=== PATIENT | male | born 1960 | race American Indian/Alaskan Native ===

== ENCOUNTER 2017-01-06 11:06 | Inpatient (IN) | payer MEDICAID ==
[2017-01-06] MEDS ORDERED: WATER FOR INJ (PF) 10 ML ONE ×2 (11:29→19:56)
[2017-01-06 11:56] LABS: Basophils % (Auto) 0.6 % (0.0-1.8); Hematocrit 43.8 % (35.5-45.6); Hemoglobin 14.3 gm/dl (11.8-15.2); Mean Corpuscular HGB Conc 33 % (32-34); Mean Corpuscular Hemoglobin 32 pg (28-32); Mean Corpuscular Volume 98 fl (84-94); Platelet Count 165 K/mm3 (140-440); Red Blood Count 4.47 M/mm3 (3.65-5.03); Red Cell Distribution Width 14.8 % (13.2-15.2); White Blood Count 5.5 K/mm3 (4.5-11.0)
--- NOTE | 2017-01-06 11:59 | XRay Report ---
AP CHEST: HISTORY: Shortness of breath Mild emphysematous changes are suspected in the upper lobes. There is no evidence for infiltrate, pleural effusion or pneumothorax. Normal heart and mediastinal structures. Normal bony thorax. IMPRESSION: Mild emphysematous changes. No acute process.
[2017-01-06 12:06] LABS: Creatine Kinase MB 4.7 ng/mL (0.0-4.0)
[2017-01-06 12:08] LABS: Anion Gap 19 mmol/L; BUN/Creatinine Ratio 13.33; Blood Urea Nitrogen 12 mg/dL (9-20); Calcium 9.6 mg/dL (8.4-10.2); Carbon Dioxide 21 mmol/L (22-30); Chloride 103.4 mmol/L (98-107); Creatine Kinase 278 units/L (55-170); Glucose 97 mg/dL (75-100); Potassium 4.4 mmol/L (3.6-5.0); Sodium 139 mmol/L (137-145)
[2017-01-06 12:20] LABS: Cholesterol 213 mg/dL (50-199); HDL Cholesterol 83 mg/dL (40-59); LDL Cholesterol,Direct 104 mg/dL (50-130); Triglycerides 134 mg/dL (2-149)
[2017-01-06 12:22] LABS: INR 1.05 (0.87-1.13)
--- NOTE | 2017-01-06 12:25 | Emergency Department Report ---
ED Shortness of Breath HPI - General Chief Complaint: Dyspnea/Respdistress Stated Complaint: SUDHAKAR/POSS STEMI Time Seen by Provider: 01/06/17 11:18 Source: patient, EMS, old records reviewed (no previous record available on [facility]) Mode of arrival: Stretcher Limitations: No Limitations - History of Present Illness Initial Comments: 56-year-old male past medical history COPD, AIDS, CHF, depression, and hypertension presents to the hospital complaints of shortness of breath 3-4 days. Positive intermittent wheezing reported. Patient using home and I she will with some improvement. Today while attempted to climb the stairs at his home he became severely short of breath, diaphoretic, and with associated wheezing. Patient used a nebulized treatment without improvement. Upon EMS arrival patient was satting 92 on room air with diminished breath sounds. He received Albuterol 5 mg, aspirin, nitroglycerin with some improvement in his symptoms. Patient denies shortness of breath at this time. No complaints of fever, cough, chest pain, edema, or calf tenderness. Patient does complain of a headache after receiving nitroglycerin. 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 at [facility] [place] Medications Medication Instructions Recorded Confirmed Last Taken Aspirin EC [Aspirin Enteric Coated 81 mg PO QDAC 01/07/17 01/07/17 01/05/17 TAB] AtorvaSTATin [Lipitor] 40 mg PO QHS 01/07/17 01/07/17 01/05/17 Atripla Tablet 600 mg PO DAILY 01/07/17 01/08/17 01/05/17 Escitalopram Oxalate [Lexapro] 20 mg PO DAILY 01/07/17 01/07/17 01/05/17 ISOSORBIDE MONOnitrate [Imdur ER] 30 mg PO DAILY 01/07/17 01/07/17 01/05/17 Metoprolol Xl [Metoprolol 50 mg PO DAILY 01/07/17 01/07/17 01/05/17 SUCCINATE ER TAB] Proventil 0.083% NEBS 0.083 container INHALATION Q6HR PRN 01/07/17 01/08/1702/14 Symbicort 160-4.5 (Nf) 160 device INHALATION BID 01/07/17 01/08/17 01/05/17 Zantac 150 MG TAB 150 mg PO BID 01/07/17 01/07/17 01/05/17 Allergies Allergy/AdvReac Type Severity Reaction Status Date / Time No Known Allergies Allergy Verified 01/06/17 12:26 ED Review of Systems ROS: Stated complaint: SUDHAKAR/POSS STEMI Other details as noted in HPI Comment: All other systems reviewed and negative Other: Constitutional: No fevers chills Eyes: No eye pain visual changes ENT: No ear pain or throat pain Neck: Denies pain Respiratory: as per hpi Cardiovascular: Denies chest pain GI: Denies abdominal pain, nausea, vomiting, diarrhea : Denies dysuria Musculoskeletal: Denies back pain Skin: Denies rash, lesions, erythema Neurologic: Denies numbness, weakness Psychiatric: Denies suicidal ideation, hallucinations ED Past Medical Hx - Past Medical History Previous Medical History?: Yes Hx Hypertension: Yes Hx Congestive Heart Failure: Yes Hx Psychiatric Treatment: (Depression) Hx COPD: Yes Hx HIV: Yes (AIDS) - Social History Smoking Status: Former Smoker Substance Use Type: Alcohol - Medications Home Medications: Home Medications Medication Instructions Recorded Confirmed Last Taken Type Aspirin EC [Aspirin Enteric Coated 81 mg PO QDAC 01/07/17 01/07/17 01/05/17 History TAB] AtorvaSTATin [Lipitor] 40 mg PO QHS 01/07/17 01/07/17 01/05/17 History Atripla Tablet 600 mg PO DAILY 01/07/17 01/08/17 01/05/17 History Escitalopram Oxalate [Lexapro] 20 mg PO DAILY 01/07/17 01/07/17 01/05/17 History ISOSORBIDE MONOnitrate [Imdur ER] 30 mg PO DAILY 01/07/17 01/07/17 01/05/17 History Metoprolol Xl [Metoprolol 50 mg PO DAILY 01/07/17 01/07/17 01/05/17 History SUCCINATE ER TAB] Proventil 0.083% NEBS 0.083 container INHALATION Q6HR PRN 01/07/17 01/08/1702/14 History Symbicort 160-4.5 (Nf) 160 device INHALATION BID 01/07/17 01/08/17 01/05/17 History Zantac 150 MG TAB 150 mg PO BID 01/07/17 01/07/17 01/05/17 History ED Physical Exam - General Limitations: No Limitations - Other Other exam information: General: No limitations, patient is alert in no acute distress Head exam: Atraumatic, normocephalic Eyes exam: Normal appearance ENT: Moist mucous membrane, normal oropharynx Neck exam: Normal inspection, full range of motion, no meningismus nontender Respiratory exam: Clear to auscultation bilateral, no wheezes, rales, crackles Cardiovascular: Normal rate and rhythm, normal heart sounds Abdomen: Soft, nondistended, and nontender, with normal bowel sounds, no rebound, or guarding Extremity: Full range of motion normal inspection no deformity, no calf tenderness or edema Back: Normal Inspection, full range of motion, no tenderness Neurologic: Alert, oriented x3, cranial nerves intact, no motor or sensory deficit Psychiatric: normal affect, normal mood Skin: Warm, dry, intact ED Course Vital Signs 01/06/17 01/06/17 01/06/17 11:02 11:13 11:20 Temperature 97.8 F Pulse Rate 92 H 90 90 Pulse Rate [ From Monitor] Respiratory 18 15 Rate Blood Pressure 118/87 O2 Sat by Pulse 93 Oximetry 01/06/17 01/06/17 01/06/17 11:21 11:31 12:00 Temperature Pulse Rate 77 76 Pulse Rate [ From Monitor] Respiratory 16 13 15 Rate Blood Pressure 118/87 100/65 O2 Sat by Pulse 95 90 Oximetry 01/06/17 01/06/17 01/06/17 12:31 13:00 13:31 Temperature Pulse Rate 65 69 71 Pulse Rate [ From Monitor] Respiratory 14 20 12 Rate Blood Pressure 100/65 99/67 99/67 O2 Sat by Pulse 96 96 96 Oximetry 01/06/17 01/06/17 01/06/17 14:13 14:30 15:00 Temperature Pulse Rate 79 76 75 Pulse Rate [ From Monitor] Respiratory 17 11 L 13 Rate Blood Pressure 109/71 128/78 O2 Sat by Pulse 97 96 95 Oximetry 01/06/17 01/06/17 01/06/17 15:30 15:49 16:00 Temperature Pulse Rate 81 81 Pulse Rate [ From Monitor] Respiratory 17 20 10 L Rate Blood Pressure 132/81 128/86 O2 Sat by Pulse 94 99 Oximetry 01/06/17 01/06/17 01/06/17 16:30 17:00 17:30 Temperature Pulse Rate 82 79 74 Pulse Rate [ From Monitor] Respiratory 16 13 15 Rate Blood Pressure 123/76 126/83 134/87 O2 Sat by Pulse 94 95 96 Oximetry 01/06/17 01/06/17 01/06/17 18:00 18:30 19:01 Temperature Pulse Rate 81 83 83 Pulse Rate [ From Monitor] Respiratory 16 17 19 Rate Blood Pressure 115/82 134/92 O2 Sat by Pulse 98 99 97 Oximetry 01/06/17 01/06/17 01/06/17 19:03 21:58 22:00 Temperature 98.9 F Pulse Rate 89 86 79 Pulse Rate [ 78 From Monitor] Respiratory 20 13 Rate Blood Pressure 92/31 O2 Sat by Pulse 96 98 Oximetry 01/06/17 01/06/17 22:15 22:30 Temperature Pulse Rate 76 Pulse Rate [ From Monitor] Respiratory 12 Rate Blood Pressure 131/95 O2 Sat by Pulse 97 97 Oximetry - Reevaluation(s) Reevaluation #1: 01/06/17 12:55 Dyspnea has improved. Patient received Solu-Medrol IV the ED. No further nebs provided at this time. Patient complains of mild stomach upset - Consultations Consultation #1: 01/06/17 10:42 Initial EKG provided by EMS suggested acute CT in the lateral leads however, the baseline is wavy. This was faxed to Dr. Renee door clamp operator at this time. No ST elevation CT identified. ED Medical Decision Making - Lab Data Result diagrams: 01/08/17 04:43 01/08/17 04:43 Lab Results 01/06/17 01/06/17 01/06/17 Range/Units 11:26 11:26 11:26 WBC 5.5 (4.5-11.0) K/mm3 RBC 4.47 (3.65-5.03) M/mm3 Hgb 14.3 (11.8-15.2) gm/dl Hct 43.8 (35.5-45.6) % MCV 98 H (84-94) fl MCH 32 (28-32) pg MCHC 33 (32-34) % RDW 14.8 (13.2-15.2) % Plt Count 165 (140-440) K/mm3 Lymph % (Auto) 23.1 (13.4-35.0) % [place] % (Auto) 9.6 H (0.0-7.3) % Eos % (Auto) 1.0 (0.0-4.3) % Baso % (Auto) 0.6 (0.0-1.8) % Lymph # 1.3 (1.2-5.4) K/mm3 [place] # 0.5 (0.0-0.8) K/mm3 Eos # 0.1 (0.0-0.4) K/mm3 Baso # 0.0 (0.0-0.1) K/mm3 Seg Neutrophils % 65.7 (40.0-70.0) % Seg Neutrophils # 3.6 (1.8-7.7) K/mm3 PT 13.6 (12.2-14.9) Sec. INR 1.05 (0.87-1.13) D-Dimer (0-234) ng/mlDDU Sodium 139 (137-145) mmol/L Potassium 4.4 (3.6-5.0) mmol/L Chloride 103.4 (98-107) mmol/L Carbon Dioxide 21 L (22-30) mmol/L Anion Gap 19 mmol/L BUN 12 (9-20) mg/dL Creatinine 0.9 (0.8-1.5) mg/dL Estimated GFR > 60 ml/min BUN/Creatinine Ratio 13.33 % Glucose 97 (75-100) mg/dL Calcium 9.6 (8.4-10.2) mg/dL Total Creatine Kinase 278 H (55-170) units/L CK-MB (CK-2) 4.7 H (0.0-4.0) ng/mL CK-MB (CK-2) Rel Index 1.6 (0-4) Troponin T 0.071 H (0.00-0.029) ng/mL NT-Pro-B Natriuret Pep (0-900) pg/mL Triglycerides 134 (2-149) mg/dL Cholesterol 213 H (50-199) mg/dL LDL Cholesterol Direct 104 (50-130) mg/dL HDL Cholesterol 83 H (40-59) mg/dL Cholesterol/HDL Ratio 2.56 % 01/06/17 01/06/17 01/06/17 Range/Units 11:26 12:26 13:09 WBC (4.5-11.0) K/mm3 RBC (3.65-5.03) M/mm3 Hgb (11.8-15.2) gm/dl Hct (35.5-45.6) % MCV (84-94) fl MCH (28-32) pg MCHC (32-34) % RDW (13.2-15.2) % Plt Count (140-440) K/mm3 Lymph % (Auto) (13.4-35.0) % [place] % (Auto) (0.0-7.3) % Eos % (Auto) (0.0-4.3) % Baso % (Auto) (0.0-1.8) % Lymph # (1.2-5.4) K/mm3 [place] # (0.0-0.8) K/mm3 Eos # (0.0-0.4) K/mm3 Baso # (0.0-0.1) K/mm3 Seg Neutrophils % (40.0-70.0) % Seg Neutrophils # (1.8-7.7) K/mm3 PT (12.2-14.9) Sec. INR (0.87-1.13) D-Dimer 458.8 H (0-234) ng/mlDDU Sodium (137-145) mmol/L Potassium (3.6-5.0) mmol/L Chloride (98-107) mmol/L Carbon Dioxide (22-30) mmol/L Anion Gap mmol/L BUN (9-20) mg/dL Creatinine (0.8-1.5) mg/dL Estimated GFR ml/min BUN/Creatinine Ratio % Glucose (75-100) mg/dL Calcium (8.4-10.2) mg/dL Total Creatine Kinase 282 H (55-170) units/L CK-MB (CK-2) 5.3 H (0.0-4.0) ng/mL CK-MB (CK-2) Rel Index 1.8 (0-4) Troponin T 0.145 H* D (0.00-0.029) ng/mL NT-Pro-B Natriuret Pep 68.58 (0-900) pg/mL Triglycerides (2-149) mg/dL Cholesterol (50-199) mg/dL LDL Cholesterol Direct (50-130) mg/dL HDL Cholesterol (40-59) mg/dL Cholesterol/HDL Ratio % - EKG Data -: EKG Interpreted by Me (sinus rate [address] elevation or T-wave inversion) - Radiology Data Radiology results: report reviewed (chest x-ray: Mild emphysematous changes, no acute findings) - Medical Decision Making Initial EMS EKG identified as possible CT. This was evaluated by door clamp operator prior to patient's arrival and no CT identified. Repeat EKG upon patient arrival showed normal sinus without any signs of ST elevation or T-wave inversions. Patient does have mild troponin elevation. No complaints of chest pain and no signs of renal insufficiency. Patient will be admitted to the hospital for repeat cardiac enzymes and further evaluation. D-dimer has been ordered to rule out PE as cause of dyspnea and mild troponin elevation. CT angiogram order for mild d-dimer elevation. repeat troponins pending ct angio + for multiple PE and a saddle. mild incr in trop, Lovenox ordered. Hospitalist informed - Differential Diagnosis CT, unstable angina, PE, COPD, bronchitis Critical Care Time: No Critical care attestation.: If time is entered above; I have spent that time in minutes in the direct care of this critically ill patient, excluding procedure time. ED Disposition Clinical Impression: Dyspnea, Elevated troponin, COPD with exacerbation, Pulmonary emboli, Saddle pulmonary embolus Disposition: OP ADMIT IP TO THIS HOSP Is pt being admited?: Yes Condition: Stable Time of Disposition: 12:25 (Dr martin/hosp)
--- NOTE | 2017-01-06 12:45 | Admit Criteria Form ---
Admission Criteria Documentation: PULMONARY EMBOLISM Clinical Indications for Admission to Inpatient Care (Place 'X' for any and all applicable criteria): Admission is indicated by ANY ONE of the following 1,2,3,4,5 [ ]I. Onset of hypoxia [ ]II. Hemodynamic instability 5 [ ]III. Massive pulmonary embolism (eg, acute embolism causing sustained hypotension, pulselessness, or bradycardia)5 [ ]IV. Need for IV narcotics (eg, to treat dyspnea) [ ]V. Current use of home oxygen therapy [ ]. Active bleeding [ ]VII. Recent surgery [ ]VIII. Active peptic ulcer disease [ ]IX. Documented extensive thrombosis (eg, clot in vena cava or above iliofemoral bifurcation) [ ]X. Embolism while on anticoagulation [ ]XI. 6 [ ]XII. Appropriate monitoring and therapy cannot be provided in home or outpatient setting. [ ]XIII. Systemic or catheter-directed thrombolysis 5,7 [ ]XIV. Catheter embolectomy and fragmentation 6 [ ]XV. Vena cava filter placement5 [ ]XVI. Severely diminished cardiopulmonary reserve (eg, cor pulmonale, pulmonary hypertension) [ ]XVII. Severe renal failure (eg, GFR less than 30 mL/min/1.73m2 (0.5 mL/sec/ 1.73m2)) [ ]XVIII.Right ventricular dysfunction (eg, by echocardiogram) 6,11 [X ]XIX. Positive cardiac biomarker (eg, troponin T or I > 0.1 ng/mL (mcg/L), highly sensitive troponin I assay greater than 0.014 ng/mL (mcg/L), BNP or NT proBNP > assay threshold)5,8,9 [ ]XX. Known clotting abn or def (eg, liver disease, antithrombin III, protein C, or protein S abnormality) [ ]XXI. History of heparin-induced thrombocytopenia [ ]XXII. Inpatient admission required rather than observation care (Also use Pulmonary Embolism: Observation Care guideline as appropriate) because of ANY ONE of the following: [ ] a) Significant autoimmune (thrombocytopenia) or coagulopathic reaction occurs in response to anticoagulation [ ] b) Respiratory symptoms (eg, tachypnea, dyspnea) that are severe or persistent [ ] c) Other condition, treatment, or monitoring requiring inpatient admission Extended stay beyond goal length of stay may be needed for 3,28 [ ]a) Hemorrhage or recent surgery [ ]b) Recurrent thromboembolism [ ]c) Persistent hypoxemia [ ]d) Heparin-induced thrombocytopenia The original [facility] [employer] content created by [facility] [employer] has been revised. The portions of the content which have been revised are identified through the use of italic text or in bold, and [facility] has neither reviewed nor approved the modified material. All other unmodified content is copyright [facility] [employer]. Please see references footnoted in the original [facility] [employer] edition 2016 Admission Criteria Met: Yes
--- NOTE | 2017-01-06 13:05 | History and Physical Report ---
History of Present Illness Chief complaint: I cant breathe worth anything History of present illness: 56 YO Male with AIDS, CHF, Depression, COPD, HTN presents to ED for evaluation. Pt states that he has experienced shortness of breath for the past 4 days with worsening symptoms over the past 12 hours. Pt states that he attempted to climb the stairs at his home he became severely short of breath, diaphoretic, and used a nebulizer treatment without improvement. Pt acknowledges chest discomfort with deep breathing only. Pt denies fever, productive cough, chest pain, palpitations, NVD, edema, leg pain, calf tenderness, prolonged travel/ immobililty, individual/family history of DVT/PE, hemoptysis, syncope, trauma, or recent ill contacts. Past History Past Medical History: COPD, heart failure, hypertension, other (Aids) Past Surgical History: No surgical history, Other (reviewed) Social history: single, lives with family. denies: smoking, alcohol abuse, prescription drug abuse Family history: diabetes, hypertension Medications and Allergies Allergies Allergy/AdvReac Type Severity Reaction Status Date / Time No Known Allergies Allergy Verified 01/06/17 12:26 Home Medications Medication Instructions Recorded Confirmed Last Taken Type Unobtainable 01/06/17 01/06/17 Unknown History Review of Systems All systems: negative Cardiovascular: shortness of breath Exam - Constitutional Vitals: Temp Pulse Resp BP Pulse Ox 97.8 F 65 14 100/65 96 01/06/17 11:13 01/06/17 12:31 01/06/17 12:31 01/06/17 12:31 01/06/17 12:31 General appearance: Present: mild distress - EENT Eyes: Present: PERRL ENT: hearing intact, clear oral mucosa - Neck Neck: Present: supple, normal ROM - Respiratory Respiratory effort: normal Respiratory: bilateral: diminished - Cardiovascular Heart Sounds: Present: S1 & S2. Absent: rub, click - Extremities Extremities: pulses symmetrical, No edema Peripheral Pulses: within normal limits - Abdominal General gastrointestinal: Present: soft, non-tender, non-distended, normal bowel sounds Male genitourinary: Present: normal - Integumentary Integumentary: Present: clear, warm, dry - Musculoskeletal Musculoskeletal: gait normal, strength equal bilaterally - Psychiatric Psychiatric: appropriate mood/affect, intact judgment & insight - Neurologic Neurologic: CNII-XII intact, moves all extremities Results - Labs CBC & Chem 7: 01/06/17 11:26 01/06/17 11:26 Labs: Abnormal lab results 01/06/17 01/06/17 Range/Units 11:26 11:26 MCV 98 H (84-94) fl [place] % (Auto) 9.6 H (0.0-7.3) % Carbon Dioxide 21 L (22-30) mmol/L Total Creatine Kinase 278 H (55-170) units/L CK-MB (CK-2) 4.7 H (0.0-4.0) ng/mL Troponin T 0.071 H (0.00-0.029) ng/mL Cholesterol 213 H (50-199) mg/dL HDL Cholesterol 83 H (40-59) mg/dL Assessment and Plan - Patient Problems (1) Acute respiratory failure Current Visit: Yes Status: Acute Qualifiers: Respiratory failure complication: hypoxia Qualified Code(s): J96.01 - Acute respiratory failure with hypoxia Plan to address problem: Supplemental oxygen, nebs, aspiration precautions, pulmonary toilet, supportive care, (2) CHF (congestive heart failure) Current Visit: Yes Status: Acute Qualifiers: Congestive heart failure type: C Congestive heart failure chronicity: C Plan to address problem: Admit to Telemetry, fluid restriction, afterload reduction, serial cardiac enzymes, ekg, supportive care, echo, ddimer (3) STEMI (ST elevation myocardial infarction) Current Visit: Yes Status: Acute Qualifiers: Involved coronary artery: I Plan to address problem: serial cardiac enzymes,ekg, telemetry, heparin drip protocol (4) AIDS Current Visit: Yes Status: Acute Plan to address problem: resume home medication, supportive care. (5) Saddle pulmonary embolus Current Visit: Yes Status: Acute Qualifiers: Chronicity: C Acute cor pulmonale presence: A Plan to address problem: IR consulted for possible Ekos therapy, stat echo ordered, continue therapeutic anticoagulation. Care plan discussed with IR team. (6) DVT prophylaxis Current Visit: Yes Status: Acute
[2017-01-06] MEDS ORDERED: ZOFRAN IV PRN (13:08)
[2017-01-06] MEDS ORDERED: DULCOLAX PR PRN (13:08)
[2017-01-06] MEDS ORDERED: TYLENOL PO PRN (13:08)
[2017-01-06] MEDS ORDERED: SODIUM CHLORIDE FLUSH SYRINGE 10 ML IV PRN (13:08)
[2017-01-06] MEDS ORDERED: MILK OF MAGNESIA PO PRN (13:08)
[2017-01-06] MEDS ORDERED: NACL ONE (13:44)
[2017-01-06 13:57] LABS: Creatine Kinase MB 5.3 ng/mL (0.0-4.0)
[2017-01-06] MEDS ORDERED: LOVENOX SUB-Q ONE ×2 (14:14→15:00)
--- NOTE | 2017-01-06 14:21 | Cat Scan Report ---
CTA CHEST INDICATION: Shortness of breath, elevated d-dimer. COMPARISON: None similar. FINDINGS: Chest CTA performed following intravenous administration of 100 cc of Omnipaque 350. Rotational MIP's also obtained. Normal heart size. Small anterior pericardial thickening or effusion measuring 1.9 cm AP, axial image 198, series 2. No aortic aneurysm or dissection. Slight pulmonary arterial hypertension. Saddle embolus across main pulmonary artery bifurcation noted as also clot extension into the upper, mid and lower lung zone pulmonary artery branches bilaterally, most involving left upper lobe pulmonary artery branches anteriorly, axial series 2, images 105-150. Patent airway. No size significant adenopathy. Small left hilar calcifications. Normal imaged thyroid. Mild bilateral emphysematous changes, more so involving the upper lobes and lower lung zones. Small bilateral pleural effusions, right greater than left and mild bibasilar atelectasis or scarring. Nonspecific distal esophageal wall prominence/thickening, not excluded for gastroesophageal reflux and/or hiatal hernia, amongst others. Small splenic calcified granuloma without other significant imaged upper abdominal abnormality. Few multilevel imaged spinal degenerative changes. CONCLUSION: 1. Bilateral pulmonary embolism, including a saddle embolus noted across the main pulmonary artery bifurcation, as described. Mild pulmonary arterial hypertension. 2. Small bibasilar pleural effusions and atelectasis as well. 3. Few other findings, including old healed granulomatous disease and underlying COPD, as described. I phoned the above results to Dr. Millard in the ER, 2:05 PM, 01/06/2017. Thank you for the opportunity to participate in this patient's care.
[2017-01-06] MEDS: PERCOCET 5/325 PO PRN ×2 (15:49→22:15)
[2017-01-06] MEDS ORDERED: HEPARIN 10,000 UNITS/10 ML IV ONE (16:00)
[2017-01-06 16:07] LABS: Creatine Kinase MB 5.7 ng/mL (0.0-4.0)
[2017-01-06] MEDS: HEPARIN/ 0.45% NACL-25,000 UNIT/500 ML 25,000 UNIT/500 ML BAG IV SCH (17:29)
--- NOTE | 2017-01-06 18:40 | Consultation ---
History of Present Illness - Reason for Consult Consult date: 01/06/17 - History of Present Illness This is a 56-year-old male who began to experience acute shortness of breath and diaphoresis this morning after climbing up a set of stairs. He was taken by ambulance to the ER, where a CTA was performed which shows a saddle pulmonary embolism. Currently, he is resting comfortably, in no acute distress. His heart rate is within normal limits, and he is satting well with supplemental O2. He is not complaining of chest pain at this time. Past History Past Medical History: COPD, heart failure, hypertension, other (Aids) Past Surgical History: No surgical history, Other (reviewed) Social history: single, lives with family. denies: smoking, alcohol abuse, prescription drug abuse Family history: diabetes, hypertension Medications and Allergies Allergies Allergy/AdvReac Type Severity Reaction Status Date / Time No Known Allergies Allergy Verified 01/06/17 12:26 Home Medications Medication Instructions Recorded Confirmed Last Taken Type Unobtainable 01/06/17 01/06/17 Unknown History Active Meds: Active Medications Acetaminophen (Tylenol) 650 mg PO Q4H PRN PRN Reason: Pain MILD(1-3)/Fever >100.5/EDEN Bisacodyl (Dulcolax) 10 mg ND QDAY PRN PRN Reason: Constipation unrelieved by MOM Heparin Sodium/Sodium Chloride (Heparin/ 0.45% Nacl-25,000 Unit/500 Ml) 25,000 unit in 500 mls @ 24 mls/hr IV TITR ROSEMARIE; 1,200 UNITS/HR PRN Reason: Protocol Last Admin: 01/06/17 17:29 Dose: 1,200 units/hr, 24 mls/hr Magnesium Hydroxide (Milk Of Magnesia) 30 ml PO Q4H PRN PRN Reason: Constipation Ondansetron HCl (Zofran) 4 mg IV Q8H PRN PRN Reason: N/V unrelieved by Reglan Oxycodone/Acetaminophen (Percocet 5/325) 1 tab PO Q6H PRN PRN Reason: Pain, Moderate (4-6) Last Admin: 01/06/17 15:49 Dose: 1 tab Sodium Chloride (Sodium Chloride Flush Syringe 10 Ml) 10 ml IV PRN PRN PRN Reason: LINE FLUSH Exam - Constitutional Vitals: Temp Pulse Resp BP Pulse Ox 97.8 F 74 15 134/87 96 01/06/17 11:13 01/06/17 17:30 01/06/17 17:30 01/06/17 17:30 01/06/17 17:30 Results - Labs CBC & Chem 7: 01/06/17 11:26 01/06/17 11:26 Labs: Abnormal lab results 01/06/17 01/06/17 Range/Units 13:09 15:33 Total Creatine Kinase 282 H 286 H (55-170) units/L CK-MB (CK-2) 5.3 H 5.7 H (0.0-4.0) ng/mL Troponin T 0.145 H* D 0.118 H* (0.00-0.029) ng/mL Assessment and Plan Mr. Howard has a large saddle pulmonary embolism. Although he is normotensive and not tachycardic, echocardiography has revealed evidence of significant right heart strain. Additionally, troponins are slightly elevated, with the last level being 0.118. Therefore, I will take him to the label cutter for EKOS catheter placement.
[2017-01-06] MEDS ORDERED: XYLOCAINE 2% INFILTRATI ONE (19:38)
[2017-01-06] MEDS ORDERED: HEPARIN/NS 5000 UNIT/500ML(CATH LAB) 1,000 ML IR ONE (19:38)
[2017-01-06] MEDS ORDERED: CATHFLO ONE ×2 (19:38→20:35)
[2017-01-06] MEDS: SUBLIMAZE ONE ×2 (19:55→20:26)
[2017-01-06] MEDS ORDERED: NACL 0.9% 1000 ML 1,000 ML EKOSCLUMEN SCH ×2 (20:00→21:00)
[2017-01-06] MEDS ORDERED: NACL 0.9% 1000 ML 1,000 ML SHEATH SCH ×2 (20:00)
[2017-01-06] MEDS ORDERED: ANCEF/STERILE WATER 2 GM/20 ML 2 GM/20 ML SYRINGE IV ONE (20:09)
[2017-01-06] MEDS ORDERED: CATHFLO 10 MG in NACL 0.9% 250ML 250 ML EKOSDLUMEN SCH (20:30)
[2017-01-06] MEDS ORDERED: HEPARIN/ 0.45% NACL-25,000 UNIT/500 ML 25,000 UNIT/500 ML BAG SHEATH SCH ×2 (20:30→21:00)
[2017-01-06] MEDS ORDERED: CATHFLO 10 MG in NACL 0.9% 250ML 250 ML IV SCH (20:30)
[2017-01-06] MEDS: HEPARIN 10,000 UNITS/10 ML ONE (20:31)
--- NOTE | 2017-01-06 21:27 | Operative Report ---
Operative Report Operative Report: Procedure: 1. Ultrasound-guided access of the right common femoral vein. 2. Selective left and right pulmonary angiography. 3. Placement of bilateral EKos ultrasonic infusion catheters. Date of procedure: 01/06/2017 Physician: Luis Moss MD Indication: This is a 56-year-old male who experienced a sudden onset of shortness of breath and diaphoresis this morning. He came to the ER, and a CTA revealed a large saddle pulmonary embolus. Subsequent echocardiography demonstrated significant right heart strain, with septal bowing and right ventricular hypokinesis. Procedure: The patient was placed in the supine position and prepped and draped in the usual sterile fashion. A timeout was performed. Local anesthesia was administered. Under continuous ultrasound guidance, the right common femoral vein was cannulated with an 18-gauge needle. This was exchanged over a short 035 wire for a 6 Romansh vascular sheath. A second vascular sheath was placed in a similar fashion approximately half a centimeter above the first one. A combination of a JR 4 catheter and Moreno wire was advanced into the right ventricle and ultimately used to select the left main pulmonary artery. Left pulmonary arteriography was performed from multiple positions. The JR 4 catheter was then replaced with the EKos IDDC catheter. The microsonic delivery catheter was then inserted and secured. A similar combination of steps was performed through the second vascular sheath for the right pulmonary artery. Both vascular sheaths and IDDC catheters were secured to the skin and to each other with 2-0 Ethilon suture. 4 mg of tPA were infused as a bolus into each catheter. Sterile dressings were applied, and the patient was transferred off the table in stable condition. Findings: Pulmonary arteriography demonstrates multiple, large filling defects in both the right and left pulmonary arteries, extending into the segmental branches. This is consistent with findings on recent CT angiography from earlier today. There is successful placement of bilateral EKos catheters in the pulmonary arteries
[2017-01-06] MEDS: MORPHINE IV PRN (23:12)
[2017-01-07] MEDS: MORPHINE IV PRN
[2017-01-07] MEDS ORDERED: MORPHINE IV PRN (01:10)
[2017-01-07] MEDS: PERCOCET 5/325 PO PRN (02:45)
[2017-01-07] MEDS ORDERED: XANAX PO PRN (03:44)
[2017-01-07] MEDS: DILAUDID IV PRN ×3 (03:53→18:27)
[2017-01-07] MEDS ORDERED: HEPARIN/NS 5000 UNIT/500ML(CATH LAB) 0 ML IR ONE (08:09)
[2017-01-07] MEDS ORDERED: HEPARIN 10,000 UNITS/10 ML ONE ×3 (08:09→14:37)
[2017-01-07] MEDS ORDERED: VERSED ONE ×2 (08:10→13:43)
[2017-01-07] MEDS ORDERED: CALAN ONE (08:10)
[2017-01-07] MEDS ORDERED: SUBLIMAZE ONE ×2 (08:10→13:43)
[2017-01-07] MEDS ORDERED: XYLOCAINE 2% INFILTRATI ONE (08:10)
[2017-01-07] MEDS ORDERED: NITROGLYCERIN SYRINGE 0 ML ONE (08:11)
--- NOTE | 2017-01-07 09:30 | Progress Note ---
Assessment and Plan Assessment and plan: Acute bilateral pulmonary embolism and saddle embolism. Status post EKOS catheter placement and is on thrombolysis with Alteplase. Also on Heparin drip. Pulmonology and IR following. COPD. albuterol prn AIDS. Details unclear. Not on meds Chronic systolic CHF. Betablocker on hold because borderline low BP Elevated Troponin likely due to Pulmonary embolism Full code status History Interval history: Patient presented with chest pain, was diagnosed with acute bilateral pulmonary embolism and saddle embolism. No chest pain currently Hospitalist Physical - Physical exam Narrative exam: Gen: appearance :Not in acute distress, HEENT: normocephalic atraumatic Neck :supple no JVD Lungs: Decreased breath sounds bilaterally, no crackles, or wheezes Heart:S1 and S2 regular, no murmurs, no gallop, no rubs Abdomen soft, nontender, nondistended, normal bowel sounds Extremities: no edema, no clubbing, or cyanosis Neuro : Awake alert oriented 3, no focal neurologic signs Psych: calm - Constitutional Vitals: Temp Pulse Resp BP Pulse Ox 98.4 F 60 16 129/84 96 01/07/17 08:00 01/07/17 08:00 01/07/17 09:24 01/07/17 08:00 01/07/17 08:09 General appearance: Present: mild distress Results - Labs CBC & Chem 7: 01/07/17 10:58 01/06/17 11:26 Labs: Laboratory Last Values WBC 5.5 K/mm3 (4.5-11.0) 01/06/17 11:26 RBC 4.47 M/mm3 (3.65-5.03) 01/06/17 11:26 Hgb 14.3 gm/dl (11.8-15.2) 01/06/17 11:26 Hct 43.8 % (35.5-45.6) 01/06/17 11:26 MCV 98 fl (84-94) H 01/06/17 11:26 MCH 32 pg (28-32) 01/06/17 11:26 MCHC 33 % (32-34) 01/06/17 11:26 RDW 14.8 % (13.2-15.2) 01/06/17 11:26 Plt Count 165 K/mm3 (140-440) 01/06/17 11:26 Lymph % (Auto) 23.1 % (13.4-35.0) 01/06/17 11:26 [place] % (Auto) 9.6 % (0.0-7.3) H 01/06/17 11:26 Eos % (Auto) 1.0 % (0.0-4.3) 01/06/17 11:26 Baso % (Auto) 0.6 % (0.0-1.8) 01/06/17 11:26 Lymph # 1.3 K/mm3 (1.2-5.4) 01/06/17 11:26 [place] # 0.5 K/mm3 (0.0-0.8) 01/06/17 11:26 Eos # 0.1 K/mm3 (0.0-0.4) 01/06/17 11:26 Baso # 0.0 K/mm3 (0.0-0.1) 01/06/17 11:26 Seg Neutrophils % 65.7 % (40.0-70.0) 01/06/17 11:26 Seg Neutrophils # 3.6 K/mm3 (1.8-7.7) 01/06/17 11:26 PT 13.6 Sec. (12.2-14.9) 01/06/17 11:26 INR 1.05 (0.87-1.13) 01/06/17 11:26 Fibrinogen 274 mg/dl (211-480) 01/06/17 20:20 D-Dimer 7307.46 ng/mlDDU (0-234) H 01/06/17 20:20 Heparin Anti-Xa Level 2.00 U.I./ml (0.3-0.7) H 01/06/17 22:43 Sodium 139 mmol/L (137-145) 01/06/17 11:26 Potassium 4.4 mmol/L (3.6-5.0) 01/06/17 11:26 Chloride 103.4 mmol/L (98-107) 01/06/17 11:26 Carbon Dioxide 21 mmol/L (22-30) L 01/06/17 11:26 Anion Gap 19 mmol/L 01/06/17 11:26 BUN 12 mg/dL (9-20) 01/06/17 11:26 Creatinine 0.9 mg/dL (0.8-1.5) 01/06/17 11:26 Estimated GFR > 60 ml/min 01/06/17 11:26 BUN/Creatinine Ratio 13.33 % 01/06/17 11:26 Glucose 97 mg/dL (75-100) 01/06/17 11:26 Calcium 9.6 mg/dL (8.4-10.2) 01/06/17 11:26 Total Creatine Kinase 311 units/L (55-170) H 01/06/17 19:11 CK-MB (CK-2) 7.0 ng/mL (0.0-4.0) H 01/06/17 19:11 CK-MB (CK-2) Rel Index 2.2 (0-4) 01/06/17 19:11 Troponin T 0.083 ng/mL (0.00-0.029) H D 01/06/17 19:11 NT-Pro-B Natriuret Pep 68.58 pg/mL (0-900) 01/06/17 11:26 Triglycerides 134 mg/dL (2-149) 01/06/17 11:26 Cholesterol 213 mg/dL (50-199) H 01/06/17 11:26 LDL Cholesterol Direct 104 mg/dL (50-130) 01/06/17 11:26 HDL Cholesterol 83 mg/dL (40-59) H 01/06/17 11:26 Cholesterol/HDL Ratio 2.56 % 01/06/17 11:26
--- NOTE | 2017-01-07 10:58 | Consultation ---
History of Present Illness - Reason for Consult Consult date: 01/07/17 EKOS, POST care in ICU Requesting physician: JULY NAJERA - History of Present Illness 56 y/o male with PE, status post EKOS therapy, admitted to the ICU for post EKOS care. Stable this am. No complaints. Awaiting on catheters to be removed. Past History Past Medical History: COPD, heart failure, hypertension, other (Aids) Past Surgical History: No surgical history, Other (reviewed) Social history: single, lives with family. denies: smoking, alcohol abuse, prescription drug abuse Family history: diabetes, hypertension Medications and Allergies Allergies Allergy/AdvReac Type Severity Reaction Status Date / Time No Known Allergies Allergy Verified 01/06/17 12:26 Home Medications Medication Instructions Recorded Confirmed Last Taken Type Unobtainable 01/06/17 01/06/17 Unknown History Active Meds: Active Medications Acetaminophen (Tylenol) 650 mg PO Q4H PRN PRN Reason: Pain MILD(1-3)/Fever >100.5/EDEN Alprazolam (Xanax) 0.5 mg PO Q8H PRN PRN Reason: Anxiety Last Admin: 01/07/17 03:54 Dose: 0.5 mg Bisacodyl (Dulcolax) 10 mg WI QDAY PRN PRN Reason: Constipation unrelieved by MOM Hydromorphone HCl (Dilaudid) 1 mg IV Q2H PRN PRN Reason: Pain , Severe (7-10) Last Admin: 01/07/17 09:24 Dose: 1 mg Heparin Sodium/Sodium Chloride (Heparin/ 0.45% Nacl-25,000 Unit/500 Ml) 25,000 unit in 500 mls @ 24 mls/hr IV TITR ROSEMARIE; 1,200 UNITS/HR PRN Reason: Protocol Last Admin: 01/06/17 17:29 Dose: 1,200 units/hr, 24 mls/hr Alteplase, Recombinant 10 mg/ (Sodium Chloride) 250 mls @ 10 mls/hr IV DIRECT ROSEMARIE Last Admin: 01/06/17 21:30 Dose: 250 mls Alteplase, Recombinant 10 mg/ (Sodium Chloride) 250 mls @ 10 mls/hr EKOSDLUMEN DIRECT ROSEMARIE Last Admin: 01/06/17 21:30 Dose: 250 mls Heparin Sodium/Sodium Chloride (Heparin/ 0.45% Nacl-25,000 Unit/500 Ml) 25,000 unit in 500 mls @ 10 mls/hr SHEATH DIRECT ROSEMARIE; 500 UNITS/HR PRN Reason: Protocol Last Admin: 01/06/17 21:30 Dose: 500 mls Heparin Sodium/Sodium Chloride (Heparin/ 0.45% Nacl-25,000 Unit/500 Ml) 25,000 unit in 500 mls @ 10 mls/hr SHEATH DIRECT ROSEMARIE; 500 UNITS/HR PRN Reason: Protocol Last Admin: 01/06/17 21:30 Dose: 500 mls Sodium Chloride (Nacl 0.9% 1000 Ml) 1,000 mls @ 35 mls/hr EKOSCLUMEN DIRECT ROSEMARIE Last Admin: 01/06/17 21:30 Dose: 1,000 mls Sodium Chloride (Nacl 0.9% 1000 Ml) 1,000 mls @ 30 mls/hr SHEATH DIRECT ROSEMARIE Sodium Chloride (Nacl 0.9% 1000 Ml) 1,000 mls @ 35 mls/hr EKOSCLUMEN DIRECT ROSEMARIE Last Admin: 01/06/17 21:30 Dose: 1,000 mls Sodium Chloride (Nacl 0.9% 1000 Ml) 1,000 mls @ 30 mls/hr SHEATH DIRECT ROSEMARIE Magnesium Hydroxide (Milk Of Magnesia) 30 ml PO Q4H PRN PRN Reason: Constipation Morphine Sulfate (Morphine) 2 mg IV Q2HR PRN PRN Reason: Pain, Moderate (4-6) Last Admin: 01/07/17 01:23 Dose: 2 mg Ondansetron HCl (Zofran) 4 mg IV Q8H PRN PRN Reason: N/V unrelieved by Regalon Last Admin: 01/06/17 23:12 Dose: 4 mg Oxycodone/Acetaminophen (Percocet 5/325) 1 tab PO Q6H PRN PRN Reason: Pain, Moderate (4-6) Last Admin: 01/07/17 02:45 Dose: 1 tab Sodium Chloride (Sodium Chloride Flush Syringe 10 Ml) 10 ml IV PRN PRN PRN Reason: LINE FLUSH Review of Systems All systems: negative Exam - Constitutional Vitals: Temp Pulse Resp BP Pulse Ox 98.4 F 67 12 121/88 92 01/07/17 08:00 01/07/17 10:30 01/07/17 10:30 01/07/17 10:30 01/07/17 10:30 Results - Labs CBC & Chem 7: 01/06/17 11:26 01/06/17 11:26 Labs: Abnormal lab results 01/06/17 01/06/17 01/06/17 Range/Units 13:09 15:33 19:11 D-Dimer (0-234) ng/mlDDU Heparin Anti-Xa Level (0.3-0.7) U.I./ml Total Creatine Kinase 282 H 286 H 311 H (55-170) units/L CK-MB (CK-2) 5.3 H 5.7 H 7.0 H (0.0-4.0) ng/mL Troponin T 0.145 H* D 0.118 H* 0.083 H D (0.00-0.029) ng/mL 01/06/17 01/06/17 Range/Units 20:20 22:43 D-Dimer 7307.46 H (0-234) ng/mlDDU Heparin Anti-Xa Level 2.00 H (0.3-0.7) U.I./ml Total Creatine Kinase (55-170) units/L CK-MB (CK-2) (0.0-4.0) ng/mL Troponin T (0.00-0.029) ng/mL - Imaging and Cardiology CT scan - chest: report reviewed Assessment and Plan 56 y/o male with saddle PE and acute respiratory failure status post EKOS therapy 1. Follow up Vascular surgery recs 2. Send CBC this am as not done 3. Once catheters removed and observed, should be stable for transfer to the floor. 4. Recommend at least PRN neb therapy.
[2017-01-07 11:29] LABS: Hematocrit 43.3 % (35.5-45.6); Hemoglobin 14.4 gm/dl (11.8-15.2); Mean Corpuscular HGB Conc 33 % (32-34); Mean Corpuscular Hemoglobin 32 pg (28-32); Mean Corpuscular Volume 97 fl (84-94); Platelet Count 159 K/mm3 (140-440); Red Blood Count 4.45 M/mm3 (3.65-5.03); Red Cell Distribution Width 14.6 % (13.2-15.2); White Blood Count 6.2 K/mm3 (4.5-11.0)
[2017-01-07] MEDS ORDERED: XYLOCAINE 1%/ EPI 1:100,000 INFILTRATI ONE (13:43)
[2017-01-07] MEDS ORDERED: HEPARIN/NS 5000 UNIT/500ML(CATH LAB) 500 ML IR ONE (13:43)
[2017-01-07] MEDS ORDERED: ANCEF/STERILE WATER 2 GM/20 ML 2 GM/20 ML SYRINGE IV ONE (13:44)
[2017-01-07] MEDS ORDERED: NACL 0.9% 500 ML 500 ML ONE (13:52)
[2017-01-07] MEDS: SUBLIMAZE ONE (14:18)
[2017-01-07] MEDS: HEPARIN 10,000 UNITS/10 ML ONE (14:45)
--- NOTE | 2017-01-07 15:12 | Operative Report ---
Operative Report Operative Report: Procedure: 1. Bilateral pulmonary angiography. 2. Removal of bilateral Ekos catheters. Date of procedure: 01/07/2017 Physician: Luis Moss MD Indication: This is a 56-year-old male presenting to the ER with a saddle pulmonary embolism , with right heart dysfunction. He underwent Ekos catheter placement overnight. He returns today for follow-up imaging. Procedure: The patient was placed in the supine position and prepped and draped in the usual sterile fashion. A timeout was performed. The micro-sonic inner catheter was removed from the IDDC on the left side. This was then exchanged over a Moreno wire for a 5 Micronesian pigtail flush catheter. Left pulmonary angiography was performed. A similar series of steps was performed for the right pulmonary circulation, except a 6 Micronesian JR 4 catheter was used rather than the pigtail flush catheter. All wires and catheters were removed. Hemostasis was achieved with manual compression. Sterile dressings were placed. The patient was transported safely off the table in stable condition. Findings: The majority of the clot burden seen on yesterday's imaging has resolved. There are a few scattered foci within both the right and left pulmonary arterial circulation representing residual clot, however the appearance is markedly reduced compared to yesterday. There is otherwise good opacification of the visualized pulmonary arterial tree. There was successful Ekos catheter removal from both the left and right pulmonary arteries.
[2017-01-08] MEDS: PERCOCET 5/325 PO PRN ×2 (00:43→08:04)
[2017-01-08 05:00] LABS: Hematocrit 41.2 % (35.5-45.6); Hemoglobin 13.6 gm/dl (11.8-15.2); Mean Corpuscular HGB Conc 33 % (32-34); Mean Corpuscular Hemoglobin 32 pg (28-32); Mean Corpuscular Volume 96 fl (84-94); Platelet Count 143 K/mm3 (140-440); Red Cell Distribution Width 14.5 % (13.2-15.2); White Blood Count 4.9 K/mm3 (4.5-11.0)
[2017-01-08 05:16] LABS: Anion Gap 18 mmol/L; Blood Urea Nitrogen 14 mg/dL (9-20); Calcium 8.6 mg/dL (8.4-10.2); Carbon Dioxide 24 mmol/L (22-30); Chloride 102.1 mmol/L (98-107); Glucose 95 mg/dL (75-100); Potassium 4.2 mmol/L (3.6-5.0); Sodium 140 mmol/L (137-145)
--- NOTE | 2017-01-08 08:49 | Progress Note ---
Assessment and Plan Assessment and plan: Acute bilateral pulmonary embolism and saddle embolism. Status post EKOS catheter placement ,Alteplase infusion, completed. continue Heparin drip. Pulmonology and IR following. COPD. albuterol prn AIDS. Resume HAART. His meds not on formulary. he has been advised to use meds from home Chronic systolic CHF. Betablocker on hold because of bradycardia. Elevated Troponin likely due to Pulmonary embolism Full code status he is doing better, stable to transfer to Telemetry. History Interval history: Patient presented with chest pain, was diagnosed with acute bilateral pulmonary embolism and saddle embolism. No chest pain currently Hospitalist Physical - Physical exam Narrative exam: Gen: appearance :Not in acute distress, HEENT: normocephalic atraumatic Neck :supple no JVD Lungs: Decreased breath sounds bilaterally, no crackles, or wheezes Heart:S1 and S2 regular, no murmurs, no gallop, no rubs Abdomen soft, nontender, nondistended, normal bowel sounds Extremities: no edema, no clubbing, or cyanosis Neuro : Awake alert oriented 3, no focal neurological signs Psych: calm - Constitutional Vitals: Temp Pulse Resp BP Pulse Ox 98.7 F 78 25 H 157/70 100 01/08/17 08:00 01/08/17 08:31 01/08/17 08:31 01/08/17 08:31 01/08/17 08:31 General appearance: Present: mild distress Results - Labs CBC & Chem 7: 01/08/17 04:43 01/08/17 04:43 Labs: Laboratory Last Values WBC 4.9 K/mm3 (4.5-11.0) 01/08/17 04:43 RBC 4.30 M/mm3 (3.65-5.03) 01/08/17 04:43 Hgb 13.6 gm/dl (11.8-15.2) 01/08/17 04:43 Hct 41.2 % (35.5-45.6) 01/08/17 04:43 MCV 96 fl (84-94) H 01/08/17 04:43 MCH 32 pg (28-32) 01/08/17 04:43 MCHC 33 % (32-34) 01/08/17 04:43 RDW 14.5 % (13.2-15.2) 01/08/17 04:43 Plt Count 143 K/mm3 (140-440) 01/08/17 04:43 Lymph % (Auto) 23.1 % (13.4-35.0) 01/06/17 11:26 [place] % (Auto) 9.6 % (0.0-7.3) H 01/06/17 11:26 Eos % (Auto) 1.0 % (0.0-4.3) 01/06/17 11:26 Baso % (Auto) 0.6 % (0.0-1.8) 01/06/17 11:26 Lymph # 1.3 K/mm3 (1.2-5.4) 01/06/17 11:26 [place] # 0.5 K/mm3 (0.0-0.8) 01/06/17 11:26 Eos # 0.1 K/mm3 (0.0-0.4) 01/06/17 11:26 Baso # 0.0 K/mm3 (0.0-0.1) 01/06/17 11:26 Seg Neutrophils % 65.7 % (40.0-70.0) 01/06/17 11:26 Seg Neutrophils # 3.6 K/mm3 (1.8-7.7) 01/06/17 11:26 PT 13.6 Sec. (12.2-14.9) 01/06/17 11:26 INR 1.05 (0.87-1.13) 01/06/17 11:26 Fibrinogen 274 mg/dl (211-480) 01/06/17 20:20 D-Dimer 7307.46 ng/mlDDU (0-234) H 01/06/17 20:20 Heparin Anti-Xa Level 2.00 U.I./ml (0.3-0.7) H 01/06/17 22:43 Sodium 140 mmol/L (137-145) 01/08/17 04:43 Potassium 4.2 mmol/L (3.6-5.0) 01/08/17 04:43 Chloride 102.1 mmol/L (98-107) 01/08/17 04:43 Carbon Dioxide 24 mmol/L (22-30) 01/08/17 04:43 Anion Gap 18 mmol/L 01/08/17 04:43 BUN 14 mg/dL (9-20) 01/08/17 04:43 Creatinine 1.0 mg/dL (0.8-1.5) 01/08/17 04:43 Estimated GFR > 60 ml/min 01/08/17 04:43 BUN/Creatinine Ratio 14.00 % 01/08/17 04:43 Glucose 95 mg/dL (75-100) 01/08/17 04:43 Calcium 8.6 mg/dL (8.4-10.2) 01/08/17 04:43 Total Creatine Kinase 311 units/L (55-170) H 01/06/17 19:11 CK-MB (CK-2) 7.0 ng/mL (0.0-4.0) H 01/06/17 19:11 CK-MB (CK-2) Rel Index 2.2 (0-4) 01/06/17 19:11 Troponin T 0.083 ng/mL (0.00-0.029) H D 01/06/17 19:11 NT-Pro-B Natriuret Pep 68.58 pg/mL (0-900) 01/06/17 11:26 Triglycerides 134 mg/dL (2-149) 01/06/17 11:26 Cholesterol 213 mg/dL (50-199) H 01/06/17 11:26 LDL Cholesterol Direct 104 mg/dL (50-130) 01/06/17 11:26 HDL Cholesterol 83 mg/dL (40-59) H 01/06/17 11:26 Cholesterol/HDL Ratio 2.56 % 01/06/17 11:26
[2017-01-08] MEDS: HEPARIN/ 0.45% NACL-25,000 UNIT/500 ML 25,000 UNIT/500 ML BAG IV SCH (08:58)
[2017-01-08] MEDS ORDERED: NON-FORMULARY (Escitalopram Oxalate [Lexapro] 20 MG) PO SCH (12:30)
[2017-01-08] MEDS ORDERED: ZANTAC 150 MG PO SCH (12:30)
[2017-01-08] MEDS ORDERED: BUDESONIDE INHALATION SCH (12:30)
[2017-01-08] MEDS ORDERED: FORMOTEROL INHALATION SCH (12:30)
[2017-01-08] MEDS ORDERED: PULMICORT IH SCH (13:00)
[2017-01-08] MEDS ORDERED: TOPROL XL PO SCH (13:00)
[2017-01-08] MEDS: PULMICORT IH SCH ×2 (13:27→19:57)
[2017-01-08] MEDS: BROVANA NEBU IH SCH ×2 (13:28→19:57)
--- NOTE | 2017-01-08 14:44 | Progress Note ---
Assessment and Plan 56 y/o male with saddle PE and acute respiratory failure status post EKOS therapy 1. Agree with floor transfer, will sign off Subjective Date of service: 01/08/17 Interval history: EKOS catheters out, stable. No acute events. Objective - Constitutional Vitals: Vital Signs - 12hr 01/08/17 01/08/17 01/08/17 03:00 03:21 03:30 Temperature Pulse Rate 54 L 55 L Pulse Rate [ Anterior Bilateral Throughout] Pulse Rate [ 87 From Monitor] Pulse Rate [ 87 Left Dorsalis Pedis] Pulse Rate [ 87 Left Radial] Pulse Rate [ 87 Right Dorsalis Pedis] Pulse Rate [ 87 Right Radial] Respiratory 13 20 15 Rate Respiratory Rate [Anterior Bilateral Throughout] Blood Pressure 126/78 136/83 O2 Sat by Pulse 98 97 97 Oximetry 01/08/17 01/08/17 01/08/17 04:00 04:01 04:30 Temperature 99 F Pulse Rate 54 L 56 L Pulse Rate [ Anterior Bilateral Throughout] Pulse Rate [ From Monitor] Pulse Rate [ Left Dorsalis Pedis] Pulse Rate [ Left Radial] Pulse Rate [ Right Dorsalis Pedis] Pulse Rate [ Right Radial] Respiratory 12 17 Rate Respiratory Rate [Anterior Bilateral Throughout] Blood Pressure 139/81 132/84 O2 Sat by Pulse 98 97 Oximetry 01/08/17 01/08/17 01/08/17 05:21 05:30 06:00 Temperature Pulse Rate 66 52 L 56 L Pulse Rate [ Anterior Bilateral Throughout] Pulse Rate [ From Monitor] Pulse Rate [ Left Dorsalis Pedis] Pulse Rate [ Left Radial] Pulse Rate [ Right Dorsalis Pedis] Pulse Rate [ Right Radial] Respiratory 13 14 16 Rate Respiratory Rate [Anterior Bilateral Throughout] Blood Pressure 132/84 146/80 133/88 O2 Sat by Pulse 98 97 97 Oximetry 01/08/17 01/08/17 01/08/17 06:31 07:01 07:31 Temperature Pulse Rate 65 57 L 52 L Pulse Rate [ Anterior Bilateral Throughout] Pulse Rate [ From Monitor] Pulse Rate [ Left Dorsalis Pedis] Pulse Rate [ Left Radial] Pulse Rate [ Right Dorsalis Pedis] Pulse Rate [ Right Radial] Respiratory 14 14 10 L Rate Respiratory Rate [Anterior Bilateral Throughout] Blood Pressure 102/89 133/76 161/71 O2 Sat by Pulse 99 98 100 Oximetry 01/08/17 01/08/17 01/08/17 07:43 08:00 08:31 Temperature 98.7 F Pulse Rate 58 L 78 Pulse Rate [ Anterior Bilateral Throughout] Pulse Rate [ From Monitor] Pulse Rate [ Left Dorsalis Pedis] Pulse Rate [ Left Radial] Pulse Rate [ Right Dorsalis Pedis] Pulse Rate [ Right Radial] Respiratory 14 25 H Rate Respiratory Rate [Anterior Bilateral Throughout] Blood Pressure 157/70 157/70 O2 Sat by Pulse 98 98 100 Oximetry 01/08/17 01/08/17 01/08/17 09:01 09:30 10:00 Temperature Pulse Rate 59 L 63 62 Pulse Rate [ Anterior Bilateral Throughout] Pulse Rate [ From Monitor] Pulse Rate [ Left Dorsalis Pedis] Pulse Rate [ Left Radial] Pulse Rate [ Right Dorsalis Pedis] Pulse Rate [ Right Radial] Respiratory 15 16 15 Rate Respiratory Rate [Anterior Bilateral Throughout] Blood Pressure 136/81 138/82 132/85 O2 Sat by Pulse 98 95 97 Oximetry 01/08/17 01/08/17 01/08/17 10:30 11:00 11:30 Temperature Pulse Rate 59 L 57 L 55 L Pulse Rate [ Anterior Bilateral Throughout] Pulse Rate [ From Monitor] Pulse Rate [ Left Dorsalis Pedis] Pulse Rate [ Left Radial] Pulse Rate [ Right Dorsalis Pedis] Pulse Rate [ Right Radial] Respiratory 16 21 14 Rate Respiratory Rate [Anterior Bilateral Throughout] Blood Pressure 124/81 133/78 125/81 O2 Sat by Pulse 98 98 98 Oximetry 01/08/17 01/08/17 01/08/17 11:40 12:00 13:28 Temperature 98.5 F Pulse Rate 54 L Pulse Rate [ 69 Anterior Bilateral Throughout] Pulse Rate [ From Monitor] Pulse Rate [ Left Dorsalis Pedis] Pulse Rate [ Left Radial] Pulse Rate [ Right Dorsalis Pedis] Pulse Rate [ Right Radial] Respiratory Rate Respiratory 16 Rate [Anterior Bilateral Throughout] Blood Pressure O2 Sat by Pulse Oximetry 01/08/17 13:42 Temperature Pulse Rate Pulse Rate [ 71 Anterior Bilateral Throughout] Pulse Rate [ From Monitor] Pulse Rate [ Left Dorsalis Pedis] Pulse Rate [ Left Radial] Pulse Rate [ Right Dorsalis Pedis] Pulse Rate [ Right Radial] Respiratory Rate Respiratory 16 Rate [Anterior Bilateral Throughout] Blood Pressure O2 Sat by Pulse Oximetry - Labs CBC & Chem 7: 01/08/17 04:43 01/08/17 04:43 Labs: Abnormal lab results 06/10/17 Range/Units 04:43 MCV 96 H (84-94) fl
[2017-01-08] MEDS: PEPCID PO SCH ×2 (14:54→22:57)
[2017-01-08] MEDS: ATRIPLA PO SCH (14:54)
[2017-01-08] MEDS: LEXAPRO PO SCH (14:55)
[2017-01-08] MEDS: HALFPRIN EC PO SCH (14:55)
[2017-01-08] MEDS: IMDUR PO SCH (14:55)
[2017-01-09] MEDS: PERCOCET 5/325 PO PRN (08:40)
[2017-01-09] MEDS: PULMICORT IH SCH (09:12)
[2017-01-09] MEDS: BROVANA NEBU IH SCH (09:13)
[2017-01-09] MEDS: IMDUR PO SCH (09:42)
[2017-01-09] MEDS: HALFPRIN EC PO SCH (09:43)
[2017-01-09] MEDS: PEPCID PO SCH (09:43)
[2017-01-09] MEDS: LEXAPRO PO SCH (09:43)
[2017-01-09] MEDS: ATRIPLA PO SCH (09:44)
[2017-01-09 09:45] VITALS: BP 136/66
--- NOTE | 2017-01-09 10:50 | Discharge Summary ---
Providers - Providers Date of Admission: 01/06/17 13:08 Date of discharge: 01/09/17 Attending physician: ERIS COLINDRES 01/06/17 14:47 Consult to Physician [CONS] Routine Consulting Provider: DEMARCUS LINDA Reason For Exam: Saddle PE Place consult to:: AARON Notified:: Y Was contact made?: Yes If yes, spoke with:: [employer] Time called:: 16:15 01/06/17 19:45 Consult to Physician [CONS] Routine Consulting Provider: SANTIAGO OROZCO Reason For Exam: Ekos placement Place consult to:: Drea Notified:: notified Primary care physician: ANESTHESIA ATTENDING Hospitalization Condition: Good Disposition: DC-01 TO HOME OR SELFCARE - Discharge Diagnoses (1) AIDS Status: Acute (2) Pulmonary emboli Status: Acute Qualifiers: Pulmonary embolism type: P Chronicity: C Acute cor pulmonale presence: A (3) Saddle pulmonary embolus Status: Acute Qualifiers: Chronicity: C Acute cor pulmonale presence: A Exam - Physical Exam Narrative exam: Gen: appearance :Not in acute distress, HEENT: normocephalic atraumatic Neck :supple no JVD Lungs: Decreased breath sounds bilaterally, no crackles, or wheezes Heart:S1 and S2 regular, no murmurs, no gallop, no rubs Abdomen soft, nontender, nondistended, normal bowel sounds Extremities: no edema, no clubbing, or cyanosis Neuro : Awake alert oriented 3, no focal neurological signs Psych: calm - Constitutional Vitals: Temp Pulse Resp BP Pulse Ox 98.5 F 78 12 128/84 78 L 01/09/17 09:43 01/09/17 09:43 01/09/17 09:43 01/09/17 09:43 01/09/17 09:43 Plan Diet: low fat, low cholesterol, low salt Additional Instructions: 1.Follow up with PCP in 1 week. 2.No strenous activity until cleared by PCP Follow up with: PRIMARY CARE, [Primary Care Provider] - 3-5 Days Prescriptions: Apixaban [Eliquis] 10 mg PO BID 7 Days Apixaban [Eliquis] 5 mg PO BID #60 tablet Famotidine [Pepcid] 20 mg PO BID #60 tablet HYDROcodone/APAP 5-325 [[place] 5/325] 1 each PO Q6HR PRN #12 tablet PRN Reason: Pain
[2017-01-09] MEDS ORDERED: ELIQUIS PO SCH (13:00)
== END 2017-01-09 13:09 | disposition home or self-care (01) | DRG 175 ==
LOC: ED 11:06 → 4A 13:08 → CC1 21:35 → 4A 01-08 15:30
PROVIDERS: ADMIT Internal Medicine; ATTEND Internal Medicine
PROC: 02HQ33Z Insertion of Infusion Device into Right Pulmonary Artery, Percutaneous Approach (ICD-10-PCS; principal; 2017-01-06)
PROC: 02HR33Z Insertion of Infusion Device into Left Pulmonary Artery, Percutaneous Approach (ICD-10-PCS; 2017-01-06)
PROC: B31T1ZZ Fluoroscopy of Left Pulmonary Artery using Low Osmolar Contrast (ICD-10-PCS; 2017-01-06)
PROC: B31S1ZZ Fluoroscopy of Right Pulmonary Artery using Low Osmolar Contrast (ICD-10-PCS; 2017-01-06)
PROC: B31T1ZZ Fluoroscopy of Left Pulmonary Artery using Low Osmolar Contrast (ICD-10-PCS; 2017-01-07)
PROC: B31S1ZZ Fluoroscopy of Right Pulmonary Artery using Low Osmolar Contrast (ICD-10-PCS; 2017-01-07)
PROC: 02PYX3Z Removal of Infusion Device from Great Vessel, External Approach (ICD-10-PCS; 2017-01-07)
DX: I26.92 Saddle embolus of pulmonary artery without acute cor pulmonale (principal); I21.3 ST elevation (STEMI) myocardial infarction of unspecified site; B20 Human immunodeficiency virus [HIV] disease; J96.00 Acute respiratory failure, unspecified whether with hypoxia or hypercapnia; J44.1 Chronic obstructive pulmonary disease with (acute) exacerbation; F32.9 Major depressive disorder, single episode, unspecified; I11.0 Hypertensive heart disease with heart failure; I50.22 Chronic systolic (congestive) heart failure; Z82.49 Family history of ischemic heart disease and other diseases of the circulatory system; Z83.3 Family history of diabetes mellitus
CPT/HCPCS: 36415; 37211; 37214; 71010; 71275; 80048; 80061; 82550; 82553; 83880; 84484; 85025; 85027; 85379; 85384; 85520; 85610; 93005; 93010; 93306; 94640; 94760; 96372; 96374; 99285; A9270-GY; C1757; C1769; C1894; J0690; J1170; J1644; J1650; J2250; J2270; J2405; J2930; J2997; J3010; J7030; J7040; J7050; Q9967

== ENCOUNTER 2017-01-24 21:16 | Inpatient (IN) | payer MEDICAID ==
[2017-01-24] MEDS ORDERED: NACL 0.9% 1000 ML 1,000 ML IV ONE (21:57)
[2017-01-24] MEDS ORDERED: TYLENOL PO ONE (22:07)
[2017-01-24] MEDS ORDERED: DILAUDID IV ONE (22:14)
[2017-01-24] MEDS ORDERED: ROCEPHIN/NS 1 GM/50 ML 1 GM/50 ML BAG IV ONE (22:14)
[2017-01-24] MEDS ORDERED: ZITHROMAX 500 MG in NACL 0.9% 250ML 250 ML IV ONE (22:14)
[2017-01-24] MEDS ORDERED: ZOFRAN IV ONE (22:14)
[2017-01-24 22:40] LABS: Hemoglobin 13.5 gm/dl (11.8-15.2); Mean Corpuscular HGB Conc 33 % (32-34); Mean Corpuscular Hemoglobin 32 pg (28-32); Mean Corpuscular Volume 95 fl (84-94); Platelet Count 434 K/mm3 (140-440); Red Cell Distribution Width 14.4 % (13.2-15.2); White Blood Count 13.3 K/mm3 (4.5-11.0)
[2017-01-24 22:45] LABS: INR 1.07 (0.87-1.13)
[2017-01-24] MEDS ORDERED: NACL ONE (22:45)
[2017-01-24 22:46] LABS: Partial Thromboplastin Time 33.4 Sec. (24.2-36.6)
[2017-01-24 22:53] LABS: Alanine Aminotransferase 110 units/L (7-56); Albumin 3.8 g/dL (3.9-5); Albumin/Globulin Ratio 0.8 %; Alkaline Phosphatase 97 units/L (35-129); Anion Gap 25 mmol/L; BUN/Creatinine Ratio 16.66; Blood Urea Nitrogen 20 mg/dL (9-20); Calcium 9.2 mg/dL (8.4-10.2); Carbon Dioxide 19 mmol/L (22-30); Chloride 93.5 mmol/L (98-107); Glucose 151 mg/dL (75-100); Lipase 33 units/L (13-60); Potassium 3.8 mmol/L (3.6-5.0); Sodium 134 mmol/L (137-145); Total Protein 8.4 g/dL (6.3-8.2)
[2017-01-24 23:27] LABS: Anisocytosis 1+; Basophils % (Manual) 0 % (0.0-1.8); Blastocytes % (Manual) 0 %; Eosinophils % (Manual) 0 % (0.0-4.3)
--- NOTE | 2017-01-24 23:27 | Emergency Department Report ---
ED Chest Pain HPI - General Chief Complaint: GI Bleed Stated Complaint: CHEST PAIN/EMESIS Time Seen by Provider: 01/24/17 21:59 Source: patient, EMS Mode of arrival: Stretcher Limitations: No Limitations - History of Present Illness Initial Comments: 56-lckd-bxd-year-old male with a past medical history of HIV, COPD, CHF, hypertension, and recent diagnosis of saddle pulmonary embolism requiring Eliquis presents to the hospital complaining of left-sided chest pain, hemoptysis, and fever. Patient has had continuous left-sided mid lateral chest pain since the . Pain is continuous, rated 8/10 in intensity, worse with deep inspiration, coughing, and movement. Patient developed hemoptysis yesterday. Patient states his shortness of breath is mildly increased. Fever noted upon arrival patient was unaware of fever at home. Last CD4 count was approximately 2 months ago he reports his number was 461. I admitted patient early this month with a diagnosis of saddle PE. Severity scale (0 -10): 8 - Related Data Home Medications Medication Instructions Recorded Confirmed Last Taken Aspirin EC [Aspirin Enteric Coated 81 mg PO QDAC 01/07/17 01/25/17 01/05/17 TAB] AtorvaSTATin [Lipitor] 40 mg PO QHS 01/07/17 01/25/17 01/05/17 Efavirenz/Emtricitab/Tenofovir 1 each PO QDAY #0 01/07/17 01/25/17 01/05/17 [Atripla Tablet] Escitalopram Oxalate [Lexapro] 20 mg PO DAILY 01/07/17 01/25/17 01/05/17 ISOSORBIDE MONOnitrate [Imdur ER] 30 mg PO DAILY 01/07/17 01/25/17 01/05/17 Metoprolol Xl [Metoprolol 50 mg PO DAILY 01/07/17 01/25/17 01/05/17 SUCCINATE ER TAB] Proventil 0.083% NEBS 0.083 container INHALATION Q6HR PRN 01/07/17 01/25/1702/14 Symbicort 160-4.5 (Nf) 160 device INHALATION BID 01/07/17 01/25/17 01/05/17 Previous Rx's Medication Instructions Recorded Last Taken Type Apixaban [Eliquis] 5 mg PO BID #60 tablet 01/09/17 Unknown Rx Famotidine [Pepcid] 20 mg PO BID #60 tablet 01/09/17 Unknown Rx Allergies Allergy/AdvReac Type Severity Reaction Status Date / Time No Known Allergies Allergy Verified 01/06/17 12:26 Heart Score - HEART Score History: Slightly suspicious EKG: Normal Age: 45-65 Risk factors: 1-2 risk factors Troponin: < normal limit HEART Score: 2 - Critical Actions Critical Actions: 0-3 pts:0.9-1.7%risk of adverse cardiac event.Candidate for discharge ED Review of Systems ROS: Stated complaint: CHEST PAIN/EMESIS Other details as noted in HPI Comment: All other systems reviewed and negative Other: Constitutional: As per HPI Eyes: No eye pain visual changes ENT: No ear pain or throat pain Neck: Denies pain Respiratory: As per HPI Cardiovascular: As per HPI GI: Denies abdominal pain, nausea, vomiting, diarrhea, melena, hematochezia : Denies dysuria Musculoskeletal: Denies back pain Skin: Denies rash, lesions, erythema Neurologic: Denies headache, numbness, weakness Psychiatric: Denies suicidal ideation, hallucinations ED Past Medical Hx - Past Medical History Hx Hypertension: Yes Hx Congestive Heart Failure: Yes Hx Pulmonary Embolism: Yes Hx Psychiatric Treatment: (Depression) Hx COPD: Yes Hx HIV: Yes (AIDS) - Social History Smoking Status: Former Smoker Substance Use Type: None - Medications Home Medications: Home Medications Medication Instructions Recorded Confirmed Last Taken Type Aspirin EC [Aspirin Enteric Coated 81 mg PO QDAC 01/07/17 01/25/17 01/05/17 History TAB] AtorvaSTATin [Lipitor] 40 mg PO QHS 01/07/17 01/25/17 01/05/17 History Efavirenz/Emtricitab/Tenofovir 1 each PO QDAY #0 01/07/17 01/25/17 01/05/17 History [Atripla Tablet] Escitalopram Oxalate [Lexapro] 20 mg PO DAILY 01/07/17 01/25/17 01/05/17 History ISOSORBIDE MONOnitrate [Imdur ER] 30 mg PO DAILY 01/07/17 01/25/17 01/05/17 History Metoprolol Xl [Metoprolol 50 mg PO DAILY 01/07/17 01/25/17 01/05/17 History SUCCINATE ER TAB] Proventil 0.083% NEBS 0.083 container INHALATION Q6HR PRN 01/07/17 01/25/1702/14 History Symbicort 160-4.5 (Nf) 160 device INHALATION BID 01/07/17 01/25/17 01/05/17 History Apixaban [Eliquis] 5 mg PO BID #60 tablet 01/09/17 01/25/17 Unknown Rx Famotidine [Pepcid] 20 mg PO BID #60 tablet 01/09/17 01/25/17 Unknown Rx ED Physical Exam - General Limitations: No Limitations - Other Other exam information: General: No limitations, patient is alert in no acute distress Head exam: Atraumatic, normocephalic Eyes exam: Normal appearance ENT: Moist mucous membrane, normal oropharynx Neck exam: Normal inspection, full range of motion, no meningismus nontender Respiratory exam: Clear to auscultation bilateral, no wheezes, rales, crackles. Positive bloodly sputum at bedside Cardiovascular: mild tachycardic regular rhythm, chest wall nontender Abdomen: Soft, nondistended, and nontender, with normal bowel sounds, no rebound, or guarding Extremity: Full range of motion normal inspection no deformity, no calf tenderness or edema Back: Normal Inspection, full range of motion, no tenderness Neurologic: Alert, oriented x3, cranial nerves intact, no motor or sensory deficit Psychiatric: normal affect, normal mood Skin: Warm, dry, intact ED Course Vital Signs 01/24/17 01/24/17 01/24/17 21:42 21:46 21:50 Temperature 103.1 F H Pulse Rate 113 H 113 H 111 H Respiratory 12 20 25 H Rate Blood Pressure 109/70 O2 Sat by Pulse 95 95 Oximetry 01/24/17 01/24/17 01/24/17 22:00 22:10 22:20 Temperature Pulse Rate 109 H 109 H 102 H Respiratory 22 25 H 21 Rate Blood Pressure 150/77 144/91 143/85 O2 Sat by Pulse 97 96 97 Oximetry 01/24/17 01/24/17 01/24/17 22:22 22:23 22:30 Temperature Pulse Rate 103 H Respiratory 20 18 26 H Rate Blood Pressure 143/85 O2 Sat by Pulse 96 Oximetry 01/24/17 01/24/17 01/24/17 22:40 22:50 22:52 Temperature Pulse Rate 103 H 103 H 104 H Respiratory 29 H 21 21 Rate Blood Pressure 136/75 118/73 O2 Sat by Pulse 94 95 95 Oximetry 01/24/17 01/24/17 01/24/17 23:00 23:10 23:20 Temperature Pulse Rate 100 H 102 H 96 H Respiratory 30 H 29 H 28 H Rate Blood Pressure 118/73 97/62 105/62 O2 Sat by Pulse 95 96 96 Oximetry 01/24/17 01/25/17 01/25/17 23:58 00:00 00:10 Temperature Pulse Rate 100 H 96 H 93 H Respiratory 26 H 28 H 28 H Rate Blood Pressure 105/62 107/75 133/76 O2 Sat by Pulse 96 96 91 Oximetry 01/25/17 01/25/17 01/25/17 00:15 00:21 00:30 Temperature 100.3 F H Pulse Rate 93 H 90 Respiratory 30 H 23 Rate Blood Pressure 124/70 115/72 O2 Sat by Pulse 90 96 Oximetry 01/25/17 01/25/17 01/25/17 00:41 00:51 01:00 Temperature Pulse Rate 92 H 93 H 88 Respiratory 24 25 H 32 H Rate Blood Pressure 115/72 120/76 113/50 O2 Sat by Pulse 97 98 99 Oximetry 01/25/17 01/25/17 01/25/17 01:11 01:21 01:30 Temperature Pulse Rate 90 92 H 92 H Respiratory 32 H 25 H 25 H Rate Blood Pressure 113/50 114/66 126/77 O2 Sat by Pulse 99 99 99 Oximetry 01/25/17 01/25/17 01/25/17 01:31 01:41 01:51 Temperature Pulse Rate 88 90 91 H Respiratory 36 H 33 H Rate Blood Pressure 126/77 133/78 O2 Sat by Pulse 99 98 Oximetry 01/25/17 01/25/17 01/25/17 02:00 02:11 02:21 Temperature Pulse Rate 91 H 91 H 91 H Respiratory 40 H 40 H 34 H Rate Blood Pressure 127/81 127/81 128/79 O2 Sat by Pulse 98 99 99 Oximetry 01/25/17 01/25/17 01/25/17 02:30 02:41 02:51 Temperature Pulse Rate 95 H 97 H 100 H Respiratory 25 H 21 19 Rate Blood Pressure 138/77 127/81 138/79 O2 Sat by Pulse 97 97 98 Oximetry 01/25/17 01/25/17 01/25/17 03:00 03:11 03:21 Temperature Pulse Rate 98 H 101 H 101 H Respiratory 26 H 22 24 Rate Blood Pressure 132/84 132/84 138/76 O2 Sat by Pulse 96 98 94 Oximetry 01/25/17 01/25/17 01/25/17 03:36 03:37 03:48 Temperature 101.6 F H Pulse Rate Respiratory 20 22 Rate Blood Pressure O2 Sat by Pulse Oximetry - Reevaluation(s) Reevaluation #1: 01/25/17 00:26 pt stable VAHE score - Vahe Score Age > 65: (0) No Aspirin use within the Past 7 Days: (1) Yes 3 or more CAD Risk Factors: (1) Yes 2 or more Angina events in past 24 hrs: (0) No Known CAD with more than 50% Stenosis: (0) No Elevated Cardiac Markers: (0) No ST Deviation Greater than 0.5mm: (0) No VAHE Score: 2 ED Medical Decision Making - Lab Data Result diagrams: 01/24/17 22:03 01/24/17 22:03 Lab Results 01/24/17 01/24/17 01/24/17 Range/Units 22:03 22:03 22:03 WBC 13.3 H (4.5-11.0) K/mm3 RBC 4.30 (3.65-5.03) M/mm3 Hgb 13.5 (11.8-15.2) gm/dl Hct 41.0 (35.5-45.6) % MCV 95 H (84-94) fl MCH 32 (28-32) pg MCHC 33 (32-34) % RDW 14.4 (13.2-15.2) % Plt Count 434 (140-440) K/mm3 Add Manual Diff Complete Total Counted 100 Seg Neuts % (Manual) 76.0 H (40.0-70.0) % Band Neutrophils % 13.0 % Lymphocytes % (Manual) 4.0 L (13.4-35.0) % Reactive Lymphs % (Man) 0 % Monocytes % (Manual) 7.0 (0.0-7.3) % Eosinophils % (Manual) 0 (0.0-4.3) % Basophils % (Manual) 0 (0.0-1.8) % Metamyelocytes % 0 % Myelocytes % 0 % Promyelocytes % 0 % Blast Cells % 0 % Nucleated RBC % Not Reportable Seg Neutrophils # Man 10.1 H (1.8-7.7) K/mm3 Band Neutrophils # 1.7 K/mm3 Lymphocytes # (Manual) 0.5 L (1.2-5.4) K/mm3 Abs React Lymphs (Man) 0.0 K/mm3 Monocytes # (Manual) 0.9 H (0.0-0.8) K/mm3 Eosinophils # (Manual) 0.0 (0.0-0.4) K/mm3 Basophils # (Manual) 0.0 (0.0-0.1) K/mm3 Metamyelocytes # 0.0 K/mm3 Myelocytes # 0.0 K/mm3 Promyelocytes # 0.0 K/mm3 Blast Cells # 0.0 K/mm3 WBC Morphology Not Reportable Hypersegmented Neuts Not Reportable Hyposegmented Neuts Not Reportable Hypogranular Neuts Not Reportable Smudge Cells Not Reportable Toxic Granulation Not Reportable Toxic Vacuolation Not Reportable Dohle Bodies Not Reportable Pelger-Huet Anomaly Not Reportable Aylin Rods Not Reportable Platelet Estimate Consistent w auto Clumped Platelets Not Reportable Plt Clumps, EDTA Not Reportable Large Platelets Not Reportable Giant Platelets Not Reportable Platelet Satelliting Not Reportable Plt Morphology Comment Not Reportable RBC Morphology Not Reportable Dimorphic RBCs Not Reportable Polychromasia Not Reportable Hypochromasia Not Reportable Poikilocytosis Not Reportable Anisocytosis 1+ Microcytosis Not Reportable Macrocytosis Not Reportable Spherocytes Not Reportable Pappenheimer Bodies Not Reportable Sickle Cells Not Reportable Target Cells Not Reportable Tear Drop Cells Not Reportable Ovalocytes Not Reportable Helmet Cells Not Reportable Nicolas-[place] Bodies Not Reportable [place] Rings Not Reportable Margaret Cells Not Reportable Bite Cells Not Reportable Crenated Cell Not Reportable Elliptocytes Not Reportable Acanthocytes (Spur) Not Reportable Rouleaux Not Reportable Hemoglobin C Crystals Not Reportable Schistocytes Not Reportable Malaria parasites Not Reportable Donta Bodies Not Reportable Hem Pathologist Commnt No PT 14.5 (12.2-14.9) Sec. INR 1.07 (0.87-1.13) APTT 33.4 (24.2-36.6) Sec. Sodium 134 L (137-145) mmol/L Potassium 3.8 (3.6-5.0) mmol/L Chloride 93.5 L (98-107) mmol/L Carbon Dioxide 19 L (22-30) mmol/L Anion Gap 25 mmol/L BUN 20 (9-20) mg/dL Creatinine 1.2 (0.8-1.5) mg/dL Estimated GFR > 60 ml/min BUN/Creatinine Ratio 16.66 % Glucose 151 H (75-100) mg/dL Lactic Acid (0.7-2.0) mmol/L Calcium 9.2 (8.4-10.2) mg/dL Total Bilirubin 0.40 (0.1-1.2) mg/dL AST 103 H (5-40) units/L ALT 110 H (7-56) units/L Alkaline Phosphatase 97 (35-129) units/L Troponin T (0.00-0.029) ng/mL Total Protein 8.4 H (6.3-8.2) g/dL Albumin 3.8 L (3.9-5) g/dL Albumin/Globulin Ratio 0.8 % Lipase 33 (13-60) units/L Blood Type Antibody Screen ALIDA Antibody Screen 01/24/17 01/24/17 01/24/17 Range/Units 22:03 22:07 22:13 WBC (4.5-11.0) K/mm3 RBC (3.65-5.03) M/mm3 Hgb (11.8-15.2) gm/dl Hct (35.5-45.6) % MCV (84-94) fl MCH (28-32) pg MCHC (32-34) % RDW (13.2-15.2) % Plt Count (140-440) K/mm3 Add Manual Diff Total Counted Seg Neuts % (Manual) (40.0-70.0) % Band Neutrophils % % Lymphocytes % (Manual) (13.4-35.0) % Reactive Lymphs % (Man) % Monocytes % (Manual) (0.0-7.3) % Eosinophils % (Manual) (0.0-4.3) % Basophils % (Manual) (0.0-1.8) % Metamyelocytes % % Myelocytes % % Promyelocytes % % Blast Cells % % Nucleated RBC % Seg Neutrophils # Man (1.8-7.7) K/mm3 Band Neutrophils # K/mm3 Lymphocytes # (Manual) (1.2-5.4) K/mm3 Abs React Lymphs (Man) K/mm3 Monocytes # (Manual) (0.0-0.8) K/mm3 Eosinophils # (Manual) (0.0-0.4) K/mm3 Basophils # (Manual) (0.0-0.1) K/mm3 Metamyelocytes # K/mm3 Myelocytes # K/mm3 Promyelocytes # K/mm3 Blast Cells # K/mm3 WBC Morphology Hypersegmented Neuts Hyposegmented Neuts Hypogranular Neuts Smudge Cells Toxic Granulation Toxic Vacuolation Dohle Bodies Pelger-Huet Anomaly Aylin Rods Platelet Estimate Clumped Platelets Plt Clumps, EDTA Large Platelets Giant Platelets Platelet Satelliting Plt Morphology Comment RBC Morphology Dimorphic RBCs Polychromasia Hypochromasia Poikilocytosis Anisocytosis Microcytosis Macrocytosis Spherocytes Pappenheimer Bodies Sickle Cells Target Cells Tear Drop Cells Ovalocytes Helmet Cells Nicolas-[place] Bodies Attalla Rings [place] Cells Bite Cells Crenated Cell Elliptocytes Acanthocytes (Spur) Rouleaux Hemoglobin C Crystals Schistocytes Malaria parasites Donta Bodies Hem Pathologist Commnt PT (12.2-14.9) Sec. INR (0.87-1.13) APTT (24.2-36.6) Sec. Sodium (137-145) mmol/L Potassium (3.6-5.0) mmol/L Chloride (98-107) mmol/L Carbon Dioxide (22-30) mmol/L Anion Gap mmol/L BUN (9-20) mg/dL Creatinine (0.8-1.5) mg/dL Estimated GFR ml/min BUN/Creatinine Ratio % Glucose (75-100) mg/dL Lactic Acid 2.40 H* (0.7-2.0) mmol/L Calcium (8.4-10.2) mg/dL Total Bilirubin (0.1-1.2) mg/dL AST (5-40) units/L ALT (7-56) units/L Alkaline Phosphatase (35-129) units/L Troponin T < 0.010 (0.00-0.029) ng/mL Total Protein (6.3-8.2) g/dL Albumin (3.9-5) g/dL Albumin/Globulin Ratio % Lipase (13-60) units/L Blood Type B POSITIVE Antibody Screen TNR ALIDA Antibody Screen Negative - EKG Data -: EKG Interpreted by Me (sinus tachycardia 112 nonspecific changes) - EKG Data When compared to previous EKG there are: no significant change (compared to previous) - Radiology Data Radiology results: image reviewed (cxr: nubia Infiltrate) ct angio chest: saddle PE improved, scattered peripheral PE's persist, copd, nubia Infiltrate - Medical Decision Making New NUBIA pneumonia, HIV pt. Rocephin, azithromycin good given, blood culture pending. Hemoptysis likely secondary to Eliquis use but pt placed in resp isolation given hiv status improved saddle PE persistent but improved. Persistent peripheral emboli - Differential Diagnosis pulmonary hemorrhage, pneumonia, bronchitis, TB Critical Care Time: No Critical care attestation.: If time is entered above; I have spent that time in minutes in the direct care of this critically ill patient, excluding procedure time. ED Disposition Clinical Impression: Left upper lobe pneumonia, Hemoptysis, HIV (human immunodeficiency virus infection), COPD (chronic obstructive pulmonary disease), Current use of anticoagulant therapy, Pulmonary emboli Disposition: OP ADMIT IP TO THIS HOSP Is pt being admited?: Yes Condition: Stable Time of Disposition: 00:30 (Dr Richardson/hosp)
[2017-01-24 23:28] LABS: Diff Status Complete; Platelet Estimate Consistent w Auto
--- NOTE | 2017-01-25 00:27 | Cat Scan Report ---
FINAL REPORT PROCEDURE: CT ANGIO CHEST TECHNIQUE: Computerized tomographic angiography of the chest was performed after the IV injection of iodinated nonionic contrast including image processing. The image data was postprocessed using 2-dimensional multiplanar reformatted (MPR) and 3-dimensional (MIP and/or volume rendered) techniques. HISTORY: coughing up blood, fever, recent emboli, hiv COMPARISON: 01/06/2017 FINDINGS: Heart and pericardium: The heart size is normal. There is a mild pericardial effusion unchanged.. Thoracic aorta: The thoracic aorta has a normal appearance without aneurysm or dissection.. Pulmonary vasculature: There remains bilateral multiple areas of pulmonary arterial emboli, this is diminished since prior study but continues to involve multiple signal in the subsegmental branches of the upper and lower lungs bilaterally. The saddle embolus has resolved.. Lymph nodes: No enlarged thoracic lymph nodes. Lungs: Slight diffuse infiltrate identified in the left upper lung. Mild atelectasis identified in the left upper lung and right lower lung. Underlying chronic obstructive pulmonary changes with emphysema is again noted. The central airway appears patent.. Pleural space: Minimal pleural thickening bilateral lower lungs. No effusion or pneumothorax.. Musculoskeletal structures: No significant abnormality. Upper abdominal structures: The liver is fatty infiltrated.. IMPRESSION: Multiple bilateral regions of pulmonary emboli identified in the segmental and subsegmental branches of the upper and lower lungs, these findings have not changed. The previously identified saddle embolus has resolved. New acute diffuse infiltrate identified in the left upper lung. There remains chronic obstructive pulmonary changes with emphysema. Slight atelectasis left upper and right lower lungs. The above findings are discussed with the patient's ER physician Dr. Millard, at the time of dictation 3667 central standard time on 01/24/2017
[2017-01-25] MEDS ORDERED: MORPHINE IV PRN (01:52)
[2017-01-25] MEDS ORDERED: MILK OF MAGNESIA PO PRN (01:52)
[2017-01-25] MEDS ORDERED: DULCOLAX PR PRN (01:52)
--- NOTE | 2017-01-25 02:08 | History and Physical Report ---
History of Present Illness Date of examination: 01/25/17 History of present illness: 56 year old man history of AIDS, CHF, hypertension, recent pulmonary emboli comes emergency room with complaint of left side pain. Saw his primary care physician who gave him a pain patch and ibuprofen but his pain was not controlled. He complaining of cough, hemoptysis, fever and chills. No night sweats, sick contacts Patient denies chest pain, palpitation, shortness of breath, abdominal pain, hematochezia, dysuria, frequency, focal weakness, dysarthria, polydipsia polyuria, hot or cold intolerance, easy bruisability, or rash or bleeding from mucosal membrane, rhinorrhea, epistaxis, earache, tinnitus, blurry vision, eye discharge, anxiety, depression. Other review of systems negative PAST SURGICAL HISTORY: None SOCIAL HISTORY: Quit smoking, no alcohol or drugs FAMILY HISTORY: Hypertension, diabetes Medications and Allergies Allergies Allergy/AdvReac Type Severity Reaction Status Date / Time No Known Allergies Allergy Verified 01/06/17 12:26 Home Medications Medication Instructions Recorded Confirmed Last Taken Type Aspirin EC [Aspirin Enteric Coated 81 mg PO QDAC 01/07/17 01/25/17 01/05/17 History TAB] AtorvaSTATin [Lipitor] 40 mg PO QHS 01/07/17 01/25/17 01/05/17 History Efavirenz/Emtricitab/Tenofovir 1 each PO QDAY #0 01/07/17 01/25/17 01/05/17 History [Atripla Tablet] Escitalopram Oxalate [Lexapro] 20 mg PO DAILY 01/07/17 01/25/17 01/05/17 History ISOSORBIDE MONOnitrate [Imdur ER] 30 mg PO DAILY 01/07/17 01/25/17 01/05/17 History Metoprolol Xl [Metoprolol 50 mg PO DAILY 01/07/17 01/25/17 01/05/17 History SUCCINATE ER TAB] Proventil 0.083% NEBS 0.083 container INHALATION Q6HR PRN 01/07/17 01/25/1702/14 History Symbicort 160-4.5 (Nf) 160 device INHALATION BID 01/07/17 01/25/17 01/05/17 History Apixaban [Eliquis] 5 mg PO BID #60 tablet 01/09/17 01/25/17 Unknown Rx Famotidine [Pepcid] 20 mg PO BID #60 tablet 01/09/17 01/25/17 Unknown Rx Exam - Physical Exam Narrative exam: Gen. appearance: Patient lying in bed, no apparent distress HEENT: Normocephalic, atraumatic, pupils equally round and reactive to light, extraocular movement intact, and no sclericterus,. No JVD or thyromegaly or nodule,neck supple, no carotid bruit ,mucous membranes moist, no exudate or erythema Heart: S1, S2, regular rate and rhythm Lungs:crackles left upper lung, breathing comfortable Abdomen: Positive bowel sounds, nontender, nondistended, no organomegaly Extremity: No edema, cyanosis, clubbing Skin: No rash, nodules, warm, dry Neuro: Oriented 3, cranial nerves II-12 intact, speech is fluent, motor and sensory intact - Constitutional Vitals: Temp Pulse Resp BP Pulse Ox 100.3 F H 88 32 H 113/50 99 01/25/17 00:15 01/25/17 01:31 01/25/17 01:11 01/25/17 01:11 01/25/17 01:11 Results - Labs CBC & Chem 7: 01/24/17 22:03 01/24/17 22:03 Labs: Abnormal lab results 01/24/17 01/24/17 01/24/17 Range/Units 22:03 22:03 22:13 WBC 13.3 H (4.5-11.0) K/mm3 MCV 95 H (84-94) fl Seg Neuts % (Manual) 76.0 H (40.0-70.0) % Lymphocytes % (Manual) 4.0 L (13.4-35.0) % Seg Neutrophils # Man 10.1 H (1.8-7.7) K/mm3 Lymphocytes # (Manual) 0.5 L (1.2-5.4) K/mm3 Monocytes # (Manual) 0.9 H (0.0-0.8) K/mm3 Sodium 134 L (137-145) mmol/L Chloride 93.5 L (98-107) mmol/L Carbon Dioxide 19 L (22-30) mmol/L Glucose 151 H (75-100) mg/dL Lactic Acid 2.40 H* (0.7-2.0) mmol/L AST 103 H (5-40) units/L ALT 110 H (7-56) units/L Total Protein 8.4 H (6.3-8.2) g/dL Albumin 3.8 L (3.9-5) g/dL - Imaging and Cardiology EKG: image reviewed Chest x-ray: image reviewed CT scan - chest: report reviewed Assessment and Plan Hospital-acquired pneumonia, rule out TB Pulmonary emboli AIDS Hypertension CHF Admit to medicine Start IV antibiotic, obtain AFB culture, follow blood cultures Place on respiratory precautions Consult pulmonary, hold eliquis for now Continue appropriate outpatient medications DVT prophylaxis with SCD
--- NOTE | 2017-01-25 02:50 | Admit Criteria Form ---
Admission Criteria Documentation: PNEUMONIA, COMMUNITY ACQUIRED Clinical Indications for Admission to Inpatient Care ( Place 'X' for any and all applicable criteria): Admission is indicated for ANY ONE of the following (1)(2)(3): [ ]I. Hypoxemia indicated by ANY ONE of the following: [ ]a) Oxygen saturation less than 90% while breathing room air [ ]b) PO2 less than 60 mm Hg (8.0 kPa) while breathing room air [ ]c) Chronic lung disease with significant deterioration from baseline oxygenation [ ]II. Appropriate diagnostic testing and treatment unavailable in outpatient or recovery facility (eg,testing or infection control measures unavailable(10) [ ]III. Moderate-risk or high-risk category patients (Pneumonia Severity Index (PSI) class IV or V, or CURB-65 score of 3 or greater). [ ]IV. Outpatient treatment failure as indicated by ANY ONE of the following(9) : [ ]a) Failure to respond to antibiotic (eg, resistant organism) [ ]b) Clinically significant adverse effects from medication (eg, vomiting) [ ]c) Complications of pneumonia (eg, empyema, bacteremia) [ ]d) Significant worsening of comorbid cond necessitating inpatient care (eg, chronic heart failure) [ ]V. Intermediate-risk category patients (eg, PSI class III or CURB-65 score 2) who do not improve with initial therapy and observation. [ X]. Immunocompromised patients (eg, AIDS, chronic steroid use) at moderate or high risk based on clinical evaluation. [ ]VII. Complicated pleural effusions (eg, exudative, loculated) [ ]VIII.Hemodynamic instability [ ] IX. Altered mental status that is severe or persistent. [ ]X. Dehydration that is severe or persistent. [ ]XI. Bacteremia [ ]XII. Respiratory finding (eg. tachypnea) that do not respond to outpatient or observation care treatment Extended stay beyond goal length of stay may be needed for (20) [ ]a) Unclear diagnosis [ ]b) Pleural disease [ ]c) Severe pneumonia or treatment failure (25 [ ]d) Respiratory failure (anticipate invasive or noninvasive ventilatory support) [ ]e) Abnormal serum electrolytes (serum Na concentration less than 135 mEq/L (mmol/L) (32)(33) [ ]f) Clinically significant comorbid illness (eg, heart failure, atrial fibrillation with rapid heart rate, alcohol withdrawal, renal insufficiency)(34)(35) [ ]g) Comorbid acute exacerbation of COPD(36) [ ]h) Concomitant diagnosis of malignancy that may be associated with malnutrition, immunologic impairment, or bronchial obstruction. [ ]i) Concomitant altered mental status [ ]j) Culture-identified Gram-negative or antibiotic-resistant organism (eg, Pseudomonas, methicillin-resistant Staphylococcus aureus)(30) [ ]k) Healthcare-associated pneumonia The original [employer] content created by [employer] has been revised. The portions of the content which have been revised are identified through the use of italic text or in bold, and [facility] has neither reviewed nor approved the modified material. All other unmodified content is copyright [employer]. Please see references footnoted in the original [facility] [employer] edition 2016 Admission Criteria Met: Yes
[2017-01-25] MEDS ORDERED: ALBUTEROL 0.083% INHALATION PRN (02:58)
[2017-01-25] MEDS: ZOFRAN IV PRN (03:35)
[2017-01-25] MEDS: MORPHINE IV PRN ×3 (03:36→23:44)
[2017-01-25] MEDS: TYLENOL PO PRN ×3 (03:48→21:31)
[2017-01-25] MEDS: ZOSYN/NS 4.5GM/100ML 4.5 GM/100 ML VIAL IV SCH ×3 (07:11→18:55)
[2017-01-25] MEDS: PULMICORT IH SCH ×2 (08:50→22:02)
[2017-01-25] MEDS: BROVANA NEBU IH SCH ×2 (08:50→22:02)
--- NOTE | 2017-01-25 09:19 | XRay Report ---
AP chest x-ray. History: Shortness of breath. Findings: Since the previous study on January 06, 2017, and interstitial infiltrate has developed in the left upper lobe. The remainder of the lung iwse is clear. The heart and pulmonary vessels are normal. There is no pleural fluid. Impression: Left upper lobe interstitial infiltrate consistent with an inflammatory process. Radiographic followup is recommended.
[2017-01-25] MEDS ORDERED: ATRIPLA (NF) PO SCH (10:00)
[2017-01-25] MEDS ORDERED: FORMOTEROL INHALATION SCH (10:00)
[2017-01-25] MEDS ORDERED: NON-FORMULARY (Escitalopram Oxalate [Lexapro] 20 MG) PO SCH (10:00)
[2017-01-25] MEDS ORDERED: BUDESONIDE INHALATION SCH (10:00)
[2017-01-25 11:04] LABS: ISTAT Base Excess -3; ISTAT HCO3 20.3; ISTAT PCO2 27.4 (35-45); ISTAT PH 7.478 (7.35-7.45); ISTAT PO2 73 (80-105); ISTAT SO2 96; ISTAT TCO2 21
[2017-01-25] MEDS: PEPCID PO SCH ×2 (11:15→21:30)
[2017-01-25] MEDS: EMTRIVA PO SCH (11:15)
[2017-01-25] MEDS: SUSTIVA PO SCH (11:15)
[2017-01-25] MEDS: LEXAPRO PO SCH (11:15)
[2017-01-25] MEDS: VIREAD PO SCH (11:16)
[2017-01-25] MEDS: ELIQUIS PO SCH ×2 (13:25→21:30)
[2017-01-25] MEDS: IMDUR PO SCH (13:25)
[2017-01-25] MEDS: TOPROL XL PO SCH (13:25)
--- NOTE | 2017-01-25 14:35 | Consultation ---
History of Present Illness Consult date: 01/25/17 Reason for consult: pneumonia History of present illness: Called to evaluate case of a 56-year-old male admitted to the hospital with cough chest complaints prior history of pulmonary embolism and HIV. The patient reportedly had been admitted about one month ago here with history of chest pain and CTA showing pulmonary embolism. The patient states that he started feeling sick about 2 days prior to admission. He reports a progressive left-sided pleuritic pain. This was associated with fever and night sweats the night before admission. He came in after having episodes of coughing which she saw hemoptysis. Amount of hemoptysis is unclear. Reportedly on anticoagulation at the time. He denies prior history of tuberculosis Admission CT scan of the chest showed resolving pulmonary emboli and saddle embolus is no longer seen. There is however, evidence of a large airspace pneumonia with cavitary changes/necrosis in the left upper lobe. In comparison , this was not present on 01/06/17 chest CTA. Films reviewed Past History Past Medical History: COPD, pulmonary embolism, other (HIV) Social history: single Medications and Allergies Allergies Allergy/AdvReac Type Severity Reaction Status Date / Time No Known Allergies Allergy Verified 01/06/17 12:26 Home Medications Medication Instructions Recorded Confirmed Last Taken Type Aspirin EC [Aspirin Enteric Coated 81 mg PO QDAC 01/07/17 01/25/17 01/05/17 History TAB] AtorvaSTATin [Lipitor] 40 mg PO QHS 01/07/17 01/25/17 01/05/17 History Efavirenz/Emtricitab/Tenofovir 1 each PO QDAY #0 01/07/17 01/25/17 01/05/17 History [Atripla Tablet] Escitalopram Oxalate [Lexapro] 20 mg PO DAILY 01/07/17 01/25/17 01/05/17 History ISOSORBIDE MONOnitrate [Imdur ER] 30 mg PO DAILY 01/07/17 01/25/17 01/05/17 History Metoprolol Xl [Metoprolol 50 mg PO DAILY 01/07/17 01/25/17 01/05/17 History SUCCINATE ER TAB] Proventil 0.083% NEBS 0.083 container INHALATION Q6HR PRN 01/07/17 01/25/1702/14 History Symbicort 160-4.5 (Nf) 160 device INHALATION BID 01/07/17 01/25/17 01/05/17 History Apixaban [Eliquis] 5 mg PO BID #60 tablet 01/09/17 01/25/17 Unknown Rx Famotidine [Pepcid] 20 mg PO BID #60 tablet 01/09/17 01/25/17 Unknown Rx Active Meds: Active Medications Acetaminophen (Tylenol) 650 mg PO Q4H PRN PRN Reason: Pain MILD(1-3)/Fever >100.5/[facility]EN Last Admin: 01/25/17 10:32 Dose: 650 mg Albuterol (Proventil) 2.5 mg IH Q6HRT PRN PRN Reason: Dyspnea Apixaban (Eliquis) 5 mg PO BID [facility] PRN Reason: Protocol Last Admin: 01/25/17 13:25 Dose: 5 mg Arformoterol Tartrate (Brovana Nebu) 15 mcg IH Q12HRT [facility] Last Admin: 01/25/17 08:50 Dose: 15 mcg Aspirin (Halfprin Ec) 81 mg PO QDAC [facility] Atorvastatin Calcium (Lipitor) 40 mg PO QHS [facility] Bisacodyl (Dulcolax) 10 mg [place] QDAY PRN PRN Reason: Constipation unrelieved by MOM Budesonide (Pulmicort) 1 mg IH Q12HRT [facility] Last Admin: 01/25/17 08:50 Dose: 1 mg Efavirenz (Sustiva) 600 mg PO QDAY [facility] Last Admin: 01/25/17 11:15 Dose: 600 mg Emtricitabine (Emtriva) 200 mg PO QDAY [facility] Last Admin: 01/25/17 11:15 Dose: 200 mg Escitalopram Oxalate (Lexapro) 20 mg PO DAILY [facility] Last Admin: 01/25/17 11:15 Dose: 20 mg Famotidine (Pepcid) 20 mg PO BID [facility] Last Admin: 01/25/17 11:15 Dose: 20 mg Piperacillin Sod/Tazobactam Sod (Zosyn/Ns 4.5gm/100ml) 4.5 gm in 100 mls @ 200 mls/hr IV Q6HR [facility] PRN Reason: Protocol Last Admin: 01/25/17 11:16 Dose: 100 mls/hr Isosorbide Mononitrate (Imdur) 30 mg PO DAILY [facility] Last Admin: 01/25/17 13:25 Dose: 30 mg Magnesium Hydroxide (Milk Of Magnesia) 30 ml PO Q4H PRN PRN Reason: Constipation Metoprolol Succinate (Toprol Xl) 50 mg PO DAILY [facility] Last Admin: 01/25/17 13:25 Dose: 50 mg Morphine Sulfate (Morphine) 2 mg IV Q4H PRN PRN Reason: Pain, Moderate (4-6) Last Admin: 01/25/17 11:14 Dose: 2 mg Ondansetron HCl (Zofran) 4 mg IV Q8H PRN PRN Reason: N/V unrelieved by Reglan Last Admin: 01/25/17 03:35 Dose: 4 mg Tenofovir Disoproxil Fumarate (Viread) 300 mg PO QDAY [facility] Last Admin: 01/25/17 11:16 Dose: 300 mg Review of Systems Constitutional: fever, chills, fatigue, weakness, malaise Cardiovascular: chest pain, no orthopnea, no palpitations, no rapid/irregular heart beat, no edema, no syncope, no lightheadedness, no shortness of breath, no dyspnea on exertion Respiratory: cough, hemoptysis Gastrointestinal: no abdominal pain, no nausea, no vomiting, no diarrhea, no constipation, no change in bowel habits, no hematemesis, no coffee ground emesis Genitourinary Male: no hematuria Musculoskeletal: no neck stiffness, no neck pain, no shooting arm pain Neurological: no head injury, no transient paralysis, no weakness, no parathesias Physical Examination Vital signs: Vital Signs Pulse Resp 113 H 12 01/24/17 21:42 01/24/17 21:42 General appearance: no acute distress, alert Eyes: non-icteric ENT: oropharynx moist Neck: supple, no lymphadenopathy, no JVD Effort: normal Ascultation: Bilateral: rales (left field) Percussion: Bilateral: not dull Cardiovascular: regular rate and rhythm Gastrointestinal: normoactive bowel sounds, non-distended Integumentary: normal Extremities: no cyanosis Musculoskeletal: no deformities normal mental status, non-focal exam mood appropriate, affect normal Results - Laboratory Findings CBC and BMP: 01/24/17 22:03 01/24/17 22:03 ABG POC ABG pH 7.478 (7.35-7.45) H 01/25/17 10:40 POC ABG pCO2 27.4 (35-45) L 01/25/17 10:40 POC ABG pO2 73 (80-105) L 01/25/17 10:40 POC ABG HCO3 20.3 01/25/17 10:40 POC ABG Total CO2 21 01/25/17 10:40 POC ABG O2 Sat 96 01/25/17 10:40 PT/INR, D-dimer PT 14.5 Sec. (12.2-14.9) 01/24/17 22:03 INR 1.07 (0.87-1.13) 01/24/17 22:03 Abnormal lab findings: Abnormal Labs 01/25/17 01/25/17 09:32 10:40 POC ABG pH 7.478 H POC ABG pCO2 27.4 L POC ABG pO2 73 L Lactic Acid 2.60 H* - Diagnostic Findings CT scan - chest: report reviewed, image reviewed Assessment and Plan Cavitary/necrotizing pneumonia. Not present on CT scan from earlier this month. Suspicious for bacterial necrotizing process such as pneumococcal pneumonia, anaerobes or MSSA/MRSA. DV/SMAC is least likely in Such short time HIV Pulmonary embolism on anticoagulation Recommendations Consider adding vancomycin Infectious diseases consult Sputum culture Sputum culture for fungi Doubt, as noted before TB but monitor AFB smear and culture. Discontinue respiratory isolation if smear negative 3
--- NOTE | 2017-01-25 16:18 | Event Note ---
Date: 01/25/17 Patient seen and examined noted with sepsis possible bacterial pneumonia. We' ll restart anticoagulation for pulmonary embolism. We'll consult infectious disease. We'll north culture the patient. Physical exam : Skin shows less than 2 seconds capillary refill. VITAL SIGNS: Reviewed. GENERAL: The patient appeared well nourished and normally developed. Vital signs as documented. HEAD: No signs of head trauma. EYES: Pupils are equal. Extraocular motions intact. EARS: Hearing grossly intact. MOUTH: Oropharynx is normal. NECK: No adenopathy, no JVD. CHEST: Chest with clear breath sounds bilaterally. No wheezes, rales, or rhonchi. CARDIAC: Regular rate and rhythm. S1 and S2, without murmurs, gallops, or rubs. VASCULAR: No Edema. Peripheral pulses normal and equal in all extremities. ABDOMEN: Soft, without detectable tenderness. No sign of distention. No rebound or guarding, and no masses palpated. Bowel Sounds normal. MUSCULOSKELETAL: Good range of motion of all major joints. Extremities without clubbing, cyanosis or edema. NEUROLOGIC EXAM: Alert and oriented x 3. No focal sensory or strength deficits. Speech normal. Follows commands. PSYCHIATRIC: Mood normal. SKIN: No rash or lesions. Pulmonary input noted. I agree that this is less likely TB. But we'll monitor the area beneath cultures and smear. Plan discussed with the patient and The nursing staff
[2017-01-25] MEDS ORDERED: VANCOMYCIN PHARMACY TO DOSE IV SCH (17:00)
[2017-01-25] MEDS ORDERED: VANCOMYCIN/NS 1 GM/250 ML 1 GM/250 ML BAG IV SCH (17:00)
[2017-01-25] MEDS ORDERED: VANCOMYCIN 1,500 MG in NACL 0.9% 500 ML 500 ML IV ONE (17:00)
--- NOTE | 2017-01-25 20:51 | Event Note ---
Date: 01/25/17 (Infectious Diseases) Chart has been reviewed. Full consult note to follow. 56-year-old man with history of COPD; HIV infection on Atripla and recent diagnosis of saddle pulmonary embolism on Eliquis admitted now for evaluation of left pleuritic chest pain with hypoxemia at pO2 73mmHg, fever to > 103 deg F, tachypnea and a necrotizing, cavitary lung lesion and hemoptysis. Blood cultures have been sent and are in progress. He was prescribed Rocephin and Azithromycin initially , but this has been changed empirically to Vancomycin and Zosyn. AFB smear and culture of sputum is pending. Agree with the addition of Vancomycin. Sputum culture. Aspergillus , cryptococcal testing.
[2017-01-26] MEDS: ZOSYN/NS 4.5GM/100ML 4.5 GM/100 ML VIAL IV SCH ×4 (01:06→23:55)
[2017-01-26] MEDS: VANCOMYCIN 1,250 MG in NACL 0.9% 250ML 250 ML IV SCH ×2 (06:29→22:07)
[2017-01-26 06:33] LABS: Hematocrit 34.4 % (35.5-45.6); Hemoglobin 11.6 gm/dl (11.8-15.2); Mean Corpuscular HGB Conc 34 % (32-34); Mean Corpuscular Hemoglobin 32 pg (28-32); Mean Corpuscular Volume 94 fl (84-94); Platelet Count 317 K/mm3 (140-440); Red Blood Count 3.67 M/mm3 (3.65-5.03); Red Cell Distribution Width 14.6 % (13.2-15.2); White Blood Count 9.8 K/mm3 (4.5-11.0)
[2017-01-26 06:42] LABS: Anion Gap 21 mmol/L; BUN/Creatinine Ratio 15.45; Blood Urea Nitrogen 17 mg/dL (9-20); Calcium 8.6 mg/dL (8.4-10.2); Carbon Dioxide 21 mmol/L (22-30); Chloride 100.4 mmol/L (98-107); Glucose 130 mg/dL (75-100); Potassium 4.3 mmol/L (3.6-5.0); Sodium 138 mmol/L (137-145)
[2017-01-26 08:49] LABS: Basophils % (Manual) 0 % (0.0-1.8); Blastocytes % (Manual) 0 %; Eosinophils % (Manual) 0 % (0.0-4.3)
[2017-01-26 08:50] LABS: Anisocytosis 1+; Burr Cells Few; Diff Status Complete; Platelet Clumps Rare; Platelet Estimate Consistent w Auto
[2017-01-26] MEDS: BROVANA NEBU IH SCH ×2 (08:50→20:43)
[2017-01-26] MEDS: PULMICORT IH SCH ×2 (08:50→20:43)
--- NOTE | 2017-01-26 09:59 | Consultation ---
History of Present Illness - Reason for Consult Consult date: 01/26/17 Sepsis Requesting physician: SHOAIB PHILIP - History of Present Illness Mr. Howard is a 56-year-old man with HIV infection on Atripla, COPD and PE, which was recently diagnosed. He is on Eliquis. He is re-admitted now with left pleuritic chest pain, hypoxemia and a new inflammatory infiltrate at his left upper lung. Sputum bacterial and AFB studies have been requested. He is on broad antimicrobial coverage with Vancomycin and Zosyn. He was febrile to greater than 103 deg F, but has defervesced witht he addition of Vancomycin yesterday. He remains otherwise stable. ID consultation is requested for further treatment recommendations. Past History Past Medical History: COPD, pulmonary embolism, other (HIV) Social history: single Family history: hypertension Medications and Allergies Allergies Allergy/AdvReac Type Severity Reaction Status Date / Time No Known Allergies Allergy Verified 01/06/17 12:26 Home Medications Medication Instructions Recorded Confirmed Last Taken Type Aspirin EC [Aspirin Enteric Coated 81 mg PO QDAC 01/07/17 01/25/17 01/05/17 History TAB] AtorvaSTATin [Lipitor] 40 mg PO QHS 01/07/17 01/25/17 01/05/17 History Efavirenz/Emtricitab/Tenofovir 1 each PO QDAY #0 01/07/17 01/25/17 01/05/17 History [Atripla Tablet] Escitalopram Oxalate [Lexapro] 20 mg PO DAILY 01/07/17 01/25/17 01/05/17 History ISOSORBIDE MONOnitrate [Imdur ER] 30 mg PO DAILY 01/07/17 01/25/17 01/05/17 History Metoprolol Xl [Metoprolol 50 mg PO DAILY 01/07/17 01/25/17 01/05/17 History SUCCINATE ER TAB] Proventil 0.083% NEBS 0.083 container INHALATION Q6HR PRN 01/07/17 01/25/1702/14 History Symbicort 160-4.5 (Nf) 160 device INHALATION BID 01/07/17 01/25/17 01/05/17 History Apixaban [Eliquis] 5 mg PO BID #60 tablet 01/09/17 01/25/17 Unknown Rx Famotidine [Pepcid] 20 mg PO BID #60 tablet 01/09/17 01/25/17 Unknown Rx Active Meds: Active Medications Acetaminophen (Tylenol) 650 mg PO Q4H PRN PRN Reason: Pain MILD(1-3)/Fever >100.5/[facility] Last Admin: 01/25/17 21:31 Dose: 650 mg Albuterol (Proventil) 2.5 mg IH Q6HRT PRN PRN Reason: Dyspnea Apixaban (Eliquis) 5 mg PO BID [facility] PRN Reason: Protocol Last Admin: 01/25/17 21:30 Dose: 5 mg Arformoterol Tartrate (Brovana Nebu) 15 mcg IH Q12HRT [facility] Last Admin: 01/26/17 08:50 Dose: 15 mcg Aspirin (Halfprin Ec) 81 mg PO QDAC [facility] Atorvastatin Calcium (Lipitor) 40 mg PO QHS [facility] Last Admin: 01/25/17 21:30 Dose: 40 mg Bisacodyl (Dulcolax) 10 mg [place] QDAY PRN PRN Reason: Constipation unrelieved by MOM Budesonide (Pulmicort) 1 mg IH Q12HRT [facility] Last Admin: 01/26/17 08:50 Dose: 1 mg Efavirenz (Sustiva) 600 mg PO QDAY [facility] Last Admin: 01/25/17 11:15 Dose: 600 mg Emtricitabine (Emtriva) 200 mg PO QDAY [facility] Last Admin: 01/25/17 11:15 Dose: 200 mg Escitalopram Oxalate (Lexapro) 20 mg PO DAILY [facility] Last Admin: 01/25/17 11:15 Dose: 20 mg Famotidine (Pepcid) 20 mg PO BID [facility] Last Admin: 01/25/17 21:30 Dose: 20 mg Piperacillin Sod/Tazobactam Sod (Zosyn/Ns 4.5gm/100ml) 4.5 gm in 100 mls @ 200 mls/hr IV Q6HR [facility] PRN Reason: Protocol Last Admin: 01/26/17 06:28 Dose: 100 mls/hr Vancomycin HCl 1,250 mg/ (Sodium Chloride) 275 mls @ 166.667 mls/hr IV Q12H [facility] Last Admin: 01/26/17 06:29 Dose: 166.667 mls/hr Isosorbide Mononitrate (Imdur) 30 mg PO DAILY [facility] Last Admin: 01/25/17 13:25 Dose: 30 mg Magnesium Hydroxide (Milk Of Magnesia) 30 ml PO Q4H PRN PRN Reason: Constipation Metoprolol Succinate (Toprol Xl) 50 mg PO DAILY [facility] Last Admin: 01/25/17 13:25 Dose: 50 mg Morphine Sulfate (Morphine) 2 mg IV Q4H PRN PRN Reason: Pain, Moderate (4-6) Last Admin: 01/25/17 23:44 Dose: 2 mg Ondansetron HCl (Zofran) 4 mg IV Q8H PRN PRN Reason: N/V unrelieved by Reglan Last Admin: 01/25/17 03:35 Dose: 4 mg Tenofovir Disoproxil Fumarate (Viread) 300 mg PO QDAY [facility] Last Admin: 01/25/17 11:16 Dose: 300 mg Vancomycin HCl (Vancomycin Pharmacy To Dose) 1 each IV PKCONSULT [facility] PRN Reason: Protocol Review of Systems All systems: negative Constitutional: fever, no chills, no sweats, no weakness Cardiovascular: chest pain (left pleuritic), lightheadedness, dyspnea on exertion, no leg edema Respiratory: cough, hemoptysis Gastrointestinal: no abdominal pain, no nausea, no vomiting, no diarrhea Genitourinary Male: no dysuria Integumentary: no rash, no pruritis Hematologic/Lymphatic: no easy bleeding, no lymphadenopathy Physical Examination - Constitutional Vitals: Vital Signs Temp Pulse Resp BP Pulse Ox 99.4 F 91 H 20 138/76 100 01/26/17 04:00 01/26/17 08:46 01/26/17 04:00 01/26/17 04:00 01/26/17 04:00 Temperature -Last 24 Hours Temperature 99.4 F Temperature 98.9 F Temperature 99.2 F Temperature 102.9 F Temperature 102.6 F Temperature 102.1 F General appearance: Present: no acute distress, well-nourished - EENT Eyes: Absent: scleral icterus, conjunctival injection ENT: clear oral mucosa, other (severeal missing teeth) - Neck Neck: Present: supple - Respiratory Respiratory effort: normal Respiratory: bilateral: CTA, negative: rales, rhonchi, other (no tenderness to palpation over left chest) - Cardiovascular Rhythm: regular Heart Sounds: Present: S1 & S2 - Extremities Extremities: No edema - Abdominal General gastrointestinal: Present: soft, non-tender, non-distended - Integumentary Integumentary: Absent: jaundice, rash - Psychiatric Psychiatric: appropriate mood/affect - Neurologic Neurologic: no focal deficits, moves all extremities Results - Labs CBC & Chem 7: 01/26/17 05:45 01/26/17 05:45 Labs: Abnormal lab results 01/25/17 01/25/17 01/26/17 Range/Units 09:32 10:40 05:45 Hgb 11.6 L (11.8-15.2) gm/dl Hct 34.4 L D (35.5-45.6) % Lymphocytes % (Manual) 6.0 L (13.4-35.0) % Nucleated RBC % 2.0 H (0.0-0.9) % Lymphocytes # (Manual) 0.6 L (1.2-5.4) K/mm3 POC ABG pH 7.478 H (7.35-7.45) POC ABG pCO2 27.4 L (35-45) POC ABG pO2 73 L (80-105) Carbon Dioxide (22-30) mmol/L Glucose (75-100) mg/dL Lactic Acid 2.60 H* (0.7-2.0) mmol/L 01/26/17 Range/Units 05:45 Hgb (11.8-15.2) gm/dl Hct (35.5-45.6) % Lymphocytes % (Manual) (13.4-35.0) % Nucleated RBC % (0.0-0.9) % Lymphocytes # (Manual) (1.2-5.4) K/mm3 POC ABG pH (7.35-7.45) POC ABG pCO2 (35-45) POC ABG pO2 (80-105) Carbon Dioxide 21 L (22-30) mmol/L Glucose 130 H (75-100) mg/dL Lactic Acid (0.7-2.0) mmol/L Microbiology 01/25/17 22:03 Serum Cryptococcal Antigen - Final 01/25/17 00:44 Peripheral/Venous Blood Culture - Preliminary NO GROWTH AFTER 24 HOURS 01/24/17 22:13 Peripheral/Venous Blood Culture - Preliminary NO GROWTH AFTER 24 HOURS - Imaging and Cardiology Chest x-ray: report reviewed CT scan - chest: report reviewed Assessment and Plan - Patient Problems (1) Sepsis Current Visit: Yes Status: Acute Qualifiers: Sepsis type: sepsis due to unspecified organism Qualified Code(s): A41.9 - Sepsis, unspecified organism Plan to address problem: 1. Likely pneumonic process, question etiology. Continue current broad antibiotics. 2. Await further sputum and antigen studies. (2) Left upper lobe pneumonia Current Visit: Yes Status: Acute Qualifiers: Pneumonia type: due to unspecified organism Aspiration pneumonia type: A Qualified Code(s): J18.1 - Lobar pneumonia, unspecified organism Plan to address problem: 1. Per above re: empiric treatment pending further results. 2. Question Staphylococcal vs. fungal vs. malignant etiology.
[2017-01-26] MEDS: HALFPRIN EC PO SCH (10:01)
[2017-01-26] MEDS: SUSTIVA PO SCH (10:01)
[2017-01-26] MEDS: EMTRIVA PO SCH (10:02)
[2017-01-26] MEDS: VIREAD PO SCH (10:02)
[2017-01-26] MEDS: LEXAPRO PO SCH (10:02)
[2017-01-26] MEDS: PEPCID PO SCH ×2 (10:02→22:08)
[2017-01-26] MEDS: TOPROL XL PO SCH (10:02)
[2017-01-26] MEDS: IMDUR PO SCH (10:02)
[2017-01-26] MEDS: ELIQUIS PO SCH ×2 (10:03→22:08)
--- NOTE | 2017-01-26 11:58 | Progress Note ---
Assessment and Plan Cavitary/necrotizing pneumonia. Not present on CT scan from earlier this month. Suspicious for bacterial necrotizing process such as pneumococcal pneumonia, anaerobes or MSSA/MRSA. DV/SMAC is least likely in Hemoptysis. Decreasing, improving HIV Pulmonary embolism on anticoagulation Recommendations Agree with fungal, Aspergillus w/up Agree with Laila Hoffmann reordered sputum samples in view of expectoration.Will follow results Subjective Date of service: 01/26/17 Interval history: Fever senasation earlier per pt. More loose expectoration,some blodd cntent < 1 -2 TBSP Objective Vital Signs - 12hr 01/26/17 01/26/17 01/26/17 01:51 04:00 08:46 Temperature 98.9 F 99.4 F Pulse Rate 91 H Pulse Rate [ 90 92 H Right] Respiratory 18 20 Rate Blood Pressure 140/74 138/76 [Right Arm] O2 Sat by Pulse 100 100 Oximetry Constitutional: no acute distress, alert Eyes: non-icteric ENT: oropharynx moist Neck: supple, no lymphadenopathy, no JVD Effort: normal Ascultation: Bilateral: clear, diminished breath sounds, rales (left field) Percussion: Bilateral: not dull Cardiovascular: regular rate and rhythm Gastrointestinal: normoactive bowel sounds, non-distended Integumentary: normal Extremities: no cyanosis Neurologic: normal mental status, non-focal exam Psychiatric: mood appropriate, affect normal CBC and BMP: 01/26/17 05:45 01/26/17 05:45 ABG, PT/INR, D-dimer: ABG POC ABG pH 7.478 (7.35-7.45) H 01/25/17 10:40 POC ABG pCO2 27.4 (35-45) L 01/25/17 10:40 POC ABG pO2 73 (80-105) L 01/25/17 10:40 POC ABG HCO3 20.3 01/25/17 10:40 POC ABG Total CO2 21 01/25/17 10:40 POC ABG O2 Sat 96 01/25/17 10:40 PT/INR, D-dimer PT 14.5 Sec. (12.2-14.9) 01/24/17 22:03 INR 1.07 (0.87-1.13) 01/24/17 22:03 Abnormal lab findings: Abnormal Labs 01/25/17 01/25/17 01/26/17 09:32 10:40 05:45 Hgb 11.6 L Hct 34.4 L D Lymphocytes % (Manual) 6.0 L Nucleated RBC % 2.0 H Lymphocytes # (Manual) 0.6 L POC ABG pH 7.478 H POC ABG pCO2 27.4 L POC ABG pO2 73 L Carbon Dioxide Glucose Lactic Acid 2.60 H* 01/26/17 05:45 Hgb Hct Lymphocytes % (Manual) Nucleated RBC % Lymphocytes # (Manual) POC ABG pH POC ABG pCO2 POC ABG pO2 Carbon Dioxide 21 L Glucose 130 H Lactic Acid
[2017-01-26] MEDS: TYLENOL PO PRN (13:24)
[2017-01-26] MEDS: MORPHINE IV PRN ×2 (13:25→23:54)
--- NOTE | 2017-01-26 15:26 | Progress Note ---
Assessment and Plan Assessment and plan: Patient is 56 year old man history of AIDS, CHF, hypertension, recent pulmonary emboli comes emergency room with complaint of left side pain. Saw his primary care physician who gave him a pain patch and ibuprofen but his pain was not controlled. He complaining of cough, hemoptysis, fever and chills. No night sweats, sick contacts. Vital to the ER the patient was febrile with imaging studies included a CT suspicious for left lobar pneumonia. * Sepsis secondary to left lobar pneumonia rule out aspiration pneumonitis, rule out gram-negative al pneumonia. * Left lobar pneumonia * Left lobar consolidation rule out fungus versus malignant etiology * AIDS * Hypertension * Pulmonary embolism * Hemoptysis-resolved * Transaminitis * Anemia of chronic disease. Plan * Continue empiric antibiotic coverage. Pulmonary and infectious diseases input appreciated. * Recommend repeat CT in a few weeks to ensure complete resolution * Continue to follow cultures no growth to date. * Continue HAART therapy * Trend liver function test, r/o hepatitis * AFB 3 pending. We'll follow results. Doubt TB * DVT and GI prophylaxis * PLAN of care discussed with the patient and also with the ID specialist. History Interval history: Patient seen and examined this morning and not in distress nursing staff reports elevated temperature again. Patient reports no cough with intermittent shortness of breath which is improving. Denies any chest pain. Hospitalist Physical - Physical exam Narrative exam: VITAL SIGNS: Reviewed. GENERAL: The patient appeared well nourished and normally developed. Vital signs as documented. HEAD: No signs of head trauma. EYES: Pupils are equal. Extraocular motions intact. EARS: Hearing grossly intact. MOUTH: Missing dentition otherwise oropharynx is normal. NECK: No adenopathy, no JVD. CHEST: Chest with left lower lobe rales CARDIAC: Regular rate and rhythm. S1 and S2, without murmurs, gallops, or rubs. VASCULAR: No Edema. Peripheral pulses normal and equal in all extremities. ABDOMEN: Soft, without detectable tenderness. No sign of distention. No rebound or guarding, and no masses palpated. Bowel Sounds normal. MUSCULOSKELETAL: Good range of motion of all major joints. Extremities without clubbing, cyanosis or edema. NEUROLOGIC EXAM: Alert and oriented x 3. No focal sensory or strength deficits. Speech normal. Follows commands. PSYCHIATRIC: Mood normal. SKIN: No rash or lesions. - Constitutional Vitals: Temp Pulse Resp BP Pulse Ox 101.1 F H 88 12 129/68 97 01/26/17 15:05 01/26/17 15:05 01/26/17 15:05 01/26/17 15:05 01/26/17 15:05 General appearance: Present: no acute distress, well-nourished Results - Labs CBC & Chem 7: 01/26/17 05:45 01/26/17 05:45 Labs: Laboratory Last Values WBC 9.8 K/mm3 (4.5-11.0) 01/26/17 05:45 RBC 3.67 M/mm3 (3.65-5.03) 01/26/17 05:45 Hgb 11.6 gm/dl (11.8-15.2) L 01/26/17 05:45 Hct 34.4 % (35.5-45.6) L D 01/26/17 05:45 MCV 94 fl (84-94) 01/26/17 05:45 MCH 32 pg (28-32) 01/26/17 05:45 MCHC 34 % (32-34) 01/26/17 05:45 RDW 14.6 % (13.2-15.2) 01/26/17 05:45 Plt Count 317 K/mm3 (140-440) 01/26/17 05:45 Add Manual Diff Complete 01/26/17 05:45 Total Counted 100 01/26/17 05:45 Seg Neuts % (Manual) 62.0 % (40.0-70.0) 01/26/17 05:45 Band Neutrophils % 29.0 % 01/26/17 05:45 Lymphocytes % (Manual) 6.0 % (13.4-35.0) L 01/26/17 05:45 Reactive Lymphs % (Man) 0 % 01/26/17 05:45 Monocytes % (Manual) 3.0 % (0.0-7.3) 01/26/17 05:45 Eosinophils % (Manual) 0 % (0.0-4.3) 01/26/17 05:45 Basophils % (Manual) 0 % (0.0-1.8) 01/26/17 05:45 Metamyelocytes % 0 % 01/26/17 05:45 Myelocytes % 0 % 01/26/17 05:45 Promyelocytes % 0 % 01/26/17 05:45 Blast Cells % 0 % 01/26/17 05:45 Nucleated RBC % 2.0 % (0.0-0.9) H 01/26/17 05:45 Seg Neutrophils # Man 6.1 K/mm3 (1.8-7.7) 01/26/17 05:45 Band Neutrophils # 2.8 K/mm3 01/26/17 05:45 Lymphocytes # (Manual) 0.6 K/mm3 (1.2-5.4) L 01/26/17 05:45 Abs React Lymphs (Man) 0.0 K/mm3 01/26/17 05:45 Monocytes # (Manual) 0.3 K/mm3 (0.0-0.8) 01/26/17 05:45 Eosinophils # (Manual) 0.0 K/mm3 (0.0-0.4) 01/26/17 05:45 Basophils # (Manual) 0.0 K/mm3 (0.0-0.1) 01/26/17 05:45 Metamyelocytes # 0.0 K/mm3 01/26/17 05:45 Myelocytes # 0.0 K/mm3 01/26/17 05:45 Promyelocytes # 0.0 K/mm3 01/26/17 05:45 Blast Cells # 0.0 K/mm3 01/26/17 05:45 WBC Morphology Not Reportable 01/26/17 05:45 Hypersegmented Neuts Not Reportable 01/26/17 05:45 Hyposegmented Neuts Not Reportable 01/26/17 05:45 Hypogranular Neuts Not Reportable 01/26/17 05:45 Smudge Cells Not Reportable 01/26/17 05:45 Toxic Granulation Not Reportable 01/26/17 05:45 Toxic Vacuolation Not Reportable 01/26/17 05:45 Dohle Bodies Not Reportable 01/26/17 05:45 Pelger-Huet Anomaly Not Reportable 01/26/17 05:45 Aylin Rods Not Reportable 01/26/17 05:45 Platelet Estimate Consistent w auto 01/26/17 05:45 Clumped Platelets Rare 01/26/17 05:45 Plt Clumps, EDTA Not Reportable 01/26/17 05:45 Large Platelets Not Reportable 01/26/17 05:45 Giant Platelets Not Reportable 01/26/17 05:45 Platelet Satelliting Not Reportable 01/26/17 05:45 Plt Morphology Comment Not Reportable 01/26/17 05:45 RBC Morphology Not Reportable 01/26/17 05:45 Dimorphic RBCs Not Reportable 01/26/17 05:45 Polychromasia Not Reportable 01/26/17 05:45 Hypochromasia Not Reportable 01/26/17 05:45 Poikilocytosis Not Reportable 01/26/17 05:45 Anisocytosis 1+ 01/26/17 05:45 Microcytosis Not Reportable 01/26/17 05:45 Macrocytosis Not Reportable 01/26/17 05:45 Spherocytes Not Reportable 01/26/17 05:45 Pappenheimer Bodies Not Reportable 01/26/17 05:45 Sickle Cells Not Reportable 01/26/17 05:45 Target Cells Not Reportable 01/26/17 05:45 Tear Drop Cells Not Reportable 01/26/17 05:45 Ovalocytes Not Reportable 01/26/17 05:45 Helmet Cells Not Reportable 01/26/17 05:45 Nicolas-[place] Bodies Not Reportable 01/26/17 05:45 [place] Rings Not Reportable 01/26/17 05:45 [place] Cells Few 01/26/17 05:45 Bite Cells Not Reportable 01/26/17 05:45 Crenated Cell Not Reportable 01/26/17 05:45 Elliptocytes Not Reportable 01/26/17 05:45 Acanthocytes (Spur) Not Reportable 01/26/17 05:45 Rouleaux Not Reportable 01/26/17 05:45 Hemoglobin C Crystals Not Reportable 01/26/17 05:45 Schistocytes Not Reportable 01/26/17 05:45 Malaria parasites Not Reportable 01/26/17 05:45 Donta Bodies Not Reportable 01/26/17 05:45 Hem Pathologist Commnt No 01/26/17 05:45 PT 14.5 Sec. (12.2-14.9) 01/24/17 22:03 INR 1.07 (0.87-1.13) 01/24/17 22:03 APTT 33.4 Sec. (24.2-36.6) 01/24/17 22:03 POC ABG pH 7.478 (7.35-7.45) H 01/25/17 10:40 POC ABG pCO2 27.4 (35-45) L 01/25/17 10:40 POC ABG pO2 73 (80-105) L 01/25/17 10:40 POC ABG HCO3 20.3 01/25/17 10:40 POC ABG Total CO2 21 01/25/17 10:40 POC ABG O2 Sat 96 01/25/17 10:40 POC ABG Base Excess -3 01/25/17 10:40 VBG pH 7.374 (7.320-7.420) 01/25/17 00:44 FiO2 32 % 01/25/17 10:40 Sodium 138 mmol/L (137-145) 01/26/17 05:45 Potassium 4.3 mmol/L (3.6-5.0) 01/26/17 05:45 Chloride 100.4 mmol/L (98-107) 01/26/17 05:45 Carbon Dioxide 21 mmol/L (22-30) L 01/26/17 05:45 Anion Gap 21 mmol/L 01/26/17 05:45 BUN 17 mg/dL (9-20) 01/26/17 05:45 Creatinine 1.1 mg/dL (0.8-1.5) 01/26/17 05:45 Estimated GFR > 60 ml/min 01/26/17 05:45 BUN/Creatinine Ratio 15.45 % 01/26/17 05:45 Glucose 130 mg/dL (75-100) H 01/26/17 05:45 Lactic Acid 2.60 mmol/L (0.7-2.0) H* 01/25/17 09:32 Calcium 8.6 mg/dL (8.4-10.2) 01/26/17 05:45 Total Bilirubin 0.40 mg/dL (0.1-1.2) 01/24/17 22:03 AST 103 units/L (5-40) H 01/24/17 22:03 ALT 110 units/L (7-56) H 01/24/17 22:03 Alkaline Phosphatase 97 units/L (35-129) 01/24/17 22:03 Troponin T < 0.010 ng/mL (0.00-0.029) 01/25/17 03:15 Total Protein 8.4 g/dL (6.3-8.2) H 01/24/17 22:03 Albumin 3.8 g/dL (3.9-5) L 01/24/17 22:03 Albumin/Globulin Ratio 0.8 % 01/24/17 22:03 Lipase 33 units/L (13-60) 01/24/17 22:03 Blood Type B POSITIVE 01/24/17 22:07 Antibody Screen TNR 01/24/17 22:07 ALIDA Antibody Screen Negative 01/24/17 22:07
[2017-01-27] MEDS: ZOSYN/NS 4.5GM/100ML 4.5 GM/100 ML VIAL IV SCH ×4 (00:36→17:30)
[2017-01-27] MEDS: TYLENOL PO PRN ×2 (06:28→16:38)
[2017-01-27] MEDS: HALFPRIN EC PO SCH (07:57)
[2017-01-27] MEDS: PULMICORT IH SCH ×2 (08:49→20:17)
[2017-01-27] MEDS: BROVANA NEBU IH SCH ×2 (08:49→20:17)
--- NOTE | 2017-01-27 09:35 | Progress Note ---
Assessment and Plan Assessment and plan: Patient is 56 year old man history of AIDS, CHF, hypertension, recent pulmonary emboli comes emergency room with complaint of left side pain. Saw his primary care physician who gave him a pain patch and ibuprofen but his pain was not controlled. He complaining of cough, hemoptysis, fever and chills. No night sweats, sick contacts. Vitals to the ER the patient was febrile with imaging studies included a CT suspicious for left lobar pneumonia. * Sepsis secondary to left lobar pneumonia rule out aspiration pneumonitis, rule out gram-negative al pneumonia. * Left lobar pneumonia * Left lobar consolidation rule out fungus versus malignant etiology * AIDS * Hypertension * Pulmonary embolism * Hemoptysis-resolved * Transaminitis * Anemia of chronic disease. Plan * Still with fever, Repeat xray. Staphylococcal vs. fungal vs. malignant etiology * ? Bronchosocpy- due to increasing left upper lobar infiltrate. if no improvement will obtain speech eval, doubt aspiration. * Continue empiric antibiotic coverage. Pulmonary and infectious diseases input appreciated. * Recommend repeat CT in a few weeks to ensure complete resolution * Continue to follow cultures no growth to date. * Continue HAART therapy * Trend liver function test, r/o hepatitis * AFB 3 pending. We'll follow results. Doubt TB * DVT and GI prophylaxis * PLAN of care discussed with the patient and also with the ID specialist. History Interval history: Patient seen and examined this morning and not in distress nursing staff reports elevated temperature again. NO Further cough today. Hospitalist Physical - Physical exam Narrative exam: VITAL SIGNS: Reviewed. GENERAL: The patient appeared well nourished and normally developed. Vital signs as documented. HEAD: No signs of head trauma. EYES: Pupils are equal. Extraocular motions intact. EARS: Hearing grossly intact. MOUTH: Missing dentition otherwise oropharynx is normal. NECK: No adenopathy, no JVD. CHEST: crackles left lower lobe rales CARDIAC: Regular rate and rhythm. S1 and S2, without murmurs, gallops, or rubs. VASCULAR: No Edema. Peripheral pulses normal and equal in all extremities. ABDOMEN: Soft, without detectable tenderness. No sign of distention. No rebound or guarding, and no masses palpated. Bowel Sounds normal. MUSCULOSKELETAL: Good range of motion of all major joints. Extremities without clubbing, cyanosis or edema. NEUROLOGIC EXAM: Alert and oriented x 3. No focal sensory or strength deficits. Speech normal. Follows commands. PSYCHIATRIC: Mood normal. SKIN: No rash or lesions. - Constitutional Vitals: Temp Pulse Resp BP Pulse Ox 101.2 F H 86 17 147/70 97 01/27/17 04:45 01/27/17 08:49 01/27/17 08:49 01/27/17 04:45 01/27/17 08:50 General appearance: Present: no acute distress, well-nourished Results - Labs CBC & Chem 7: 01/26/17 05:45 01/26/17 05:45 Labs: Laboratory Last Values WBC 9.8 K/mm3 (4.5-11.0) 01/26/17 05:45 RBC 3.67 M/mm3 (3.65-5.03) 01/26/17 05:45 Hgb 11.6 gm/dl (11.8-15.2) L 01/26/17 05:45 Hct 34.4 % (35.5-45.6) L D 01/26/17 05:45 MCV 94 fl (84-94) 01/26/17 05:45 MCH 32 pg (28-32) 01/26/17 05:45 MCHC 34 % (32-34) 01/26/17 05:45 RDW 14.6 % (13.2-15.2) 01/26/17 05:45 Plt Count 317 K/mm3 (140-440) 01/26/17 05:45 Add Manual Diff Complete 01/26/17 05:45 Total Counted 100 01/26/17 05:45 Seg Neuts % (Manual) 62.0 % (40.0-70.0) 01/26/17 05:45 Band Neutrophils % 29.0 % 01/26/17 05:45 Lymphocytes % (Manual) 6.0 % (13.4-35.0) L 01/26/17 05:45 Reactive Lymphs % (Man) 0 % 01/26/17 05:45 Monocytes % (Manual) 3.0 % (0.0-7.3) 01/26/17 05:45 Eosinophils % (Manual) 0 % (0.0-4.3) 01/26/17 05:45 Basophils % (Manual) 0 % (0.0-1.8) 01/26/17 05:45 Metamyelocytes % 0 % 01/26/17 05:45 Myelocytes % 0 % 01/26/17 05:45 Promyelocytes % 0 % 01/26/17 05:45 Blast Cells % 0 % 01/26/17 05:45 Nucleated RBC % 2.0 % (0.0-0.9) H 01/26/17 05:45 Seg Neutrophils # Man 6.1 K/mm3 (1.8-7.7) 01/26/17 05:45 Band Neutrophils # 2.8 K/mm3 01/26/17 05:45 Lymphocytes # (Manual) 0.6 K/mm3 (1.2-5.4) L 01/26/17 05:45 Abs React Lymphs (Man) 0.0 K/mm3 01/26/17 05:45 Monocytes # (Manual) 0.3 K/mm3 (0.0-0.8) 01/26/17 05:45 Eosinophils # (Manual) 0.0 K/mm3 (0.0-0.4) 01/26/17 05:45 Basophils # (Manual) 0.0 K/mm3 (0.0-0.1) 01/26/17 05:45 Metamyelocytes # 0.0 K/mm3 01/26/17 05:45 Myelocytes # 0.0 K/mm3 01/26/17 05:45 Promyelocytes # 0.0 K/mm3 01/26/17 05:45 Blast Cells # 0.0 K/mm3 01/26/17 05:45 WBC Morphology Not Reportable 01/26/17 05:45 Hypersegmented Neuts Not Reportable 01/26/17 05:45 Hyposegmented Neuts Not Reportable 01/26/17 05:45 Hypogranular Neuts Not Reportable 01/26/17 05:45 Smudge Cells Not Reportable 01/26/17 05:45 Toxic Granulation Not Reportable 01/26/17 05:45 Toxic Vacuolation Not Reportable 01/26/17 05:45 Dohle Bodies Not Reportable 01/26/17 05:45 Pelger-Huet Anomaly Not Reportable 01/26/17 05:45 Aylin Rods Not Reportable 01/26/17 05:45 Platelet Estimate Consistent w auto 01/26/17 05:45 Clumped Platelets Rare 01/26/17 05:45 Plt Clumps, EDTA Not Reportable 01/26/17 05:45 Large Platelets Not Reportable 01/26/17 05:45 Giant Platelets Not Reportable 01/26/17 05:45 Platelet Satelliting Not Reportable 01/26/17 05:45 Plt Morphology Comment Not Reportable 01/26/17 05:45 RBC Morphology Not Reportable 01/26/17 05:45 Dimorphic RBCs Not Reportable 01/26/17 05:45 Polychromasia Not Reportable 01/26/17 05:45 Hypochromasia Not Reportable 01/26/17 05:45 Poikilocytosis Not Reportable 01/26/17 05:45 Anisocytosis 1+ 01/26/17 05:45 Microcytosis Not Reportable 01/26/17 05:45 Macrocytosis Not Reportable 01/26/17 05:45 Spherocytes Not Reportable 01/26/17 05:45 Pappenheimer Bodies Not Reportable 01/26/17 05:45 Sickle Cells Not Reportable 01/26/17 05:45 Target Cells Not Reportable 01/26/17 05:45 Tear Drop Cells Not Reportable 01/26/17 05:45 Ovalocytes Not Reportable 01/26/17 05:45 Helmet Cells Not Reportable 01/26/17 05:45 Nicolas-[place] Bodies Not Reportable 01/26/17 05:45 [place] Rings Not Reportable 01/26/17 05:45 [place] Cells Few 01/26/17 05:45 Bite Cells Not Reportable 01/26/17 05:45 Crenated Cell Not Reportable 01/26/17 05:45 Elliptocytes Not Reportable 01/26/17 05:45 Acanthocytes (Spur) Not Reportable 01/26/17 05:45 Rouleaux Not Reportable 01/26/17 05:45 Hemoglobin C Crystals Not Reportable 01/26/17 05:45 Schistocytes Not Reportable 01/26/17 05:45 Malaria parasites Not Reportable 01/26/17 05:45 Donta Bodies Not Reportable 01/26/17 05:45 Hem Pathologist Commnt No 01/26/17 05:45 PT 14.5 Sec. (12.2-14.9) 01/24/17 22:03 INR 1.07 (0.87-1.13) 01/24/17 22:03 APTT 33.4 Sec. (24.2-36.6) 01/24/17 22:03 POC ABG pH 7.478 (7.35-7.45) H 01/25/17 10:40 POC ABG pCO2 27.4 (35-45) L 01/25/17 10:40 POC ABG pO2 73 (80-105) L 01/25/17 10:40 POC ABG HCO3 20.3 01/25/17 10:40 POC ABG Total CO2 21 01/25/17 10:40 POC ABG O2 Sat 96 01/25/17 10:40 POC ABG Base Excess -3 01/25/17 10:40 VBG pH 7.374 (7.320-7.420) 01/25/17 00:44 FiO2 32 % 01/25/17 10:40 Sodium 138 mmol/L (137-145) 01/26/17 05:45 Potassium 4.3 mmol/L (3.6-5.0) 01/26/17 05:45 Chloride 100.4 mmol/L (98-107) 01/26/17 05:45 Carbon Dioxide 21 mmol/L (22-30) L 01/26/17 05:45 Anion Gap 21 mmol/L 01/26/17 05:45 BUN 17 mg/dL (9-20) 01/26/17 05:45 Creatinine 1.1 mg/dL (0.8-1.5) 01/26/17 05:45 Estimated GFR > 60 ml/min 01/26/17 05:45 BUN/Creatinine Ratio 15.45 % 01/26/17 05:45 Glucose 130 mg/dL (75-100) H 01/26/17 05:45 Lactic Acid 2.60 mmol/L (0.7-2.0) H* 01/25/17 09:32 Calcium 8.6 mg/dL (8.4-10.2) 01/26/17 05:45 Total Bilirubin 0.40 mg/dL (0.1-1.2) 01/24/17 22:03 AST 103 units/L (5-40) H 01/24/17 22:03 ALT 110 units/L (7-56) H 01/24/17 22:03 Alkaline Phosphatase 97 units/L (35-129) 01/24/17 22:03 Troponin T < 0.010 ng/mL (0.00-0.029) 01/25/17 03:15 Total Protein 8.4 g/dL (6.3-8.2) H 01/24/17 22:03 Albumin 3.8 g/dL (3.9-5) L 01/24/17 22:03 Albumin/Globulin Ratio 0.8 % 01/24/17 22:03 Lipase 33 units/L (13-60) 01/24/17 22:03 Blood Type B POSITIVE 01/24/17 22:07 Antibody Screen TNR 01/24/17 22:07 ALIDA Antibody Screen Negative 01/24/17 22:07 - Imaging and Cardiology Chest x-ray: image reviewed (increased left upper lobe lesion)
[2017-01-27] MEDS: ELIQUIS PO SCH ×2 (09:38→22:30)
[2017-01-27] MEDS: PEPCID PO SCH ×2 (09:38→22:30)
[2017-01-27] MEDS: SUSTIVA PO SCH (09:39)
[2017-01-27] MEDS: VIREAD PO SCH (09:39)
[2017-01-27] MEDS: LEXAPRO PO SCH (09:40)
[2017-01-27] MEDS: IMDUR PO SCH (09:40)
[2017-01-27] MEDS: EMTRIVA PO SCH (09:40)
[2017-01-27] MEDS: TOPROL XL PO SCH (09:41)
[2017-01-27] MEDS: VANCOMYCIN 1,250 MG in NACL 0.9% 250ML 250 ML IV SCH ×2 (09:50→22:29)
--- NOTE | 2017-01-27 11:03 | XRay Report ---
AP CHEST: HISTORY: Followup pneumonia Patchy infiltrate in the left upper lobe has increased by 25-50% since 01/24/17 exam. A large bulla in the left upper lobe is also noted. The remainder of the lungs are clear. Heart size is within normal limits. No bony abnormalities. IMPRESSION: Mild interval increase in the left upper lobe infiltrate since the exam 3 days ago.
--- NOTE | 2017-01-27 11:12 | Progress Note ---
Assessment and Plan - Patient Problems (1) Sepsis Current Visit: Yes Status: Acute Qualifiers: Sepsis type: sepsis due to unspecified organism Qualified Code(s): A41.9 - Sepsis, unspecified organism Plan to address problem: 1. Continue broad antimicrobial therapy. Vancomycin trough scheduled for AM. Goal 15-20. 2. Await further culture and path data. (2) Left upper lobe pneumonia Current Visit: Yes Status: Acute Qualifiers: Pneumonia type: due to unspecified organism Aspiration pneumonia type: A Qualified Code(s): J18.1 - Lobar pneumonia, unspecified organism Plan to address problem: Per above. (3) HIV (human immunodeficiency virus infection) Current Visit: Yes Status: Acute Plan to address problem: Continue formulary equivalent of Atripla. Subjective Date of service: 01/27/17 Principal diagnosis: Sepsis Interval history: Intermittent fevers. Feels sleepy today. No new complaints. Objective - Constitutional Vitals: Vital Signs Temp Pulse Resp BP Pulse Ox 97.4 F L 81 18 113/60 97 01/27/17 09:58 01/27/17 09:58 01/27/17 09:58 01/27/17 09:58 01/27/17 09:58 Temperature -Last 24 Hours Temperature 97.4 F Temperature 101.2 F Temperature 99.6 F Temperature 101.2 F Temperature 99.2 F Temperature 101.1 F General appearance: Present: no acute distress - Neck Neck: supple - Respiratory Respiratory effort: normal Respiratory: bilateral: CTA, negative: other (no chest wall tenderness) - Cardiovascular Rhythm: regular Heart Sounds: Present: S1 & S2 Extremities: No edema - Gastrointestinal General gastrointestinal: Present: soft, non-tender, non-distended - Integumentary Integumentary: no jaundice, no rash - Neurologic Neurologic: no focal deficits - Psychiatric Psychiatric: appropriate mood/affect - Labs CBC & Chem 7: 01/26/17 05:45 01/26/17 05:45 Labs: Microbiology 01/27/17 06:45 Sputum - Expectorated Sputum Sputum Culture - Final 01/25/17 00:44 Peripheral/Venous Blood Culture - Preliminary NO GROWTH AFTER 48 HOURS 01/24/17 22:13 Peripheral/Venous Blood Culture - Preliminary NO GROWTH AFTER 48 HOURS 01/26/17 06:30 Sputum - Expectorated Sputum Sputum Culture - Final 01/25/17 22:03 Serum Cryptococcal Antigen - Final - Imaging and cardiology Chest x-ray: report reviewed (interval increase in MELVINA infiltrate)
--- NOTE | 2017-01-27 12:36 | Progress Note ---
Assessment and Plan Cavitary/necrotizing pneumonia. Febrile earlier, none now. Cultures negative thus far. Suspicious for bacterial necrotizing process Hemoptysis. None today, improving. Expectoration decreasing HIV Pulmonary embolism on anticoagulation Recommendations Check remaining cultures Continue Laila Hoffmann Continue fever monitoring Subjective Date of service: 01/27/17 Principal diagnosis: Sepsis Interval history: Some fever earlier.Less cough, no expectoration.No pain. Objective Vital Signs - 12hr 01/27/17 01/27/17 01/27/17 04:45 08:49 08:50 Temperature 101.2 F H Pulse Rate [ 86 Anterior Bilateral Throughout] Pulse Rate [ 84 Right] Respiratory 18 Rate Respiratory 17 Rate [Anterior Bilateral Throughout] Blood Pressure 147/70 [Right Arm] O2 Sat by Pulse 99 97 Oximetry 01/27/17 01/27/17 09:03 09:58 Temperature 97.4 F L Pulse Rate [ 92 H Anterior Bilateral Throughout] Pulse Rate [ 81 Right] Respiratory 18 Rate Respiratory 18 Rate [Anterior Bilateral Throughout] Blood Pressure 113/60 [Right Arm] O2 Sat by Pulse 97 Oximetry Constitutional: no acute distress, alert Eyes: non-icteric ENT: oropharynx moist Neck: supple, no lymphadenopathy, no JVD Effort: normal Ascultation: Bilateral: clear, diminished breath sounds Percussion: Bilateral: not dull Cardiovascular: regular rate and rhythm Gastrointestinal: normoactive bowel sounds, non-distended Integumentary: normal Extremities: no cyanosis Neurologic: normal mental status, non-focal exam Psychiatric: mood appropriate, affect normal CBC and BMP: 01/26/17 05:45 01/26/17 05:45 ABG, PT/INR, D-dimer: ABG POC ABG pH 7.478 (7.35-7.45) H 01/25/17 10:40 POC ABG pCO2 27.4 (35-45) L 01/25/17 10:40 POC ABG pO2 73 (80-105) L 01/25/17 10:40 POC ABG HCO3 20.3 01/25/17 10:40 POC ABG Total CO2 21 01/25/17 10:40 POC ABG O2 Sat 96 01/25/17 10:40 PT/INR, D-dimer PT 14.5 Sec. (12.2-14.9) 01/24/17 22:03 INR 1.07 (0.87-1.13) 01/24/17 22:03 Abnormal lab findings: Abnormal Labs 01/25/17 01/25/17 01/26/17 09:32 10:40 05:45 Hgb 11.6 L Hct 34.4 L D Lymphocytes % (Manual) 6.0 L Nucleated RBC % 2.0 H Lymphocytes # (Manual) 0.6 L POC ABG pH 7.478 H POC ABG pCO2 27.4 L POC ABG pO2 73 L Carbon Dioxide Glucose Lactic Acid 2.60 H* 01/26/17 05:45 Hgb Hct Lymphocytes % (Manual) Nucleated RBC % Lymphocytes # (Manual) POC ABG pH POC ABG pCO2 POC ABG pO2 Carbon Dioxide 21 L Glucose 130 H Lactic Acid
[2017-01-27 13:06] LABS: Alanine Aminotransferase 117 units/L (7-56); Albumin 2.8 g/dL (3.9-5); Albumin/Globulin Ratio 0.9 %; Alkaline Phosphatase 82 units/L (35-129); Total Protein 5.8 g/dL (6.3-8.2)
[2017-01-27 13:10] LABS: Bilirubin,Direct < 0.2 mg/dL (0-0.2)
[2017-01-27] MEDS: MORPHINE IV PRN (17:24)
[2017-01-28] MEDS: ZOSYN/NS 4.5GM/100ML 4.5 GM/100 ML VIAL IV SCH ×4 (00:44→20:23)
[2017-01-28] MEDS: MORPHINE IV PRN ×2 (00:45→20:25)
[2017-01-28] MEDS: TYLENOL PO PRN ×2 (08:48→16:20)
[2017-01-28 09:07] LABS: Hemoglobin 10.9 gm/dl (11.8-15.2); Mean Corpuscular HGB Conc 33 % (32-34); Mean Corpuscular Hemoglobin 31 pg (28-32); Mean Corpuscular Volume 95 fl (84-94); Platelet Count 319 K/mm3 (140-440); Red Blood Count 3.49 M/mm3 (3.65-5.03); Red Cell Distribution Width 14.6 % (13.2-15.2); White Blood Count 12.4 K/mm3 (4.5-11.0)
[2017-01-28] MEDS: BROVANA NEBU IH SCH ×2 (09:15→20:42)
[2017-01-28] MEDS: PULMICORT IH SCH ×2 (09:15→20:43)
[2017-01-28 09:22] LABS: Albumin 2.7 g/dL (3.9-5); Albumin/Globulin Ratio 0.6 %; Bilirubin,Total 0.3 mg/dL (0.1-1.2); Calcium 8.7 mg/dL (8.4-10.2); Chloride 102.7 mmol/L (98-107); Potassium 3.8 mmol/L (3.6-5.0); Total Protein 6.9 g/dL (6.3-8.2)
--- NOTE | 2017-01-28 09:43 | Progress Note ---
Assessment and Plan Assessment and plan: Patient is 56 year old man history of AIDS, CHF, hypertension, recent pulmonary emboli comes emergency room with complaint of left side pain. Saw his primary care physician who gave him a pain patch and ibuprofen but his pain was not controlled. He complaining of cough, hemoptysis, fever and chills. No night sweats, sick contacts. Vitals to the ER the patient was febrile with imaging studies included a CT suspicious for left lobar pneumonia. * Sepsis secondary to left lobar pneumonia rule out aspiration pneumonitis, rule out gram-negative al pneumonia. Cavitory/Necrotizing Pneumonia with hemoptysis which has resolved. Recurrent fever * STACEY Possible vasomotor nephropathy +/- vancomycin Also with possible contrast nephropathy * Left lobar pneumonia * Left lobar consolidation rule out fungus versus malignant etiology * AIDS * Hypertension * Moderate protein calorie malnutrition * Pulmonary embolism-[place] * Hemoptysis-resolved * Transaminitis * Anemia of chronic disease. Plan * Still with fever, Repeat xray. Staphylococcal vs. fungal vs. malignant etiology * Check renal ultrasound, repeat BMP if still elevated creatinine will obtain Nephrology consult * Continue Eliquis * ? Bronchosocpy- due to increasing left upper lobar infiltrate. if no improvement will obtain speech eval, doubt aspiration. * Continue empiric antibiotic coverage. Pulmonary and infectious diseases input appreciated. * Recommend repeat CT in a few weeks to ensure complete resolution * Continue to follow cultures no growth to date. * Nutrition consult * Continue HAART therapy- Sustiva, Emtriva, Viread * Trend liver function test, r/o hepatitis * AFB 3 pending. We'll follow results. Doubt TB * Continue "Atripla" dosed per formulary availability. * DVT and GI prophylaxis * PLAN of care discussed with the patient and also with the ID specialist. . History Interval history: Patient seen and examined this morning, still with intermittent fever. Hospitalist Physical - Physical exam Narrative exam: VITAL SIGNS: Reviewed. GENERAL: The patient appeared well nourished and normally developed. Vital signs as documented. HEAD: No signs of head trauma. EYES: Pupils are equal. Extraocular motions intact. EARS: Hearing grossly intact. MOUTH: Missing dentition otherwise oropharynx is normal. NECK: No adenopathy, no JVD. CHEST: crackles left lower lobe rales CARDIAC: Regular rate and rhythm. S1 and S2, without murmurs, gallops, or rubs. VASCULAR: No Edema. Peripheral pulses normal and equal in all extremities. ABDOMEN: Soft, without detectable tenderness. No sign of distention. No rebound or guarding, and no masses palpated. Bowel Sounds normal. MUSCULOSKELETAL: Good range of motion of all major joints. Extremities without clubbing, cyanosis or edema. NEUROLOGIC EXAM: Alert and oriented x 3. No focal sensory or strength deficits. Speech normal. Follows commands. PSYCHIATRIC: Mood normal. SKIN: No rash or lesions. - Constitutional Vitals: Temp Pulse Resp BP Pulse Ox 101.4 F H 82 20 127/70 96 01/28/17 07:25 01/28/17 07:25 01/28/17 07:25 01/28/17 07:25 01/28/17 07:25 General appearance: Present: no acute distress Results - Labs CBC & Chem 7: 01/28/17 08:36 01/28/17 11:56 Labs: Laboratory Last Values WBC 12.4 K/mm3 (4.5-11.0) H 01/28/17 08:36 RBC 3.49 M/mm3 (3.65-5.03) L 01/28/17 08:36 Hgb 10.9 gm/dl (11.8-15.2) L 01/28/17 08:36 Hct 33.0 % (35.5-45.6) L 01/28/17 08:36 MCV 95 fl (84-94) H 01/28/17 08:36 MCH 31 pg (28-32) 01/28/17 08:36 MCHC 33 % (32-34) 01/28/17 08:36 RDW 14.6 % (13.2-15.2) 01/28/17 08:36 Plt Count 319 K/mm3 (140-440) 01/28/17 08:36 Add Manual Diff Complete 01/26/17 05:45 Total Counted 100 01/26/17 05:45 Seg Neuts % (Manual) 62.0 % (40.0-70.0) 01/26/17 05:45 Band Neutrophils % 29.0 % 01/26/17 05:45 Lymphocytes % (Manual) 6.0 % (13.4-35.0) L 01/26/17 05:45 Reactive Lymphs % (Man) 0 % 01/26/17 05:45 Monocytes % (Manual) 3.0 % (0.0-7.3) 01/26/17 05:45 Eosinophils % (Manual) 0 % (0.0-4.3) 01/26/17 05:45 Basophils % (Manual) 0 % (0.0-1.8) 01/26/17 05:45 Metamyelocytes % 0 % 01/26/17 05:45 Myelocytes % 0 % 01/26/17 05:45 Promyelocytes % 0 % 01/26/17 05:45 Blast Cells % 0 % 01/26/17 05:45 Nucleated RBC % 2.0 % (0.0-0.9) H 01/26/17 05:45 Seg Neutrophils # Man 6.1 K/mm3 (1.8-7.7) 01/26/17 05:45 Band Neutrophils # 2.8 K/mm3 01/26/17 05:45 Lymphocytes # (Manual) 0.6 K/mm3 (1.2-5.4) L 01/26/17 05:45 Abs React Lymphs (Man) 0.0 K/mm3 01/26/17 05:45 Monocytes # (Manual) 0.3 K/mm3 (0.0-0.8) 01/26/17 05:45 Eosinophils # (Manual) 0.0 K/mm3 (0.0-0.4) 01/26/17 05:45 Basophils # (Manual) 0.0 K/mm3 (0.0-0.1) 01/26/17 05:45 Metamyelocytes # 0.0 K/mm3 01/26/17 05:45 Myelocytes # 0.0 K/mm3 01/26/17 05:45 Promyelocytes # 0.0 K/mm3 01/26/17 05:45 Blast Cells # 0.0 K/mm3 01/26/17 05:45 WBC Morphology Not Reportable 01/26/17 05:45 Hypersegmented Neuts Not Reportable 01/26/17 05:45 Hyposegmented Neuts Not Reportable 01/26/17 05:45 Hypogranular Neuts Not Reportable 01/26/17 05:45 Smudge Cells Not Reportable 01/26/17 05:45 Toxic Granulation Not Reportable 01/26/17 05:45 Toxic Vacuolation Not Reportable 01/26/17 05:45 Dohle Bodies Not Reportable 01/26/17 05:45 Pelger-Huet Anomaly Not Reportable 01/26/17 05:45 Aylin Rods Not Reportable 01/26/17 05:45 Platelet Estimate Consistent w auto 01/26/17 05:45 Clumped Platelets Rare 01/26/17 05:45 Plt Clumps, EDTA Not Reportable 01/26/17 05:45 Large Platelets Not Reportable 01/26/17 05:45 Giant Platelets Not Reportable 01/26/17 05:45 Platelet Satelliting Not Reportable 01/26/17 05:45 Plt Morphology Comment Not Reportable 01/26/17 05:45 RBC Morphology Not Reportable 01/26/17 05:45 Dimorphic RBCs Not Reportable 01/26/17 05:45 Polychromasia Not Reportable 01/26/17 05:45 Hypochromasia Not Reportable 01/26/17 05:45 Poikilocytosis Not Reportable 01/26/17 05:45 Anisocytosis 1+ 01/26/17 05:45 Microcytosis Not Reportable 01/26/17 05:45 Macrocytosis Not Reportable 01/26/17 05:45 Spherocytes Not Reportable 01/26/17 05:45 Pappenheimer Bodies Not Reportable 01/26/17 05:45 Sickle Cells Not Reportable 01/26/17 05:45 Target Cells Not Reportable 01/26/17 05:45 Tear Drop Cells Not Reportable 01/26/17 05:45 Ovalocytes Not Reportable 01/26/17 05:45 Helmet Cells Not Reportable 01/26/17 05:45 [place] Bodies Not Reportable 01/26/17 05:45 Afton Rings Not Reportable 01/26/17 05:45 Margaret Cells Few 01/26/17 05:45 Bite Cells Not Reportable 01/26/17 05:45 Crenated Cell Not Reportable 01/26/17 05:45 Elliptocytes Not Reportable 01/26/17 05:45 Acanthocytes (Spur) Not Reportable 01/26/17 05:45 Rouleaux Not Reportable 01/26/17 05:45 Hemoglobin C Crystals Not Reportable 01/26/17 05:45 Schistocytes Not Reportable 01/26/17 05:45 Malaria parasites Not Reportable 01/26/17 05:45 Donta Bodies Not Reportable 01/26/17 05:45 Hem Pathologist Commnt No 01/26/17 05:45 PT 14.5 Sec. (12.2-14.9) 01/24/17 22:03 INR 1.07 (0.87-1.13) 01/24/17 22:03 APTT 33.4 Sec. (24.2-36.6) 01/24/17 22:03 POC ABG pH 7.478 (7.35-7.45) H 01/25/17 10:40 POC ABG pCO2 27.4 (35-45) L 01/25/17 10:40 POC ABG pO2 73 (80-105) L 01/25/17 10:40 POC ABG HCO3 20.3 01/25/17 10:40 POC ABG Total CO2 21 01/25/17 10:40 POC ABG O2 Sat 96 01/25/17 10:40 POC ABG Base Excess -3 01/25/17 10:40 VBG pH 7.374 (7.320-7.420) 01/25/17 00:44 FiO2 32 % 01/25/17 10:40 Sodium 142 mmol/L (137-145) 01/28/17 08:36 Potassium 3.8 mmol/L (3.6-5.0) 01/28/17 08:36 Chloride 102.7 mmol/L (98-107) 01/28/17 08:36 Carbon Dioxide 23 mmol/L (22-30) 01/28/17 08:36 Anion Gap 20 mmol/L 01/28/17 08:36 BUN 28 mg/dL (9-20) H 01/28/17 08:36 Creatinine 2.0 mg/dL (0.8-1.5) H D 01/28/17 08:36 Estimated GFR 42 ml/min 01/28/17 08:36 BUN/Creatinine Ratio 14.00 % 01/28/17 08:36 Glucose 137 mg/dL (75-100) H 01/28/17 08:36 Lactic Acid 2.60 mmol/L (0.7-2.0) H* 01/25/17 09:32 Calcium 8.7 mg/dL (8.4-10.2) 01/28/17 08:36 Total Bilirubin 0.30 mg/dL (0.1-1.2) 01/28/17 08:36 Direct Bilirubin < 0.2 mg/dL (0-0.2) 01/27/17 12:15 AST 119 units/L (5-40) H 01/28/17 08:36 ALT 106 units/L (7-56) H 01/28/17 08:36 Alkaline Phosphatase 85 units/L (35-129) 01/28/17 08:36 Troponin T < 0.010 ng/mL (0.00-0.029) 01/25/17 03:15 Total Protein 6.9 g/dL (6.3-8.2) 01/28/17 08:36 Albumin 2.7 g/dL (3.9-5) L 01/28/17 08:36 Albumin/Globulin Ratio 0.6 % 01/28/17 08:36 Lipase 33 units/L (13-60) 01/24/17 22:03 Blood Type B POSITIVE 01/24/17 22:07 Antibody Screen TNR 01/24/17 22:07 ALIDA Antibody Screen Negative 01/24/17 22:07
--- NOTE | 2017-01-28 12:25 | Progress Note ---
Assessment and Plan Cavitary/necrotizing pneumonia. Still some fever. Initial AFB is negative. Other cultures are unrevealing Hemoptysis. None today, improving. Expectoration still noted but difficult HIV Pulmonary embolism on anticoagulation Recommendations Indication chest physiotherapy to improve secretion clearance. Continue monitoring fever Check remaining cultures Continue Laila Hoffmann Discontinue isolation if other AFB smears are negative Subjective Date of service: 01/28/17 Principal diagnosis: Sepsis Interval history: Patient reports that he had some fever earlier. Overall, he feels better although expectoration is still somewhat difficult. His prior chest pain has essentially disappeared. No hemoptysis Objective Vital Signs - 12hr 01/28/17 01/28/17 01/28/17 05:47 07:25 11:10 Temperature 99.8 F H 101.4 F H 99.1 F Pulse Rate [ 84 82 72 Right] Respiratory 22 20 18 Rate Blood Pressure 126/73 127/70 125/67 [Right Arm] O2 Sat by Pulse 96 96 Oximetry Constitutional: no acute distress, alert Eyes: non-icteric ENT: oropharynx moist Neck: supple, no lymphadenopathy, no JVD Effort: normal Ascultation: Bilateral: clear, diminished breath sounds Percussion: Bilateral: not dull Cardiovascular: regular rate and rhythm Gastrointestinal: normoactive bowel sounds, non-distended Integumentary: normal Extremities: no cyanosis Neurologic: normal mental status, non-focal exam, pupils equal and round, CN II- XII normal Psychiatric: mood appropriate, affect normal CBC and BMP: 01/28/17 08:36 01/28/17 08:36 ABG, PT/INR, D-dimer: ABG POC ABG pH 7.478 (7.35-7.45) H 01/25/17 10:40 POC ABG pCO2 27.4 (35-45) L 01/25/17 10:40 POC ABG pO2 73 (80-105) L 01/25/17 10:40 POC ABG HCO3 20.3 01/25/17 10:40 POC ABG Total CO2 21 01/25/17 10:40 POC ABG O2 Sat 96 01/25/17 10:40 PT/INR, D-dimer PT 14.5 Sec. (12.2-14.9) 01/24/17 22:03 INR 1.07 (0.87-1.13) 01/24/17 22:03 Abnormal lab findings: Abnormal Labs 01/25/17 01/25/17 01/26/17 09:32 10:40 05:45 WBC RBC Hgb 11.6 L Hct 34.4 L D MCV Lymphocytes % (Manual) 6.0 L Nucleated RBC % 2.0 H Lymphocytes # (Manual) 0.6 L POC ABG pH 7.478 H POC ABG pCO2 27.4 L POC ABG pO2 73 L Carbon Dioxide BUN Creatinine Glucose Lactic Acid 2.60 H* AST ALT Total Protein Albumin 01/26/17 01/27/17 01/28/17 05:45 12:15 08:36 WBC 12.4 H RBC 3.49 L Hgb 10.9 L Hct 33.0 L MCV 95 H Lymphocytes % (Manual) Nucleated RBC % Lymphocytes # (Manual) POC ABG pH POC ABG pCO2 POC ABG pO2 Carbon Dioxide 21 L BUN Creatinine Glucose 130 H Lactic Acid AST 121 H ALT 117 H Total Protein 5.8 L D Albumin 2.8 L 01/28/17 08:36 WBC RBC Hgb Hct MCV Lymphocytes % (Manual) Nucleated RBC % Lymphocytes # (Manual) POC ABG pH POC ABG pCO2 POC ABG pO2 Carbon Dioxide BUN 28 H Creatinine 2.0 H D Glucose 137 H Lactic Acid AST 119 H ALT 106 H Total Protein Albumin 2.7 L
[2017-01-28] MEDS: NACL 0.9% 1000 ML 1,000 ML IV SCH (12:37)
[2017-01-28] MEDS: SUSTIVA PO SCH (12:38)
[2017-01-28] MEDS: VIREAD PO SCH (12:40)
[2017-01-28] MEDS: EMTRIVA PO SCH (12:40)
[2017-01-28] MEDS: LEXAPRO PO SCH (12:41)
[2017-01-28] MEDS: HALFPRIN EC PO SCH (12:42)
[2017-01-28] MEDS: ELIQUIS PO SCH ×2 (12:43→21:59)
[2017-01-28] MEDS: TOPROL XL PO SCH (12:44)
[2017-01-28] MEDS: PEPCID PO SCH ×2 (12:45→21:59)
[2017-01-28 12:49] LABS: BUN/Creatinine Ratio 15.78; Calcium 8.6 mg/dL (8.4-10.2); Potassium 3.7 mmol/L (3.6-5.0)
--- NOTE | 2017-01-28 13:50 | Ultrasound Report ---
ULTRASOUND RENAL BILATERAL HISTORY: Acute renal insufficiency. TECHNIQUE: transabdominal ultrasound with color Doppler interrogation. FINDINGS: The right kidney measures 11.5 x 5.6 x 5.8cm. Right renal cortex: 1.6cm. The left kidney measures 12.1 x 5.6 x 5.6cm. Left renal cortex: 1.9cm. The kidneys are normal size, contour and position. There is increased renal parenchymal echotexture bilaterally. Corticomedullary differentiation is preserved. No evidence for cystic disease, nephrolithiasis mass, hydronephrosis or perinephric fluid. The bladder is empty. No gross abnormality. IMPRESSION: Renal parenchymal disease. No focal renal lesion or obstructive uropathy.
--- NOTE | 2017-01-28 13:59 | Progress Note ---
Assessment and Plan - Patient Problems (1) Sepsis Current Visit: Yes Status: Acute Qualifiers: Sepsis type: sepsis due to unspecified organism Qualified Code(s): A41.9 - Sepsis, unspecified organism Plan to address problem: 1. Secondary to pneumonia. Sputum cultures have been contaminated and unuseful for culture. 2. AFB sputum smear negative x 1. 3. Continue Vancomycin and Zosyn for now. (2) Left upper lobe pneumonia Current Visit: Yes Status: Acute Qualifiers: Pneumonia type: due to unspecified organism Aspiration pneumonia type: A Qualified Code(s): J18.1 - Lobar pneumonia, unspecified organism Plan to address problem: Per above. (3) HIV (human immunodeficiency virus infection) Current Visit: Yes Status: Acute Plan to address problem: Continue "Atripla" dosed per formulary availability. Subjective Date of service: 01/28/17 Principal diagnosis: Sepsis Interval history: Intermittent fevers to > 101 deg F. Left pleuritic chest pain has resumed. Occasional hemoptysis with history of recent PE. Objective - Constitutional Vitals: Vital Signs Temp Pulse Resp BP Pulse Ox 99.1 F 84 18 125/67 95 01/28/17 11:10 01/28/17 12:44 01/28/17 11:10 01/28/17 12:44 01/28/17 09:15 Temperature -Last 24 Hours Temperature 99.1 F Temperature 101.4 F Temperature 99.8 F Temperature 99.0 F Temperature 99.3 F Temperature 101.7 F General appearance: Present: no acute distress - EENT Eyes: no scleral icterus, no conjunctival injection ENT: other (multiple absent teeth, no thrush) - Respiratory Respiratory effort: normal Respiratory: bilateral: rhonchi (faint) - Cardiovascular Rhythm: regular Heart Sounds: Present: S1 & S2 Extremities: No edema - Gastrointestinal General gastrointestinal: Present: soft, non-tender, non-distended - Integumentary Integumentary: no jaundice, no rash - Neurologic Neurologic: moves all extremities - Psychiatric Psychiatric: appropriate mood/affect - Labs CBC & Chem 7: 01/28/17 08:36 01/28/17 11:56 Labs: Abnormal lab results 01/28/17 01/28/17 01/28/17 Range/Units 08:36 08:36 11:56 WBC 12.4 H (4.5-11.0) K/mm3 RBC 3.49 L (3.65-5.03) M/mm3 Hgb 10.9 L (11.8-15.2) gm/dl Hct 33.0 L (35.5-45.6) % MCV 95 H (84-94) fl BUN 28 H 30 H (9-20) mg/dL Creatinine 2.0 H D 1.9 H (0.8-1.5) mg/dL Glucose 137 H 124 H (75-100) mg/dL AST 119 H (5-40) units/L ALT 106 H (7-56) units/L Albumin 2.7 L (3.9-5) g/dL Microbiology 01/25/17 06:30 Sputum - Expectorated Sputum AFB Smear Concentration - Final 01/25/17 00:44 Peripheral/Venous Blood Culture - Preliminary NO GROWTH AFTER 72 HOURS 01/24/17 22:13 Peripheral/Venous Blood Culture - Preliminary NO GROWTH AFTER 72 HOURS 01/27/17 06:45 Sputum - Expectorated Sputum Sputum Culture - Final 01/26/17 06:30 Sputum - Expectorated Sputum Sputum Culture - Final 01/25/17 22:03 Serum Cryptococcal Antigen - Final - Imaging and cardiology Other: report reviewed (Renal Sono - normal, no obstructive findings)
--- NOTE | 2017-01-28 14:57 | Consultation ---
History of Present Illness - Reason for Consult Consult date: 01/28/17 acute renal failure - History of Present Illness This is a 56 year old male who presented to the E.R on for a chief complaint of hemoptysis and left-sided chest pain that was present 2 days prior to admission that was not controlled with pain medications. A CTA of chest was done that revealed multiple pulmonary emboli present for which patient is on Eliquis. Patient was previously admitted here on 01/06/17 for management of his pulmonary embolism and had Ekos catheter placed and removed during that hospitalization. CXR on evaluation showed left upper lobe interstitial infiltrates consistent with inflammatory process. Patient has been diagnosed with Pneumonia for which Pulmonary was consulted and patient was started on antibiotics. Patient was also placed on airborne precautions given HIV status for suspected TB. However his AFB smear has been negative thus far. ID was consulted for patient's HIV management and patient is on multiple ARV's medications (HAART therapy). Patient noted to be febrile today with a temp of 102.6. Patient has history of Hypertension, Congestive Heart Failure, Pulmonary Embolism and HIV. Patient's serum creatinine on admission was 1.2 which sukhdeep to 1.9 today. We are being consulted for management of this patient's Acute Renal Failure. Past History Past Medical History: COPD, hypertension, hyperlipidemia, pulmonary embolism, other (HIV, CHF) Past Surgical History: Other (Bilateral pulmonary angiography. Placement and removal of Ekos catheter on 01/07/17) Social history: single Family history: hypertension Medications and Allergies Allergies Allergy/AdvReac Type Severity Reaction Status Date / Time No Known Allergies Allergy Verified 01/06/17 12:26 Home Medications Medication Instructions Recorded Confirmed Last Taken Type Aspirin EC [Aspirin Enteric Coated 81 mg PO QDAC 01/07/17 01/25/17 01/05/17 History TAB] AtorvaSTATin [Lipitor] 40 mg PO QHS 01/07/17 01/25/17 01/05/17 History Efavirenz/Emtricitab/Tenofovir 1 each PO QDAY #0 01/07/17 01/25/17 01/05/17 History [Atripla Tablet] Escitalopram Oxalate [Lexapro] 20 mg PO DAILY 01/07/17 01/25/17 01/05/17 History ISOSORBIDE MONOnitrate [Imdur ER] 30 mg PO DAILY 01/07/17 01/25/17 01/05/17 History Metoprolol Xl [Metoprolol 50 mg PO DAILY 01/07/17 01/25/17 01/05/17 History SUCCINATE ER TAB] Proventil 0.083% NEBS 0.083 container INHALATION Q6HR PRN 01/07/17 01/25/1702/14 History Symbicort 160-4.5 (Nf) 160 device INHALATION BID 01/07/17 01/25/17 01/05/17 History Apixaban [Eliquis] 5 mg PO BID #60 tablet 01/09/17 01/25/17 Unknown Rx Famotidine [Pepcid] 20 mg PO BID #60 tablet 01/09/17 01/25/17 Unknown Rx Active Meds: Active Medications Acetaminophen (Tylenol) 650 mg PO Q4H PRN PRN Reason: Pain MILD(1-3)/Fever >100.5/EDEN Last Admin: 01/28/17 08:48 Dose: 650 mg Albuterol (Proventil) 2.5 mg IH Q6HRT PRN PRN Reason: Dyspnea Apixaban (Eliquis) 5 mg PO BID [facility] PRN Reason: Protocol Last Admin: 01/28/17 12:43 Dose: 5 mg Arformoterol Tartrate (Brovana Nebu) 15 mcg IH Q12HRT [facility] Last Admin: 01/28/17 09:15 Dose: 15 mcg Aspirin (Halfprin Ec) 81 mg PO QDAC [facility] Last Admin: 01/28/17 12:42 Dose: 81 mg Atorvastatin Calcium (Lipitor) 40 mg PO QHS [facility] Last Admin: 01/27/17 22:30 Dose: 40 mg Bisacodyl (Dulcolax) 10 mg TN QDAY PRN PRN Reason: Constipation unrelieved by MOM Budesonide (Pulmicort) 1 mg IH Q12HRT [facility] Last Admin: 01/28/17 09:15 Dose: 1 mg Efavirenz (Sustiva) 600 mg PO QDAY [facility] Last Admin: 01/28/17 12:38 Dose: 600 mg Emtricitabine (Emtriva) 200 mg PO QDAY [facility] Last Admin: 01/28/17 12:40 Dose: 200 mg Escitalopram Oxalate (Lexapro) 20 mg PO DAILY [facility] Last Admin: 01/28/17 12:41 Dose: 20 mg Famotidine (Pepcid) 20 mg PO BID [facility] Last Admin: 01/28/17 12:45 Dose: 20 mg Piperacillin Sod/Tazobactam Sod (Zosyn/Ns 4.5gm/100ml) 4.5 gm in 100 mls @ 200 mls/hr IV Q6HR [facility] PRN Reason: Protocol Last Admin: 01/28/17 12:37 Dose: 100 mls/hr Vancomycin HCl 1,250 mg/ (Sodium Chloride) 275 mls @ 166.667 mls/hr IV Q12H [facility] Last Admin: 01/27/17 22:29 Dose: 166.667 mls/hr Sodium Chloride (Nacl 0.9% 1000 Ml) 1,000 mls @ 125 mls/hr IV DIRECT [facility] Last Admin: 01/28/17 12:37 Dose: 125 mls/hr Isosorbide Mononitrate (Imdur) 30 mg PO DAILY [facility] Last Admin: 01/27/17 09:40 Dose: 30 mg Magnesium Hydroxide (Milk Of Magnesia) 30 ml PO Q4H PRN PRN Reason: Constipation Metoprolol Succinate (Toprol Xl) 50 mg PO DAILY [facility] Last Admin: 01/28/17 12:44 Dose: 50 mg Morphine Sulfate (Morphine) 2 mg IV Q4H PRN PRN Reason: Pain, Moderate (4-6) Last Admin: 01/28/17 00:45 Dose: 2 mg Ondansetron HCl (Zofran) 4 mg IV Q8H PRN PRN Reason: N/V unrelieved by Reglan Last Admin: 01/25/17 03:35 Dose: 4 mg Tenofovir Disoproxil Fumarate (Viread) 300 mg PO QDAY [facility] Last Admin: 01/28/17 12:40 Dose: 300 mg Vancomycin HCl (Vancomycin Pharmacy To Dose) 1 each IV PKCONSULT [facility] PRN Reason: Protocol Review of Systems Constitutional: fever, fatigue, poor appetite, no weight loss, no weight gain, no chills, no sweats Ears, nose, mouth and throat: other (was coughing up blood), no ear discharge, no tinnitis, no decreased hearing, no nose pain, no nasal congestion, no nasal discharge Cardiovascular: chest pain, no orthopnea, no palpitations, no rapid/irregular heart beat, no edema, no syncope, no lightheadedness, no shortness of breath Respiratory: no cough with sputum, no excessive sputum, no hemoptysis, no shortness of breath, no dyspnea on exertion Gastrointestinal: no nausea, no vomiting, no diarrhea, no constipation, no change in bowel habits Genitourinary Male: no hematuria, no flank pain, no discharge, no urinary frequency Musculoskeletal: no neck stiffness, no neck pain, no shooting arm pain, no arm numbness/tingling Integumentary: no rash, no pruritis, no redness, no jaundice Neurological: no transient paralysis, no paralysis, no weakness, no parathesias , no numbness, no tingling Psychiatric: no memory loss, no change in sleep habits, no sleep disturbances, no insomnia, no hypersomnia, no change in appetite Endocrine: no cold intolerance, no heat intolerance, no polyphagia, no excessive thirst, no polydipsia Hematologic/Lymphatic: no easy bruising, no easy bleeding, no lymphadenopathy, no lymphedema Exam - Vital Signs Vital signs: Vital Signs Pulse Resp 113 H 12 01/24/17 21:42 01/24/17 21:42 - General Appearance General appearance: well-developed, appears stated age, fatigue EENT: ATNC, PERRL, hearing intact, vision intact Neck: Present: neck supple, trachea midline Respiratory: Clear to Ascultation Heart: regular, S1S2 Gastrointestinal: Present: normoactive bowel sounds Integumentary: warm and dry Neurologic: alert and oriented x3 Musculoskeletal: Present: other (No edema to BLE) Psychiatric: cooperative Results - Lab Results 01/28/17 08:36 01/28/17 11:56 Most recent lab results Calcium 8.6 mg/dL (8.4-10.2) 01/28/17 11:56 Assessment and Plan - Patient Problems (1) Left upper lobe pneumonia Current Visit: Yes Status: Acute Qualifiers: Pneumonia type: due to unspecified organism Aspiration pneumonia type: A Qualified Code(s): J18.1 - Lobar pneumonia, unspecified organism Plan to address problem: On IV Vancomycin and Zosyn as per Pulmonary (2) Acute renal failure (ARF) Current Visit: Yes Status: Acute Qualifiers: Acute renal failure type: A Plan to address problem: Renal function reviewed. Current serum creatinine 1.9. Baseline serum creatinine < 1.2. Acute Renal Failure secondary to Prerenal etiology vs AIN Renal ultrasound reviewed- No obstructive uropathy seen Obtain urine lytes and urine eosinophils Continue on IV hydration with NS@ 125 ml/hr but will decrease rate to 75 ml/hr given history of CHF LVEF 45-50% on Echo done on 01/06/17 Avoid nephrotoxins Renally dose medications Monitor I/O's Thank you for the kind consult, we will follow with you. Dr. Cho cell: [phone] (3) HIV (human immunodeficiency virus infection) Current Visit: Yes Status: Acute Plan to address problem: On Sustiva, Emtriva and Viread as per ID (4) Saddle pulmonary embolus Current Visit: No Status: Acute Qualifiers: Chronicity: C Acute cor pulmonale presence: A Plan to address problem: On Eliquis (5) Febrile Current Visit: Yes Status: Acute Qualifiers: Fever type: F Encounter type: E Plan to address problem: Temp 102.6 degrees today On IV Vancomycin and Zosyn Blood cultures negative on 01/25/17 Last 2 sputum cultures contaminated Management as per ID
[2017-01-28] MEDS: VANCOMYCIN 1,250 MG in NACL 0.9% 250ML 250 ML IV SCH ×2 (17:20→23:20)
[2017-01-28] MEDS: IMDUR PO SCH (20:25)
[2017-01-29 00:23] LABS: Bilirubin,Urine NEG (Negative); Blood,Urine SM (Negative); Ketones,Urine NEG (Negative); Leukocyte Esterase,Urine NEG (Negative); Mucus,Urine FEW /HPF; Nitrite,Urine NEG (Negative); Uric Acid Crystals,Urine FEW; Urobilinogen,Urine < 2.0 mg/dL (<2.0)
[2017-01-29] MEDS: ZOSYN/NS 3.375GM/50ML 3.375 GM/50 ML BAG IV SCH ×6 (02:16→21:55)
[2017-01-29] MEDS: MORPHINE IV PRN ×3 (02:17→14:27)
[2017-01-29 03:59] LABS: Mean Corpuscular HGB Conc 33 % (32-34); Mean Corpuscular Hemoglobin 31 pg (28-32); Mean Corpuscular Volume 94 fl (84-94); Platelet Count 323 K/mm3 (140-440); Red Blood Count 3.52 M/mm3 (3.65-5.03); Red Cell Distribution Width 14.3 % (13.2-15.2); White Blood Count 12.8 K/mm3 (4.5-11.0)
[2017-01-29 04:17] LABS: BUN/Creatinine Ratio 14.21; Calcium 8.5 mg/dL (8.4-10.2); Chloride 105.2 mmol/L (98-107); Phosphorous 3.1 mg/dL (2.5-4.5); Potassium 3.8 mmol/L (3.6-5.0)
[2017-01-29] MEDS: PULMICORT IH SCH ×2 (08:48→19:45)
[2017-01-29] MEDS: BROVANA NEBU IH SCH ×2 (08:48→19:46)
[2017-01-29] MEDS: TYLENOL PO PRN (09:24)
[2017-01-29] MEDS: VANCOMYCIN 1,250 MG in NACL 0.9% 250ML 250 ML IV SCH ×2 (09:24→22:37)
[2017-01-29] MEDS: IMDUR PO SCH (09:25)
[2017-01-29] MEDS: ZOFRAN IV PRN ×2 (09:25→22:37)
[2017-01-29] MEDS: LEXAPRO PO SCH (09:25)
[2017-01-29] MEDS: TOPROL XL PO SCH (09:27)
[2017-01-29] MEDS: HALFPRIN EC PO SCH (09:27)
[2017-01-29] MEDS: VIREAD PO SCH (09:27)
[2017-01-29] MEDS: SUSTIVA PO SCH (09:28)
[2017-01-29] MEDS: ELIQUIS PO SCH ×2 (09:29→22:36)
--- NOTE | 2017-01-29 09:29 | Progress Note ---
Assessment and Plan (1) Left upper lobe pneumonia Current Visit: Yes Status: Acute Qualifiers: Pneumonia type: due to unspecified organism Aspiration pneumonia type: A Qualified Code(s): J18.1 - Lobar pneumonia, unspecified organism Plan to address problem: On IV Vancomycin and Zosyn as per Pulmonary (2) Acute renal failure (ARF) Current Visit: Yes Status: Acute Qualifiers: Acute renal failure type: A Plan to address problem: Acute Renal Failure secondary to Prerenal etiology vs AIN Cr stable since yesterday Renal ultrasound reviewed- No obstructive uropathy seen urine eos negative cont gentle IVF hydration LVEF 45-50% on Echo done on 01/06/17 Avoid nephrotoxins Renally dose medications Monitor I/O's (3) HIV (human immunodeficiency virus infection) Current Visit: Yes Status: Acute Plan to address problem: On Sustiva, Emtriva and Viread as per ID (4) Saddle pulmonary embolus Current Visit: No Status: Acute Qualifiers: Chronicity: C Acute cor pulmonale presence: A Plan to address problem: On Eliquis (5) Febrile Current Visit: Yes Status: Acute Qualifiers: Fever type: F Encounter type: E Plan to address problem: Temp 102.6 degrees today On IV Vancomycin and Zosyn Blood cultures negative on 01/25/17 Last 2 sputum cultures contaminated Management as per ID Subjective Date of service: 01/29/17 Principal diagnosis: Sepsis Interval history: c/o mild abdominal pain Objective - Vital Signs Vital signs: Vital Signs - 12hr 01/29/17 01/29/17 01/29/17 01:00 06:53 07:00 Temperature 99.8 F H 100 F H 97.8 F Pulse Rate [ Anterior Bilateral Throughout] Pulse Rate [ 78 80 73 Right Radial] Respiratory 21 20 18 Rate Respiratory Rate [Anterior Bilateral Throughout] Blood Pressure 123/71 130/70 98/61 [Right Arm] O2 Sat by Pulse 96 94 100 Oximetry 01/29/17 01/29/17 01/29/17 07:43 08:49 09:05 Temperature 101.9 F H Pulse Rate [ 84 79 Anterior Bilateral Throughout] Pulse Rate [ 20 L Right Radial] Respiratory 20 Rate Respiratory 18 18 Rate [Anterior Bilateral Throughout] Blood Pressure 136/73 [Right Arm] O2 Sat by Pulse 100 95 Oximetry - General Appearance General appearance: well-developed, well-nourished, appears stated age EENT: ATNC, PERRL, mucous membranes moist Neck: no JVD, no carotid bruit Respiratory: Present: Clear to Ascultation. Absent: Rales, Ronchi Cardiology: regular, S1S2 Gastrointestinal: normoactive bowel sounds, no tenderness, no distended, obese Integumentary: no rash, warm and dry Neurologic: no focal deficit, no asterixis, alert and oriented x3 Musculoskeletal: other (no edema in BLE) Psychiatric: mood/affect appropriate, cooperative - Lab 01/29/17 Unknown 01/29/17 Unknown Most recent lab results Calcium 8.5 mg/dL (8.4-10.2) 01/29/17 Unknown Phosphorus 3.10 mg/dL (2.5-4.5) 01/29/17 Unknown Urine Creatinine 124.4 mg/dL (0.1-20.0) H 01/28/17 23:56 Urine Sodium 51 mEq/L 01/28/17 23:55 Urine Total Protein 71 mg/dL (5-11.8) H 01/28/17 23:56
[2017-01-29] MEDS: EMTRIVA PO SCH (09:30)
[2017-01-29] MEDS: NACL 0.9% 1000 ML 1,000 ML IV SCH ×2 (09:31→22:36)
[2017-01-29] MEDS: PEPCID PO SCH ×2 (09:31→22:36)
--- NOTE | 2017-01-29 10:15 | XRay Report ---
Single view abdomen: Findings: Moderate amount of air in stomach small bowel and large bowel. No bowel distention or wall thickening. No radiopaque calculus or abnormal calcification. Impression: Essentially negative abdomen.
[2017-01-29 10:38] LABS: BUN/Creatinine Ratio 14.44; Calcium 8.2 mg/dL (8.4-10.2); Chloride 105.9 mmol/L (98-107); Potassium 3.6 mmol/L (3.6-5.0)
[2017-01-29 11:15] LABS: Basophils % (Auto) 0.3 % (0.0-1.8); Eosinophils % (Auto) 0.1 % (0.0-4.3); Hematocrit 31.6 % (35.5-45.6); Hemoglobin 10.4 gm/dl (11.8-15.2); Mean Corpuscular HGB Conc 33 % (32-34); Mean Corpuscular Hemoglobin 32 pg (28-32); Mean Corpuscular Volume 95 fl (84-94); Platelet Count 314 K/mm3 (140-440); Red Blood Count 3.32 M/mm3 (3.65-5.03); Red Cell Distribution Width 14.8 % (13.2-15.2); White Blood Count 12.9 K/mm3 (4.5-11.0)
--- NOTE | 2017-01-29 11:16 | Progress Note ---
Assessment and Plan Assessment and plan: Patient is 56 year old man history of AIDS, CHF, hypertension, recent pulmonary emboli comes emergency room with complaint of left side pain. Saw his primary care physician who gave him a pain patch and ibuprofen but his pain was not controlled. He complaining of cough, hemoptysis, fever and chills. No night sweats, sick contacts. Vitals to the ER the patient was febrile with imaging studies included a CT suspicious for left lobar pneumonia. * Sepsis secondary to left lobar pneumonia rule out aspiration pneumonitis, rule out gram-negative al pneumonia. Cavitory/Necrotizing Pneumonia with hemoptysis which has resolved. Recurrent fever * STACEY Possible vasomotor nephropathy +/- vancomycin Also with possible contrast nephropathy * Left lobar pneumonia * Left lobar consolidation rule out fungus versus malignant etiology * AIDS * Hypertension * Moderate protein calorie malnutrition * Pulmonary embolism-Saddle * Hemoptysis-resolved * Transaminitis * Anemia of chronic disease. Plan * Still with fever, Repeat xray continues to demonstrate pathology. Staphylococcal vs. fungal vs. malignant etiology * Cultures still with no growth. Sputum cultures appeared to be contaminated repeat requested. * Obtain KUB to further evaluate abdominal pain are unremarkable. On my exam no demonstrable tenderness. We'll check LFTs and lipase. * Check renal ultrasound, repeat BMP if still elevated creatinine will obtain Nephrology consult * Continue Eliquis * ? Bronchosocpy- due to increasing left upper lobar infiltrate. if no improvement will obtain speech eval, doubt aspiration. * Continue empiric antibiotic coverage. Pulmonary and infectious diseases input appreciated. * Recommend repeat CT in a few weeks to ensure complete resolution * Continue to follow cultures no growth to date. * Nutrition consult and patient noted continued diet was recommended * Continue HAART therapy- Sustiva, Emtriva, Viread * Trend liver function test, r/o hepatitis * AFB 3 pending. One already resulted negative. We'll follow the rest Doubt TB * Continue "Atripla" dosed per formulary availability. * DVT and GI prophylaxis * PLAN of care discussed with the patient . History Interval history: Patient seen and examined this morning, still with intermittent fever. Complaining of epigastric pain this morning. Reports productive cough of garner thick phlegm. Hospitalist Physical - Physical exam Narrative exam: VITAL SIGNS: Reviewed. GENERAL: The patient appeared well nourished and normally developed. Vital signs as documented. HEAD: No signs of head trauma. EYES: Pupils are equal. Extraocular motions intact. EARS: Hearing grossly intact. MOUTH: Missing dentition otherwise oropharynx is normal. NECK: No adenopathy, no JVD. CHEST: crackles left lower lobe rales CARDIAC: Regular rate and rhythm. S1 and S2, without murmurs, gallops, or rubs. VASCULAR: No Edema. Peripheral pulses normal and equal in all extremities. ABDOMEN: Soft, mildly distended without detectable tenderness. No rebound or guarding, and no masses palpated. Bowel Sounds normal. MUSCULOSKELETAL: Good range of motion of all major joints. Extremities without clubbing, cyanosis or edema. NEUROLOGIC EXAM: Alert and oriented x 3. No focal sensory or strength deficits. Speech normal. Follows commands. PSYCHIATRIC: Mood normal. SKIN: No rash or lesions. - Constitutional Vitals: Temp Pulse Resp BP Pulse Ox 101.9 F H 92 H 18 136/73 95 01/29/17 07:43 01/29/17 09:27 01/29/17 09:05 01/29/17 09:27 01/29/17 08:49 General appearance: Present: no acute distress Results - Labs CBC & Chem 7: 01/29/17 Unknown 01/29/17 Unknown Labs: Laboratory Last Values WBC 12.8 K/mm3 (4.5-11.0) H 01/29/17 Unknown RBC 3.52 M/mm3 (3.65-5.03) L 01/29/17 Unknown Hgb 11.0 gm/dl (11.8-15.2) L 01/29/17 Unknown Hct 33.0 % (35.5-45.6) L 01/29/17 Unknown MCV 94 fl (84-94) 01/29/17 Unknown MCH 31 pg (28-32) 01/29/17 Unknown MCHC 33 % (32-34) 01/29/17 Unknown RDW 14.3 % (13.2-15.2) 01/29/17 Unknown Plt Count 323 K/mm3 (140-440) 01/29/17 Unknown Add Manual Diff Complete 01/26/17 05:45 Total Counted 100 01/26/17 05:45 Seg Neuts % (Manual) 62.0 % (40.0-70.0) 01/26/17 05:45 Band Neutrophils % 29.0 % 01/26/17 05:45 Lymphocytes % (Manual) 6.0 % (13.4-35.0) L 01/26/17 05:45 Reactive Lymphs % (Man) 0 % 01/26/17 05:45 Monocytes % (Manual) 3.0 % (0.0-7.3) 01/26/17 05:45 Eosinophils % (Manual) 0 % (0.0-4.3) 01/26/17 05:45 Basophils % (Manual) 0 % (0.0-1.8) 01/26/17 05:45 Metamyelocytes % 0 % 01/26/17 05:45 Myelocytes % 0 % 01/26/17 05:45 Promyelocytes % 0 % 01/26/17 05:45 Blast Cells % 0 % 01/26/17 05:45 Nucleated RBC % 2.0 % (0.0-0.9) H 01/26/17 05:45 Seg Neutrophils # Man 6.1 K/mm3 (1.8-7.7) 01/26/17 05:45 Band Neutrophils # 2.8 K/mm3 01/26/17 05:45 Lymphocytes # (Manual) 0.6 K/mm3 (1.2-5.4) L 01/26/17 05:45 Abs React Lymphs (Man) 0.0 K/mm3 01/26/17 05:45 Monocytes # (Manual) 0.3 K/mm3 (0.0-0.8) 01/26/17 05:45 Eosinophils # (Manual) 0.0 K/mm3 (0.0-0.4) 01/26/17 05:45 Basophils # (Manual) 0.0 K/mm3 (0.0-0.1) 01/26/17 05:45 Metamyelocytes # 0.0 K/mm3 01/26/17 05:45 Myelocytes # 0.0 K/mm3 01/26/17 05:45 Promyelocytes # 0.0 K/mm3 01/26/17 05:45 Blast Cells # 0.0 K/mm3 01/26/17 05:45 WBC Morphology Not Reportable 01/26/17 05:45 Hypersegmented Neuts Not Reportable 01/26/17 05:45 Hyposegmented Neuts Not Reportable 01/26/17 05:45 Hypogranular Neuts Not Reportable 01/26/17 05:45 Smudge Cells Not Reportable 01/26/17 05:45 Toxic Granulation Not Reportable 01/26/17 05:45 Toxic Vacuolation Not Reportable 01/26/17 05:45 Dohle Bodies Not Reportable 01/26/17 05:45 Pelger-Huet Anomaly Not Reportable 01/26/17 05:45 Aylin Rods Not Reportable 01/26/17 05:45 Platelet Estimate Consistent w auto 01/26/17 05:45 Clumped Platelets Rare 01/26/17 05:45 Plt Clumps, EDTA Not Reportable 01/26/17 05:45 Large Platelets Not Reportable 01/26/17 05:45 Giant Platelets Not Reportable 01/26/17 05:45 Platelet Satelliting Not Reportable 01/26/17 05:45 Plt Morphology Comment Not Reportable 01/26/17 05:45 RBC Morphology Not Reportable 01/26/17 05:45 Dimorphic RBCs Not Reportable 01/26/17 05:45 Polychromasia Not Reportable 01/26/17 05:45 Hypochromasia Not Reportable 01/26/17 05:45 Poikilocytosis Not Reportable 01/26/17 05:45 Anisocytosis 1+ 01/26/17 05:45 Microcytosis Not Reportable 01/26/17 05:45 Macrocytosis Not Reportable 01/26/17 05:45 Spherocytes Not Reportable 01/26/17 05:45 Pappenheimer Bodies Not Reportable 01/26/17 05:45 Sickle Cells Not Reportable 01/26/17 05:45 Target Cells Not Reportable 01/26/17 05:45 Tear Drop Cells Not Reportable 01/26/17 05:45 Ovalocytes Not Reportable 01/26/17 05:45 Helmet Cells Not Reportable 01/26/17 05:45 [place] Bodies Not Reportable 01/26/17 05:45 Gustavus Rings Not Reportable 01/26/17 05:45 Margaret Cells Few 01/26/17 05:45 Bite Cells Not Reportable 01/26/17 05:45 Crenated Cell Not Reportable 01/26/17 05:45 Elliptocytes Not Reportable 01/26/17 05:45 Acanthocytes (Spur) Not Reportable 01/26/17 05:45 Rouleaux Not Reportable 01/26/17 05:45 Hemoglobin C Crystals Not Reportable 01/26/17 05:45 Schistocytes Not Reportable 01/26/17 05:45 Malaria parasites Not Reportable 01/26/17 05:45 Donta Bodies Not Reportable 01/26/17 05:45 Hem Pathologist Commnt No 01/26/17 05:45 PT 14.5 Sec. (12.2-14.9) 01/24/17 22:03 INR 1.07 (0.87-1.13) 01/24/17 22:03 APTT 33.4 Sec. (24.2-36.6) 01/24/17 22:03 POC ABG pH 7.478 (7.35-7.45) H 01/25/17 10:40 POC ABG pCO2 27.4 (35-45) L 01/25/17 10:40 POC ABG pO2 73 (80-105) L 01/25/17 10:40 POC ABG HCO3 20.3 01/25/17 10:40 POC ABG Total CO2 21 01/25/17 10:40 POC ABG O2 Sat 96 01/25/17 10:40 POC ABG Base Excess -3 01/25/17 10:40 VBG pH 7.374 (7.320-7.420) 01/25/17 00:44 FiO2 32 % 01/25/17 10:40 Sodium 143 mmol/L (137-145) 01/29/17 Unknown Potassium 3.8 mmol/L (3.6-5.0) 01/29/17 Unknown Chloride 105.2 mmol/L (98-107) 01/29/17 Unknown Carbon Dioxide 25 mmol/L (22-30) 01/29/17 Unknown Anion Gap 17 mmol/L 01/29/17 Unknown BUN 27 mg/dL (9-20) H 01/29/17 Unknown Creatinine 1.9 mg/dL (0.8-1.5) H 01/29/17 Unknown Estimated GFR 45 ml/min 01/29/17 Unknown BUN/Creatinine Ratio 14.21 % 01/29/17 Unknown Glucose 119 mg/dL (75-100) H 01/29/17 Unknown Osmolality 311 Mosm/kg 01/29/17 Unknown Lactic Acid 1.40 mmol/L (0.7-2.0) 01/28/17 11:56 Calcium 8.5 mg/dL (8.4-10.2) 01/29/17 Unknown Phosphorus 3.10 mg/dL (2.5-4.5) 01/29/17 Unknown Total Bilirubin 0.30 mg/dL (0.1-1.2) 01/28/17 08:36 Direct Bilirubin < 0.2 mg/dL (0-0.2) 01/27/17 12:15 AST 119 units/L (5-40) H 01/28/17 08:36 ALT 106 units/L (7-56) H 01/28/17 08:36 Alkaline Phosphatase 85 units/L (35-129) 01/28/17 08:36 Troponin T < 0.010 ng/mL (0.00-0.029) 01/25/17 03:15 Total Protein 6.9 g/dL (6.3-8.2) 01/28/17 08:36 Albumin 2.7 g/dL (3.9-5) L 01/28/17 08:36 Albumin/Globulin Ratio 0.6 % 01/28/17 08:36 Lipase 33 units/L (13-60) 01/24/17 22:03 Urine Color Yellow (Yellow) 01/28/17 23:55 Urine Turbidity Clear (Clear) 01/28/17 23:55 Urine pH 5.0 (5.0-7.0) 01/28/17 23:55 Ur Specific [place] 1.019 (1.003-1.030) 01/28/17 23:55 Urine Protein 30 mg/dl mg/dL (Negative) 01/28/17 23:55 Urine Glucose (UA) Neg mg/dL (Negative) 01/28/17 23:55 Urine Ketones Neg mg/dL (Negative) 01/28/17 23:55 Urine Blood Sm (Negative) 01/28/17 23:55 Urine Nitrite Neg (Negative) 01/28/17 23:55 Urine Bilirubin Neg (Negative) 01/28/17 23:55 Urine Urobilinogen < 2.0 mg/dL (<2.0) 01/28/17 23:55 Ur Leukocyte Esterase Neg (Negative) 01/28/17 23:55 Urine WBC (Auto) 2.0 /HPF (0.0-6.0) 01/28/17 23:55 Urine RBC (Auto) 3.0 /HPF (0.0-6.0) 01/28/17 23:55 Uric Acid Crystals Few 01/28/17 23:55 Amorphous Crystals 1+ 01/28/17 23:55 Urine Mucus Few /HPF 01/28/17 23:55 Urine Eosinophils None seen (None Seen) 01/28/17 23:55 Urine Creatinine 124.4 mg/dL (0.1-20.0) H 01/28/17 23:56 Protein/Creatinin Ratio 0.56 01/28/17 23:55 Urine Sodium 51 mEq/L 01/28/17 23:55 Urine Total Protein 71 mg/dL (5-11.8) H 01/28/17 23:56 Vancomycin Trough 15.0 ug/mL (5.0-20.0) 01/28/17 08:36 Hepatitis A IgM Ab Non-reactive (NonReactive) 01/28/17 11:56 Hep Bs Antigen Non-reactive (Negative) 01/28/17 11:56 Hep B Core IgM Ab Non-reactive (NonReactive) 01/28/17 11:56 Hepatitis C Antibody Non-reactive (NonReactive) 01/28/17 11:56 Blood Type B POSITIVE 01/24/17 22:07 Antibody Screen TNR 01/24/17 22:07 ALIDA Antibody Screen Negative 01/24/17 22:07 - Imaging and Cardiology Abdominal x-ray: image reviewed (no acute pathology noted)
--- NOTE | 2017-01-29 11:34 | Progress Note ---
Assessment and Plan - Patient Problems (1) Acute renal failure (ARF) Current Visit: Yes Status: Acute Qualifiers: Acute renal failure type: A (2) HIV (human immunodeficiency virus infection) Current Visit: Yes Status: Acute (3) Hemoptysis Current Visit: Yes Status: Acute (4) Left upper lobe pneumonia Current Visit: Yes Status: Acute Qualifiers: Pneumonia type: due to unspecified organism Aspiration pneumonia type: A Qualified Code(s): J18.1 - Lobar pneumonia, unspecified organism (5) Pulmonary emboli Current Visit: Yes Status: Acute Qualifiers: Pulmonary embolism type: saddle Chronicity: acute Acute cor pulmonale presence: A Subjective Principal diagnosis: Sepsis Interval history: awake Objective Vital Signs - 12hr 01/29/17 01/29/17 01/29/17 01:00 06:53 07:00 Temperature 99.8 F H 100 F H 97.8 F Pulse Rate Pulse Rate [ Anterior Bilateral Throughout] Pulse Rate [ 78 80 73 Right Radial] Respiratory 21 20 18 Rate Respiratory Rate [Anterior Bilateral Throughout] Blood Pressure Blood Pressure 123/71 130/70 98/61 [Right Arm] O2 Sat by Pulse 96 94 100 Oximetry 01/29/17 01/29/17 01/29/17 07:43 08:49 09:05 Temperature 101.9 F H Pulse Rate Pulse Rate [ 84 79 Anterior Bilateral Throughout] Pulse Rate [ 20 L Right Radial] Respiratory 20 Rate Respiratory 18 18 Rate [Anterior Bilateral Throughout] Blood Pressure Blood Pressure 136/73 [Right Arm] O2 Sat by Pulse 100 95 Oximetry 01/29/17 01/29/17 01/29/17 09:25 09:27 10:00 Temperature Pulse Rate 92 H 92 H 80 Pulse Rate [ Anterior Bilateral Throughout] Pulse Rate [ Right Radial] Respiratory Rate Respiratory Rate [Anterior Bilateral Throughout] Blood Pressure 136/73 136/73 Blood Pressure [Right Arm] O2 Sat by Pulse Oximetry Constitutional: no acute distress, alert Eyes: non-icteric ENT: oropharynx moist Neck: supple, no lymphadenopathy, no JVD Effort: normal Ascultation: Bilateral: clear, diminished breath sounds, rales (left field) Percussion: Bilateral: not dull Cardiovascular: regular rate and rhythm Gastrointestinal: normoactive bowel sounds, non-distended Integumentary: normal Extremities: no cyanosis Neurologic: normal mental status, non-focal exam, pupils equal and round, CN II- XII normal Psychiatric: mood appropriate, affect normal CBC and BMP: 01/29/17 Unknown 01/29/17 Unknown ABG, PT/INR, D-dimer: ABG POC ABG pH 7.478 (7.35-7.45) H 01/25/17 10:40 POC ABG pCO2 27.4 (35-45) L 01/25/17 10:40 POC ABG pO2 73 (80-105) L 01/25/17 10:40 POC ABG HCO3 20.3 01/25/17 10:40 POC ABG Total CO2 21 01/25/17 10:40 POC ABG O2 Sat 96 01/25/17 10:40 PT/INR, D-dimer PT 14.5 Sec. (12.2-14.9) 01/24/17 22:03 INR 1.07 (0.87-1.13) 01/24/17 22:03 Abnormal lab findings: Abnormal Labs 01/25/17 01/25/17 01/26/17 09:32 10:40 05:45 WBC RBC Hgb 11.6 L Hct 34.4 L D MCV Lymph % (Auto) Boyd % (Auto) Lymph # Boyd # Seg Neutrophils % Lymphocytes % (Manual) 6.0 L Nucleated RBC % 2.0 H Seg Neutrophils # Lymphocytes # (Manual) 0.6 L POC ABG pH 7.478 H POC ABG pCO2 27.4 L POC ABG pO2 73 L Carbon Dioxide BUN Creatinine Glucose Lactic Acid 2.60 H* Calcium AST ALT Total Protein Albumin Urine Creatinine Urine Total Protein 01/26/17 01/27/17 01/28/17 05:45 12:15 08:36 WBC 12.4 H RBC 3.49 L Hgb 10.9 L Hct 33.0 L MCV 95 H Lymph % (Auto) Boyd % (Auto) Lymph # Boyd # Seg Neutrophils % Lymphocytes % (Manual) Nucleated RBC % Seg Neutrophils # Lymphocytes # (Manual) POC ABG pH POC ABG pCO2 POC ABG pO2 Carbon Dioxide 21 L BUN Creatinine Glucose 130 H Lactic Acid Calcium AST 121 H ALT 117 H Total Protein 5.8 L D Albumin 2.8 L Urine Creatinine Urine Total Protein 01/28/17 01/28/17 01/28/17 08:36 11:56 23:55 WBC RBC Hgb Hct MCV Lymph % (Auto) Boyd % (Auto) Lymph # Boyd # Seg Neutrophils % Lymphocytes % (Manual) Nucleated RBC % Seg Neutrophils # Lymphocytes # (Manual) POC ABG pH POC ABG pCO2 POC ABG pO2 Carbon Dioxide BUN 28 H 30 H Creatinine 2.0 H D 1.9 H Glucose 137 H 124 H Lactic Acid Calcium AST 119 H ALT 106 H Total Protein Albumin 2.7 L Urine Creatinine 127.2 H Urine Total Protein 71 H 01/28/17 01/29/17 01/29/17 23:56 10:07 10:07 WBC 12.9 H RBC 3.32 L Hgb 10.4 L Hct 31.6 L MCV 95 H Lymph % (Auto) 5.9 L Boyd % (Auto) 10.2 H Lymph # 0.8 L Boyd # 1.3 H Seg Neutrophils % 83.5 H Lymphocytes % (Manual) Nucleated RBC % Seg Neutrophils # 10.8 H Lymphocytes # (Manual) POC ABG pH POC ABG pCO2 POC ABG pO2 Carbon Dioxide 20 L BUN 26 H Creatinine 1.8 H Glucose 148 H Lactic Acid Calcium 8.2 L AST ALT Total Protein Albumin Urine Creatinine 124.4 H Urine Total Protein 71 H 01/29/17 01/29/17 Unknown Unknown WBC 12.8 H RBC 3.52 L Hgb 11.0 L Hct 33.0 L MCV Lymph % (Auto) Boyd % (Auto) Lymph # Boyd # Seg Neutrophils % Lymphocytes % (Manual) Nucleated RBC % Seg Neutrophils # Lymphocytes # (Manual) POC ABG pH POC ABG pCO2 POC ABG pO2 Carbon Dioxide BUN 27 H Creatinine 1.9 H Glucose 119 H Lactic Acid Calcium AST ALT Total Protein Albumin Urine Creatinine Urine Total Protein
[2017-01-29] MEDS ORDERED: MOTRIN PO PRN (17:54)
[2017-01-30] MEDS: PROVENTIL IH PRN ×2 (01:06→17:37)
[2017-01-30] MEDS: ZOSYN/NS 3.375GM/50ML 3.375 GM/50 ML BAG IV SCH ×2 (03:40→10:20)
[2017-01-30 05:01] LABS: Hematocrit 32.1 % (35.5-45.6); Hemoglobin 10.7 gm/dl (11.8-15.2); Mean Corpuscular HGB Conc 33 % (32-34); Mean Corpuscular Hemoglobin 31 pg (28-32); Mean Corpuscular Volume 95 fl (84-94); Platelet Count 337 K/mm3 (140-440); Red Cell Distribution Width 14.6 % (13.2-15.2)
[2017-01-30 05:18] LABS: Albumin 2.6 g/dL (3.9-5); Albumin/Globulin Ratio 0.6 %; BUN/Creatinine Ratio 16.25; Bilirubin,Total 0.2 mg/dL (0.1-1.2); Calcium 8.4 mg/dL (8.4-10.2); Chloride 107.4 mmol/L (98-107); Total Protein 6.7 g/dL (6.3-8.2)
[2017-01-30] MEDS: TYLENOL PO PRN ×2 (06:15→12:41)
[2017-01-30] MEDS: NACL 0.9% 1000 ML 1,000 ML IV SCH (08:01)
[2017-01-30] MEDS: MORPHINE IV PRN ×3 (08:02→17:51)
[2017-01-30] MEDS: HALFPRIN EC PO SCH (08:02)
[2017-01-30] MEDS: BROVANA NEBU IH SCH ×2 (08:10→21:11)
[2017-01-30] MEDS: PULMICORT IH SCH ×2 (08:11→21:10)
--- NOTE | 2017-01-30 09:31 | Progress Note ---
Assessment and Plan (1) Left upper lobe pneumonia Current Visit: Yes Status: Acute Qualifiers: Pneumonia type: due to unspecified organism Aspiration pneumonia type: A Qualified Code(s): J18.1 - Lobar pneumonia, unspecified organism Plan to address problem: On IV Vancomycin and Zosyn as per Pulmonary (2) Acute renal failure (ARF) Current Visit: Yes Status: Acute Qualifiers: Acute renal failure type: A Plan to address problem: Acute Renal Failure secondary to Prerenal etiology vs AIN improved Cr since yesterday will decrease NS to 50 cc/h LVEF 45-50% on Echo done on 01/06/17 Avoid nephrotoxins Renally dose medications Monitor I/O's (3) HIV (human immunodeficiency virus infection) Current Visit: Yes Status: Acute Plan to address problem: On Sustiva, Emtriva and Viread as per ID (4) Saddle pulmonary embolus Current Visit: No Status: Acute Qualifiers: Chronicity: C Acute cor pulmonale presence: A Plan to address problem: On Eliquis (5) Febrile Current Visit: Yes Status: Acute Qualifiers: Fever type: F Encounter type: E Plan to address problem: On IV Vancomycin and Zosyn all cultures are negative Subjective Date of service: 01/30/17 Principal diagnosis: Sepsis Interval history: denies acute issues, mild improvement in SOB Objective - Vital Signs Vital signs: Vital Signs - 12hr 01/29/17 01/30/17 01/30/17 22:00 00:00 00:20 Temperature 99.2 F Pulse Rate 79 Pulse Rate [ 94 H Anterior Bilateral Throughout] Pulse Rate [ 82 Right Radial] Respiratory 18 Rate Respiratory 24 Rate [Anterior Bilateral Throughout] Blood Pressure 120/72 [Right Arm] O2 Sat by Pulse 97 Oximetry 01/30/17 01/30/17 01/30/17 00:30 06:48 08:00 Temperature 98.1 F 99.2 F Pulse Rate Pulse Rate [ 90 Anterior Bilateral Throughout] Pulse Rate [ 85 103 H Right Radial] Respiratory 18 20 Rate Respiratory 22 Rate [Anterior Bilateral Throughout] Blood Pressure 140/72 175/92 [Right Arm] O2 Sat by Pulse 97 91 Oximetry 01/30/17 01/30/17 08:07 08:27 Temperature Pulse Rate Pulse Rate [ 83 93 H Anterior Bilateral Throughout] Pulse Rate [ Right Radial] Respiratory Rate Respiratory 20 20 Rate [Anterior Bilateral Throughout] Blood Pressure [Right Arm] O2 Sat by Pulse 98 94 Oximetry - General Appearance General appearance: well-developed, well-nourished EENT: ATNC, PERRL, mucous membranes moist Neck: no JVD, no carotid bruit Respiratory: Present: Clear to Ascultation Cardiology: regular, S1S2 Gastrointestinal: normoactive bowel sounds, no tenderness, no distended, no masses Integumentary: no rash, warm and dry Neurologic: no focal deficit, no asterixis, alert and oriented x3 Musculoskeletal: deferred, other (no edema in BLE) Psychiatric: mood/affect appropriate, cooperative - Lab 01/30/17 04:10 01/30/17 04:10 Most recent lab results Calcium 8.4 mg/dL (8.4-10.2) 01/30/17 04:10 Phosphorus 3.10 mg/dL (2.5-4.5) 01/29/17 Unknown Urine Creatinine 124.4 mg/dL (0.1-20.0) H 01/28/17 23:56 Urine Sodium 51 mEq/L 01/28/17 23:55 Urine Total Protein 71 mg/dL (5-11.8) H 01/28/17 23:56
--- NOTE | 2017-01-30 09:35 | Progress Note ---
Assessment and Plan Assessment and plan: Patient is 56 year old man history of AIDS, CHF, hypertension, recent pulmonary emboli comes emergency room with complaint of left side pain. Saw his primary care physician who gave him a pain patch and ibuprofen but his pain was not controlled. He complaining of cough, hemoptysis, fever and chills. No night sweats, sick contacts. Vitals to the ER the patient was febrile with imaging studies included a CT suspicious for left lobar pneumonia. * Sepsis secondary to left lobar pneumonia rule out aspiration pneumonitis, rule out gram-negative al pneumonia. Cavitory/Necrotizing Pneumonia with hemoptysis which has resolved. Recurrent fever * STACEY Possible vasomotor nephropathy +/- vancomycin Also with possible contrast nephropathy * Left lobar pneumonia * Epigastic pain * Left lobar consolidation rule out fungus versus malignant etiology * AIDS * Hypertension * Moderate protein calorie malnutrition * Pulmonary embolism-Saddle * Hemoptysis-resolved * Transaminitis * Anemia of chronic disease. Plan * Still with febrile condition Tmax 102. Repeat xray continues to demonstrate pathology. Staphylococcal vs. fungal vs. malignant etiology. We'll broaden antibiotic coverage to include antifungal and possibly anaerobic infections. * Cultures still with no growth. Sputum cultures appeared to be contaminated repeat requested. * LFT improving, Hepatitis profile is negative, check lipase * IVF decreased to 50cc/hr * Nephrology input noted * Continue Eliquis * Continue empiric antibiotic coverage. Pulmonary and infectious diseases input appreciated. * Recommend repeat CT in a few weeks to ensure complete resolution * Continue to follow cultures no growth to date. * Nutrition consult and patient noted continued diet was recommended * Continue HAART therapy- Sustiva, Emtriva, Viread * Trend liver function test, r/o hepatitis * AFB 3 pending. One already resulted negative. We'll follow the rest Doubt TB * Continue "Atripla" dosed per formulary availability. * DVT and GI prophylaxis * PLAN of care discussed with the patient . History Interval history: Patient seen and examined this morning, still with intermittent fever. Still with intermittent epigastric pain. Reports productive cough of garner thick phlegm. No other adverse event reported. Hospitalist Physical - Physical exam Narrative exam: VITAL SIGNS: Reviewed. GENERAL: The patient appeared well nourished and normally developed. Vital signs as documented. HEAD: No signs of head trauma. EYES: Pupils are equal. Extraocular motions intact. EARS: Hearing grossly intact. MOUTH: Missing dentition otherwise oropharynx is normal. NECK: No adenopathy, no JVD. CHEST: crackles left lower lobe rales CARDIAC: Regular rate and rhythm. S1 and S2, without murmurs, gallops, or rubs. VASCULAR: No Edema. Peripheral pulses normal and equal in all extremities. ABDOMEN: Soft, mildly distended tender in the epigastric region. No rebound or guarding, and no masses palpated. Bowel Sounds normal. MUSCULOSKELETAL: Good range of motion of all major joints. Extremities without clubbing, cyanosis or edema. NEUROLOGIC EXAM: Alert and oriented x 3. No focal sensory or strength deficits. Speech normal. Follows commands. PSYCHIATRIC: Mood normal. SKIN: No rash or lesions. - Constitutional Vitals: Temp Pulse Resp BP Pulse Ox 99.2 F 93 H 20 175/92 94 01/30/17 08:00 01/30/17 08:27 01/30/17 08:27 01/30/17 08:00 01/30/17 08:27 General appearance: Present: no acute distress Results - Labs CBC & Chem 7: 01/30/17 04:10 01/30/17 04:10 Labs: Laboratory Last Values WBC 14.0 K/mm3 (4.5-11.0) H 01/30/17 04:10 RBC 3.40 M/mm3 (3.65-5.03) L 01/30/17 04:10 Hgb 10.7 gm/dl (11.8-15.2) L 01/30/17 04:10 Hct 32.1 % (35.5-45.6) L 01/30/17 04:10 MCV 95 fl (84-94) H 01/30/17 04:10 MCH 31 pg (28-32) 01/30/17 04:10 MCHC 33 % (32-34) 01/30/17 04:10 RDW 14.6 % (13.2-15.2) 01/30/17 04:10 Plt Count 337 K/mm3 (140-440) 01/30/17 04:10 Lymph % (Auto) 5.9 % (13.4-35.0) L 01/29/17 10:07 [place] % (Auto) 10.2 % (0.0-7.3) H 01/29/17 10:07 Eos % (Auto) 0.1 % (0.0-4.3) 01/29/17 10:07 Baso % (Auto) 0.3 % (0.0-1.8) 01/29/17 10:07 Lymph # 0.8 K/mm3 (1.2-5.4) L 01/29/17 10:07 [place] # 1.3 K/mm3 (0.0-0.8) H 01/29/17 10:07 Eos # 0.0 K/mm3 (0.0-0.4) 01/29/17 10:07 Baso # 0.0 K/mm3 (0.0-0.1) 01/29/17 10:07 Add Manual Diff Complete 01/26/17 05:45 Total Counted 100 01/26/17 05:45 Seg Neutrophils % 83.5 % (40.0-70.0) H 01/29/17 10:07 Seg Neuts % (Manual) 62.0 % (40.0-70.0) 01/26/17 05:45 Band Neutrophils % 29.0 % 01/26/17 05:45 Lymphocytes % (Manual) 6.0 % (13.4-35.0) L 01/26/17 05:45 Reactive Lymphs % (Man) 0 % 01/26/17 05:45 Monocytes % (Manual) 3.0 % (0.0-7.3) 01/26/17 05:45 Eosinophils % (Manual) 0 % (0.0-4.3) 01/26/17 05:45 Basophils % (Manual) 0 % (0.0-1.8) 01/26/17 05:45 Metamyelocytes % 0 % 01/26/17 05:45 Myelocytes % 0 % 01/26/17 05:45 Promyelocytes % 0 % 01/26/17 05:45 Blast Cells % 0 % 01/26/17 05:45 Nucleated RBC % 2.0 % (0.0-0.9) H 01/26/17 05:45 Seg Neutrophils # 10.8 K/mm3 (1.8-7.7) H 01/29/17 10:07 Seg Neutrophils # Man 6.1 K/mm3 (1.8-7.7) 01/26/17 05:45 Band Neutrophils # 2.8 K/mm3 01/26/17 05:45 Lymphocytes # (Manual) 0.6 K/mm3 (1.2-5.4) L 01/26/17 05:45 Abs React Lymphs (Man) 0.0 K/mm3 01/26/17 05:45 Monocytes # (Manual) 0.3 K/mm3 (0.0-0.8) 01/26/17 05:45 Eosinophils # (Manual) 0.0 K/mm3 (0.0-0.4) 01/26/17 05:45 Basophils # (Manual) 0.0 K/mm3 (0.0-0.1) 01/26/17 05:45 Metamyelocytes # 0.0 K/mm3 01/26/17 05:45 Myelocytes # 0.0 K/mm3 01/26/17 05:45 Promyelocytes # 0.0 K/mm3 01/26/17 05:45 Blast Cells # 0.0 K/mm3 01/26/17 05:45 WBC Morphology Not Reportable 01/26/17 05:45 Hypersegmented Neuts Not Reportable 01/26/17 05:45 Hyposegmented Neuts Not Reportable 01/26/17 05:45 Hypogranular Neuts Not Reportable 01/26/17 05:45 Smudge Cells Not Reportable 01/26/17 05:45 Toxic Granulation Not Reportable 01/26/17 05:45 Toxic Vacuolation Not Reportable 01/26/17 05:45 Dohle Bodies Not Reportable 01/26/17 05:45 Pelger-Huet Anomaly Not Reportable 01/26/17 05:45 Aylin Rods Not Reportable 01/26/17 05:45 Platelet Estimate Consistent w auto 01/26/17 05:45 Clumped Platelets Rare 01/26/17 05:45 Plt Clumps, EDTA Not Reportable 01/26/17 05:45 Large Platelets Not Reportable 01/26/17 05:45 Giant Platelets Not Reportable 01/26/17 05:45 Platelet Satelliting Not Reportable 01/26/17 05:45 Plt Morphology Comment Not Reportable 01/26/17 05:45 RBC Morphology Not Reportable 01/26/17 05:45 Dimorphic RBCs Not Reportable 01/26/17 05:45 Polychromasia Not Reportable 01/26/17 05:45 Hypochromasia Not Reportable 01/26/17 05:45 Poikilocytosis Not Reportable 01/26/17 05:45 Anisocytosis 1+ 01/26/17 05:45 Microcytosis Not Reportable 01/26/17 05:45 Macrocytosis Not Reportable 01/26/17 05:45 Spherocytes Not Reportable 01/26/17 05:45 Pappenheimer Bodies Not Reportable 01/26/17 05:45 Sickle Cells Not Reportable 01/26/17 05:45 Target Cells Not Reportable 01/26/17 05:45 Tear Drop Cells Not Reportable 01/26/17 05:45 Ovalocytes Not Reportable 01/26/17 05:45 Helmet Cells Not Reportable 01/26/17 05:45 [place] Bodies Not Reportable 01/26/17 05:45 [place] Rings Not Reportable 01/26/17 05:45 Margaret Cells Few 01/26/17 05:45 Bite Cells Not Reportable 01/26/17 05:45 Crenated Cell Not Reportable 01/26/17 05:45 Elliptocytes Not Reportable 01/26/17 05:45 Acanthocytes (Spur) Not Reportable 01/26/17 05:45 Rouleaux Not Reportable 01/26/17 05:45 Hemoglobin C Crystals Not Reportable 01/26/17 05:45 Schistocytes Not Reportable 01/26/17 05:45 Malaria parasites Not Reportable 01/26/17 05:45 Donta Bodies Not Reportable 01/26/17 05:45 Hem Pathologist Commnt No 01/26/17 05:45 PT 14.5 Sec. (12.2-14.9) 01/24/17 22:03 INR 1.07 (0.87-1.13) 01/24/17 22:03 APTT 33.4 Sec. (24.2-36.6) 01/24/17 22:03 POC ABG pH 7.478 (7.35-7.45) H 01/25/17 10:40 POC ABG pCO2 27.4 (35-45) L 01/25/17 10:40 POC ABG pO2 73 (80-105) L 01/25/17 10:40 POC ABG HCO3 20.3 01/25/17 10:40 POC ABG Total CO2 21 01/25/17 10:40 POC ABG O2 Sat 96 01/25/17 10:40 POC ABG Base Excess -3 01/25/17 10:40 VBG pH 7.374 (7.320-7.420) 01/25/17 00:44 FiO2 32 % 01/25/17 10:40 Sodium 144 mmol/L (137-145) 01/30/17 04:10 Potassium 4.0 mmol/L (3.6-5.0) 01/30/17 04:10 Chloride 107.4 mmol/L (98-107) H 01/30/17 04:10 Carbon Dioxide 25 mmol/L (22-30) 01/30/17 04:10 Anion Gap 16 mmol/L 01/30/17 04:10 BUN 26 mg/dL (9-20) H 01/30/17 04:10 Creatinine 1.6 mg/dL (0.8-1.5) H 01/30/17 04:10 Estimated GFR 54 ml/min 01/30/17 04:10 BUN/Creatinine Ratio 16.25 % 01/30/17 04:10 Glucose 108 mg/dL (75-100) H 01/30/17 04:10 Osmolality 311 Mosm/kg 01/29/17 Unknown Lactic Acid 1.40 mmol/L (0.7-2.0) 01/28/17 11:56 Calcium 8.4 mg/dL (8.4-10.2) 01/30/17 04:10 Phosphorus 3.10 mg/dL (2.5-4.5) 01/29/17 Unknown Total Bilirubin 0.20 mg/dL (0.1-1.2) 01/30/17 04:10 Direct Bilirubin < 0.2 mg/dL (0-0.2) 01/27/17 12:15 AST 75 units/L (5-40) H 01/30/17 04:10 ALT 77 units/L (7-56) H 01/30/17 04:10 Alkaline Phosphatase 81 units/L (35-129) 01/30/17 04:10 Troponin T < 0.010 ng/mL (0.00-0.029) 01/25/17 03:15 Total Protein 6.7 g/dL (6.3-8.2) 01/30/17 04:10 Albumin 2.6 g/dL (3.9-5) L 01/30/17 04:10 Albumin/Globulin Ratio 0.6 % 01/30/17 04:10 Lipase 33 units/L (13-60) 01/24/17 22:03 Urine Color Yellow (Yellow) 01/28/17 23:55 Urine Turbidity Clear (Clear) 01/28/17 23:55 Urine pH 5.0 (5.0-7.0) 01/28/17 23:55 Ur Specific [place] 1.019 (1.003-1.030) 01/28/17 23:55 Urine Protein 30 mg/dl mg/dL (Negative) 01/28/17 23:55 Urine Glucose (UA) Neg mg/dL (Negative) 01/28/17 23:55 Urine Ketones Neg mg/dL (Negative) 01/28/17 23:55 Urine Blood Sm (Negative) 01/28/17 23:55 Urine Nitrite Neg (Negative) 01/28/17 23:55 Urine Bilirubin Neg (Negative) 01/28/17 23:55 Urine Urobilinogen < 2.0 mg/dL (<2.0) 01/28/17 23:55 Ur Leukocyte Esterase Neg (Negative) 01/28/17 23:55 Urine WBC (Auto) 2.0 /HPF (0.0-6.0) 01/28/17 23:55 Urine RBC (Auto) 3.0 /HPF (0.0-6.0) 01/28/17 23:55 Uric Acid Crystals Few 01/28/17 23:55 Amorphous Crystals 1+ 01/28/17 23:55 Urine Mucus Few /HPF 01/28/17 23:55 Urine Eosinophils None seen (None Seen) 01/28/17 23:55 Urine Creatinine 124.4 mg/dL (0.1-20.0) H 01/28/17 23:56 Protein/Creatinin Ratio 0.56 01/28/17 23:55 Urine Sodium 51 mEq/L 01/28/17 23:55 Urine Total Protein 71 mg/dL (5-11.8) H 01/28/17 23:56 Vancomycin Trough 15.0 ug/mL (5.0-20.0) 01/28/17 08:36 Hepatitis A IgM Ab Non-reactive (NonReactive) 01/28/17 11:56 Hep Bs Antigen Non-reactive (Negative) 01/28/17 11:56 Hep B Core IgM Ab Non-reactive (NonReactive) 01/28/17 11:56 Hepatitis C Antibody Non-reactive (NonReactive) 01/28/17 11:56 Blood Type B POSITIVE 01/24/17 22:07 Antibody Screen TNR 01/24/17 22:07 ALIDA Antibody Screen Negative 01/24/17 22:07
[2017-01-30] MEDS: VANCOMYCIN 1,250 MG in NACL 0.9% 250ML 250 ML IV SCH ×2 (09:47→23:03)
[2017-01-30] MEDS: TOPROL XL PO SCH (09:50)
[2017-01-30] MEDS: PEPCID PO SCH ×2 (09:50→22:45)
[2017-01-30] MEDS: IMDUR PO SCH (09:50)
[2017-01-30] MEDS: ELIQUIS PO SCH ×2 (09:51→22:45)
[2017-01-30] MEDS: LEXAPRO PO SCH (09:51)
[2017-01-30] MEDS: VIREAD PO SCH (09:52)
[2017-01-30] MEDS: SUSTIVA PO SCH (09:52)
[2017-01-30] MEDS: EMTRIVA PO SCH (10:21)
--- NOTE | 2017-01-30 12:54 | Progress Note ---
Assessment and Plan - Patient Problems (1) Acute renal failure (ARF) Current Visit: Yes Status: Acute Qualifiers: Acute renal failure type: A (2) HIV (human immunodeficiency virus infection) Current Visit: Yes Status: Acute (3) Hemoptysis Current Visit: Yes Status: Acute (4) Left upper lobe pneumonia Current Visit: Yes Status: Acute Qualifiers: Pneumonia type: due to unspecified organism Aspiration pneumonia type: A Qualified Code(s): J18.1 - Lobar pneumonia, unspecified organism (5) Pulmonary emboli Current Visit: Yes Status: Acute Qualifiers: Pulmonary embolism type: saddle Chronicity: acute Acute cor pulmonale presence: A Subjective Principal diagnosis: Sepsis Interval history: no hemoptysis this am episode of nausea Objective Vital Signs - 12hr 01/30/17 01/30/17 01/30/17 06:48 08:00 08:07 Temperature 98.1 F 99.2 F Pulse Rate [ 83 Anterior Bilateral Throughout] Pulse Rate [ 85 103 H Right Radial] Respiratory 18 20 Rate Respiratory 20 Rate [Anterior Bilateral Throughout] Blood Pressure Blood Pressure 140/72 175/92 [Right Arm] O2 Sat by Pulse 97 91 98 Oximetry 01/30/17 01/30/17 01/30/17 08:27 09:50 11:53 Temperature 102.9 F H Pulse Rate [ 93 H Anterior Bilateral Throughout] Pulse Rate [ 91 H Right Radial] Respiratory 20 Rate Respiratory 20 Rate [Anterior Bilateral Throughout] Blood Pressure 175/92 Blood Pressure 177/87 [Right Arm] O2 Sat by Pulse 94 91 Oximetry Constitutional: no acute distress, alert Eyes: non-icteric ENT: oropharynx moist Neck: supple, no lymphadenopathy, no JVD Effort: normal Ascultation: Bilateral: diminished breath sounds, rales (left field) Percussion: Bilateral: not dull Cardiovascular: regular rate and rhythm Gastrointestinal: normoactive bowel sounds, non-distended Integumentary: normal Extremities: no cyanosis Neurologic: normal mental status, non-focal exam, pupils equal and round, CN II- XII normal Psychiatric: mood appropriate, affect normal CBC and BMP: 01/30/17 04:10 01/30/17 04:10 ABG, PT/INR, D-dimer: ABG POC ABG pH 7.478 (7.35-7.45) H 01/25/17 10:40 POC ABG pCO2 27.4 (35-45) L 01/25/17 10:40 POC ABG pO2 73 (80-105) L 01/25/17 10:40 POC ABG HCO3 20.3 01/25/17 10:40 POC ABG Total CO2 21 01/25/17 10:40 POC ABG O2 Sat 96 01/25/17 10:40 PT/INR, D-dimer PT 14.5 Sec. (12.2-14.9) 01/24/17 22:03 INR 1.07 (0.87-1.13) 01/24/17 22:03 Abnormal lab findings: Abnormal Labs 01/25/17 01/25/17 01/26/17 09:32 10:40 05:45 WBC RBC Hgb 11.6 L Hct 34.4 L D MCV Lymph % (Auto) [place] % (Auto) Lymph # [place] # Seg Neutrophils % Lymphocytes % (Manual) 6.0 L Nucleated RBC % 2.0 H Seg Neutrophils # Lymphocytes # (Manual) 0.6 L POC ABG pH 7.478 H POC ABG pCO2 27.4 L POC ABG pO2 73 L Chloride Carbon Dioxide BUN Creatinine Glucose Lactic Acid 2.60 H* Calcium AST ALT Total Protein Albumin Urine Creatinine Urine Total Protein 01/26/17 01/27/17 01/28/17 05:45 12:15 08:36 WBC 12.4 H RBC 3.49 L Hgb 10.9 L Hct 33.0 L MCV 95 H Lymph % (Auto) [place] % (Auto) Lymph # [place] # Seg Neutrophils % Lymphocytes % (Manual) Nucleated RBC % Seg Neutrophils # Lymphocytes # (Manual) POC ABG pH POC ABG pCO2 POC ABG pO2 Chloride Carbon Dioxide 21 L BUN Creatinine Glucose 130 H Lactic Acid Calcium AST 121 H ALT 117 H Total Protein 5.8 L D Albumin 2.8 L Urine Creatinine Urine Total Protein 01/28/17 01/28/17 01/28/17 08:36 11:56 23:55 WBC RBC Hgb Hct MCV Lymph % (Auto) [place] % (Auto) Lymph # [place] # Seg Neutrophils % Lymphocytes % (Manual) Nucleated RBC % Seg Neutrophils # Lymphocytes # (Manual) POC ABG pH POC ABG pCO2 POC ABG pO2 Chloride Carbon Dioxide BUN 28 H 30 H Creatinine 2.0 H D 1.9 H Glucose 137 H 124 H Lactic Acid Calcium AST 119 H ALT 106 H Total Protein Albumin 2.7 L Urine Creatinine 127.2 H Urine Total Protein 71 H 01/28/17 01/29/17 01/29/17 23:56 10:07 10:07 WBC 12.9 H RBC 3.32 L Hgb 10.4 L Hct 31.6 L MCV 95 H Lymph % (Auto) 5.9 L [place] % (Auto) 10.2 H Lymph # 0.8 L [place] # 1.3 H Seg Neutrophils % 83.5 H Lymphocytes % (Manual) Nucleated RBC % Seg Neutrophils # 10.8 H Lymphocytes # (Manual) POC ABG pH POC ABG pCO2 POC ABG pO2 Chloride Carbon Dioxide 20 L BUN 26 H Creatinine 1.8 H Glucose 148 H Lactic Acid Calcium 8.2 L AST ALT Total Protein Albumin Urine Creatinine 124.4 H Urine Total Protein 71 H 01/29/17 01/29/17 01/30/17 Unknown Unknown 04:10 WBC 12.8 H 14.0 H RBC 3.52 L 3.40 L Hgb 11.0 L 10.7 L Hct 33.0 L 32.1 L MCV 95 H Lymph % (Auto) [place] % (Auto) Lymph # [place] # Seg Neutrophils % Lymphocytes % (Manual) Nucleated RBC % Seg Neutrophils # Lymphocytes # (Manual) POC ABG pH POC ABG pCO2 POC ABG pO2 Chloride Carbon Dioxide BUN 27 H Creatinine 1.9 H Glucose 119 H Lactic Acid Calcium AST ALT Total Protein Albumin Urine Creatinine Urine Total Protein 01/30/17 04:10 WBC RBC Hgb Hct MCV Lymph % (Auto) [place] % (Auto) Lymph # [place] # Seg Neutrophils % Lymphocytes % (Manual) Nucleated RBC % Seg Neutrophils # Lymphocytes # (Manual) POC ABG pH POC ABG pCO2 POC ABG pO2 Chloride 107.4 H Carbon Dioxide BUN 26 H Creatinine 1.6 H Glucose 108 H Lactic Acid Calcium AST 75 H ALT 77 H Total Protein Albumin 2.6 L Urine Creatinine Urine Total Protein
[2017-01-30] MEDS ORDERED: DIFLUCAN PO SCH (13:00)
[2017-01-30] MEDS: MAXIPIME/NS 1 GM/100 ML 1 GM/100 ML BAG IV SCH ×2 (13:15→23:25)
--- NOTE | 2017-01-30 13:28 | Progress Note ---
Assessment and Plan - Patient Problems (1) Fever Current Visit: Yes Status: Acute Qualifiers: Fever type: F Encounter type: E Plan to address problem: Unknown etiology. Pneumonia vs. drug fever (Zosyn?) vs. colitis. Will stop Zosyn and Clindamycin and replace with Cefepime/ Flagyl. Flagyl may cover possible infectious colitis/ Cdiff. Will send stool studies if BMs 3 or more episodes in 1 day. (2) Sepsis Current Visit: Yes Status: Acute Qualifiers: Sepsis type: sepsis due to unspecified organism Qualified Code(s): A41.9 - Sepsis, unspecified organism Plan to address problem: 1. Continue broad spectrum antibiotics per above. (3) Left upper lobe pneumonia Current Visit: Yes Status: Acute Qualifiers: Pneumonia type: due to unspecified organism Aspiration pneumonia type: A Qualified Code(s): J18.1 - Lobar pneumonia, unspecified organism Plan to address problem: Per above. (4) HIV (human immunodeficiency virus infection) Current Visit: Yes Status: Acute Plan to address problem: Continue HAART. Subjective Date of service: 01/30/17 Principal diagnosis: Sepsis Interval history: Febrile to >102 deg F today. Had watery BM x 1 this AM. Objective - Constitutional Vitals: Vital Signs Temp Pulse Resp BP Pulse Ox 102.9 F H 91 H 20 177/87 91 01/30/17 11:53 01/30/17 11:53 01/30/17 11:53 01/30/17 11:53 01/30/17 11:53 Temperature -Last 24 Hours Temperature 102.9 F Temperature 99.2 F Temperature 98.1 F Temperature 99.2 F Temperature 98.8 F Temperature 100.1 F General appearance: Present: no acute distress, other (non-toxic appearance) - EENT ENT: poor dentition, no thrush - Neck Neck: supple - Respiratory Respiratory effort: normal Respiratory: bilateral: CTA, negative: rhonchi, wheezing - Cardiovascular Rhythm: regular Heart Sounds: Present: S1 & S2 Extremities: No edema - Gastrointestinal General gastrointestinal: Present: soft, non-tender, distended, hypoactive bowel sounds - Integumentary Integumentary: no jaundice, no rash - Neurologic Neurologic: no focal deficits - Psychiatric Psychiatric: appropriate mood/affect - Labs CBC & Chem 7: 01/30/17 04:10 01/30/17 04:10 Labs: Abnormal lab results 01/30/17 01/30/17 Range/Units 04:10 04:10 WBC 14.0 H (4.5-11.0) K/mm3 RBC 3.40 L (3.65-5.03) M/mm3 Hgb 10.7 L (11.8-15.2) gm/dl Hct 32.1 L (35.5-45.6) % MCV 95 H (84-94) fl Chloride 107.4 H (98-107) mmol/L BUN 26 H (9-20) mg/dL Creatinine 1.6 H (0.8-1.5) mg/dL Glucose 108 H (75-100) mg/dL AST 75 H (5-40) units/L ALT 77 H (7-56) units/L Albumin 2.6 L (3.9-5) g/dL Microbiology 01/25/17 00:44 Peripheral/Venous Blood Culture - Final NO GROWTH AFTER 5 DAYS 01/24/17 22:13 Peripheral/Venous Blood Culture - Final NO GROWTH AFTER 5 DAYS 01/25/17 06:30 Sputum - Expectorated Sputum AFB Smear Concentration - Final 01/27/17 06:45 Sputum - Expectorated Sputum Sputum Culture - Final 01/26/17 06:30 Sputum - Expectorated Sputum Sputum Culture - Final 01/25/17 22:03 Serum Cryptococcal Antigen - Final - Imaging and cardiology Abdominal x-ray: report reviewed ((01/29/17) negative study)
[2017-01-30] MEDS: FLAGYL 500 MG/100 ML 500 MG/100 ML BAG IV SCH ×2 (13:50→22:45)
[2017-01-30] MEDS ORDERED: MAXIPIME/NS 1 GM/100 ML 1 GM/100 ML BAG IV SCH (14:00)
[2017-01-30] MEDS ORDERED: CLEOCIN PO SCH (14:00)
[2017-01-30] MEDS ORDERED: APRESOLINE IV PRN (17:10)
[2017-01-30] MEDS ORDERED: LASIX ONE ×2 (17:17→17:50)
[2017-01-30 18:06] LABS: ISTAT Base Excess -12; ISTAT HCO3 15.1; ISTAT PH 7.282 (7.35-7.45); ISTAT PO2 58 (80-105); ISTAT SO2 87; ISTAT TCO2 16
[2017-01-30] MEDS ORDERED: LASIX 80 MG in NACL 0.9% 50 ML IV ONE (18:19)
[2017-01-30] MEDS ORDERED: MORPHINE IV ONE (18:20)
[2017-01-30 22:49] LABS: ISTAT Base Excess -9; ISTAT HCO3 15.9; ISTAT PH 7.411 (7.35-7.45); ISTAT PO2 57 (80-105); ISTAT SO2 90; ISTAT TCO2 17
[2017-01-31] MEDS: MORPHINE IV PRN ×3 (01:08→23:06)
[2017-01-31] MEDS: FLAGYL 500 MG/100 ML 500 MG/100 ML BAG IV SCH ×3 (06:04→23:05)
[2017-01-31] MEDS: MAXIPIME/NS 1 GM/100 ML 1 GM/100 ML BAG IV SCH ×2 (08:00→15:00)
[2017-01-31] MEDS: PULMICORT IH SCH ×2 (08:21→20:56)
[2017-01-31] MEDS: BROVANA NEBU IH SCH ×2 (08:21→20:57)
[2017-01-31] MEDS: HALFPRIN EC PO SCH (09:00)
[2017-01-31] MEDS: IMDUR PO SCH (09:16)
[2017-01-31] MEDS: ELIQUIS PO SCH ×2 (09:16→23:09)
[2017-01-31] MEDS: LEXAPRO PO SCH (09:17)
[2017-01-31] MEDS: PEPCID PO SCH ×2 (09:17→23:06)
[2017-01-31] MEDS: TOPROL XL PO SCH (09:17)
[2017-01-31] MEDS: VIREAD PO SCH (09:18)
[2017-01-31] MEDS: EMTRIVA PO SCH (10:00)
[2017-01-31] MEDS: SUSTIVA PO SCH (10:00)
[2017-01-31] MEDS: VANCOMYCIN 1,250 MG in NACL 0.9% 250ML 250 ML IV SCH (10:00)
--- NOTE | 2017-01-31 11:41 | Progress Note ---
Assessment and Plan (1) Left upper lobe pneumonia Current Visit: Yes Status: Acute Qualifiers: Pneumonia type: due to unspecified organism Aspiration pneumonia type: A Qualified Code(s): J18.1 - Lobar pneumonia, unspecified organism Plan to address problem: antibiotics per ID (2) Acute renal failure (ARF) Current Visit: Yes Status: Acute Qualifiers: Acute renal failure type: A Plan to address problem: Acute Renal Failure secondary to Prerenal etiology vs AIN BMP is pending off IVF Avoid nephrotoxins Renally dose medications Monitor I/O's (3) HIV (human immunodeficiency virus infection) Current Visit: Yes Status: Acute Plan to address problem: On Sustiva, Emtriva and Viread as per ID (4) [place] pulmonary embolus Current Visit: No Status: Acute Qualifiers: Chronicity: C Acute cor pulmonale presence: A Plan to address problem: On Eliquis (5) Febrile Current Visit: Yes Status: Acute Qualifiers: Fever type: F Encounter type: E Plan to address problem: on cefepime and flagyl Subjective Date of service: 01/31/17 Principal diagnosis: Sepsis Interval history: SOB si slowly improving Objective - Vital Signs Vital signs: Vital Signs - 12hr 01/31/17 01/31/17 01/31/17 01:00 06:00 07:30 Temperature 97.8 F 98.4 F 98.1 F Pulse Rate Pulse Rate [ Anterior Bilateral Throughout] Pulse Rate [ 95 H 92 H 80 Right Radial] Respiratory 19 20 24 Rate Respiratory Rate [Anterior Bilateral Throughout] Blood Pressure Blood Pressure 127/85 131/83 128/76 [Right Arm] O2 Sat by Pulse 98 99 Oximetry 01/31/17 01/31/17 01/31/17 08:22 08:26 08:37 Temperature Pulse Rate 90 Pulse Rate [ 90 89 Anterior Bilateral Throughout] Pulse Rate [ Right Radial] Respiratory 23 Rate Respiratory 30 H 24 Rate [Anterior Bilateral Throughout] Blood Pressure Blood Pressure [Right Arm] O2 Sat by Pulse 100 Oximetry 01/31/17 01/31/17 01/31/17 08:38 09:16 09:17 Temperature Pulse Rate 80 80 Pulse Rate [ Anterior Bilateral Throughout] Pulse Rate [ Right Radial] Respiratory Rate Respiratory Rate [Anterior Bilateral Throughout] Blood Pressure 128/76 128/76 Blood Pressure [Right Arm] O2 Sat by Pulse 99 Oximetry - General Appearance General appearance: well-developed, well-nourished EENT: ATNC, PERRL, mucous membranes moist Neck: no JVD, no carotid bruit Respiratory: Present: Clear to Ascultation Cardiology: regular, S1S2 Gastrointestinal: normoactive bowel sounds, no tenderness, no distended, no masses Integumentary: no rash, warm and dry Neurologic: no focal deficit, no asterixis, alert and oriented x3 Musculoskeletal: other (no edema in BLE) Psychiatric: mood/affect appropriate, cooperative - Lab 01/30/17 04:10 01/30/17 04:10 Most recent lab results Calcium 8.4 mg/dL (8.4-10.2) 01/30/17 04:10 Phosphorus 3.10 mg/dL (2.5-4.5) 01/29/17 Unknown Urine Creatinine 124.4 mg/dL (0.1-20.0) H 01/28/17 23:56 Urine Sodium 51 mEq/L 01/28/17 23:55 Urine Total Protein 71 mg/dL (5-11.8) H 01/28/17 23:56
[2017-01-31] MEDS: PROVENTIL IH PRN (12:23)
--- NOTE | 2017-01-31 15:31 | Progress Note ---
Assessment and Plan Assessment and plan: Patient is 56 year old man history of AIDS, CHF, hypertension, recent pulmonary emboli comes emergency room with complaint of left side pain. Saw his primary care physician who gave him a pain patch and ibuprofen but his pain was not controlled. He complaining of cough, hemoptysis, fever and chills. No night sweats, sick contacts. Vitals to the ER the patient was febrile with imaging studies included a CT suspicious for left lobar pneumonia. * Sepsis secondary to left lobar pneumonia rule out aspiration pneumonitis, rule out gram-negative al pneumonia. Cavitory/Necrotizing Pneumonia with hemoptysis which has resolved. Recurrent fever * Diarrhea-resolved. awaiting stool culture * STACEY Possible vasomotor nephropathy +/- vancomycin Also with possible contrast nephropathy * Left lobar pneumonia * Epigastic pain * Left lobar consolidation rule out fungus versus malignant etiology * AIDS * Hypertension * Moderate protein calorie malnutrition * Pulmonary embolism-[place]addle * Hemoptysis-resolved * Transaminitis * Anemia of chronic disease. Plan * No new fever. Repeat xray continues to demonstrate pathology. Staphylococcal vs. fungal vs. malignant etiology. Change in abx to cefepime and flagyl noted * Cultures still with no growth. Sputum cultures appeared to be contaminated repeat requested. * LFT improving, Hepatitis profile is negative, check lipase * IVF decreased to 50cc/hr * Nephrology input noted * Continue Eliquis * Continue empiric antibiotic coverage. Pulmonary and infectious diseases input appreciated. * Recommend repeat CT in a few weeks to ensure complete resolution * Continue to follow cultures no growth to date. * Nutrition consult and patient noted continued diet was recommended * Continue HAART therapy- Sustiva, Emtriva, Viread * Trend liver function test, r/o hepatitis * AFB 3 pending. One already resulted negative. We'll follow the rest Doubt TB * Continue "Atripla" dosed per formulary availability. * DVT and GI prophylaxis * PLAN of care discussed with the patient History Interval history: Patient seen and examined this morning, No new fever, diarrhea today. Still with productive cough of garner thick phlegm. No other adverse event reported. Hospitalist Physical - Physical exam Narrative exam: VITAL SIGNS: Reviewed. GENERAL: The patient appeared well nourished and normally developed. Vital signs as documented. HEAD: No signs of head trauma. EYES: Pupils are equal. Extraocular motions intact. EARS: Hearing grossly intact. MOUTH: Missing dentition otherwise oropharynx is normal. NECK: No adenopathy, no JVD. CHEST: crackles left lower lobe rales CARDIAC: Regular rate and rhythm. S1 and S2, without murmurs, gallops, or rubs. VASCULAR: No Edema. Peripheral pulses normal and equal in all extremities. ABDOMEN: Soft, Non tender, non distended. No rebound or guarding, and no masses palpated. Bowel Sounds normal. MUSCULOSKELETAL: Good range of motion of all major joints. Extremities without clubbing, cyanosis or edema. NEUROLOGIC EXAM: Alert and oriented x 3. No focal sensory or strength deficits. Speech normal. Follows commands. PSYCHIATRIC: Mood normal. SKIN: No rash or lesions. - Constitutional Vitals: Temp Pulse Resp BP Pulse Ox 99.1 F 90 27 H 138/74 100 01/31/17 11:15 01/31/17 12:37 01/31/17 12:37 01/31/17 11:15 01/31/17 12:22 General appearance: Present: no acute distress, other (non-toxic appearance) Results - Labs CBC & Chem 7: 01/30/17 04:10 01/30/17 04:10 Labs: Laboratory Last Values WBC 14.0 K/mm3 (4.5-11.0) H 01/30/17 04:10 RBC 3.40 M/mm3 (3.65-5.03) L 01/30/17 04:10 Hgb 10.7 gm/dl (11.8-15.2) L 01/30/17 04:10 Hct 32.1 % (35.5-45.6) L 01/30/17 04:10 MCV 95 fl (84-94) H 01/30/17 04:10 MCH 31 pg (28-32) 01/30/17 04:10 MCHC 33 % (32-34) 01/30/17 04:10 RDW 14.6 % (13.2-15.2) 01/30/17 04:10 Plt Count 337 K/mm3 (140-440) 01/30/17 04:10 Lymph % (Auto) 5.9 % (13.4-35.0) L 01/29/17 10:07 [place] % (Auto) 10.2 % (0.0-7.3) H 01/29/17 10:07 Eos % (Auto) 0.1 % (0.0-4.3) 01/29/17 10:07 Baso % (Auto) 0.3 % (0.0-1.8) 01/29/17 10:07 Lymph # 0.8 K/mm3 (1.2-5.4) L 01/29/17 10:07 [place] # 1.3 K/mm3 (0.0-0.8) H 01/29/17 10:07 Eos # 0.0 K/mm3 (0.0-0.4) 01/29/17 10:07 Baso # 0.0 K/mm3 (0.0-0.1) 01/29/17 10:07 Add Manual Diff Complete 01/26/17 05:45 Total Counted 100 01/26/17 05:45 Seg Neutrophils % 83.5 % (40.0-70.0) H 01/29/17 10:07 Seg Neuts % (Manual) 62.0 % (40.0-70.0) 01/26/17 05:45 Band Neutrophils % 29.0 % 01/26/17 05:45 Lymphocytes % (Manual) 6.0 % (13.4-35.0) L 01/26/17 05:45 Reactive Lymphs % (Man) 0 % 01/26/17 05:45 Monocytes % (Manual) 3.0 % (0.0-7.3) 01/26/17 05:45 Eosinophils % (Manual) 0 % (0.0-4.3) 01/26/17 05:45 Basophils % (Manual) 0 % (0.0-1.8) 01/26/17 05:45 Metamyelocytes % 0 % 01/26/17 05:45 Myelocytes % 0 % 01/26/17 05:45 Promyelocytes % 0 % 01/26/17 05:45 Blast Cells % 0 % 01/26/17 05:45 Nucleated RBC % 2.0 % (0.0-0.9) H 01/26/17 05:45 Seg Neutrophils # 10.8 K/mm3 (1.8-7.7) H 01/29/17 10:07 Seg Neutrophils # Man 6.1 K/mm3 (1.8-7.7) 01/26/17 05:45 Band Neutrophils # 2.8 K/mm3 01/26/17 05:45 Lymphocytes # (Manual) 0.6 K/mm3 (1.2-5.4) L 01/26/17 05:45 Abs React Lymphs (Man) 0.0 K/mm3 01/26/17 05:45 Monocytes # (Manual) 0.3 K/mm3 (0.0-0.8) 01/26/17 05:45 Eosinophils # (Manual) 0.0 K/mm3 (0.0-0.4) 01/26/17 05:45 Basophils # (Manual) 0.0 K/mm3 (0.0-0.1) 01/26/17 05:45 Metamyelocytes # 0.0 K/mm3 01/26/17 05:45 Myelocytes # 0.0 K/mm3 01/26/17 05:45 Promyelocytes # 0.0 K/mm3 01/26/17 05:45 Blast Cells # 0.0 K/mm3 01/26/17 05:45 WBC Morphology Not Reportable 01/26/17 05:45 Hypersegmented Neuts Not Reportable 01/26/17 05:45 Hyposegmented Neuts Not Reportable 01/26/17 05:45 Hypogranular Neuts Not Reportable 01/26/17 05:45 Smudge Cells Not Reportable 01/26/17 05:45 Toxic Granulation Not Reportable 01/26/17 05:45 Toxic Vacuolation Not Reportable 01/26/17 05:45 Dohle Bodies Not Reportable 01/26/17 05:45 Pelger-Huet Anomaly Not Reportable 01/26/17 05:45 Aylin Rods Not Reportable 01/26/17 05:45 Platelet Estimate Consistent w auto 01/26/17 05:45 Clumped Platelets Rare 01/26/17 05:45 Plt Clumps, EDTA Not Reportable 01/26/17 05:45 Large Platelets Not Reportable 01/26/17 05:45 Giant Platelets Not Reportable 01/26/17 05:45 Platelet Satelliting Not Reportable 01/26/17 05:45 Plt Morphology Comment Not Reportable 01/26/17 05:45 RBC Morphology Not Reportable 01/26/17 05:45 Dimorphic RBCs Not Reportable 01/26/17 05:45 Polychromasia Not Reportable 01/26/17 05:45 Hypochromasia Not Reportable 01/26/17 05:45 Poikilocytosis Not Reportable 01/26/17 05:45 Anisocytosis 1+ 01/26/17 05:45 Microcytosis Not Reportable 01/26/17 05:45 Macrocytosis Not Reportable 01/26/17 05:45 Spherocytes Not Reportable 01/26/17 05:45 Pappenheimer Bodies Not Reportable 01/26/17 05:45 Sickle Cells Not Reportable 01/26/17 05:45 Target Cells Not Reportable 01/26/17 05:45 Tear Drop Cells Not Reportable 01/26/17 05:45 Ovalocytes Not Reportable 01/26/17 05:45 Helmet Cells Not Reportable 01/26/17 05:45 Nicolas-Luckey Bodies Not Reportable 01/26/17 05:45 [place] Rings Not Reportable 01/26/17 05:45 [place] Cells Few 01/26/17 05:45 Bite Cells Not Reportable 01/26/17 05:45 Crenated Cell Not Reportable 01/26/17 05:45 Elliptocytes Not Reportable 01/26/17 05:45 Acanthocytes (Spur) Not Reportable 01/26/17 05:45 Rouleaux Not Reportable 01/26/17 05:45 Hemoglobin C Crystals Not Reportable 01/26/17 05:45 Schistocytes Not Reportable 01/26/17 05:45 Malaria parasites Not Reportable 01/26/17 05:45 Dnota Bodies Not Reportable 01/26/17 05:45 Hem Pathologist Commnt No 01/26/17 05:45 PT 14.5 Sec. (12.2-14.9) 01/24/17 22:03 INR 1.07 (0.87-1.13) 01/24/17 22:03 APTT 33.4 Sec. (24.2-36.6) 01/24/17 22:03 POC ABG pH 7.411 (7.35-7.45) 01/30/17 22:34 POC ABG pCO2 25.0 (35-45) L 01/30/17 22:34 POC ABG pO2 57 (80-105) L 01/30/17 22:34 POC ABG HCO3 15.9 01/30/17 22:34 POC ABG Total CO2 17 01/30/17 22:34 POC ABG O2 Sat 90 01/30/17 22:34 POC ABG Base Excess -9 01/30/17 22:34 VBG pH 7.374 (7.320-7.420) 01/25/17 00:44 FiO2 70 % 01/30/17 22:34 Sodium 144 mmol/L (137-145) 01/30/17 04:10 Potassium 4.0 mmol/L (3.6-5.0) 01/30/17 04:10 Chloride 107.4 mmol/L (98-107) H 01/30/17 04:10 Carbon Dioxide 25 mmol/L (22-30) 01/30/17 04:10 Anion Gap 16 mmol/L 01/30/17 04:10 BUN 26 mg/dL (9-20) H 01/30/17 04:10 Creatinine 1.6 mg/dL (0.8-1.5) H 01/30/17 04:10 Estimated GFR 54 ml/min 01/30/17 04:10 BUN/Creatinine Ratio 16.25 % 01/30/17 04:10 Glucose 108 mg/dL (75-100) H 01/30/17 04:10 Osmolality 311 Mosm/kg 01/29/17 Unknown Lactic Acid 1.40 mmol/L (0.7-2.0) 01/28/17 11:56 Calcium 8.4 mg/dL (8.4-10.2) 01/30/17 04:10 Phosphorus 3.10 mg/dL (2.5-4.5) 01/29/17 Unknown Total Bilirubin 0.20 mg/dL (0.1-1.2) 01/30/17 04:10 Direct Bilirubin < 0.2 mg/dL (0-0.2) 01/27/17 12:15 AST 75 units/L (5-40) H 01/30/17 04:10 ALT 77 units/L (7-56) H 01/30/17 04:10 Alkaline Phosphatase 81 units/L (35-129) 01/30/17 04:10 Troponin T < 0.010 ng/mL (0.00-0.029) 01/25/17 03:15 Total Protein 6.7 g/dL (6.3-8.2) 01/30/17 04:10 Albumin 2.6 g/dL (3.9-5) L 01/30/17 04:10 Albumin/Globulin Ratio 0.6 % 01/30/17 04:10 Lipase 63 units/L (13-60) H 01/30/17 04:10 Urine Color Yellow (Yellow) 01/28/17 23:55 Urine Turbidity Clear (Clear) 01/28/17 23:55 Urine pH 5.0 (5.0-7.0) 01/28/17 23:55 Ur Specific [place] 1.019 (1.003-1.030) 01/28/17 23:55 Urine Protein 30 mg/dl mg/dL (Negative) 01/28/17 23:55 Urine Glucose (UA) Neg mg/dL (Negative) 01/28/17 23:55 Urine Ketones Neg mg/dL (Negative) 01/28/17 23:55 Urine Blood Sm (Negative) 01/28/17 23:55 Urine Nitrite Neg (Negative) 01/28/17 23:55 Urine Bilirubin Neg (Negative) 01/28/17 23:55 Urine Urobilinogen < 2.0 mg/dL (<2.0) 01/28/17 23:55 Ur Leukocyte Esterase Neg (Negative) 01/28/17 23:55 Urine WBC (Auto) 2.0 /HPF (0.0-6.0) 01/28/17 23:55 Urine RBC (Auto) 3.0 /HPF (0.0-6.0) 01/28/17 23:55 Uric Acid Crystals Few 01/28/17 23:55 Amorphous Crystals 1+ 01/28/17 23:55 Urine Mucus Few /HPF 01/28/17 23:55 Urine Eosinophils None seen (None Seen) 01/28/17 23:55 Urine Creatinine 124.4 mg/dL (0.1-20.0) H 01/28/17 23:56 Protein/Creatinin Ratio 0.56 01/28/17 23:55 Urine Sodium 51 mEq/L 01/28/17 23:55 Urine Total Protein 71 mg/dL (5-11.8) H 01/28/17 23:56 Vancomycin Trough 15.0 ug/mL (5.0-20.0) 01/28/17 08:36 Hepatitis A IgM Ab Non-reactive (NonReactive) 01/28/17 11:56 Hep Bs Antigen Non-reactive (Negative) 01/28/17 11:56 Hep B Core IgM Ab Non-reactive (NonReactive) 01/28/17 11:56 Hepatitis C Antibody Non-reactive (NonReactive) 01/28/17 11:56 Blood Type B POSITIVE 01/24/17 22:07 Antibody Screen TNR 01/24/17 22:07 ALIDA Antibody Screen Negative 01/24/17 22:07
--- NOTE | 2017-01-31 15:34 | Progress Note ---
Assessment and Plan 56 y/o male with HIV, recent saddle PE s/p ekos, now with new left upper lobe cavitary pneumonia and acute respiratory failure. 1. Bipap therapy QHS and PRN 2. May need repeat ABG 3. Abx therapy per ID 4. Low threshold for transfer if respiratory status changes. Subjective Date of service: 01/31/17 Principal diagnosis: Sepsis Interval history: patient asked to be placed on bipap therapy. Sats documented earlier on 3 liters were accurate. Does not appear in distress. Remainder is negative. Objective Vital Signs - 12hr 01/31/17 01/31/17 01/31/17 06:00 07:30 08:22 Temperature 98.4 F 98.1 F Pulse Rate Pulse Rate [ 90 Anterior Bilateral Throughout] Pulse Rate [ Apical] Pulse Rate [ Dorsalis Pedis] Pulse Rate [ Left Dorsalis Pedis] Pulse Rate [ Left Radial] Pulse Rate [ 92 H 80 Right Radial] Pulse Rate [ Right] Respiratory 20 24 Rate Respiratory 30 H Rate [Anterior Bilateral Throughout] Blood Pressure Blood Pressure 131/83 128/76 [Right Arm] O2 Sat by Pulse 99 Oximetry 01/31/17 01/31/17 01/31/17 08:26 08:37 08:38 Temperature Pulse Rate 90 Pulse Rate [ 89 Anterior Bilateral Throughout] Pulse Rate [ Apical] Pulse Rate [ Dorsalis Pedis] Pulse Rate [ Left Dorsalis Pedis] Pulse Rate [ Left Radial] Pulse Rate [ Right Radial] Pulse Rate [ Right] Respiratory 23 Rate Respiratory 24 Rate [Anterior Bilateral Throughout] Blood Pressure Blood Pressure [Right Arm] O2 Sat by Pulse 100 99 Oximetry 01/31/17 01/31/17 01/31/17 09:16 09:17 11:15 Temperature 99.1 F Pulse Rate 80 80 Pulse Rate [ Anterior Bilateral Throughout] Pulse Rate [ 94 H Apical] Pulse Rate [ 94 H Dorsalis Pedis] Pulse Rate [ 94 H Left Dorsalis Pedis] Pulse Rate [ 94 H Left Radial] Pulse Rate [ 94 H Right Radial] Pulse Rate [ 94 H Right] Respiratory 20 Rate Respiratory Rate [Anterior Bilateral Throughout] Blood Pressure 128/76 128/76 Blood Pressure 138/74 [Right Arm] O2 Sat by Pulse Oximetry 01/31/17 01/31/17 01/31/17 12:22 12:23 12:37 Temperature Pulse Rate 89 Pulse Rate [ 89 90 Anterior Bilateral Throughout] Pulse Rate [ Apical] Pulse Rate [ Dorsalis Pedis] Pulse Rate [ Left Dorsalis Pedis] Pulse Rate [ Left Radial] Pulse Rate [ Right Radial] Pulse Rate [ Right] Respiratory 31 H Rate Respiratory 33 H 27 H Rate [Anterior Bilateral Throughout] Blood Pressure Blood Pressure [Right Arm] O2 Sat by Pulse 100 Oximetry Constitutional: no acute distress, alert Eyes: non-icteric ENT: oropharynx moist Neck: supple, no lymphadenopathy, no JVD Effort: normal Ascultation: Bilateral: clear, diminished breath sounds, rales (left field) Percussion: Bilateral: not dull Cardiovascular: regular rate and rhythm Gastrointestinal: normoactive bowel sounds, non-distended Integumentary: normal Extremities: no cyanosis Neurologic: normal mental status, non-focal exam, pupils equal and round, CN II- XII normal Psychiatric: mood appropriate, affect normal CBC and BMP: 01/30/17 04:10 01/30/17 04:10 ABG, PT/INR, D-dimer: ABG POC ABG pH 7.411 (7.35-7.45) 01/30/17 22:34 POC ABG pCO2 25.0 (35-45) L 01/30/17 22:34 POC ABG pO2 57 (80-105) L 01/30/17 22:34 POC ABG HCO3 15.9 01/30/17 22:34 POC ABG Total CO2 17 01/30/17 22:34 POC ABG O2 Sat 90 01/30/17 22:34 PT/INR, D-dimer PT 14.5 Sec. (12.2-14.9) 01/24/17 22:03 INR 1.07 (0.87-1.13) 01/24/17 22:03 Abnormal lab findings: Abnormal Labs 01/25/17 01/25/17 01/26/17 09:32 10:40 05:45 WBC RBC Hgb 11.6 L Hct 34.4 L D MCV Lymph % (Auto) [place] % (Auto) Lymph # [place] # Seg Neutrophils % Lymphocytes % (Manual) 6.0 L Nucleated RBC % 2.0 H Seg Neutrophils # Lymphocytes # (Manual) 0.6 L POC ABG pH 7.478 H POC ABG pCO2 27.4 L POC ABG pO2 73 L Chloride Carbon Dioxide BUN Creatinine Glucose Lactic Acid 2.60 H* Calcium AST ALT Total Protein Albumin Lipase Urine Creatinine Urine Total Protein 01/26/17 01/27/17 01/28/17 05:45 12:15 08:36 WBC 12.4 H RBC 3.49 L Hgb 10.9 L Hct 33.0 L MCV 95 H Lymph % (Auto) [place] % (Auto) Lymph # [place] # Seg Neutrophils % Lymphocytes % (Manual) Nucleated RBC % Seg Neutrophils # Lymphocytes # (Manual) POC ABG pH POC ABG pCO2 POC ABG pO2 Chloride Carbon Dioxide 21 L BUN Creatinine Glucose 130 H Lactic Acid Calcium AST 121 H ALT 117 H Total Protein 5.8 L D Albumin 2.8 L Lipase Urine Creatinine Urine Total Protein 01/28/17 01/28/17 01/28/17 08:36 11:56 23:55 WBC RBC Hgb Hct MCV Lymph % (Auto) [place] % (Auto) Lymph # [place] # Seg Neutrophils % Lymphocytes % (Manual) Nucleated RBC % Seg Neutrophils # Lymphocytes # (Manual) POC ABG pH POC ABG pCO2 POC ABG pO2 Chloride Carbon Dioxide BUN 28 H 30 H Creatinine 2.0 H D 1.9 H Glucose 137 H 124 H Lactic Acid Calcium AST 119 H ALT 106 H Total Protein Albumin 2.7 L Lipase Urine Creatinine 127.2 H Urine Total Protein 71 H 01/28/17 01/29/17 01/29/17 23:56 10:07 10:07 WBC 12.9 H RBC 3.32 L Hgb 10.4 L Hct 31.6 L MCV 95 H Lymph % (Auto) 5.9 L [place] % (Auto) 10.2 H Lymph # 0.8 L [place] # 1.3 H Seg Neutrophils % 83.5 H Lymphocytes % (Manual) Nucleated RBC % Seg Neutrophils # 10.8 H Lymphocytes # (Manual) POC ABG pH POC ABG pCO2 POC ABG pO2 Chloride Carbon Dioxide 20 L BUN 26 H Creatinine 1.8 H Glucose 148 H Lactic Acid Calcium 8.2 L AST ALT Total Protein Albumin Lipase Urine Creatinine 124.4 H Urine Total Protein 71 H 01/29/17 01/29/17 01/30/17 Unknown Unknown 04:10 WBC 12.8 H 14.0 H RBC 3.52 L 3.40 L Hgb 11.0 L 10.7 L Hct 33.0 L 32.1 L MCV 95 H Lymph % (Auto) [place] % (Auto) Lymph # [place] # Seg Neutrophils % Lymphocytes % (Manual) Nucleated RBC % Seg Neutrophils # Lymphocytes # (Manual) POC ABG pH POC ABG pCO2 POC ABG pO2 Chloride Carbon Dioxide BUN 27 H Creatinine 1.9 H Glucose 119 H Lactic Acid Calcium AST ALT Total Protein Albumin Lipase Urine Creatinine Urine Total Protein 01/30/17 01/30/17 01/30/17 04:10 04:10 17:48 WBC RBC Hgb Hct MCV Lymph % (Auto) [place] % (Auto) Lymph # [place] # Seg Neutrophils % Lymphocytes % (Manual) Nucleated RBC % Seg Neutrophils # Lymphocytes # (Manual) POC ABG pH 7.282 L POC ABG pCO2 32.0 L POC ABG pO2 58 L Chloride 107.4 H Carbon Dioxide BUN 26 H Creatinine 1.6 H Glucose 108 H Lactic Acid Calcium AST 75 H ALT 77 H Total Protein Albumin 2.6 L Lipase 63 H Urine Creatinine Urine Total Protein 01/30/17 22:34 WBC RBC Hgb Hct MCV Lymph % (Auto) [place] % (Auto) Lymph # [place] # Seg Neutrophils % Lymphocytes % (Manual) Nucleated RBC % Seg Neutrophils # Lymphocytes # (Manual) POC ABG pH POC ABG pCO2 25.0 L POC ABG pO2 57 L Chloride Carbon Dioxide BUN Creatinine Glucose Lactic Acid Calcium AST ALT Total Protein Albumin Lipase Urine Creatinine Urine Total Protein
[2017-01-31] MEDS ORDERED: LASIX IV ONE ×2 (17:10→18:25)
--- NOTE | 2017-01-31 17:40 | Progress Note ---
Assessment and Plan - Patient Problems (1) Fever Current Visit: Yes Status: Acute Qualifiers: Fever type: F Encounter type: E Plan to address problem: Improved. Afebrile today. Continue to monitor for localizing clinical signs or symptoms. (2) Sepsis Current Visit: Yes Status: Acute Qualifiers: Sepsis type: sepsis due to unspecified organism Qualified Code(s): A41.9 - Sepsis, unspecified organism Plan to address problem: Patient has received 6+ days of broad, empiric antibiotics. Recommend a total of 7 days, which will be completed tomorrow. Follow outstanding AFB sputum studies. Patient is AFB negative x 1. (3) Left upper lobe pneumonia Current Visit: Yes Status: Acute Qualifiers: Pneumonia type: due to unspecified organism Aspiration pneumonia type: A Qualified Code(s): J18.1 - Lobar pneumonia, unspecified organism Plan to address problem: 1. Per above. 2. Bronchoscopy and cultures have not yet revealed an etiology of the cavitary lesion. PjP is not highly suspected, but fungal etiologies are potentially possible. 3. Will check CD4 count. (4) HIV (human immunodeficiency virus infection) Current Visit: Yes Status: Acute Plan to address problem: Continue current HAART regimen. Will check CD4 count, noting potential of spurious values during acute illness. Subjective Date of service: 01/31/17 Principal diagnosis: Sepsis Interval history: Afebrile today. Objective - Constitutional Vitals: Vital Signs Temp Pulse Resp BP Pulse Ox 98.1 F 85 20 130/80 100 01/31/17 15:30 01/31/17 15:30 01/31/17 15:30 01/31/17 15:30 01/31/17 12:22 Temperature -Last 24 Hours Temperature 98.1 F Temperature 99.1 F Temperature 98.1 F Temperature 98.4 F Temperature 97.8 F Temperature 98.9 F General appearance: Present: no acute distress, well-nourished - Neck Neck: supple - Respiratory Respiratory effort: normal Respiratory: bilateral: CTA - Cardiovascular Rhythm: regular Heart Sounds: Present: S1 & S2 Extremities: No edema - Gastrointestinal General gastrointestinal: Present: soft, distended, hypoactive bowel sounds - Genitourinary Male genitourinary: normal ([place] with yellow urine) - Integumentary Integumentary: no jaundice, no rash - Neurologic Neurologic: moves all extremities - Labs CBC & Chem 7: 01/30/17 04:10 01/30/17 04:10 Labs: Abnormal lab results 01/30/17 01/30/17 Range/Units 17:48 22:34 POC ABG pH 7.282 L (7.35-7.45) POC ABG pCO2 32.0 L 25.0 L (35-45) POC ABG pO2 58 L 57 L (80-105) Microbiology 01/25/17 00:44 Peripheral/Venous Blood Culture - Final NO GROWTH AFTER 5 DAYS 01/24/17 22:13 Peripheral/Venous Blood Culture - Final NO GROWTH AFTER 5 DAYS 01/25/17 06:30 Sputum - Expectorated Sputum AFB Smear Concentration - Final 01/27/17 06:45 Sputum - Expectorated Sputum Sputum Culture - Final 01/26/17 06:30 Sputum - Expectorated Sputum Sputum Culture - Final 01/25/17 22:03 Serum Cryptococcal Antigen - Final - Imaging and cardiology Abdominal x-ray: report reviewed (negative study)
[2017-02-01] MEDS: MAXIPIME/NS 1 GM/100 ML 1 GM/100 ML BAG IV SCH ×3 (00:14→15:38)
[2017-02-01] MEDS: VANCOMYCIN 1,250 MG in NACL 0.9% 250ML 250 ML IV SCH ×2 (00:15→10:37)
[2017-02-01] MEDS: FLAGYL 500 MG/100 ML 500 MG/100 ML BAG IV SCH ×3 (05:25→23:21)
[2017-02-01] MEDS: TYLENOL PO PRN (06:26)
[2017-02-01 06:29] LABS: Basophils % (Auto) 0.4 % (0.0-1.8); Chloride 107.1 mmol/L (98-107); Eosinophils % (Auto) 0.7 % (0.0-4.3); Hematocrit 31.5 % (35.5-45.6); Hemoglobin 10.2 gm/dl (11.8-15.2); Mean Corpuscular HGB Conc 33 % (32-34); Mean Corpuscular Hemoglobin 31 pg (28-32); Mean Corpuscular Volume 95 fl (84-94); Platelet Count 410 K/mm3 (140-440); Potassium 3.2 mmol/L (3.6-5.0); Red Cell Distribution Width 15.3 % (13.2-15.2)
--- NOTE | 2017-02-01 09:25 | Progress Note ---
Assessment and Plan (1) Left upper lobe pneumonia Current Visit: Yes Status: Acute Qualifiers: Pneumonia type: due to unspecified organism Aspiration pneumonia type: A Qualified Code(s): J18.1 - Lobar pneumonia, unspecified organism Plan to address problem: antibiotics per ID (2) Acute renal failure (ARF) Current Visit: Yes Status: Acute Qualifiers: Acute renal failure type: A Plan to address problem: Cr is trending down Kcl 20 meq PO qday ordered off IVF Avoid nephrotoxins Renally dose medications Monitor I/O's (3) HIV (human immunodeficiency virus infection) Current Visit: Yes Status: Acute Plan to address problem: On Sustiva, Emtriva and Viread as per ID (4) [place] pulmonary embolus Current Visit: No Status: Acute Qualifiers: Chronicity: C Acute cor pulmonale presence: A Plan to address problem: On Eliquis (5) Febrile Current Visit: Yes Status: Acute Qualifiers: Fever type: F Encounter type: E Plan to address problem: on cefepime and flagyl Subjective Date of service: 02/01/17 Principal diagnosis: Sepsis Interval history: denies overnight events Objective - Vital Signs Vital signs: Vital Signs - 12hr 01/31/17 01/31/17 01/31/17 21:27 21:31 22:00 Temperature Pulse Rate 85 85 Pulse Rate [ 94 H Anterior Bilateral Throughout] Pulse Rate [ Apical] Pulse Rate [ Dorsalis Pedis] Pulse Rate [ Left Dorsalis Pedis] Pulse Rate [ Left Radial] Pulse Rate [ Right Dorsalis Pedis] Pulse Rate [ Right Radial] Pulse Rate [ Right] Respiratory 24 18 Rate Respiratory 24 Rate [Anterior Bilateral Throughout] Blood Pressure [Right Arm] O2 Sat by Pulse 99 97 Oximetry 01/31/17 02/01/17 02/01/17 23:03 04:00 04:27 Temperature 98 F 98.2 F Pulse Rate 84 Pulse Rate [ Anterior Bilateral Throughout] Pulse Rate [ 85 85 Apical] Pulse Rate [ 85 85 Dorsalis Pedis] Pulse Rate [ 85 85 Left Dorsalis Pedis] Pulse Rate [ 85 85 Left Radial] Pulse Rate [ 85 85 Right Dorsalis Pedis] Pulse Rate [ 85 85 Right Radial] Pulse Rate [ 85 85 Right] Respiratory 20 28 H 16 Rate Respiratory Rate [Anterior Bilateral Throughout] Blood Pressure 132/76 140/78 [Right Arm] O2 Sat by Pulse 100 98 100 Oximetry 02/01/17 08:00 Temperature 98.4 F Pulse Rate Pulse Rate [ Anterior Bilateral Throughout] Pulse Rate [ 84 Apical] Pulse Rate [ 84 Dorsalis Pedis] Pulse Rate [ 84 Left Dorsalis Pedis] Pulse Rate [ 84 Left Radial] Pulse Rate [ 84 Right Dorsalis Pedis] Pulse Rate [ 84 Right Radial] Pulse Rate [ 84 Right] Respiratory 18 Rate Respiratory Rate [Anterior Bilateral Throughout] Blood Pressure 138/80 [Right Arm] O2 Sat by Pulse 97 Oximetry - General Appearance General appearance: well-developed, well-nourished, appears stated age EENT: ATNC, PERRL, mucous membranes moist Neck: no JVD, no carotid bruit Respiratory: Present: Clear to Ascultation Cardiology: regular, S1S2 Gastrointestinal: normoactive bowel sounds, no tenderness, no distended, no masses Integumentary: no rash, warm and dry Neurologic: no focal deficit, no asterixis, alert and oriented x3 Musculoskeletal: other (no edema in BLE) Psychiatric: mood/affect appropriate, cooperative - Lab 02/01/17 05:50 02/01/17 05:50 Most recent lab results Calcium 8.0 mg/dL (8.4-10.2) L 02/01/17 05:50 Phosphorus 3.10 mg/dL (2.5-4.5) 01/29/17 Unknown Urine Creatinine 124.4 mg/dL (0.1-20.0) H 01/28/17 23:56 Urine Sodium 51 mEq/L 01/28/17 23:55 Urine Total Protein 71 mg/dL (5-11.8) H 01/28/17 23:56
[2017-02-01] MEDS: ELIQUIS PO SCH (10:13)
[2017-02-01] MEDS: LEXAPRO PO SCH (10:13)
[2017-02-01] MEDS: K-DUR PO SCH (10:14)
[2017-02-01] MEDS: IMDUR PO SCH (10:14)
[2017-02-01] MEDS: TOPROL XL PO SCH (10:15)
[2017-02-01] MEDS: VIREAD PO SCH (10:18)
[2017-02-01] MEDS: EMTRIVA PO SCH (10:19)
[2017-02-01] MEDS: SUSTIVA PO SCH (10:19)
[2017-02-01] MEDS: BROVANA NEBU IH SCH ×2 (10:20→20:00)
[2017-02-01] MEDS: PULMICORT IH SCH ×2 (10:20→20:00)
[2017-02-01] MEDS: HALFPRIN EC PO SCH (10:50)
[2017-02-01] MEDS: PEPCID PO SCH (10:50)
--- NOTE | 2017-02-01 12:48 | Progress Note ---
Assessment and Plan 56 y/o male with HIV, recent saddle PE s/p ekos, now with new left upper lobe cavitary pneumonia and acute respiratory failure. 1. Bipap therapy QHS and PRN 2. HIV therapy 3. Abx therapy per ID 4. Low threshold for transfer if respiratory status changes. Subjective Date of service: 02/01/17 Principal diagnosis: Sepsis Interval history: No acute events overnight. Per patient, had some episodes of hemoptysis on yesterday. Breathing stable now. Objective Vital Signs - 12hr 02/01/17 02/01/17 02/01/17 04:00 04:27 08:00 Temperature 98.2 F 98.4 F Pulse Rate 84 Pulse Rate [ 85 84 Apical] Pulse Rate [ 85 84 Dorsalis Pedis] Pulse Rate [ 85 84 Left Dorsalis Pedis] Pulse Rate [ 85 84 Left Radial] Pulse Rate [ 85 84 Right Dorsalis Pedis] Pulse Rate [ 85 84 Right Radial] Pulse Rate [ 85 84 Right] Respiratory 28 H 16 18 Rate Blood Pressure Blood Pressure 140/78 138/80 [Right Arm] O2 Sat by Pulse 98 100 97 Oximetry 02/01/17 02/01/17 10:14 10:15 Temperature Pulse Rate 84 84 Pulse Rate [ Apical] Pulse Rate [ Dorsalis Pedis] Pulse Rate [ Left Dorsalis Pedis] Pulse Rate [ Left Radial] Pulse Rate [ Right Dorsalis Pedis] Pulse Rate [ Right Radial] Pulse Rate [ Right] Respiratory Rate Blood Pressure 138/80 138/80 Blood Pressure [Right Arm] O2 Sat by Pulse Oximetry Constitutional: no acute distress, alert Eyes: non-icteric ENT: oropharynx moist Neck: supple, no lymphadenopathy, no JVD Effort: normal Ascultation: Bilateral: clear, diminished breath sounds, rales (left field) Percussion: Bilateral: not dull Cardiovascular: regular rate and rhythm Gastrointestinal: normoactive bowel sounds, non-distended Integumentary: normal Extremities: no cyanosis Neurologic: normal mental status, non-focal exam, pupils equal and round, CN II- XII normal Psychiatric: mood appropriate, affect normal CBC and BMP: 02/01/17 05:50 02/01/17 05:50 ABG, PT/INR, D-dimer: ABG POC ABG pH 7.411 (7.35-7.45) 01/30/17 22:34 POC ABG pCO2 25.0 (35-45) L 01/30/17 22:34 POC ABG pO2 57 (80-105) L 01/30/17 22:34 POC ABG HCO3 15.9 01/30/17 22:34 POC ABG Total CO2 17 01/30/17 22:34 POC ABG O2 Sat 90 01/30/17 22:34 PT/INR, D-dimer PT 14.5 Sec. (12.2-14.9) 01/24/17 22:03 INR 1.07 (0.87-1.13) 01/24/17 22:03 Abnormal lab findings: Abnormal Labs 01/25/17 01/25/17 01/26/17 09:32 10:40 05:45 WBC RBC Hgb 11.6 L Hct 34.4 L D MCV RDW Lymph % (Auto) [place] % (Auto) Lymph # [place] # Seg Neutrophils % Lymphocytes % (Manual) 6.0 L Nucleated RBC % 2.0 H Seg Neutrophils # Lymphocytes # (Manual) 0.6 L POC ABG pH 7.478 H POC ABG pCO2 27.4 L POC ABG pO2 73 L Sodium Potassium Chloride Carbon Dioxide BUN Creatinine Glucose Lactic Acid 2.60 H* Calcium AST ALT Total Protein Albumin Lipase Urine Creatinine Urine Total Protein 01/26/17 01/27/17 01/28/17 05:45 12:15 08:36 WBC 12.4 H RBC 3.49 L Hgb 10.9 L Hct 33.0 L MCV 95 H RDW Lymph % (Auto) [place] % (Auto) Lymph # [place] # Seg Neutrophils % Lymphocytes % (Manual) Nucleated RBC % Seg Neutrophils # Lymphocytes # (Manual) POC ABG pH POC ABG pCO2 POC ABG pO2 Sodium Potassium Chloride Carbon Dioxide 21 L BUN Creatinine Glucose 130 H Lactic Acid Calcium AST 121 H ALT 117 H Total Protein 5.8 L D Albumin 2.8 L Lipase Urine Creatinine Urine Total Protein 01/28/17 01/28/17 01/28/17 08:36 11:56 23:55 WBC RBC Hgb Hct MCV RDW Lymph % (Auto) [place] % (Auto) Lymph # [place] # Seg Neutrophils % Lymphocytes % (Manual) Nucleated RBC % Seg Neutrophils # Lymphocytes # (Manual) POC ABG pH POC ABG pCO2 POC ABG pO2 Sodium Potassium Chloride Carbon Dioxide BUN 28 H 30 H Creatinine 2.0 H D 1.9 H Glucose 137 H 124 H Lactic Acid Calcium AST 119 H ALT 106 H Total Protein Albumin 2.7 L Lipase Urine Creatinine 127.2 H Urine Total Protein 71 H 01/28/17 01/29/17 01/29/17 23:56 10:07 10:07 WBC 12.9 H RBC 3.32 L Hgb 10.4 L Hct 31.6 L MCV 95 H RDW Lymph % (Auto) 5.9 L [place] % (Auto) 10.2 H Lymph # 0.8 L [place] # 1.3 H Seg Neutrophils % 83.5 H Lymphocytes % (Manual) Nucleated RBC % Seg Neutrophils # 10.8 H Lymphocytes # (Manual) POC ABG pH POC ABG pCO2 POC ABG pO2 Sodium Potassium Chloride Carbon Dioxide 20 L BUN 26 H Creatinine 1.8 H Glucose 148 H Lactic Acid Calcium 8.2 L AST ALT Total Protein Albumin Lipase Urine Creatinine 124.4 H Urine Total Protein 71 H 01/29/17 01/29/17 01/30/17 Unknown Unknown 04:10 WBC 12.8 H 14.0 H RBC 3.52 L 3.40 L Hgb 11.0 L 10.7 L Hct 33.0 L 32.1 L MCV 95 H RDW Lymph % (Auto) [place] % (Auto) Lymph # [place] # Seg Neutrophils % Lymphocytes % (Manual) Nucleated RBC % Seg Neutrophils # Lymphocytes # (Manual) POC ABG pH POC ABG pCO2 POC ABG pO2 Sodium Potassium Chloride Carbon Dioxide BUN 27 H Creatinine 1.9 H Glucose 119 H Lactic Acid Calcium AST ALT Total Protein Albumin Lipase Urine Creatinine Urine Total Protein 01/30/17 01/30/17 01/30/17 04:10 04:10 17:48 WBC RBC Hgb Hct MCV RDW Lymph % (Auto) [place] % (Auto) Lymph # [place] # Seg Neutrophils % Lymphocytes % (Manual) Nucleated RBC % Seg Neutrophils # Lymphocytes # (Manual) POC ABG pH 7.282 L POC ABG pCO2 32.0 L POC ABG pO2 58 L Sodium Potassium Chloride 107.4 H Carbon Dioxide BUN 26 H Creatinine 1.6 H Glucose 108 H Lactic Acid Calcium AST 75 H ALT 77 H Total Protein Albumin 2.6 L Lipase 63 H Urine Creatinine Urine Total Protein 01/30/17 02/01/17 02/01/17 22:34 05:50 05:50 WBC 15.0 H RBC 3.30 L Hgb 10.2 L Hct 31.5 L MCV 95 H RDW 15.3 H Lymph % (Auto) 4.9 L [place] % (Auto) Lymph # 0.7 L [place] # 1.0 H Seg Neutrophils % 87.2 H Lymphocytes % (Manual) Nucleated RBC % Seg Neutrophils # 13.1 H Lymphocytes # (Manual) POC ABG pH POC ABG pCO2 25.0 L POC ABG pO2 57 L Sodium 146 H Potassium 3.2 L Chloride 107.1 H Carbon Dioxide 20 L BUN 30 H Creatinine Glucose 112 H Lactic Acid Calcium 8.0 L AST ALT Total Protein Albumin Lipase Urine Creatinine Urine Total Protein
[2017-02-01] MEDS: ZOFRAN IV PRN ×2 (13:46→23:17)
--- NOTE | 2017-02-01 14:05 | Progress Note ---
Assessment and Plan Assessment and plan: Patient is 56 year old man with a history of AIDS, CHF, hypertension, recent pulmonary emboli comes emergency room with complaint of left side pains. * Sepsis secondary to left lobar pneumonia rule out Aspiration Pneumonitis, unlikely gram-negative al pneumonia. Cavitary/Necrotizing Pneumonia with hemoptysis * Diarrhea-resolved. awaiting stool culture * STACEY Possible vasomotor nephropathy * Left lobar consolidation rule out fungus versus malignant etiology * AIDS/HIV: ID following * Hypertension * Moderate protein calorie malnutrition * Pulmonary embolism-[place] * Hemoptysis-resolved * Transaminitis, mild and resolving * Anemia of chronic disease. Still in TB isolation, one AFB negative, called infectious disease Hospitalist Physical - Constitutional Vitals: Temp Pulse Resp BP Pulse Ox 98.4 F 79 20 138/80 96 02/01/17 08:00 02/01/17 10:30 02/01/17 10:30 02/01/17 10:15 02/01/17 10:20 General appearance: Present: no acute distress, well-nourished Results - Labs CBC & Chem 7: 02/01/17 05:50 02/01/17 05:50 Labs: Laboratory Last Values WBC 15.0 K/mm3 (4.5-11.0) H 02/01/17 05:50 RBC 3.30 M/mm3 (3.65-5.03) L 02/01/17 05:50 Hgb 10.2 gm/dl (11.8-15.2) L 02/01/17 05:50 Hct 31.5 % (35.5-45.6) L 02/01/17 05:50 MCV 95 fl (84-94) H 02/01/17 05:50 MCH 31 pg (28-32) 02/01/17 05:50 MCHC 33 % (32-34) 02/01/17 05:50 RDW 15.3 % (13.2-15.2) H 02/01/17 05:50 Plt Count 410 K/mm3 (140-440) 02/01/17 05:50 Lymph % (Auto) 4.9 % (13.4-35.0) L 02/01/17 05:50 [place] % (Auto) 6.8 % (0.0-7.3) 02/01/17 05:50 E[place] % (Auto) 0.7 % (0.0-4.3) 02/01/17 05:50 Baso % (Auto) 0.4 % (0.0-1.8) 02/01/17 05:50 Lymph # 0.7 K/mm3 (1.2-5.4) L 02/01/17 05:50 [place] # 1.0 K/mm3 (0.0-0.8) H 02/01/17 05:50 Eos # 0.1 K/mm3 (0.0-0.4) 02/01/17 05:50 Baso # 0.1 K/mm3 (0.0-0.1) 02/01/17 05:50 Add Manual Diff Complete 01/26/17 05:45 Total Counted 100 01/26/17 05:45 Seg Neutrophils % 87.2 % (40.0-70.0) H 02/01/17 05:50 Seg Neuts % (Manual) 62.0 % (40.0-70.0) 01/26/17 05:45 Band Neutrophils % 29.0 % 01/26/17 05:45 Lymphocytes % (Manual) 6.0 % (13.4-35.0) L 01/26/17 05:45 Reactive Lymphs % (Man) 0 % 01/26/17 05:45 Monocytes % (Manual) 3.0 % (0.0-7.3) 01/26/17 05:45 Eosinophils % (Manual) 0 % (0.0-4.3) 01/26/17 05:45 Basophils % (Manual) 0 % (0.0-1.8) 01/26/17 05:45 Metamyelocytes % 0 % 01/26/17 05:45 Myelocytes % 0 % 01/26/17 05:45 Promyelocytes % 0 % 01/26/17 05:45 Blast Cells % 0 % 01/26/17 05:45 Nucleated RBC % 2.0 % (0.0-0.9) H 01/26/17 05:45 Seg Neutrophils # 13.1 K/mm3 (1.8-7.7) H 02/01/17 05:50 Seg Neutrophils # Man 6.1 K/mm3 (1.8-7.7) 01/26/17 05:45 Band Neutrophils # 2.8 K/mm3 01/26/17 05:45 Lymphocytes # (Manual) 0.6 K/mm3 (1.2-5.4) L 01/26/17 05:45 Abs React Lymphs (Man) 0.0 K/mm3 01/26/17 05:45 Monocytes # (Manual) 0.3 K/mm3 (0.0-0.8) 01/26/17 05:45 Eosinophils # (Manual) 0.0 K/mm3 (0.0-0.4) 01/26/17 05:45 Basophils # (Manual) 0.0 K/mm3 (0.0-0.1) 01/26/17 05:45 Metamyelocytes # 0.0 K/mm3 01/26/17 05:45 Myelocytes # 0.0 K/mm3 01/26/17 05:45 Promyelocytes # 0.0 K/mm3 01/26/17 05:45 Blast Cells # 0.0 K/mm3 01/26/17 05:45 WBC Morphology Not Reportable 01/26/17 05:45 Hypersegmented Neuts Not Reportable 01/26/17 05:45 Hyposegmented Neuts Not Reportable 01/26/17 05:45 Hypogranular Neuts Not Reportable 01/26/17 05:45 Smudge Cells Not Reportable 01/26/17 05:45 Toxic Granulation Not Reportable 01/26/17 05:45 Toxic Vacuolation Not Reportable 01/26/17 05:45 Dohle Bodies Not Reportable 01/26/17 05:45 Pelger-Huet Anomaly Not Reportable 01/26/17 05:45 Aylin Rods Not Reportable 01/26/17 05:45 Platelet Estimate Consistent w auto 01/26/17 05:45 Clumped Platelets Rare 01/26/17 05:45 Plt Clumps, EDTA Not Reportable 01/26/17 05:45 Large Platelets Not Reportable 01/26/17 05:45 Giant Platelets Not Reportable 01/26/17 05:45 Platelet Satelliting Not Reportable 01/26/17 05:45 Plt Morphology Comment Not Reportable 01/26/17 05:45 RBC Morphology Not Reportable 01/26/17 05:45 Dimorphic RBCs Not Reportable 01/26/17 05:45 Polychromasia Not Reportable 01/26/17 05:45 Hypochromasia Not Reportable 01/26/17 05:45 Poikilocytosis Not Reportable 01/26/17 05:45 Anisocytosis 1+ 01/26/17 05:45 Microcytosis Not Reportable 01/26/17 05:45 Macrocytosis Not Reportable 01/26/17 05:45 Spherocytes Not Reportable 01/26/17 05:45 Pappenheimer Bodies Not Reportable 01/26/17 05:45 Sickle Cells Not Reportable 01/26/17 05:45 Target Cells Not Reportable 01/26/17 05:45 Tear Drop Cells Not Reportable 01/26/17 05:45 Ovalocytes Not Reportable 01/26/17 05:45 Helmet Cells Not Reportable 01/26/17 05:45 [place] Bodies Not Reportable 01/26/17 05:45 [place] Rings Not Reportable 01/26/17 05:45 [place] Cells Few 01/26/17 05:45 Bite Cells Not Reportable 01/26/17 05:45 Crenated Cell Not Reportable 01/26/17 05:45 Elliptocytes Not Reportable 01/26/17 05:45 Acanthocytes (Spur) Not Reportable 01/26/17 05:45 Rouleaux Not Reportable 01/26/17 05:45 Hemoglobin C Crystals Not Reportable 01/26/17 05:45 Schistocytes Not Reportable 01/26/17 05:45 Malaria parasites Not Reportable 01/26/17 05:45 [place] Bodies Not Reportable 01/26/17 05:45 Hem Pathologist Commnt No 01/26/17 05:45 PT 14.5 Sec. (12.2-14.9) 01/24/17 22:03 INR 1.07 (0.87-1.13) 01/24/17 22:03 APTT 33.4 Sec. (24.2-36.6) 01/24/17 22:03 POC ABG pH 7.411 (7.35-7.45) 01/30/17 22:34 POC ABG pCO2 25.0 (35-45) L 01/30/17 22:34 POC ABG pO2 57 (80-105) L 01/30/17 22:34 POC ABG HCO3 15.9 01/30/17 22:34 POC ABG Total CO2 01/30/17 22:34 POC ABG O2 Sat 90 01/30/17 22:34 POC ABG Base Excess -9 01/30/17 22:34 VBG pH 7.374 (7.320-7.420) 01/25/17 00:44 FiO2 70 % 01/30/17 22:34 Sodium 146 mmol/L (137-145) H 02/01/17 05:50 Potassium 3.2 mmol/L (3.6-5.0) L 02/01/17 05:50 Chloride 107.1 mmol/L (98-107) H 02/01/17 05:50 Carbon Dioxide 20 mmol/L (22-30) L 02/01/17 05:50 Anion Gap 22 mmol/L 02/01/17 05:50 BUN 30 mg/dL (9-20) H 02/01/17 05:50 Creatinine 1.5 mg/dL (0.8-1.5) 02/01/17 05:50 Estimated GFR 59 ml/min 02/01/17 05:50 BUN/Creatinine Ratio 20.00 % 02/01/17 05:50 Glucose 112 mg/dL (75-100) H 02/01/17 05:50 Osmolality 311 Mosm/kg 01/29/17 Unknown Lactic Acid 1.40 mmol/L (0.7-2.0) 01/28/17 11:56 Calcium 8.0 mg/dL (8.4-10.2) L 02/01/17 05:50 Phosphorus 3.10 mg/dL (2.5-4.5) 01/29/17 Unknown Total Bilirubin 0.20 mg/dL (0.1-1.2) 01/30/17 04:10 Direct Bilirubin < 0.2 mg/dL (0-0.2) 01/27/17 12:15 AST 75 units/L (5-40) H 01/30/17 04:10 ALT 77 units/L (7-56) H 01/30/17 04:10 Alkaline Phosphatase 81 units/L (35-129) 01/30/17 04:10 Troponin T < 0.010 ng/mL (0.00-0.029) 01/25/17 03:15 Total Protein 6.7 g/dL (6.3-8.2) 01/30/17 04:10 Albumin 2.6 g/dL (3.9-5) L 01/30/17 04:10 Albumin/Globulin Ratio 0.6 % 01/30/17 04:10 Lipase 63 units/L (13-60) H 01/30/17 04:10 Urine Color Yellow (Yellow) 01/28/17 23:55 Urine Turbidity Clear (Clear) 01/28/17 23:55 Urine pH 5.0 (5.0-7.0) 01/28/17 23:55 Ur Specific [place] 1.019 (1.003-1.030) 01/28/17 23:55 Urine Protein 30 mg/dl mg/dL (Negative) 01/28/17 23:55 Urine Glucose (UA) Neg mg/dL (Negative) 01/28/17 23:55 Urine Ketones Neg mg/dL (Negative) 01/28/17 23:55 Urine Blood Sm (Negative) 01/28/17 23:55 Urine Nitrite Neg (Negative) 01/28/17 23:55 Urine Bilirubin Neg (Negative) 01/28/17 23:55 Urine Urobilinogen < 2.0 mg/dL (<2.0) 01/28/17 23:55 Ur Leukocyte Esterase Neg (Negative) 01/28/17 23:55 Urine WBC (Auto) 2.0 /HPF (0.0-6.0) 01/28/17 23:55 Urine RBC (Auto) 3.0 /HPF (0.0-6.0) 01/28/17 23:55 Uric Acid Crystals Few 01/28/17 23:55 Amorphous Crystals 1+ 01/28/17 23:55 Urine Mucus Few /HPF 01/28/17 23:55 Urine Eosinophils None seen (None Seen) 01/28/17 23:55 Urine Creatinine 124.4 mg/dL (0.1-20.0) H 01/28/17 23:56 Protein/Creatinin Ratio 0.56 01/28/17 23:55 Urine Sodium 51 mEq/L 01/28/17 23:55 Urine Total Protein 71 mg/dL (5-11.8) H 01/28/17 23:56 Vancomycin Trough 15.0 ug/mL (5.0-20.0) 01/28/17 08:36 Hepatitis A IgM Ab Non-reactive (NonReactive) 01/28/17 11:56 Hep Bs Antigen Non-reactive (Negative) 01/28/17 11:56 Hep B Core IgM Ab Non-reactive (NonReactive) 01/28/17 11:56 Hepatitis C Antibody Non-reactive (NonReactive) 01/28/17 11:56 Blood Type B POSITIVE 01/24/17 22:07 Antibody Screen TNR 01/24/17 22:07 ALIDA Antibody Screen Negative 01/24/17 22:07
[2017-02-01] MEDS: MORPHINE IV PRN ×2 (18:15→23:18)
[2017-02-02] MEDS: ELIQUIS PO SCH ×3 (01:31→21:58)
[2017-02-02] MEDS: TYLENOL PO PRN (01:48)
[2017-02-02] MEDS: VANCOMYCIN 1,250 MG in NACL 0.9% 250ML 250 ML IV SCH ×3 (01:52→23:23)
[2017-02-02 06:24] LABS: Basophils % (Auto) 0.3 % (0.0-1.8); Eosinophils % (Auto) 0.3 % (0.0-4.3); Hematocrit 30.4 % (35.5-45.6); Hemoglobin 9.6 gm/dl (11.8-15.2); Mean Corpuscular HGB Conc 32 % (32-34); Mean Corpuscular Hemoglobin 30 pg (28-32); Mean Corpuscular Volume 96 fl (84-94); Platelet Count 440 K/mm3 (140-440); Red Blood Count 3.17 M/mm3 (3.65-5.03); Red Cell Distribution Width 15.1 % (13.2-15.2); White Blood Count 16.6 K/mm3 (4.5-11.0)
[2017-02-02 06:34] LABS: BUN/Creatinine Ratio 18.66; Calcium 7.9 mg/dL (8.4-10.2); Chloride 110.3 mmol/L (98-107); Potassium 3.4 mmol/L (3.6-5.0)
[2017-02-02] MEDS: BROVANA NEBU IH SCH ×2 (07:53→19:38)
[2017-02-02] MEDS: MAXIPIME/NS 1 GM/100 ML 1 GM/100 ML BAG IV SCH ×3 (08:11→15:16)
--- NOTE | 2017-02-02 08:17 | Progress Note ---
Assessment and Plan - Patient Problems (1) Sepsis Current Visit: Yes Status: Acute Qualifiers: Sepsis type: sepsis due to unspecified organism Qualified Code(s): A41.9 - Sepsis, unspecified organism Plan to address problem: 1. Pneumonia is being treated. Patient is day # 7 of empiric antibiotics. Duration based clinically. 2. Plan to keep Flagyl tail given previous episodes of diarrhea. (2) Left upper lobe pneumonia Current Visit: Yes Status: Acute Qualifiers: Pneumonia type: due to unspecified organism Aspiration pneumonia type: A Qualified Code(s): J18.1 - Lobar pneumonia, unspecified organism Plan to address problem: 1. Patient is day #7 today of broad, empiric antibiotics. Sputum specimens were unsatisfactory for culture. 2. AFB smears of sputum are negative x 2. Await third and final. 3. If negative AFB studies x 3, can discontinue airborne isolation. 4. Duration of Vancomycin/ Cefepime based clinically. Patient is improved clinically. May transition to empiric, oral regimen. 5. Some fungal culture results are pending. 6. Await quantiferon result. (3) HIV (human immunodeficiency virus infection) Current Visit: Yes Status: Acute Plan to address problem: 1. Continue HAART. 2. CD4 count is pending for need of OI prophylaxis. Subjective Date of service: 02/02/17 Principal diagnosis: Sepsis Interval history: Intermittent low-grade fevers. Continued productive cough, though improving. Diarrhea is resolved. Objective - Constitutional Vitals: Vital Signs Temp Pulse Resp BP Pulse Ox 99.0 F 84 18 130/74 99 02/02/17 07:55 02/02/17 08:05 02/02/17 08:05 02/02/17 07:55 02/02/17 08:06 Temperature -Last 24 Hours Temperature 99.0 F Temperature 99.9 F Temperature 100.6 F Temperature 100.4 F Temperature 99 F General appearance: Present: no acute distress - Neck Neck: supple - Respiratory Respiratory effort: normal Respiratory: bilateral: CTA, negative: rales, rhonchi - Cardiovascular Rhythm: regular Heart Sounds: Present: S1 & S2 Extremities: No edema - Gastrointestinal General gastrointestinal: Present: soft, non-tender, distended - Integumentary Integumentary: no jaundice, no rash - Psychiatric Psychiatric: appropriate mood/affect - Labs CBC & Chem 7: 02/02/17 05:51 02/02/17 05:51 Labs: Abnormal lab results 02/02/17 02/02/17 Range/Units 05:51 05:51 WBC 16.6 H (4.5-11.0) K/mm3 RBC 3.17 L (3.65-5.03) M/mm3 Hgb 9.6 L (11.8-15.2) gm/dl Hct 30.4 L (35.5-45.6) % MCV 96 H (84-94) fl Lymph % (Auto) 5.2 L (13.4-35.0) % Lymph # 0.9 L (1.2-5.4) K/mm3 [place] # 1.1 H (0.0-0.8) K/mm3 Seg Neutrophils % 87.3 H (40.0-70.0) % Seg Neutrophils # 14.4 H (1.8-7.7) K/mm3 Sodium 148 H (137-145) mmol/L Potassium 3.4 L (3.6-5.0) mmol/L Chloride 110.3 H (98-107) mmol/L Carbon Dioxide 21 L (22-30) mmol/L BUN 28 H (9-20) mg/dL Calcium 7.9 L (8.4-10.2) mg/dL Microbiology 01/28/17 23:46 Sputum - Expectorated Sputum AFB Smear Concentration - Final 01/25/17 00:44 Peripheral/Venous Blood Culture - Final NO GROWTH AFTER 5 DAYS 01/24/17 22:13 Peripheral/Venous Blood Culture - Final NO GROWTH AFTER 5 DAYS 01/25/17 06:30 Sputum - Expectorated Sputum AFB Smear Concentration - Final 01/27/17 06:45 Sputum - Expectorated Sputum Sputum Culture - Final 01/26/17 06:30 Sputum - Expectorated Sputum Sputum Culture - Final 01/25/17 22:03 Serum Cryptococcal Antigen - Final
[2017-02-02] MEDS: HALFPRIN EC PO SCH (09:00)
[2017-02-02] MEDS: LEXAPRO PO SCH ×2 (09:13→10:00)
[2017-02-02] MEDS: IMDUR PO SCH (09:16)
[2017-02-02] MEDS: SUSTIVA PO SCH (09:17)
[2017-02-02] MEDS: EMTRIVA PO SCH (09:18)
[2017-02-02] MEDS: VIREAD PO SCH (09:18)
[2017-02-02] MEDS: TOPROL XL PO SCH (09:22)
[2017-02-02] MEDS: K-DUR PO SCH (09:23)
[2017-02-02] MEDS: PEPCID PO SCH ×3 (09:24→22:00)
[2017-02-02] MEDS: MORPHINE IV PRN ×2 (11:33→21:58)
[2017-02-02] MEDS: PULMICORT IH SCH ×2 (11:40→19:38)
--- NOTE | 2017-02-02 12:48 | Progress Note ---
Assessment and Plan 56 y/o male with HIV, recent saddle PE s/p ekos, now with new left upper lobe cavitary pneumonia and acute respiratory failure. 1. Bipap therapy QHS and PRN 2. HIV therapy 3. Abx therapy per ID 4. Spoke with [facility] this am. Reached out to ID, if they would like a bronch, no problem with helping them. Based up their note from this am, does not appear they want bronch at this time. Will continue to follow. Subjective Date of service: 02/02/17 Principal diagnosis: Sepsis Interval history: No acute events. Asleep. Tolerating PPV at night Objective Vital Signs - 12hr 02/02/17 02/02/17 02/02/17 04:17 07:50 07:55 Temperature 99.9 F H 99.0 F Pulse Rate Pulse Rate [ 84 Anterior Bilateral Throughout] Pulse Rate [ 83 79 Apical] Pulse Rate [ 83 79 Left Radial] Respiratory 20 20 Rate Respiratory 18 Rate [Anterior Bilateral Throughout] Blood Pressure Blood Pressure 132/76 130/74 [Left Arm] O2 Sat by Pulse 95 99 Oximetry 02/02/17 02/02/17 02/02/17 08:05 08:06 09:16 Temperature Pulse Rate 90 Pulse Rate [ 84 Anterior Bilateral Throughout] Pulse Rate [ Apical] Pulse Rate [ Left Radial] Respiratory Rate Respiratory 18 Rate [Anterior Bilateral Throughout] Blood Pressure 170/119 Blood Pressure [Left Arm] O2 Sat by Pulse 99 Oximetry 02/02/17 02/02/17 09:22 11:26 Temperature 99.2 F Pulse Rate 90 Pulse Rate [ Anterior Bilateral Throughout] Pulse Rate [ 81 Apical] Pulse Rate [ 81 Left Radial] Respiratory 20 Rate Respiratory Rate [Anterior Bilateral Throughout] Blood Pressure 170/119 Blood Pressure 129/71 [Left Arm] O2 Sat by Pulse 94 Oximetry Constitutional: no acute distress, alert Eyes: non-icteric ENT: oropharynx moist Neck: supple, no lymphadenopathy, no JVD Effort: normal Ascultation: Bilateral: clear, diminished breath sounds, rales (left field) Percussion: Bilateral: not dull Cardiovascular: regular rate and rhythm Gastrointestinal: normoactive bowel sounds, non-distended Integumentary: normal Extremities: no cyanosis Neurologic: normal mental status, non-focal exam, pupils equal and round, CN II- XII normal Psychiatric: mood appropriate, affect normal CBC and BMP: 02/02/17 05:51 02/02/17 05:51 ABG, PT/INR, D-dimer: ABG POC ABG pH 7.411 (7.35-7.45) 01/30/17 22:34 POC ABG pCO2 25.0 (35-45) L 01/30/17 22:34 POC ABG pO2 57 (80-105) L 01/30/17 22:34 POC ABG HCO3 15.9 01/30/17 22:34 POC ABG Total CO2 17 01/30/17 22:34 POC ABG O2 Sat 90 01/30/17 22:34 PT/INR, D-dimer PT 14.5 Sec. (12.2-14.9) 01/24/17 22:03 INR 1.07 (0.87-1.13) 01/24/17 22:03 Abnormal lab findings: Abnormal Labs 01/25/17 01/25/17 01/26/17 09:32 10:40 05:45 WBC RBC Hgb 11.6 L Hct 34.4 L D MCV RDW Lymph % (Auto) [place] % (Auto) Lymph # [place] # Seg Neutrophils % Lymphocytes % (Manual) 6.0 L Nucleated RBC % 2.0 H Seg Neutrophils # Lymphocytes # (Manual) 0.6 L POC ABG pH 7.478 H POC ABG pCO2 27.4 L POC ABG pO2 73 L Sodium Potassium Chloride Carbon Dioxide BUN Creatinine Glucose Lactic Acid 2.60 H* Calcium AST ALT Total Protein Albumin Lipase Urine Creatinine Urine Total Protein 01/26/17 01/27/17 01/28/17 05:45 12:15 08:36 WBC 12.4 H RBC 3.49 L Hgb 10.9 L Hct 33.0 L MCV 95 H RDW Lymph % (Auto) [place] % (Auto) Lymph # [place] # Seg Neutrophils % Lymphocytes % (Manual) Nucleated RBC % Seg Neutrophils # Lymphocytes # (Manual) POC ABG pH POC ABG pCO2 POC ABG pO2 Sodium Potassium Chloride Carbon Dioxide 21 L BUN Creatinine Glucose 130 H Lactic Acid Calcium AST 121 H ALT 117 H Total Protein 5.8 L D Albumin 2.8 L Lipase Urine Creatinine Urine Total Protein 01/28/17 01/28/17 01/28/17 08:36 11:56 23:55 WBC RBC Hgb Hct MCV RDW Lymph % (Auto) [place] % (Auto) Lymph # [place] # Seg Neutrophils % Lymphocytes % (Manual) Nucleated RBC % Seg Neutrophils # Lymphocytes # (Manual) POC ABG pH POC ABG pCO2 POC ABG pO2 Sodium Potassium Chloride Carbon Dioxide BUN 28 H 30 H Creatinine 2.0 H D 1.9 H Glucose 137 H 124 H Lactic Acid Calcium AST 119 H ALT 106 H Total Protein Albumin 2.7 L Lipase Urine Creatinine 127.2 H Urine Total Protein 71 H 01/28/17 01/29/17 01/29/17 23:56 10:07 10:07 WBC 12.9 H RBC 3.32 L Hgb 10.4 L Hct 31.6 L MCV 95 H RDW Lymph % (Auto) 5.9 L [place] % (Auto) 10.2 H Lymph # 0.8 L [place] # 1.3 H Seg Neutrophils % 83.5 H Lymphocytes % (Manual) Nucleated RBC % Seg Neutrophils # 10.8 H Lymphocytes # (Manual) POC ABG pH POC ABG pCO2 POC ABG pO2 Sodium Potassium Chloride Carbon Dioxide 20 L BUN 26 H Creatinine 1.8 H Glucose 148 H Lactic Acid Calcium 8.2 L AST ALT Total Protein Albumin Lipase Urine Creatinine 124.4 H Urine Total Protein 71 H 01/29/17 01/29/17 01/30/17 Unknown Unknown 04:10 WBC 12.8 H 14.0 H RBC 3.52 L 3.40 L Hgb 11.0 L 10.7 L Hct 33.0 L 32.1 L MCV 95 H RDW Lymph % (Auto) [place] % (Auto) Lymph # [place] # Seg Neutrophils % Lymphocytes % (Manual) Nucleated RBC % Seg Neutrophils # Lymphocytes # (Manual) POC ABG pH POC ABG pCO2 POC ABG pO2 Sodium Potassium Chloride Carbon Dioxide BUN 27 H Creatinine 1.9 H Glucose 119 H Lactic Acid Calcium AST ALT Total Protein Albumin Lipase Urine Creatinine Urine Total Protein 01/30/17 01/30/17 01/30/17 04:10 04:10 17:48 WBC RBC Hgb Hct MCV RDW Lymph % (Auto) [place] % (Auto) Lymph # [place] # Seg Neutrophils % Lymphocytes % (Manual) Nucleated RBC % Seg Neutrophils # Lymphocytes # (Manual) POC ABG pH 7.282 L POC ABG pCO2 32.0 L POC ABG pO2 58 L Sodium Potassium Chloride 107.4 H Carbon Dioxide BUN 26 H Creatinine 1.6 H Glucose 108 H Lactic Acid Calcium AST 75 H ALT 77 H Total Protein Albumin 2.6 L Lipase 63 H Urine Creatinine Urine Total Protein 01/30/17 02/01/17 02/01/17 22:34 05:50 05:50 WBC 15.0 H RBC 3.30 L Hgb 10.2 L Hct 31.5 L MCV 95 H RDW 15.3 H Lymph % (Auto) 4.9 L [place] % (Auto) Lymph # 0.7 L [place] # 1.0 H Seg Neutrophils % 87.2 H Lymphocytes % (Manual) Nucleated RBC % Seg Neutrophils # 13.1 H Lymphocytes # (Manual) POC ABG pH POC ABG pCO2 25.0 L POC ABG pO2 57 L Sodium 146 H Potassium 3.2 L Chloride 107.1 H Carbon Dioxide 20 L BUN 30 H Creatinine Glucose 112 H Lactic Acid Calcium 8.0 L AST ALT Total Protein Albumin Lipase Urine Creatinine Urine Total Protein 02/02/17 02/02/17 05:51 05:51 WBC 16.6 H RBC 3.17 L Hgb 9.6 L Hct 30.4 L MCV 96 H RDW Lymph % (Auto) 5.2 L [place] % (Auto) Lymph # 0.9 L [place] # 1.1 H Seg Neutrophils % 87.3 H Lymphocytes % (Manual) Nucleated RBC % Seg Neutrophils # 14.4 H Lymphocytes # (Manual) POC ABG pH POC ABG pCO2 POC ABG pO2 Sodium 148 H Potassium 3.4 L Chloride 110.3 H Carbon Dioxide 21 L BUN 28 H Creatinine Glucose Lactic Acid Calcium 7.9 L AST ALT Total Protein Albumin Lipase Urine Creatinine Urine Total Protein
--- NOTE | 2017-02-02 13:06 | Progress Note ---
Assessment and Plan Assessment and plan: Patient is 56 year old man with a history of AIDS, CHF, hypertension, recent Saddle pulmonary emboli s/p ekos who presented to ED with sob, cough and left side pains. CTA chest +bilateral PE and MELVINA infiltrates. * Sepsis secondary MELVINA Aspiration Pneumonitis, unlikely gram-negative al pneumonia. Cavitary/Necrotizing Pneumonia with hemoptysis per Pulmonology. * STACEY most likely vasomotor nephropathy, poa resolved but continue to monitor * AIDS/HIV chronic and underlying process to this infection: ID is following * Hypertension,chronic and stable * Moderate protein calorie malnutrition * Pulmonary embolism-Saddle: on Eliquis * Hemoptysis-resolved * Transaminitis, mild and resolving * Anemia of chronic disease. Still in TB isolation, AFB negative x 2 await 3rd smear and if negative can d/c airborne/TB isolation. Discussed with Dr. Hinojosa and Dr. Shepard. -Hypokalemia: replace -Hypernatremia, mild: recheck -Drop in HCT, slowly dropping, repeat am. -Abx stopping today per ID History Interval history: Patient seen and examined. Follow up on cough. Overnight uneventful. No cp, sob , n/v or severe headaches. Imaging, old records, testing, labs, nursing notes reviewed. Still requiring oxygen Hospitalist Physical - Physical exam Narrative exam: GEN: Ill-appearing, deconditioned NAD, AWAKE, ALERT, ORIENTATED x 3 CVS: RRR, NORMAL S1S2 LUNGS/CHEST: crackles left, NORMAL CHEST EXPANSION B, diminished AIR ENTRY B ABD: SOFT, NTND, GBS, NO REBOUND OR GUARDING EXT/SKIN: NO SIGNIFICANT EDEMA OR RASH MSK: FROM X 4 EXTREMITIES NEURO: CN 2-12 GROSSLY INTACT, NO FOCAL DEFICITS PSY: CALM - Constitutional Vitals: Temp Pulse Resp BP Pulse Ox 99.2 F 81 20 129/71 94 02/02/17 11:26 02/02/17 11:26 02/02/17 11:26 02/02/17 11:26 02/02/17 11:26 General appearance: Present: no acute distress Results - Labs CBC & Chem 7: 02/02/17 05:51 02/02/17 05:51 Labs: Laboratory Last Values WBC 16.6 K/mm3 (4.5-11.0) H 02/02/17 05:51 RBC 3.17 M/mm3 (3.65-5.03) L 02/02/17 05:51 Hgb 9.6 gm/dl (11.8-15.2) L 02/02/17 05:51 Hct 30.4 % (35.5-45.6) L 02/02/17 05:51 MCV 96 fl (84-94) H 02/02/17 05:51 MCH 30 pg (28-32) 02/02/17 05:51 MCHC 32 % (32-34) 02/02/17 05:51 RDW 15.1 % (13.2-15.2) 02/02/17 05:51 Plt Count 440 K/mm3 (140-440) 02/02/17 05:51 Lymph % (Auto) 5.2 % (13.4-35.0) L 02/02/17 05:51 Garza % (Auto) 6.9 % (0.0-7.3) 02/02/17 05:51 Eos % (Auto) 0.3 % (0.0-4.3) 02/02/17 05:51 Baso % (Auto) 0.3 % (0.0-1.8) 02/02/17 05:51 Lymph # 0.9 K/mm3 (1.2-5.4) L 02/02/17 05:51 Garza # 1.1 K/mm3 (0.0-0.8) H 02/02/17 05:51 Eos # 0.1 K/mm3 (0.0-0.4) 02/02/17 05:51 Baso # 0.0 K/mm3 (0.0-0.1) 02/02/17 05:51 Add Manual Diff Complete 01/26/17 05:45 Total Counted 100 01/26/17 05:45 Seg Neutrophils % 87.3 % (40.0-70.0) H 02/02/17 05:51 Seg Neuts % (Manual) 62.0 % (40.0-70.0) 01/26/17 05:45 Band Neutrophils % 29.0 % 01/26/17 05:45 Lymphocytes % (Manual) 6.0 % (13.4-35.0) L 01/26/17 05:45 Reactive Lymphs % (Man) 0 % 01/26/17 05:45 Monocytes % (Manual) 3.0 % (0.0-7.3) 01/26/17 05:45 Eosinophils % (Manual) 0 % (0.0-4.3) 01/26/17 05:45 Basophils % (Manual) 0 % (0.0-1.8) 01/26/17 05:45 Metamyelocytes % 0 % 01/26/17 05:45 Myelocytes % 0 % 01/26/17 05:45 Promyelocytes % 0 % 01/26/17 05:45 Blast Cells % 0 % 01/26/17 05:45 Nucleated RBC % 2.0 % (0.0-0.9) H 01/26/17 05:45 Seg Neutrophils # 14.4 K/mm3 (1.8-7.7) H 02/02/17 05:51 Seg Neutrophils # Man 6.1 K/mm3 (1.8-7.7) 01/26/17 05:45 Band Neutrophils # 2.8 K/mm3 01/26/17 05:45 Lymphocytes # (Manual) 0.6 K/mm3 (1.2-5.4) L 01/26/17 05:45 Abs React Lymphs (Man) 0.0 K/mm3 01/26/17 05:45 Monocytes # (Manual) 0.3 K/mm3 (0.0-0.8) 01/26/17 05:45 Eosinophils # (Manual) 0.0 K/mm3 (0.0-0.4) 01/26/17 05:45 Basophils # (Manual) 0.0 K/mm3 (0.0-0.1) 01/26/17 05:45 Metamyelocytes # 0.0 K/mm3 01/26/17 05:45 Myelocytes # 0.0 K/mm3 01/26/17 05:45 Promyelocytes # 0.0 K/mm3 01/26/17 05:45 Blast Cells # 0.0 K/mm3 01/26/17 05:45 WBC Morphology Not Reportable 01/26/17 05:45 Hypersegmented Neuts Not Reportable 01/26/17 05:45 Hyposegmented Neuts Not Reportable 01/26/17 05:45 Hypogranular Neuts Not Reportable 01/26/17 05:45 Smudge Cells Not Reportable 01/26/17 05:45 Toxic Granulation Not Reportable 01/26/17 05:45 Toxic Vacuolation Not Reportable 01/26/17 05:45 Dohle Bodies Not Reportable 01/26/17 05:45 Pelger-Huet Anomaly Not Reportable 01/26/17 05:45 Aylin Rods Not Reportable 01/26/17 05:45 Platelet Estimate Consistent w auto 01/26/17 05:45 Clumped Platelets Rare 01/26/17 05:45 Plt Clumps, EDTA Not Reportable 01/26/17 05:45 Large Platelets Not Reportable 01/26/17 05:45 Giant Platelets Not Reportable 01/26/17 05:45 Platelet Satelliting Not Reportable 01/26/17 05:45 Plt Morphology Comment Not Reportable 01/26/17 05:45 RBC Morphology Not Reportable 01/26/17 05:45 Dimorphic RBCs Not Reportable 01/26/17 05:45 Polychromasia Not Reportable 01/26/17 05:45 Hypochromasia Not Reportable 01/26/17 05:45 Poikilocytosis Not Reportable 01/26/17 05:45 Anisocytosis 1+ 01/26/17 05:45 Microcytosis Not Reportable 01/26/17 05:45 Macrocytosis Not Reportable 01/26/17 05:45 Spherocytes Not Reportable 01/26/17 05:45 Pappenheimer Bodies Not Reportable 01/26/17 05:45 Sickle Cells Not Reportable 01/26/17 05:45 Target Cells Not Reportable 01/26/17 05:45 Tear Drop Cells Not Reportable 01/26/17 05:45 Ovalocytes Not Reportable 01/26/17 05:45 Helmet Cells Not Reportable 01/26/17 05:45 Nicolas-Forest Bodies Not Reportable 01/26/17 05:45 [place] Rings Not Reportable 01/26/17 05:45 Margaret Cells Few 01/26/17 05:45 Bite Cells Not Reportable 01/26/17 05:45 Crenated Cell Not Reportable 01/26/17 05:45 Elliptocytes Not Reportable 01/26/17 05:45 Acanthocytes (Spur) Not Reportable 01/26/17 05:45 Rouleaux Not Reportable 01/26/17 05:45 Hemoglobin C Crystals Not Reportable 01/26/17 05:45 Schistocytes Not Reportable 01/26/17 05:45 Malaria parasites Not Reportable 01/26/17 05:45 Donta Bodies Not Reportable 01/26/17 05:45 Hem Pathologist Commnt No 01/26/17 05:45 PT 14.5 Sec. (12.2-14.9) 01/24/17 22:03 INR 1.07 (0.87-1.13) 01/24/17 22:03 APTT 33.4 Sec. (24.2-36.6) 01/24/17 22:03 POC ABG pH 7.411 (7.35-7.45) 01/30/17 22:34 POC ABG pCO2 25.0 (35-45) L 01/30/17 22:34 POC ABG pO2 57 (80-105) L 01/30/17 22:34 POC ABG HCO3 15.9 01/30/17 22:34 POC ABG Total CO2 17 01/30/17 22:34 POC ABG O2 Sat 90 01/30/17 22:34 POC ABG Base Excess -9 01/30/17 22:34 VBG pH 7.374 (7.320-7.420) 01/25/17 00:44 FiO2 70 % 01/30/17 22:34 Sodium 148 mmol/L (137-145) H 02/02/17 05:51 Potassium 3.4 mmol/L (3.6-5.0) L 02/02/17 05:51 Chloride 110.3 mmol/L (98-107) H 02/02/17 05:51 Carbon Dioxide 21 mmol/L (22-30) L 02/02/17 05:51 Anion Gap 20 mmol/L 02/02/17 05:51 BUN 28 mg/dL (9-20) H 02/02/17 05:51 Creatinine 1.5 mg/dL (0.8-1.5) 02/02/17 05:51 Estimated GFR 59 ml/min 02/02/17 05:51 BUN/Creatinine Ratio 18.66 % 02/02/17 05:51 Glucose 97 mg/dL (75-100) 02/02/17 05:51 Osmolality 311 Mosm/kg 01/29/17 Unknown Lactic Acid 1.40 mmol/L (0.7-2.0) 01/28/17 11:56 Calcium 7.9 mg/dL (8.4-10.2) L 02/02/17 05:51 Phosphorus 3.10 mg/dL (2.5-4.5) 01/29/17 Unknown Total Bilirubin 0.20 mg/dL (0.1-1.2) 01/30/17 04:10 Direct Bilirubin < 0.2 mg/dL (0-0.2) 01/27/17 12:15 AST 75 units/L (5-40) H 01/30/17 04:10 ALT 77 units/L (7-56) H 01/30/17 04:10 Alkaline Phosphatase 81 units/L (35-129) 01/30/17 04:10 Troponin T < 0.010 ng/mL (0.00-0.029) 01/25/17 03:15 Total Protein 6.7 g/dL (6.3-8.2) 01/30/17 04:10 Albumin 2.6 g/dL (3.9-5) L 01/30/17 04:10 Albumin/Globulin Ratio 0.6 % 01/30/17 04:10 Lipase 63 units/L (13-60) H 01/30/17 04:10 Urine Color Yellow (Yellow) 01/28/17 23:55 Urine Turbidity Clear (Clear) 01/28/17 23:55 Urine pH 5.0 (5.0-7.0) 01/28/17 23:55 Ur Specific [place] 1.019 (1.003-1.030) 01/28/17 23:55 Urine Protein 30 mg/dl mg/dL (Negative) 01/28/17 23:55 Urine Glucose (UA) Neg mg/dL (Negative) 01/28/17 23:55 Urine Ketones Neg mg/dL (Negative) 01/28/17 23:55 Urine Blood Sm (Negative) 01/28/17 23:55 Urine Nitrite Neg (Negative) 01/28/17 23:55 Urine Bilirubin Neg (Negative) 01/28/17 23:55 Urine Urobilinogen < 2.0 mg/dL (<2.0) 01/28/17 23:55 Ur Leukocyte Esterase Neg (Negative) 01/28/17 23:55 Urine WBC (Auto) 2.0 /HPF (0.0-6.0) 01/28/17 23:55 Urine RBC (Auto) 3.0 /HPF (0.0-6.0) 01/28/17 23:55 Uric Acid Crystals Few 01/28/17 23:55 Amorphous Crystals 1+ 01/28/17 23:55 Urine Mucus Few /HPF 01/28/17 23:55 Urine Eosinophils None seen (None Seen) 01/28/17 23:55 Urine Creatinine 124.4 mg/dL (0.1-20.0) H 01/28/17 23:56 Protein/Creatinin Ratio 0.56 01/28/17 23:55 Urine Sodium 51 mEq/L 01/28/17 23:55 Urine Total Protein 71 mg/dL (5-11.8) H 01/28/17 23:56 Vancomycin Trough 15.0 ug/mL (5.0-20.0) 01/28/17 08:36 Hepatitis A IgM Ab Non-reactive (NonReactive) 01/28/17 11:56 Hep Bs Antigen Non-reactive (Negative) 01/28/17 11:56 Hep B Core IgM Ab Non-reactive (NonReactive) 01/28/17 11:56 Hepatitis C Antibody Non-reactive (NonReactive) 01/28/17 11:56 Blood Type B POSITIVE 01/24/17 22:07 Antibody Screen TNR 01/24/17 22:07 ALIDA Antibody Screen Negative 01/24/17 22:07
[2017-02-02] MEDS: FLAGYL 500 MG/100 ML 500 MG/100 ML BAG IV SCH ×3 (14:15→21:57)
[2017-02-02] MEDS: TESSALON PERLES PO SCH ×2 (15:14→21:58)
--- NOTE | 2017-02-02 18:18 | Progress Note ---
Assessment and Plan (1) Left upper lobe pneumonia Current Visit: Yes Status: Acute Qualifiers: Pneumonia type: due to unspecified organism Aspiration pneumonia type: A Qualified Code(s): J18.1 - Lobar pneumonia, unspecified organism Plan to address problem: antibiotics per ID (2) Acute renal failure (ARF) Current Visit: Yes Status: Acute Qualifiers: Acute renal failure type: A Plan to address problem: stable kidney function encourage water drinking to correct hypernatremia Kcl 20 meq PO qday off IVF Avoid nephrotoxins Renally dose medications Monitor I/O's (3) HIV (human immunodeficiency virus infection) Current Visit: Yes Status: Acute Plan to address problem: On Sustiva, Emtriva and Viread as per ID (4) Saddle pulmonary embolus Current Visit: No Status: Acute Qualifiers: Chronicity: C Acute cor pulmonale presence: A Plan to address problem: On Eliquis Subjective Date of service: 02/02/17 Principal diagnosis: Sepsis Interval history: c/o SOB and productive cough Objective - Vital Signs Vital signs: Vital Signs - 12hr 02/02/17 02/02/17 02/02/17 07:50 07:55 08:05 Temperature 99.0 F Pulse Rate Pulse Rate [ 84 84 Anterior Bilateral Throughout] Pulse Rate [ 79 Apical] Pulse Rate [ 79 Left Radial] Respiratory 20 Rate Respiratory 18 18 Rate [Anterior Bilateral Throughout] Blood Pressure Blood Pressure 130/74 [Left Arm] O2 Sat by Pulse 99 Oximetry 02/02/17 02/02/17 02/02/17 08:06 09:16 09:22 Temperature Pulse Rate 90 90 Pulse Rate [ Anterior Bilateral Throughout] Pulse Rate [ Apical] Pulse Rate [ Left Radial] Respiratory Rate Respiratory Rate [Anterior Bilateral Throughout] Blood Pressure 170/119 170/119 Blood Pressure [Left Arm] O2 Sat by Pulse 99 Oximetry 02/02/17 02/02/17 02/02/17 10:00 11:26 15:00 Temperature 99.2 F 100.8 F H Pulse Rate Pulse Rate [ Anterior Bilateral Throughout] Pulse Rate [ 90 81 83 Apical] Pulse Rate [ 81 83 Left Radial] Respiratory 20 20 20 Rate Respiratory Rate [Anterior Bilateral Throughout] Blood Pressure Blood Pressure 129/71 147/76 [Left Arm] O2 Sat by Pulse 98 94 98 Oximetry - General Appearance General appearance: well-developed, well-nourished EENT: ATNC, PERRL, mucous membranes moist Neck: no JVD, no carotid bruit Respiratory: Present: Clear to Ascultation Cardiology: regular, S1S2 Gastrointestinal: normoactive bowel sounds, no tenderness, no distended, no obese Integumentary: no rash, warm and dry Neurologic: no focal deficit, no asterixis, alert and oriented x3 Musculoskeletal: other (no edema in BLE) Psychiatric: mood/affect appropriate, cooperative - Lab 02/02/17 05:51 02/02/17 05:51 Most recent lab results Calcium 7.9 mg/dL (8.4-10.2) L 02/02/17 05:51 Phosphorus 3.10 mg/dL (2.5-4.5) 01/29/17 Unknown Urine Creatinine 124.4 mg/dL (0.1-20.0) H 01/28/17 23:56 Urine Sodium 51 mEq/L 01/28/17 23:55 Urine Total Protein 71 mg/dL (5-11.8) H 01/28/17 23:56
[2017-02-02] MEDS: PROVENTIL IH PRN (18:40)
[2017-02-03] MEDS: MAXIPIME/NS 1 GM/100 ML 1 GM/100 ML BAG IV SCH ×3 (01:29→15:29)
[2017-02-03] MEDS: MORPHINE IV PRN ×3 (02:28→21:39)
[2017-02-03] MEDS: TESSALON PERLES PO SCH ×3 (05:25→21:41)
[2017-02-03] MEDS: FLAGYL 500 MG/100 ML 500 MG/100 ML BAG IV SCH ×3 (05:26→21:41)
[2017-02-03] MEDS: PROVENTIL IH PRN (05:39)
[2017-02-03 07:27] LABS: Basophils % (Auto) 0.4 % (0.0-1.8); Eosinophils % (Auto) 0.4 % (0.0-4.3); Hematocrit 32.6 % (35.5-45.6); Hemoglobin 10.4 gm/dl (11.8-15.2); Mean Corpuscular HGB Conc 32 % (32-34); Mean Corpuscular Hemoglobin 31 pg (28-32); Mean Corpuscular Volume 96 fl (84-94); Platelet Count 519 K/mm3 (140-440); Red Cell Distribution Width 15.5 % (13.2-15.2)
[2017-02-03] MEDS: PULMICORT IH SCH ×2 (07:33→21:10)
[2017-02-03] MEDS: BROVANA NEBU IH SCH ×2 (07:33→21:10)
[2017-02-03 07:49] LABS: BUN/Creatinine Ratio 15.29; Calcium 8.2 mg/dL (8.4-10.2); Chloride 109.8 mmol/L (98-107); Potassium 3.1 mmol/L (3.6-5.0)
--- NOTE | 2017-02-03 08:01 | Progress Note ---
Assessment and Plan - Patient Problems (1) Sepsis Current Visit: Yes Status: Acute Qualifiers: Sepsis type: sepsis due to unspecified organism Qualified Code(s): A41.9 - Sepsis, unspecified organism Plan to address problem: Continue broad, empiric antibiotics for now. Possible bronchoscopy this week. (2) Left upper lobe pneumonia Current Visit: Yes Status: Acute Qualifiers: Pneumonia type: due to unspecified organism Aspiration pneumonia type: A Qualified Code(s): J18.1 - Lobar pneumonia, unspecified organism Plan to address problem: On empiric antibiotics. AFB negative x 1, with pending third AFB sputum study, quantiferon and fungal studies. (3) HIV (human immunodeficiency virus infection) Current Visit: Yes Status: Acute Plan to address problem: Continue HAART. CD4 pending. Subjective Date of service: 02/03/17 Principal diagnosis: Sepsis Interval history: Case discussed with primary MD (Dr. Siddiqi) and library customer service clerk (Dr. Shepard). Hopeful bronchoscopy toward a definitive diagnosis and culture. Intermittent fevers. Patient says he is repeatedly "throwing up, but clarifies that he is still "coughing up" mucus. He denies hemoptysis. Objective - Constitutional Vitals: Vital Signs Temp Pulse Resp BP Pulse Ox 99.1 F 91 H 20 157/80 94 02/03/17 06:32 02/03/17 06:32 02/03/17 06:32 02/03/17 06:32 02/03/17 06:32 Temperature -Last 24 Hours Temperature 99.1 F Temperature 98.0 F Temperature 98.2 F Temperature 100.8 F Temperature 99.2 F General appearance: Present: no acute distress - EENT Eyes: no scleral icterus, no conjunctival injection - Respiratory Respiratory effort: normal Respiratory: bilateral: CTA, negative: rales, wheezing - Cardiovascular Rhythm: regular Heart Sounds: Present: S1 & S2 Extremities: No edema - Gastrointestinal General gastrointestinal: Present: soft, non-tender, non-distended, hypoactive bowel sounds - Integumentary Integumentary: clear, no jaundice, no rash - Neurologic Neurologic: moves all extremities - Psychiatric Psychiatric: appropriate mood/affect - Labs CBC & Chem 7: 02/03/17 06:40 02/03/17 06:40 Labs: Abnormal lab results 02/03/17 02/03/17 Range/Units 06:40 06:40 WBC 18.0 H (4.5-11.0) K/mm3 RBC 3.40 L (3.65-5.03) M/mm3 Hgb 10.4 L (11.8-15.2) gm/dl Hct 32.6 L (35.5-45.6) % MCV 96 H (84-94) fl RDW 15.5 H (13.2-15.2) % Plt Count 519 H (140-440) K/mm3 Lymph % (Auto) 5.0 L (13.4-35.0) % Lymph # 0.9 L (1.2-5.4) K/mm3 [place] # 1.1 H (0.0-0.8) K/mm3 Seg Neutrophils % 87.8 H (40.0-70.0) % Seg Neutrophils # 15.8 H (1.8-7.7) K/mm3 Sodium 148 H (137-145) mmol/L Potassium 3.1 L (3.6-5.0) mmol/L Chloride 109.8 H (98-107) mmol/L BUN 26 H (9-20) mg/dL Creatinine 1.7 H (0.8-1.5) mg/dL Glucose 121 H (75-100) mg/dL Calcium 8.2 L (8.4-10.2) mg/dL Microbiology 01/28/17 23:46 Sputum - Expectorated Sputum AFB Smear Concentration - Final 01/25/17 00:44 Peripheral/Venous Blood Culture - Final NO GROWTH AFTER 5 DAYS 01/24/17 22:13 Peripheral/Venous Blood Culture - Final NO GROWTH AFTER 5 DAYS 01/25/17 06:30 Sputum - Expectorated Sputum AFB Smear Concentration - Final 01/27/17 06:45 Sputum - Expectorated Sputum Sputum Culture - Final 01/26/17 06:30 Sputum - Expectorated Sputum Sputum Culture - Final 01/25/17 22:03 Serum Cryptococcal Antigen - Final
--- NOTE | 2017-02-03 09:09 | Progress Note ---
Assessment and Plan (1) Left upper lobe pneumonia Current Visit: Yes Status: Acute Qualifiers: Pneumonia type: due to unspecified organism Aspiration pneumonia type: A Qualified Code(s): J18.1 - Lobar pneumonia, unspecified organism Plan to address problem: antibiotics per ID possible bronchoscopy (2) Acute renal failure (ARF) Current Visit: Yes Status: Acute Qualifiers: Acute renal failure type: A Plan to address problem: increase Cr since yesterday with hypernatremia, will start gentle hydration 1/2 NS and will add Kcl 30 meq @ 50 cc/h, cont oral Kcl Avoid nephrotoxins Renally dose medications Monitor I/O's (3) HIV (human immunodeficiency virus infection) Current Visit: Yes Status: Acute Plan to address problem: On Sustiva, Emtriva and Viread as per ID CD4 is pending (4) S[place] pulmonary embolus Current Visit: No Status: Acute Qualifiers: Chronicity: C Acute cor pulmonale presence: A Plan to address problem: On Eliquis Subjective Date of service: 02/03/17 Principal diagnosis: Sepsis Interval history: cont to have productive cough Objective - Vital Signs Vital signs: Vital Signs - 12hr 02/03/17 02/03/17 02/03/17 00:00 05:40 05:55 Temperature 98.0 F Pulse Rate [ 86 88 Anterior Bilateral Throughout] Pulse Rate [ 94 H Left Radial] Respiratory 20 Rate Respiratory 18 18 Rate [Anterior Bilateral Throughout] Blood Pressure 141/78 [Left Arm] O2 Sat by Pulse 94 Oximetry 02/03/17 06:32 Temperature 99.1 F Pulse Rate [ Anterior Bilateral Throughout] Pulse Rate [ 91 H Left Radial] Respiratory 20 Rate Respiratory Rate [Anterior Bilateral Throughout] Blood Pressure 157/80 [Left Arm] O2 Sat by Pulse 94 Oximetry - General Appearance General appearance: well-developed, well-nourished EENT: ATNC, PERRL, mucous membranes dry Neck: no JVD, no carotid bruit Respiratory: Present: Decreased Breath Sounds Cardiology: regular, S1S2 Gastrointestinal: normoactive bowel sounds Integumentary: no rash, warm and dry Neurologic: no focal deficit, no asterixis, alert and oriented x3 Musculoskeletal: other (no edema in BLE) Psychiatric: mood/affect appropriate, cooperative - Lab 02/03/17 06:40 02/03/17 06:40 Most recent lab results Calcium 8.2 mg/dL (8.4-10.2) L 02/03/17 06:40 Phosphorus 3.10 mg/dL (2.5-4.5) 01/29/17 Unknown Urine Creatinine 124.4 mg/dL (0.1-20.0) H 01/28/17 23:56 Urine Sodium 51 mEq/L 01/28/17 23:55 Urine Total Protein 71 mg/dL (5-11.8) H 01/28/17 23:56
[2017-02-03] MEDS: VANCOMYCIN 1,250 MG in NACL 0.9% 250ML 250 ML IV SCH ×2 (09:18→22:54)
[2017-02-03] MEDS: ZOFRAN IV PRN (09:19)
[2017-02-03] MEDS: TYLENOL PO PRN ×2 (09:57→15:28)
--- NOTE | 2017-02-03 10:42 | Progress Note ---
Assessment and Plan Assessment and plan: Patient is 56 year old man with a history of AIDS, CHF, hypertension, recent Saddle pulmonary emboli s/p ekos who presented to ED with sob, cough and left side pains. CTA chest +bilateral PE and MELVINA infiltrates. * Sepsis secondary MELVINA Aspiration Pneumonitis, unlikely gram-negative al pneumonia. Cavitary/Necrotizing Pneumonia with hemoptysis per Pulmonology. * STACEY most likely vasomotor nephropathy, poa resolved but continue to monitor * AIDS/HIV chronic and underlying process to this infection: ID is following * Hypertension,chronic and stable * Moderate protein calorie malnutrition: dietary follow up * Pulmonary embolism-Saddle: on Eliquis * Hemoptysis-resolved * Transaminitis, mild and resolving * Anemia of chronic disease. Still in TB isolation, AFB negative x 2 await 3rd smear and if negative can d/c airborne/TB isolation. -Hypokalemia: replaced as additive, renal is following -Hypernatremia, mild: rechecked, ivf changed -Drop in HCT, slowly dropping resolved -Abx stopped per ID Still febrile, d/w Dr. Shepard will bronch AFB pending Fungal culture pending Quantiferon Gold pending History Interval history: Patient seen and examined. Follow up on cough. Overnight uneventful. No cp, sob , n/v or severe headaches. Imaging, old records, testing, labs, nursing notes reviewed. Still requiring oxygen 2l, still with productive cough Hospitalist Physical - Physical exam Narrative exam: GEN: Ill-appearing, deconditioned NAD, AWAKE, ALERT, ORIENTATED x 3 CVS: RRR, NORMAL S1S2 LUNGS/CHEST: crackles left, NORMAL CHEST EXPANSION B, diminished AIR ENTRY B ABD: SOFT, NTND, GBS, NO REBOUND OR GUARDING EXT/SKIN: NO SIGNIFICANT EDEMA OR RASH MSK: FROM X 4 EXTREMITIES NEURO: CN 2-12 GROSSLY INTACT, NO FOCAL DEFICITS PSY: CALM - Constitutional Vitals: Temp Pulse Resp BP Pulse Ox 101.1 F H 97 H 20 154/76 95 02/03/17 07:00 02/03/17 07:00 02/03/17 07:00 02/03/17 07:00 02/03/17 07:00 General appearance: Present: no acute distress Results - Labs CBC & Chem 7: 02/03/17 06:40 02/03/17 06:40 Labs: Laboratory Last Values WBC 18.0 K/mm3 (4.5-11.0) H 02/03/17 06:40 RBC 3.40 M/mm3 (3.65-5.03) L 02/03/17 06:40 Hgb 10.4 gm/dl (11.8-15.2) L 02/03/17 06:40 Hct 32.6 % (35.5-45.6) L 02/03/17 06:40 MCV 96 fl (84-94) H 02/03/17 06:40 MCH 31 pg (28-32) 02/03/17 06:40 MCHC 32 % (32-34) 02/03/17 06:40 RDW 15.5 % (13.2-15.2) H 02/03/17 06:40 Plt Count 519 K/mm3 (140-440) H 02/03/17 06:40 Lymph % (Auto) 5.0 % (13.4-35.0) L 02/03/17 06:40 Bond % (Auto) 6.4 % (0.0-7.3) 02/03/17 06:40 Eos % (Auto) 0.4 % (0.0-4.3) 02/03/17 06:40 Baso % (Auto) 0.4 % (0.0-1.8) 02/03/17 06:40 Lymph # 0.9 K/mm3 (1.2-5.4) L 02/03/17 06:40 Bond # 1.1 K/mm3 (0.0-0.8) H 02/03/17 06:40 Eos # 0.1 K/mm3 (0.0-0.4) 02/03/17 06:40 Baso # 0.1 K/mm3 (0.0-0.1) 02/03/17 06:40 Add Manual Diff Complete 01/26/17 05:45 Total Counted 100 01/26/17 05:45 Seg Neutrophils % 87.8 % (40.0-70.0) H 02/03/17 06:40 Seg Neuts % (Manual) 62.0 % (40.0-70.0) 01/26/17 05:45 Band Neutrophils % 29.0 % 01/26/17 05:45 Lymphocytes % (Manual) 6.0 % (13.4-35.0) L 01/26/17 05:45 Reactive Lymphs % (Man) 0 % 01/26/17 05:45 Monocytes % (Manual) 3.0 % (0.0-7.3) 01/26/17 05:45 Eosinophils % (Manual) 0 % (0.0-4.3) 01/26/17 05:45 Basophils % (Manual) 0 % (0.0-1.8) 01/26/17 05:45 Metamyelocytes % 0 % 01/26/17 05:45 Myelocytes % 0 % 01/26/17 05:45 Promyelocytes % 0 % 01/26/17 05:45 Blast Cells % 0 % 01/26/17 05:45 Nucleated RBC % 2.0 % (0.0-0.9) H 01/26/17 05:45 Seg Neutrophils # 15.8 K/mm3 (1.8-7.7) H 02/03/17 06:40 Seg Neutrophils # Man 6.1 K/mm3 (1.8-7.7) 01/26/17 05:45 Band Neutrophils # 2.8 K/mm3 01/26/17 05:45 Lymphocytes # (Manual) 0.6 K/mm3 (1.2-5.4) L 01/26/17 05:45 Abs React Lymphs (Man) 0.0 K/mm3 01/26/17 05:45 Monocytes # (Manual) 0.3 K/mm3 (0.0-0.8) 01/26/17 05:45 Eosinophils # (Manual) 0.0 K/mm3 (0.0-0.4) 01/26/17 05:45 Basophils # (Manual) 0.0 K/mm3 (0.0-0.1) 01/26/17 05:45 Metamyelocytes # 0.0 K/mm3 01/26/17 05:45 Myelocytes # 0.0 K/mm3 01/26/17 05:45 Promyelocytes # 0.0 K/mm3 01/26/17 05:45 Blast Cells # 0.0 K/mm3 01/26/17 05:45 WBC Morphology Not Reportable 01/26/17 05:45 Hypersegmented Neuts Not Reportable 01/26/17 05:45 Hyposegmented Neuts Not Reportable 01/26/17 05:45 Hypogranular Neuts Not Reportable 01/26/17 05:45 Smudge Cells Not Reportable 01/26/17 05:45 Toxic Granulation Not Reportable 01/26/17 05:45 Toxic Vacuolation Not Reportable 01/26/17 05:45 Dohle Bodies Not Reportable 01/26/17 05:45 Pelger-Huet Anomaly Not Reportable 01/26/17 05:45 Aylin Rods Not Reportable 01/26/17 05:45 Platelet Estimate Consistent w auto 01/26/17 05:45 Clumped Platelets Rare 01/26/17 05:45 Plt Clumps, EDTA Not Reportable 01/26/17 05:45 Large Platelets Not Reportable 01/26/17 05:45 Giant Platelets Not Reportable 01/26/17 05:45 Platelet Satelliting Not Reportable 01/26/17 05:45 Plt Morphology Comment Not Reportable 01/26/17 05:45 RBC Morphology Not Reportable 01/26/17 05:45 Dimorphic RBCs Not Reportable 01/26/17 05:45 Polychromasia Not Reportable 01/26/17 05:45 Hypochromasia Not Reportable 01/26/17 05:45 Poikilocytosis Not Reportable 01/26/17 05:45 Anisocytosis 1+ 01/26/17 05:45 Microcytosis Not Reportable 01/26/17 05:45 Macrocytosis Not Reportable 01/26/17 05:45 Spherocytes Not Reportable 01/26/17 05:45 Pappenheimer Bodies Not Reportable 01/26/17 05:45 Sickle Cells Not Reportable 01/26/17 05:45 Target Cells Not Reportable 01/26/17 05:45 Tear Drop Cells Not Reportable 01/26/17 05:45 Ovalocytes Not Reportable 01/26/17 05:45 Helmet Cells Not Reportable 01/26/17 05:45 [place] Bodies Not Reportable 01/26/17 05:45 [place]arton Rings Not Reportable 01/26/17 05:45 [place] Cells Few 01/26/17 05:45 Bite Cells Not Reportable 01/26/17 05:45 Crenated Cell Not Reportable 01/26/17 05:45 Elliptocytes Not Reportable 01/26/17 05:45 Acanthocytes (Spur) Not Reportable 01/26/17 05:45 Rouleaux Not Reportable 01/26/17 05:45 Hemoglobin C Crystals Not Reportable 01/26/17 05:45 Schistocytes Not Reportable 01/26/17 05:45 Malaria parasites Not Reportable 01/26/17 05:45 Donta Bodies Not Reportable 01/26/17 05:45 Hem Pathologist Commnt No 01/26/17 05:45 PT 14.5 Sec. (12.2-14.9) 01/24/17 22:03 INR 1.07 (0.87-1.13) 01/24/17 22:03 APTT 33.4 Sec. (24.2-36.6) 01/24/17 22:03 POC ABG pH 7.411 (7.35-7.45) 01/30/17 22:34 POC ABG pCO2 25.0 (35-45) L 01/30/17 22:34 POC ABG pO2 57 (80-105) L 01/30/17 22:34 POC ABG HCO3 15.9 01/30/17 22:34 POC ABG Total CO2 17 01/30/17 22:34 POC ABG O2 Sat 90 01/30/17 22:34 POC ABG Base Excess -9 01/30/17 22:34 VBG pH 7.374 (7.320-7.420) 01/25/17 00:44 FiO2 70 % 01/30/17 22:34 Sodium 148 mmol/L (137-145) H 02/03/17 06:40 Potassium 3.1 mmol/L (3.6-5.0) L 02/03/17 06:40 Chloride 109.8 mmol/L (98-107) H 02/03/17 06:40 Carbon Dioxide 22 mmol/L (22-30) 02/03/17 06:40 Anion Gap 19 mmol/L 02/03/17 06:40 BUN 26 mg/dL (9-20) H 02/03/17 06:40 Creatinine 1.7 mg/dL (0.8-1.5) H 02/03/17 06:40 Estimated GFR 51 ml/min 02/03/17 06:40 BUN/Creatinine Ratio 15.29 % 02/03/17 06:40 Glucose 121 mg/dL (75-100) H 02/03/17 06:40 Osmolality 311 Mosm/kg 01/29/17 Unknown Lactic Acid 1.40 mmol/L (0.7-2.0) 01/28/17 11:56 Calcium 8.2 mg/dL (8.4-10.2) L 02/03/17 06:40 Phosphorus 3.10 mg/dL (2.5-4.5) 01/29/17 Unknown Total Bilirubin 0.20 mg/dL (0.1-1.2) 01/30/17 04:10 Direct Bilirubin < 0.2 mg/dL (0-0.2) 01/27/17 12:15 AST 75 units/L (5-40) H 01/30/17 04:10 ALT 77 units/L (7-56) H 01/30/17 04:10 Alkaline Phosphatase 81 units/L (35-129) 01/30/17 04:10 Troponin T < 0.010 ng/mL (0.00-0.029) 01/25/17 03:15 Total Protein 6.7 g/dL (6.3-8.2) 01/30/17 04:10 Albumin 2.6 g/dL (3.9-5) L 01/30/17 04:10 Albumin/Globulin Ratio 0.6 % 01/30/17 04:10 Lipase 63 units/L (13-60) H 01/30/17 04:10 Urine Color Yellow (Yellow) 01/28/17 23:55 Urine Turbidity Clear (Clear) 01/28/17 23:55 Urine pH 5.0 (5.0-7.0) 01/28/17 23:55 Ur Specific [place] 1.019 (1.003-1.030) 01/28/17 23:55 Urine Protein 30 mg/dl mg/dL (Negative) 01/28/17 23:55 Urine Glucose (UA) Neg mg/dL (Negative) 01/28/17 23:55 Urine Ketones Neg mg/dL (Negative) 01/28/17 23:55 Urine Blood Sm (Negative) 01/28/17 23:55 Urine Nitrite Neg (Negative) 01/28/17 23:55 Urine Bilirubin Neg (Negative) 01/28/17 23:55 Urine Urobilinogen < 2.0 mg/dL (<2.0) 01/28/17 23:55 Ur Leukocyte Esterase Neg (Negative) 01/28/17 23:55 Urine WBC (Auto) 2.0 /HPF (0.0-6.0) 01/28/17 23:55 Urine RBC (Auto) 3.0 /HPF (0.0-6.0) 01/28/17 23:55 Uric Acid Crystals Few 01/28/17 23:55 Amorphous Crystals 1+ 01/28/17 23:55 Urine Mucus Few /HPF 01/28/17 23:55 Urine Eosinophils None seen (None Seen) 01/28/17 23:55 Urine Creatinine 124.4 mg/dL (0.1-20.0) H 01/28/17 23:56 Protein/Creatinin Ratio 0.56 01/28/17 23:55 Urine Sodium 51 mEq/L 01/28/17 23:55 Urine Total Protein 71 mg/dL (5-11.8) H 01/28/17 23:56 Vancomycin Trough 15.0 ug/mL (5.0-20.0) 01/28/17 08:36 Hepatitis A IgM Ab Non-reactive (NonReactive) 01/28/17 11:56 Hep Bs Antigen Non-reactive (Negative) 01/28/17 11:56 Hep B Core IgM Ab Non-reactive (NonReactive) 01/28/17 11:56 Hepatitis C Antibody Non-reactive (NonReactive) 01/28/17 11:56 Blood Type B POSITIVE 01/24/17 22:07 Antibody Screen TNR 01/24/17 22:07 ALIDA Antibody Screen Negative 01/24/17 22:07
[2017-02-03] MEDS: EMTRIVA PO SCH (12:04)
[2017-02-03] MEDS: TOPROL XL PO SCH (12:05)
[2017-02-03] MEDS: ELIQUIS PO SCH ×2 (12:05→21:41)
[2017-02-03] MEDS: PEPCID PO SCH ×2 (12:05→21:41)
[2017-02-03] MEDS: K-DUR PO SCH (12:06)
[2017-02-03] MEDS: LEXAPRO PO SCH (12:06)
[2017-02-03] MEDS: IMDUR PO SCH (12:06)
[2017-02-03] MEDS: SUSTIVA PO SCH (12:06)
[2017-02-03] MEDS: VIREAD PO SCH (12:07)
--- NOTE | 2017-02-03 13:16 | Progress Note ---
Assessment and Plan 56 y/o male with HIV, recent saddle PE s/p ekos, now with new left upper lobe cavitary pneumonia and acute respiratory failure. 1. Bronch scheduled for tomorrow am at 0800, NPO after midnight. Only a lavage , no biopsy unless endobronchial lesion is found. Will check coags as well. 2. HIV therapy 3. Abx therapy per ID Subjective Date of service: 02/03/17 Principal diagnosis: Sepsis Interval history: No acute events. Hemoptysis has stopped but still coughing up thick green and yellow sputum. Still very short of breath but sats are good at rest on nasal cannula. Objective Vital Signs - 12hr 02/03/17 02/03/17 02/03/17 05:40 05:55 06:32 Temperature 99.1 F Pulse Rate [ 86 88 Anterior Bilateral Throughout] Pulse Rate [ 91 H Left Radial] Respiratory 20 Rate Respiratory 18 18 Rate [Anterior Bilateral Throughout] Blood Pressure 157/80 [Left Arm] O2 Sat by Pulse 94 Oximetry 02/03/17 02/03/17 07:00 12:00 Temperature 101.1 F H 101.3 F H Pulse Rate [ Anterior Bilateral Throughout] Pulse Rate [ 97 H 89 Left Radial] Respiratory 20 19 Rate Respiratory Rate [Anterior Bilateral Throughout] Blood Pressure 154/76 136/76 [Left Arm] O2 Sat by Pulse 95 Oximetry Constitutional: no acute distress, alert Eyes: non-icteric ENT: oropharynx moist Neck: supple, no lymphadenopathy, no JVD Effort: normal Ascultation: Bilateral: diminished breath sounds, rales (left field) Percussion: Bilateral: not dull Cardiovascular: regular rate and rhythm Gastrointestinal: normoactive bowel sounds, non-distended Integumentary: normal Extremities: no cyanosis Neurologic: normal mental status, non-focal exam, pupils equal and round, CN II- XII normal Psychiatric: mood appropriate, affect normal CBC and BMP: 02/03/17 06:40 02/03/17 06:40 ABG, PT/INR, D-dimer: ABG POC ABG pH 7.411 (7.35-7.45) 01/30/17 22:34 POC ABG pCO2 25.0 (35-45) L 01/30/17 22:34 POC ABG pO2 57 (80-105) L 01/30/17 22:34 POC ABG HCO3 15.9 01/30/17 22:34 POC ABG Total CO2 17 01/30/17 22:34 POC ABG O2 Sat 90 01/30/17 22:34 PT/INR, D-dimer PT 14.5 Sec. (12.2-14.9) 01/24/17 22:03 INR 1.07 (0.87-1.13) 01/24/17 22:03 Abnormal lab findings: Abnormal Labs 01/25/17 01/25/17 01/26/17 09:32 10:40 05:45 WBC RBC Hgb 11.6 L Hct 34.4 L D MCV RDW Plt Count Lymph % (Auto) [place] % (Auto) Lymph # [place] # Seg Neutrophils % Lymphocytes % (Manual) 6.0 L Nucleated RBC % 2.0 H Seg Neutrophils # Lymphocytes # (Manual) 0.6 L POC ABG pH 7.478 H POC ABG pCO2 27.4 L POC ABG pO2 73 L Sodium Potassium Chloride Carbon Dioxide BUN Creatinine Glucose Lactic Acid 2.60 H* Calcium AST ALT Total Protein Albumin Lipase Urine Creatinine Urine Total Protein 01/26/17 01/27/17 01/28/17 05:45 12:15 08:36 WBC 12.4 H RBC 3.49 L Hgb 10.9 L Hct 33.0 L MCV 95 H RDW Plt Count Lymph % (Auto) [place] % (Auto) Lymph # [place] # Seg Neutrophils % Lymphocytes % (Manual) Nucleated RBC % Seg Neutrophils # Lymphocytes # (Manual) POC ABG pH POC ABG pCO2 POC ABG pO2 Sodium Potassium Chloride Carbon Dioxide 21 L BUN Creatinine Glucose 130 H Lactic Acid Calcium AST 121 H ALT 117 H Total Protein 5.8 L D Albumin 2.8 L Lipase Urine Creatinine Urine Total Protein 01/28/17 01/28/17 01/28/17 08:36 11:56 23:55 WBC RBC Hgb Hct MCV RDW Plt Count Lymph % (Auto) [place] % (Auto) Lymph # [place] # Seg Neutrophils % Lymphocytes % (Manual) Nucleated RBC % Seg Neutrophils # Lymphocytes # (Manual) POC ABG pH POC ABG pCO2 POC ABG pO2 Sodium Potassium Chloride Carbon Dioxide BUN 28 H 30 H Creatinine 2.0 H D 1.9 H Glucose 137 H 124 H Lactic Acid Calcium AST 119 H ALT 106 H Total Protein Albumin 2.7 L Lipase Urine Creatinine 127.2 H Urine Total Protein 71 H 06/30/17 07/01/17 07/01/17 23:56 10:07 10:07 WBC 12.9 H RBC 3.32 L Hgb 10.4 L Hct 31.6 L MCV 95 H RDW Plt Count Lymph % (Auto) 5.9 L [place] % (Auto) 10.2 H Lymph # 0.8 L [place] # 1.3 H Seg Neutrophils % 83.5 H Lymphocytes % (Manual) Nucleated RBC % Seg Neutrophils # 10.8 H Lymphocytes # (Manual) POC ABG pH POC ABG pCO2 POC ABG pO2 Sodium Potassium Chloride Carbon Dioxide 20 L BUN 26 H Creatinine 1.8 H Glucose 148 H Lactic Acid Calcium 8.2 L AST ALT Total Protein Albumin Lipase Urine Creatinine 124.4 H Urine Total Protein 71 H 01/29/17 01/29/17 01/30/17 Unknown Unknown 04:10 WBC 12.8 H 14.0 H RBC 3.52 L 3.40 L Hgb 11.0 L 10.7 L Hct 33.0 L 32.1 L MCV 95 H RDW Plt Count Lymph % (Auto) [place] % (Auto) Lymph # [place] # Seg Neutrophils % Lymphocytes % (Manual) Nucleated RBC % Seg Neutrophils # Lymphocytes # (Manual) POC ABG pH POC ABG pCO2 POC ABG pO2 Sodium Potassium Chloride Carbon Dioxide BUN 27 H Creatinine 1.9 H Glucose 119 H Lactic Acid Calcium AST ALT Total Protein Albumin Lipase Urine Creatinine Urine Total Protein 01/30/17 01/30/17 01/30/17 04:10 04:10 17:48 WBC RBC Hgb Hct MCV RDW Plt Count Lymph % (Auto) [place] % (Auto) Lymph # [place] # Seg Neutrophils % Lymphocytes % (Manual) Nucleated RBC % Seg Neutrophils # Lymphocytes # (Manual) POC ABG pH 7.282 L POC ABG pCO2 32.0 L POC ABG pO2 58 L Sodium Potassium Chloride 107.4 H Carbon Dioxide BUN 26 H Creatinine 1.6 H Glucose 108 H Lactic Acid Calcium AST 75 H ALT 77 H Total Protein Albumin 2.6 L Lipase 63 H Urine Creatinine Urine Total Protein 01/30/17 02/01/17 02/01/17 22:34 05:50 05:50 WBC 15.0 H RBC 3.30 L Hgb 10.2 L Hct 31.5 L MCV 95 H RDW 15.3 H Plt Count Lymph % (Auto) 4.9 L [place] % (Auto) Lymph # 0.7 L [place] # 1.0 H Seg Neutrophils % 87.2 H Lymphocytes % (Manual) Nucleated RBC % Seg Neutrophils # 13.1 H Lymphocytes # (Manual) POC ABG pH POC ABG pCO2 25.0 L POC ABG pO2 57 L Sodium 146 H Potassium 3.2 L Chloride 107.1 H Carbon Dioxide 20 L BUN 30 H Creatinine Glucose 112 H Lactic Acid Calcium 8.0 L AST ALT Total Protein Albumin Lipase Urine Creatinine Urine Total Protein 02/02/17 02/02/17 02/03/17 05:51 05:51 06:40 WBC 16.6 H 18.0 H RBC 3.17 L 3.40 L Hgb 9.6 L 10.4 L Hct 30.4 L 32.6 L MCV 96 H 96 H RDW 15.5 H Plt Count 519 H Lymph % (Auto) 5.2 L 5.0 L [place] % (Auto) Lymph # 0.9 L 0.9 L [place] # 1.1 H 1.1 H Seg Neutrophils % 87.3 H 87.8 H Lymphocytes % (Manual) Nucleated RBC % Seg Neutrophils # 14.4 H 15.8 H Lymphocytes # (Manual) POC ABG pH POC ABG pCO2 POC ABG pO2 Sodium 148 H Potassium 3.4 L Chloride 110.3 H Carbon Dioxide 21 L BUN 28 H Creatinine Glucose Lactic Acid Calcium 7.9 L AST ALT Total Protein Albumin Lipase Urine Creatinine Urine Total Protein 02/03/17 06:40 WBC RBC Hgb Hct MCV RDW Plt Count Lymph % (Auto) [place] % (Auto) Lymph # [place] # Seg Neutrophils % Lymphocytes % (Manual) Nucleated RBC % Seg Neutrophils # Lymphocytes # (Manual) POC ABG pH POC ABG pCO2 POC ABG pO2 Sodium 148 H Potassium 3.1 L Chloride 109.8 H Carbon Dioxide BUN 26 H Creatinine 1.7 H Glucose 121 H Lactic Acid Calcium 8.2 L AST ALT Total Protein Albumin Lipase Urine Creatinine Urine Total Protein
[2017-02-03] MEDS: D5W/0.45% NACL/KCL 30 MEQ 30 MEQ/1,000 ML BAG IV SCH (13:30)
[2017-02-03 14:27] LABS: INR 2.3 (0.87-1.13)
[2017-02-03 14:28] LABS: Partial Thromboplastin Time 43.6 Sec. (24.2-36.6)
[2017-02-04] MEDS: MAXIPIME/NS 1 GM/100 ML 1 GM/100 ML BAG IV SCH (00:25)
[2017-02-04] MEDS: ZOFRAN IV PRN ×3 (02:28→18:43)
[2017-02-04] MEDS: MORPHINE IV PRN ×3 (02:28→21:12)
[2017-02-04] MEDS: FLAGYL 500 MG/100 ML 500 MG/100 ML BAG IV SCH ×3 (06:06→21:13)
[2017-02-04] MEDS: TESSALON PERLES PO SCH ×3 (06:06→21:11)
--- NOTE | 2017-02-04 06:36 | Progress Note ---
Assessment and Plan - Patient Problems (1) Sepsis Current Visit: Yes Status: Acute Qualifiers: Sepsis type: sepsis due to unspecified organism Qualified Code(s): A41.9 - Sepsis, unspecified organism Plan to address problem: 1. Resubmitting blood and sputum specimens for culture. 2. Requesting assistance from respiratory therapist to obtain ideal sputum specimen. 3. Will change Cefepime to Meropenem empirically. (2) Left upper lobe pneumonia Current Visit: Yes Status: Acute Qualifiers: Pneumonia type: due to unspecified organism Aspiration pneumonia type: A Qualified Code(s): J18.1 - Lobar pneumonia, unspecified organism Plan to address problem: 1. AFB negative x 2 with third specimen unsuitable for staining. 2. Will follow-up bronchoscopy results. 3. Continue airborne isolation for now pending result of third AFB sputum result. (3) HIV (human immunodeficiency virus infection) Current Visit: Yes Status: Acute Plan to address problem: CE3=628. Low suspicion for PjP process. Subjective Date of service: 02/04/17 Principal diagnosis: Sepsis Interval history: Febrile to > 101 deg F yesterday with an increasing WBC count. Patient notes persistent, productive cough. Denies GI complaints. Objective - Constitutional Vitals: Vital Signs Temp Pulse Resp BP Pulse Ox 98.4 F 83 17 123/81 95 02/04/17 03:25 02/04/17 03:25 02/04/17 03:25 02/04/17 03:25 02/04/17 03:25 Temperature -Last 24 Hours Temperature 98.4 F Temperature 99.8 F Temperature 97.3 F Temperature 97.6 F Temperature 101.3 F Temperature 101.1 F Temperature 99.1 F General appearance: Present: no acute distress - Neck Neck: supple - Respiratory Respiratory: bilateral: CTA, negative: rales - Cardiovascular Rhythm: regular Heart Sounds: Present: S1 & S2 Extremities: No edema - Gastrointestinal General gastrointestinal: Present: soft, tender, distended, hypoactive bowel sounds - Integumentary Integumentary: clear, no jaundice, no rash - Neurologic Neurologic: moves all extremities - Psychiatric Psychiatric: appropriate mood/affect - Labs CBC & Chem 7: 02/03/17 06:40 02/03/17 06:40 Labs: Abnormal lab results 07/03/17 07/06/17 07/06/17 Range/Units 20:35 06:40 06:40 WBC 18.0 H (4.5-11.0) K/mm3 RBC 3.40 L (3.65-5.03) M/mm3 Hgb 10.4 L (11.8-15.2) gm/dl Hct 32.6 L (35.5-45.6) % MCV 96 H (84-94) fl RDW 15.5 H (13.2-15.2) % Plt Count 519 H (140-440) K/mm3 Lymph % (Auto) 5.0 L (13.4-35.0) % Lymph # 0.9 L (1.2-5.4) K/mm3 [place] # 1.1 H (0.0-0.8) K/mm3 Seg Neutrophils % 87.8 H (40.0-70.0) % Seg Neutrophils # 15.8 H (1.8-7.7) K/mm3 Abs Lymphs (Manual) 710 L (850-3900) cells/uL PT (12.2-14.9) Sec. INR (0.87-1.13) APTT (24.2-36.6) Sec. Sodium 148 H (137-145) mmol/L Potassium 3.1 L (3.6-5.0) mmol/L Chloride 109.8 H (98-107) mmol/L BUN 26 H (9-20) mg/dL Creatinine 1.7 H (0.8-1.5) mg/dL Glucose 121 H (75-100) mg/dL Calcium 8.2 L (8.4-10.2) mg/dL Lymph Enumerat CD4/CD8 0.82 L (0.86-5.00) Absolute CD3 Count 524 L (840-3060) cells/uL Absolute CD4 Count 237 L (490-1740) cells/uL 02/03/17 Range/Units 13:38 WBC (4.5-11.0) K/mm3 RBC (3.65-5.03) M/mm3 Hgb (11.8-15.2) gm/dl Hct (35.5-45.6) % MCV (84-94) fl RDW (13.2-15.2) % Plt Count (140-440) K/mm3 Lymph % (Auto) (13.4-35.0) % Lymph # (1.2-5.4) K/mm3 [place] # (0.0-0.8) K/mm3 Seg Neutrophils % (40.0-70.0) % Seg Neutrophils # (1.8-7.7) K/mm3 Abs Lymphs (Manual) (850-3900) cells/uL PT 26.5 H (12.2-14.9) Sec. INR 2.30 H (0.87-1.13) APTT 43.6 H (24.2-36.6) Sec. Sodium (137-145) mmol/L Potassium (3.6-5.0) mmol/L Chloride (98-107) mmol/L BUN (9-20) mg/dL Creatinine (0.8-1.5) mg/dL Glucose (75-100) mg/dL Calcium (8.4-10.2) mg/dL Lymph Enumerat CD4/CD8 (0.86-5.00) Absolute CD3 Count (840-3060) cells/uL Absolute CD4 Count (490-1740) cells/uL Microbiology 01/27/17 16:30 Sputum - Expectorated Sputum Mycobacterial Culture - Final 01/27/17 16:30 Sputum - Expectorated Sputum AFB Smear Concentration - Final 01/28/17 23:46 Sputum - Expectorated Sputum AFB Smear Concentration - Final 01/25/17 00:44 Peripheral/Venous Blood Culture - Final NO GROWTH AFTER 5 DAYS 01/24/17 22:13 Peripheral/Venous Blood Culture - Final NO GROWTH AFTER 5 DAYS 01/25/17 06:30 Sputum - Expectorated Sputum AFB Smear Concentration - Final 01/27/17 06:45 Sputum - Expectorated Sputum Sputum Culture - Final 01/26/17 06:30 Sputum - Expectorated Sputum Sputum Culture - Final 01/25/17 22:03 Serum Cryptococcal Antigen - Final
[2017-02-04] MEDS ORDERED: HURRICAINE ONE 20% TOPICAL SPRAY MM ×2 (07:25→07:55)
[2017-02-04] MEDS ORDERED: ADRENALIN ONE (07:25)
[2017-02-04] MEDS ORDERED: NACL 0.9% 1000 ML 1,000 ML ONE ×2 (07:26→07:27)
[2017-02-04] MEDS ORDERED: LIDOCAINE VISCOUS 2% ONE (07:26)
[2017-02-04] MEDS ORDERED: XYLOCAINE 1% 20 mL ONE (07:26)
[2017-02-04] MEDS ORDERED: LIDOCAINE VISCOUS 2% PO ONE ×4 (07:57→08:00)
[2017-02-04] MEDS ORDERED: NACL 0.9% 1000 ML 1,000 ML IV SCH (08:00)
[2017-02-04] MEDS: BROVANA NEBU IH SCH ×3 (08:00→20:58)
[2017-02-04] MEDS: PULMICORT IH SCH ×3 (08:00→20:57)
[2017-02-04] MEDS ORDERED: WATER FOR IRRIG STERILE IR ONE (08:01)
--- NOTE | 2017-02-04 08:13 | Anesthesia Consultation ---
Anesthesia Consult and Med Hx Date of service: 02/04/17 - Airway Anesthetic Teeth Evaluation: Poor (multiple missing, broken teeth) ROM Head & Neck: Adequate Mental/Hyoid Distance: Adequate Mallampati Class: Class III Intubation Access Assessment: Possibly Difficult - Pre-Operative Health Status ASA Pre-Surgery Classification: ASA3 Proposed Anesthetic Plan: MAC - Pulmonary Hx Smoking: Yes (quit) COPD: Yes Hx Pneumonia: Yes (h/o PE) - Cardiovascular System Hx Hypertension: Yes Hx Coronary Artery Disease: No (h/o CHF) - Central Nervous System Hx Psychiatric Problems: Yes (Depression) - Gastrointestinal Hx Gastroesophageal Reflux Disease: Yes - Additional Comments Anesthesia Medical History Comments: HIV/AIDS
--- NOTE | 2017-02-04 08:15 | Anesthesia Day of Surgery ---
Anesthesia Day of Surgery - Day of Surgery Patient Examined: Yes Patient H&P Reviewed: Yes Patient is NPO: Yes
[2017-02-04] MEDS ORDERED: DIPRIVAN 10 MG/ML IV ONE ×2 (08:20)
[2017-02-04] MEDS ORDERED: XYLOCAINE 1% 20 mL INFILTRATI ONE ×5 (08:30→08:35)
--- NOTE | 2017-02-04 08:50 | Procedure Note ---
Date of procedure: 02/04/17 Pre-op diagnosis: Pneumonia Post-op diagnosis: same Procedure: Flexible Bronchoscopy with Bronchial Washing of Left upper lobe. After obtaining informed consent. Patient brought to Endo suite and preppred. Right nostril was anesthetized. Scope passed without difficulty. Vocal cords seen and had good AB and AD duction. Lidocaine x3 used on cords. Entered into Trachea. Normal. Lido used there. Passed down to david, normal. Lidocaine administered in left main stem then right. Airway inspection done first. Normal left side of lung. Abnormal right lower lobe seen on left. Remainder of airway inspection unremarkable. Scope then retracted and wedged into the left upper lobe. Bronchial washings were taken. Decent return. Some scope trauma visualized but no active bleeding. Scope retracted and patient being recovered. Anesthesia: MAC Surgeon: ELMER PICKENS Estimated blood loss: none Pathology: none Specimen disposition: to lab Condition: stable Disposition: floor
--- NOTE | 2017-02-04 08:51 | Progress Note ---
Assessment and Plan 56 y/o male with HIV, recent saddle PE s/p ekos, now with new left upper lobe cavitary pneumonia and acute respiratory failure. 1. Follow up Bronch results 2. continue supplemental O2 and bipap therapy at night 3. Abx therapy per ID Subjective Date of service: 02/04/17 Principal diagnosis: Sepsis Interval history: No acute events. Seen in ENDO suite. Still coughing up thick sputum Objective Vital Signs - 12hr 02/03/17 02/03/17 02/03/17 21:11 21:20 23:20 Temperature 99.8 F H Pulse Rate Pulse Rate [ 82 83 Anterior Bilateral Throughout] Pulse Rate [ 87 Left Radial] Respiratory 20 Rate Respiratory 20 20 Rate [Anterior Bilateral Throughout] Blood Pressure Blood Pressure 126/74 [Left Arm] O2 Sat by Pulse 96 97 Oximetry 02/03/17 02/04/17 02/04/17 23:39 03:25 08:05 Temperature 98.4 F 99.7 F H Pulse Rate 97 H Pulse Rate [ Anterior Bilateral Throughout] Pulse Rate [ 61 83 Left Radial] Respiratory 18 17 16 Rate Respiratory Rate [Anterior Bilateral Throughout] Blood Pressure 171/95 Blood Pressure 123/81 [Left Arm] O2 Sat by Pulse 100 95 96 Oximetry 02/04/17 08:11 Temperature 99.7 F H Pulse Rate 97 H Pulse Rate [ Anterior Bilateral Throughout] Pulse Rate [ Left Radial] Respiratory 16 Rate Respiratory Rate [Anterior Bilateral Throughout] Blood Pressure 171/95 Blood Pressure [Left Arm] O2 Sat by Pulse 96 Oximetry Constitutional: no acute distress, alert Eyes: non-icteric ENT: oropharynx moist Neck: supple, no lymphadenopathy, no JVD Effort: normal Ascultation: Bilateral: clear, diminished breath sounds, rales (left field) Percussion: Bilateral: not dull Cardiovascular: regular rate and rhythm Gastrointestinal: normoactive bowel sounds, non-distended Integumentary: normal Extremities: no cyanosis Neurologic: normal mental status, non-focal exam, pupils equal and round, CN II- XII normal Psychiatric: mood appropriate, affect normal CBC and BMP: 02/03/17 06:40 02/03/17 06:40 ABG, PT/INR, D-dimer: ABG POC ABG pH 7.411 (7.35-7.45) 01/30/17 22:34 POC ABG pCO2 25.0 (35-45) L 01/30/17 22:34 POC ABG pO2 57 (80-105) L 01/30/17 22:34 POC ABG HCO3 15.9 01/30/17 22:34 POC ABG Total CO2 17 01/30/17 22:34 POC ABG O2 Sat 90 01/30/17 22:34 PT/INR, D-dimer PT 26.5 Sec. (12.2-14.9) H 02/03/17 13:38 INR 2.30 (0.87-1.13) H 02/03/17 13:38 Abnormal lab findings: Abnormal Labs 01/25/17 01/25/17 01/26/17 09:32 10:40 05:45 WBC RBC Hgb 11.6 L Hct 34.4 L D MCV RDW Plt Count Lymph % (Auto) [place] % (Auto) Lymph # [place] # Seg Neutrophils % Lymphocytes % (Manual) 6.0 L Nucleated RBC % 2.0 H Seg Neutrophils # Abs Lymphs (Manual) Lymphocytes # (Manual) 0.6 L PT INR APTT POC ABG pH 7.478 H POC ABG pCO2 27.4 L POC ABG pO2 73 L Sodium Potassium Chloride Carbon Dioxide BUN Creatinine Glucose Lactic Acid 2.60 H* Calcium AST ALT Total Protein Albumin Lipase Urine Creatinine Urine Total Protein Lymph Enumerat CD4/CD8 Absolute CD3 Count Absolute CD4 Count 01/26/17 01/27/17 01/28/17 05:45 12:15 08:36 WBC 12.4 H RBC 3.49 L Hgb 10.9 L Hct 33.0 L MCV 95 H RDW Plt Count Lymph % (Auto) [place] % (Auto) Lymph # [place] # Seg Neutrophils % Lymphocytes % (Manual) Nucleated RBC % Seg Neutrophils # Abs Lymphs (Manual) Lymphocytes # (Manual) PT INR APTT POC ABG pH POC ABG pCO2 POC ABG pO2 Sodium Potassium Chloride Carbon Dioxide 21 L BUN Creatinine Glucose 130 H Lactic Acid Calcium AST 121 H ALT 117 H Total Protein 5.8 L D Albumin 2.8 L Lipase Urine Creatinine Urine Total Protein Lymph Enumerat CD4/CD8 Absolute CD3 Count Absolute CD4 Count 01/28/17 01/28/17 01/28/17 08:36 11:56 23:55 WBC RBC Hgb Hct MCV RDW Plt Count Lymph % (Auto) [place] % (Auto) Lymph # [place] # Seg Neutrophils % Lymphocytes % (Manual) Nucleated RBC % Seg Neutrophils # Abs Lymphs (Manual) Lymphocytes # (Manual) PT INR APTT POC ABG pH POC ABG pCO2 POC ABG pO2 Sodium Potassium Chloride Carbon Dioxide BUN 28 H 30 H Creatinine 2.0 H D 1.9 H Glucose 137 H 124 H Lactic Acid Calcium AST 119 H ALT 106 H Total Protein Albumin 2.7 L Lipase Urine Creatinine 127.2 H Urine Total Protein 71 H Lymph Enumerat CD4/CD8 Absolute CD3 Count Absolute CD4 Count 01/28/17 01/29/17 01/29/17 23:56 10:07 10:07 WBC 12.9 H RBC 3.32 L Hgb 10.4 L Hct 31.6 L MCV 95 H RDW Plt Count Lymph % (Auto) 5.9 L [place] % (Auto) 10.2 H Lymph # 0.8 L [place] # 1.3 H Seg Neutrophils % 83.5 H Lymphocytes % (Manual) Nucleated RBC % Seg Neutrophils # 10.8 H Abs Lymphs (Manual) Lymphocytes # (Manual) PT INR APTT POC ABG pH POC ABG pCO2 POC ABG pO2 Sodium Potassium Chloride Carbon Dioxide 20 L BUN 26 H Creatinine 1.8 H Glucose 148 H Lactic Acid Calcium 8.2 L AST ALT Total Protein Albumin Lipase Urine Creatinine 124.4 H Urine Total Protein 71 H Lymph Enumerat CD4/CD8 Absolute CD3 Count Absolute CD4 Count 01/29/17 01/29/17 01/30/17 Unknown Unknown 04:10 WBC 12.8 H 14.0 H RBC 3.52 L 3.40 L Hgb 11.0 L 10.7 L Hct 33.0 L 32.1 L MCV 95 H RDW Plt Count Lymph % (Auto) [place] % (Auto) Lymph # [place] # Seg Neutrophils % Lymphocytes % (Manual) Nucleated RBC % Seg Neutrophils # Abs Lymphs (Manual) Lymphocytes # (Manual) PT INR APTT POC ABG pH POC ABG pCO2 POC ABG pO2 Sodium Potassium Chloride Carbon Dioxide BUN 27 H Creatinine 1.9 H Glucose 119 H Lactic Acid Calcium AST ALT Total Protein Albumin Lipase Urine Creatinine Urine Total Protein Lymph Enumerat CD4/CD8 Absolute CD3 Count Absolute CD4 Count 01/30/17 01/30/17 01/30/17 04:10 04:10 17:48 WBC RBC Hgb Hct MCV RDW Plt Count Lymph % (Auto) [place] % (Auto) Lymph # [place] # Seg Neutrophils % Lymphocytes % (Manual) Nucleated RBC % Seg Neutrophils # Abs Lymphs (Manual) Lymphocytes # (Manual) PT INR APTT POC ABG pH 7.282 L POC ABG pCO2 32.0 L POC ABG pO2 58 L Sodium Potassium Chloride 107.4 H Carbon Dioxide BUN 26 H Creatinine 1.6 H Glucose 108 H Lactic Acid Calcium AST 75 H ALT 77 H Total Protein Albumin 2.6 L Lipase 63 H Urine Creatinine Urine Total Protein Lymph Enumerat CD4/CD8 Absolute CD3 Count Absolute CD4 Count 01/30/17 01/31/17 02/01/17 22:34 20:35 05:50 WBC 15.0 H RBC 3.30 L Hgb 10.2 L Hct 31.5 L MCV 95 H RDW 15.3 H Plt Count Lymph % (Auto) 4.9 L [place] % (Auto) Lymph # 0.7 L [place] # 1.0 H Seg Neutrophils % 87.2 H Lymphocytes % (Manual) Nucleated RBC % Seg Neutrophils # 13.1 H Abs Lymphs (Manual) 710 L Lymphocytes # (Manual) PT INR APTT POC ABG pH POC ABG pCO2 25.0 L POC ABG pO2 57 L Sodium Potassium Chloride Carbon Dioxide BUN Creatinine Glucose Lactic Acid Calcium AST ALT Total Protein Albumin Lipase Urine Creatinine Urine Total Protein Lymph Enumerat CD4/CD8 0.82 L Absolute CD3 Count 524 L Absolute CD4 Count 237 L 02/01/17 02/02/17 02/02/17 05:50 05:51 05:51 WBC 16.6 H RBC 3.17 L Hgb 9.6 L Hct 30.4 L MCV 96 H RDW Plt Count Lymph % (Auto) 5.2 L [place] % (Auto) Lymph # 0.9 L [place] # 1.1 H Seg Neutrophils % 87.3 H Lymphocytes % (Manual) Nucleated RBC % Seg Neutrophils # 14.4 H Abs Lymphs (Manual) Lymphocytes # (Manual) PT INR APTT POC ABG pH POC ABG pCO2 POC ABG pO2 Sodium 146 H 148 H Potassium 3.2 L 3.4 L Chloride 107.1 H 110.3 H Carbon Dioxide 20 L 21 L BUN 30 H 28 H Creatinine Glucose 112 H Lactic Acid Calcium 8.0 L 7.9 L AST ALT Total Protein Albumin Lipase Urine Creatinine Urine Total Protein Lymph Enumerat CD4/CD8 Absolute CD3 Count Absolute CD4 Count 02/03/17 02/03/17 02/03/17 06:40 06:40 13:38 WBC 18.0 H RBC 3.40 L Hgb 10.4 L Hct 32.6 L MCV 96 H RDW 15.5 H Plt Count 519 H Lymph % (Auto) 5.0 L [place] % (Auto) Lymph # 0.9 L [place] # 1.1 H Seg Neutrophils % 87.8 H Lymphocytes % (Manual) Nucleated RBC % Seg Neutrophils # 15.8 H Abs Lymphs (Manual) Lymphocytes # (Manual) PT 26.5 H INR 2.30 H APTT 43.6 H POC ABG pH POC ABG pCO2 POC ABG pO2 Sodium 148 H Potassium 3.1 L Chloride 109.8 H Carbon Dioxide BUN 26 H Creatinine 1.7 H Glucose 121 H Lactic Acid Calcium 8.2 L AST ALT Total Protein Albumin Lipase Urine Creatinine Urine Total Protein Lymph Enumerat CD4/CD8 Absolute CD3 Count Absolute CD4 Count
--- NOTE | 2017-02-04 09:56 | Progress Note ---
Assessment and Plan (1) Left upper lobe pneumonia Current Visit: Yes Status: Acute Qualifiers: Pneumonia type: due to unspecified organism Aspiration pneumonia type: A Qualified Code(s): J18.1 - Lobar pneumonia, unspecified organism Plan to address problem: antibiotics per ID bronchoscopy today (2) Acute renal failure (ARF) Current Visit: Yes Status: Acute Qualifiers: Acute renal failure type: A Plan to address problem: labs are pending cont 1/2 NS with Kcl Avoid nephrotoxins Renally dose medications Monitor I/O's (3) HIV (human immunodeficiency virus infection) Current Visit: Yes Status: Acute Plan to address problem: on HAART may need to to stop Tenofovir if cont to have worsening with kidney function (4) Saddle pulmonary embolus Current Visit: No Status: Acute Qualifiers: Chronicity: C Acute cor pulmonale presence: A Plan to address problem: On Eliquis Subjective Date of service: 02/04/17 Principal diagnosis: Sepsis Interval history: patient was getting a bronchoscopy this AM Objective - Vital Signs Vital signs: Vital Signs - 12hr 02/03/17 02/03/17 02/04/17 23:20 23:39 03:25 Temperature 99.8 F H 98.4 F Pulse Rate Pulse Rate [ 87 61 83 Left Radial] Respiratory 20 18 17 Rate Blood Pressure Blood Pressure 126/74 123/81 [Left Arm] O2 Sat by Pulse 97 100 95 Oximetry 02/04/17 02/04/17 08:05 08:11 Temperature 99.7 F H 99.7 F H Pulse Rate 97 H 97 H Pulse Rate [ Left Radial] Respiratory 16 16 Rate Blood Pressure 171/95 171/95 Blood Pressure [Left Arm] O2 Sat by Pulse 96 96 Oximetry - Lab 02/03/17 06:40 02/03/17 06:40 Most recent lab results Calcium 8.2 mg/dL (8.4-10.2) L 02/03/17 06:40 Phosphorus 3.10 mg/dL (2.5-4.5) 01/29/17 Unknown Urine Creatinine 124.4 mg/dL (0.1-20.0) H 01/28/17 23:56 Urine Sodium 51 mEq/L 01/28/17 23:55 Urine Total Protein 71 mg/dL (5-11.8) H 01/28/17 23:56
[2017-02-04 10:03] LABS: Basophils % (Auto) 0.5 % (0.0-1.8); Eosinophils % (Auto) 0.6 % (0.0-4.3); Hematocrit 31.8 % (35.5-45.6); Hemoglobin 10.3 gm/dl (11.8-15.2); Mean Corpuscular HGB Conc 33 % (32-34); Mean Corpuscular Hemoglobin 31 pg (28-32); Mean Corpuscular Volume 94 fl (84-94); Platelet Count 543 K/mm3 (140-440); Red Blood Count 3.38 M/mm3 (3.65-5.03); White Blood Count 16.1 K/mm3 (4.5-11.0)
[2017-02-04 10:16] LABS: BUN/Creatinine Ratio 13.52; Calcium 8.2 mg/dL (8.4-10.2); Chloride 107.1 mmol/L (98-107)
[2017-02-04 10:26] LABS: Potassium 3.7 mmol/L (3.6-5.0)
[2017-02-04] MEDS: MERREM 1,000 MG in NACL 0.9% 100 ML IV SCH ×3 (10:39→22:38)
[2017-02-04] MEDS: D5W/0.45% NACL/KCL 30 MEQ 30 MEQ/1,000 ML BAG IV SCH (10:53)
--- NOTE | 2017-02-04 12:11 | Progress Note ---
Assessment and Plan Assessment and plan: Patient is 56 year old man with a history of AIDS, CHF, hypertension, recent Saddle pulmonary emboli s/p ekos who presented to ED with sob, cough and left side pains. CTA chest +bilateral PE and MELVINA infiltrates. * Sepsis secondary MELVINA Aspiration Pneumonitis, Cavitary/Necrotizing Pneumonia with hemoptysis per Pulmonology. * STACEY most likely vasomotor nephropathy, poa resolved but continue to monitor * AIDS/HIV chronic and underlying process to this infection: ID is following * Hypertension,chronic and stable * Moderate protein calorie malnutrition: dietary follow up * Pulmonary embolism-Saddle: on Eliquis * Hemoptysis-resolved * Transaminitis, mild and resolving * Anemia of chronic disease. Still in TB isolation, AFB negative x 1, other smear appear to be contaminated? -Hypokalemia: replaced as additive, renal is following -Hypernatremia, mild: rechecked, ivf changed -Drop in HCT, slowly dropping resolved -Abx stopped per ID Bronchial washing ctx pending AFB pending Fungal culture pending Quantiferon Gold pending 02/04/17: Back from Bronchoscopy, findings as follows: "Flexible Bronchoscopy with Bronchial Washing of Left upper lobe. After obtaining informed consent. Patient brought to Endo suite and preppred. Right nostril was anesthetized. Scope passed without difficulty. Vocal cords seen and had good AB and AD duction. Lidocaine x3 used on cords. Entered into Trachea. Normal. Lido used there. Passed down to david, normal. Lidocaine administered in left main stem then right. Airway inspection done first. Normal left side of lung. Abnormal right lower lobe seen on left. Remainder of airway inspection unremarkable. Scope then retracted and wedged into the left upper lobe. Bronchial washings were taken. Decent return. Some scope trauma visualized but no active bleeding. Scope retracted and patient being recovered." per Dr. Shepard. History Interval history: Patient seen and examined. Follow up on cough. Overnight uneventful. No cp, sob , n/v or severe headaches. Imaging, old records, testing, labs, nursing notes reviewed. Still requiring oxygen 2l, still with productive cough Hospitalist Physical - Physical exam Narrative exam: GEN: Ill-appearing, deconditioned NAD, AWAKE, ALERT, ORIENTATED x 3 CVS: RRR, NORMAL S1S2 LUNGS/CHEST: crackles left, NORMAL CHEST EXPANSION B, diminished AIR ENTRY B ABD: SOFT, NTND, GBS, NO REBOUND OR GUARDING EXT/SKIN: NO SIGNIFICANT EDEMA OR RASH MSK: FROM X 4 EXTREMITIES NEURO: CN 2-12 GROSSLY INTACT, NO FOCAL DEFICITS PSY: CALM - Constitutional Vitals: Temp Pulse Resp BP Pulse Ox 99.9 F H 89 89 H 132/76 96 02/04/17 09:35 02/04/17 09:35 02/04/17 09:35 02/04/17 09:35 02/04/17 09:35 General appearance: Present: no acute distress Results - Labs CBC & Chem 7: 02/04/17 09:44 02/04/17 09:44 Labs: Laboratory Last Values WBC 16.1 K/mm3 (4.5-11.0) H 02/04/17 09:44 RBC 3.38 M/mm3 (3.65-5.03) L 02/04/17 09:44 Hgb 10.3 gm/dl (11.8-15.2) L 02/04/17 09:44 Hct 31.8 % (35.5-45.6) L 02/04/17 09:44 MCV 94 fl (84-94) 02/04/17 09:44 MCH 31 pg (28-32) 02/04/17 09:44 MCHC 33 % (32-34) 02/04/17 09:44 RDW 15.0 % (13.2-15.2) 02/04/17 09:44 Plt Count 543 K/mm3 (140-440) H 02/04/17 09:44 Lymph % (Auto) 4.4 % (13.4-35.0) L 02/04/17 09:44 [place] % (Auto) 6.6 % (0.0-7.3) 02/04/17 09:44 Eos % (Auto) 0.6 % (0.0-4.3) 02/04/17 09:44 Baso % (Auto) 0.5 % (0.0-1.8) 02/04/17 09:44 Lymph # 0.7 K/mm3 (1.2-5.4) L 02/04/17 09:44 [place] # 1.1 K/mm3 (0.0-0.8) H 02/04/17 09:44 Eos # 0.1 K/mm3 (0.0-0.4) 02/04/17 09:44 Baso # 0.1 K/mm3 (0.0-0.1) 02/04/17 09:44 Add Manual Diff Complete 01/26/17 05:45 Total Counted 100 01/26/17 05:45 Seg Neutrophils % 87.9 % (40.0-70.0) H 02/04/17 09:44 Seg Neuts % (Manual) 62.0 % (40.0-70.0) 01/26/17 05:45 Band Neutrophils % 29.0 % 01/26/17 05:45 Lymphocytes % (Manual) 6.0 % (13.4-35.0) L 01/26/17 05:45 Reactive Lymphs % (Man) 0 % 01/26/17 05:45 Monocytes % (Manual) 3.0 % (0.0-7.3) 01/26/17 05:45 Eosinophils % (Manual) 0 % (0.0-4.3) 01/26/17 05:45 Basophils % (Manual) 0 % (0.0-1.8) 01/26/17 05:45 Metamyelocytes % 0 % 01/26/17 05:45 Myelocytes % 0 % 01/26/17 05:45 Promyelocytes % 0 % 01/26/17 05:45 Blast Cells % 0 % 01/26/17 05:45 Nucleated RBC % 2.0 % (0.0-0.9) H 01/26/17 05:45 Seg Neutrophils # 14.1 K/mm3 (1.8-7.7) H 02/04/17 09:44 Seg Neutrophils # Man 6.1 K/mm3 (1.8-7.7) 01/26/17 05:45 Band Neutrophils # 2.8 K/mm3 01/26/17 05:45 Abs Lymphs (Manual) 710 cells/uL (850-3900) L 01/31/17 20:35 Lymphocytes # (Manual) 0.6 K/mm3 (1.2-5.4) L 01/26/17 05:45 Abs React Lymphs (Man) 0.0 K/mm3 01/26/17 05:45 Monocytes # (Manual) 0.3 K/mm3 (0.0-0.8) 01/26/17 05:45 Eosinophils # (Manual) 0.0 K/mm3 (0.0-0.4) 01/26/17 05:45 Basophils # (Manual) 0.0 K/mm3 (0.0-0.1) 01/26/17 05:45 Metamyelocytes # 0.0 K/mm3 01/26/17 05:45 Myelocytes # 0.0 K/mm3 01/26/17 05:45 Promyelocytes # 0.0 K/mm3 01/26/17 05:45 Blast Cells # 0.0 K/mm3 01/26/17 05:45 WBC Morphology Not Reportable 01/26/17 05:45 Hypersegmented Neuts Not Reportable 01/26/17 05:45 Hyposegmented Neuts Not Reportable 01/26/17 05:45 Hypogranular Neuts Not Reportable 01/26/17 05:45 Smudge Cells Not Reportable 01/26/17 05:45 Toxic Granulation Not Reportable 01/26/17 05:45 Toxic Vacuolation Not Reportable 01/26/17 05:45 Dohle Bodies Not Reportable 01/26/17 05:45 Pelger-Huet Anomaly Not Reportable 01/26/17 05:45 Aylin Rods Not Reportable 01/26/17 05:45 Platelet Estimate Consistent w auto 01/26/17 05:45 Clumped Platelets Rare 01/26/17 05:45 Plt Clumps, EDTA Not Reportable 01/26/17 05:45 Large Platelets Not Reportable 01/26/17 05:45 Giant Platelets Not Reportable 01/26/17 05:45 Platelet Satelliting Not Reportable 01/26/17 05:45 Plt Morphology Comment Not Reportable 01/26/17 05:45 RBC Morphology Not Reportable 01/26/17 05:45 Dimorphic RBCs Not Reportable 01/26/17 05:45 Polychromasia Not Reportable 01/26/17 05:45 Hypochromasia Not Reportable 01/26/17 05:45 Poikilocytosis Not Reportable 01/26/17 05:45 Anisocytosis 1+ 01/26/17 05:45 Microcytosis Not Reportable 01/26/17 05:45 Macrocytosis Not Reportable 01/26/17 05:45 Spherocytes Not Reportable 01/26/17 05:45 Pappenheimer Bodies Not Reportable 01/26/17 05:45 Sickle Cells Not Reportable 01/26/17 05:45 Target Cells Not Reportable 01/26/17 05:45 Tear Drop Cells Not Reportable 01/26/17 05:45 Ovalocytes Not Reportable 01/26/17 05:45 Helmet Cells Not Reportable 01/26/17 05:45 [place] Bodies Not Reportable 01/26/17 05:45 [place] Rings Not Reportable 01/26/17 05:45 [place] Cells Few 01/26/17 05:45 Bite Cells Not Reportable 01/26/17 05:45 Crenated Cell Not Reportable 01/26/17 05:45 Elliptocytes Not Reportable 01/26/17 05:45 Acanthocytes (Spur) Not Reportable 01/26/17 05:45 Rouleaux Not Reportable 01/26/17 05:45 Hemoglobin C Crystals Not Reportable 01/26/17 05:45 Schistocytes Not Reportable 01/26/17 05:45 Malaria parasites Not Reportable 01/26/17 05:45 D[place]a Bodies Not Reportable 01/26/17 05:45 Hem Pathologist Commnt No 01/26/17 05:45 PT 26.5 Sec. (12.2-14.9) H 02/03/17 13:38 INR 2.30 (0.87-1.13) H 02/03/17 13:38 APTT 43.6 Sec. (24.2-36.6) H 02/03/17 13:38 POC ABG pH 7.411 (7.35-7.45) 01/30/17 22:34 POC ABG pCO2 25.0 (35-45) L 01/30/17 22:34 POC ABG pO2 57 (80-105) L 01/30/17 22:34 POC ABG HCO3 15.9 01/30/17 22:34 POC ABG Total CO2 17 01/30/17 22:34 POC ABG O2 Sat 90 01/30/17 22:34 POC ABG Base Excess -9 01/30/17 22:34 VBG pH 7.374 (7.320-7.420) 01/25/17 00:44 FiO2 70 % 01/30/17 22:34 Sodium 143 mmol/L (137-145) 02/04/17 09:44 Potassium 3.7 mmol/L (3.6-5.0) 02/04/17 09:44 Chloride 107.1 mmol/L (98-107) H 02/04/17 09:44 Carbon Dioxide 22 mmol/L (22-30) 02/04/17 09:44 Anion Gap 18 mmol/L 02/04/17 09:44 BUN 23 mg/dL (9-20) H 02/04/17 09:44 Creatinine 1.7 mg/dL (0.8-1.5) H 02/04/17 09:44 Estimated GFR 51 ml/min 02/04/17 09:44 BUN/Creatinine Ratio 13.52 % 02/04/17 09:44 Glucose 115 mg/dL (75-100) H 02/04/17 09:44 Osmolality 311 Mosm/kg 01/29/17 Unknown Lactic Acid 1.40 mmol/L (0.7-2.0) 01/28/17 11:56 Calcium 8.2 mg/dL (8.4-10.2) L 02/04/17 09:44 Phosphorus 3.10 mg/dL (2.5-4.5) 01/29/17 Unknown Total Bilirubin 0.20 mg/dL (0.1-1.2) 01/30/17 04:10 Direct Bilirubin < 0.2 mg/dL (0-0.2) 01/27/17 12:15 AST 75 units/L (5-40) H 01/30/17 04:10 ALT 77 units/L (7-56) H 01/30/17 04:10 Alkaline Phosphatase 81 units/L (35-129) 01/30/17 04:10 Troponin T < 0.010 ng/mL (0.00-0.029) 01/25/17 03:15 Total Protein 6.7 g/dL (6.3-8.2) 01/30/17 04:10 Albumin 2.6 g/dL (3.9-5) L 01/30/17 04:10 Albumin/Globulin Ratio 0.6 % 01/30/17 04:10 Lipase 63 units/L (13-60) H 01/30/17 04:10 Urine Color Yellow (Yellow) 01/28/17 23:55 Urine Turbidity Clear (Clear) 01/28/17 23:55 Urine pH 5.0 (5.0-7.0) 01/28/17 23:55 Ur Specific [place] 1.019 (1.003-1.030) 01/28/17 23:55 Urine Protein 30 mg/dl mg/dL (Negative) 01/28/17 23:55 Urine Glucose (UA) Neg mg/dL (Negative) 01/28/17 23:55 Urine Ketones Neg mg/dL (Negative) 01/28/17 23:55 Urine Blood Sm (Negative) 01/28/17 23:55 Urine Nitrite Neg (Negative) 01/28/17 23:55 Urine Bilirubin Neg (Negative) 01/28/17 23:55 Urine Urobilinogen < 2.0 mg/dL (<2.0) 01/28/17 23:55 Ur Leukocyte Esterase Neg (Negative) 01/28/17 23:55 Urine WBC (Auto) 2.0 /HPF (0.0-6.0) 01/28/17 23:55 Urine RBC (Auto) 3.0 /HPF (0.0-6.0) 01/28/17 23:55 Uric Acid Crystals Few 01/28/17 23:55 Amorphous Crystals 1+ 01/28/17 23:55 Urine Mucus Few /HPF 01/28/17 23:55 Urine Eosinophils None seen (None Seen) 01/28/17 23:55 Urine Creatinine 124.4 mg/dL (0.1-20.0) H 01/28/17 23:56 Protein/Creatinin Ratio 0.56 01/28/17 23:55 Urine Sodium 51 mEq/L 01/28/17 23:55 Urine Total Protein 71 mg/dL (5-11.8) H 01/28/17 23:56 Vancomycin Trough 15.0 ug/mL (5.0-20.0) 01/28/17 08:36 Lymph Enumerat CD4/CD8 0.82 (0.86-5.00) L 01/31/17 20:35 % CD3 Cells 74 % (57-85) 01/31/17 20:35 Absolute CD3 Count 524 cells/uL (840-3060) L 01/31/17 20:35 % CD4 Cells 34 % (30-61) 01/31/17 20:35 Absolute CD4 Count 237 cells/uL (490-1740) L 01/31/17 20:35 % CD8 Cells 41 % (12-42) 01/31/17 20:35 Absolute CD8 Count 289 cells/uL (180-1170) 01/31/17 20:35 % CD19 Cells 17 % (6-29) 01/31/17 20:35 Absolute CD19 Count 121 cells/uL (110-660) 01/31/17 20:35 Hepatitis A IgM Ab Non-reactive (NonReactive) 01/28/17 11:56 Hep Bs Antigen Non-reactive (Negative) 01/28/17 11:56 Hep B Core IgM Ab Non-reactive (NonReactive) 01/28/17 11:56 Hepatitis C Antibody Non-reactive (NonReactive) 01/28/17 11:56 Blood Type B POSITIVE 01/24/17 22:07 Antibody Screen TNR 01/24/17 22:07 ALIDA Antibody Screen Negative 01/24/17 22:07
[2017-02-04] MEDS: SUSTIVA PO SCH (13:40)
[2017-02-04] MEDS: EMTRIVA PO SCH (13:40)
[2017-02-04] MEDS: VANCOMYCIN 1,250 MG in NACL 0.9% 250ML 250 ML IV SCH (13:40)
[2017-02-04] MEDS: ELIQUIS PO SCH ×2 (13:41→21:11)
[2017-02-04] MEDS: IMDUR PO SCH (13:41)
[2017-02-04] MEDS: TOPROL XL PO SCH (13:42)
[2017-02-04] MEDS: VIREAD PO SCH (13:42)
[2017-02-04] MEDS: LEXAPRO PO SCH (13:42)
[2017-02-04] MEDS: PEPCID PO SCH ×2 (13:42→21:11)
[2017-02-04] MEDS: K-DUR PO SCH (13:55)
[2017-02-05] MEDS ORDERED: AMBIEN PO ONE (00:22)
[2017-02-05] MEDS: VANCOMYCIN 1,250 MG in NACL 0.9% 250ML 250 ML IV SCH ×2 (00:37→10:00)
[2017-02-05] MEDS: MORPHINE IV PRN ×3 (00:38→19:46)
[2017-02-05] MEDS: MERREM 1,000 MG in NACL 0.9% 100 ML IV SCH ×2 (06:27→15:50)
[2017-02-05] MEDS: FLAGYL 500 MG/100 ML 500 MG/100 ML BAG IV SCH ×2 (06:28→13:18)
[2017-02-05] MEDS: TESSALON PERLES PO SCH ×2 (06:36→13:19)
[2017-02-05 07:18] LABS: Hematocrit 29.8 % (35.5-45.6); Hemoglobin 9.6 gm/dl (11.8-15.2); Mean Corpuscular HGB Conc 32 % (32-34); Mean Corpuscular Hemoglobin 31 pg (28-32); Mean Corpuscular Volume 95 fl (84-94); Platelet Count 514 K/mm3 (140-440); Red Blood Count 3.13 M/mm3 (3.65-5.03); White Blood Count 13.3 K/mm3 (4.5-11.0)
[2017-02-05 07:31] LABS: Basophils % (Auto) 0.2 % (0.0-1.8); Eosinophils % (Auto) 1.2 % (0.0-4.3)
[2017-02-05 07:33] LABS: BUN/Creatinine Ratio 12.94; Chloride 109.1 mmol/L (98-107); Potassium 3.3 mmol/L (3.6-5.0)
[2017-02-05] MEDS: PULMICORT IH SCH ×2 (08:22→20:13)
--- NOTE | 2017-02-05 09:56 | Progress Note ---
Assessment and Plan (1) Left upper lobe pneumonia Current Visit: Yes Status: Acute Qualifiers: Pneumonia type: due to unspecified organism Aspiration pneumonia type: A Qualified Code(s): J18.1 - Lobar pneumonia, unspecified organism Plan to address problem: s/p bronch, results pending (2) Acute renal failure (ARF) Current Visit: Yes Status: Acute Qualifiers: Acute renal failure type: A Plan to address problem: stable Cr since yesterday will increase oral Kcl to BID, will check Mg in AM cont 1/2 NS with Kcl Avoid nephrotoxins Renally dose medications Monitor I/O's (3) HIV (human immunodeficiency virus infection) Current Visit: Yes Status: Acute Plan to address problem: on HAART may need to to stop Tenofovir if cont to have worsening with kidney function (4) S[place] pulmonary embolus Current Visit: No Status: Acute Qualifiers: Chronicity: C Acute cor pulmonale presence: A Plan to address problem: On Eliquis Subjective Date of service: 02/05/17 Principal diagnosis: Sepsis Interval history: tolerated procedure yesterday, remains to have productive cough Objective - Vital Signs Vital signs: Vital Signs - 12hr 02/04/17 02/05/17 22:00 07:00 Temperature 99.9 F H Pulse Rate 84 Pulse Rate [ 84 Left Radial] Respiratory 18 Rate Blood Pressure 136/75 [Left Arm] O2 Sat by Pulse 97 Oximetry - General Appearance General appearance: well-developed EENT: ATNC, PERRL, mucous membranes moist Neck: no JVD, no carotid bruit Respiratory: Present: Decreased Breath Sounds Cardiology: regular, S1S2 Integumentary: no rash, warm and dry Neurologic: no focal deficit, no asterixis, alert and oriented x3 Musculoskeletal: other (no edema in BLE) Psychiatric: mood/affect appropriate, cooperative - Lab 02/05/17 06:48 02/05/17 06:48 Most recent lab results Calcium 8.0 mg/dL (8.4-10.2) L 02/05/17 06:48 Phosphorus 3.10 mg/dL (2.5-4.5) 01/29/17 Unknown Urine Creatinine 124.4 mg/dL (0.1-20.0) H 01/28/17 23:56 Urine Sodium 51 mEq/L 01/28/17 23:55 Urine Total Protein 71 mg/dL (5-11.8) H 01/28/17 23:56
[2017-02-05] MEDS: PEPCID PO SCH (10:56)
[2017-02-05] MEDS: IMDUR PO SCH (10:56)
[2017-02-05] MEDS: LEXAPRO PO SCH (10:58)
[2017-02-05] MEDS: TOPROL XL PO SCH (10:58)
[2017-02-05] MEDS: SUSTIVA PO SCH (10:59)
[2017-02-05] MEDS: K-DUR PO SCH (10:59)
[2017-02-05] MEDS: EMTRIVA PO SCH (11:00)
[2017-02-05] MEDS: VIREAD PO SCH (11:01)
[2017-02-05] MEDS: ELIQUIS PO SCH (11:02)
[2017-02-05] MEDS: D5W/0.45% NACL/KCL 30 MEQ 30 MEQ/1,000 ML BAG IV SCH (11:03)
[2017-02-05] MEDS ORDERED: POTASSIUM CHLORIDE PO ONE (12:08)
--- NOTE | 2017-02-05 12:09 | Progress Note ---
Assessment and Plan Assessment and plan: Patient is 56 year old man with a history of AIDS, CHF, hypertension, recent Saddle pulmonary emboli s/p ekos who presented to ED with sob, cough and left side pains. CTA chest +bilateral PE and MELVINA infiltrates. * Sepsis secondary MELVINA Aspiration Pneumonitis, Cavitary/Necrotizing Pneumonia with hemoptysis per Pulmonology. * STACEY most likely vasomotor nephropathy, poa resolved but continue to monitor * AIDS/HIV chronic and underlying process to this infection: ID is following * Hypertension,chronic and stable * Moderate protein calorie malnutrition: dietary follow up * Pulmonary embolism-Saddle: on Eliquis * Hemoptysis-resolved * Transaminitis, mild and resolving * Anemia of chronic disease. Still in TB isolation, AFB negative x 1, other smear appear to be contaminated? -Hypokalemia: replaced as additive, renal is following -Hypernatremia, mild: rechecked, ivf changed -Drop in HCT, slowly dropping resolved -Abx stopped per ID Bronchial washing ctx pending AFB pending Fungal culture pending Quantiferon Gold pending 02/04/17: Back from Bronchoscopy, findings as follows: "Flexible Bronchoscopy with Bronchial Washing of Left upper lobe. After obtaining informed consent. Patient brought to Endo suite and preppred. Right nostril was anesthetized. Scope passed without difficulty. Vocal cords seen and had good AB and AD duction. Lidocaine x3 used on cords. Entered into Trachea. Normal. Lido used there. Passed down to david, normal. Lidocaine administered in left main stem then right. Airway inspection done first. Normal left side of lung. Abnormal right lower lobe seen on left. Remainder of airway inspection unremarkable. Scope then retracted and wedged into the left upper lobe. Bronchial washings were taken. Decent return. Some scope trauma visualized but no active bleeding. Scope retracted and patient being recovered." per Dr. Shepard. 02/05/17: New issue of n/v/ab pain maybe due to extreme coughing but will get KUB. replace potassium History Interval history: Patient seen and examined. Follow up on cough. Overnight uneventful. No cp, sob , or severe headaches. Imaging, old records, testing, labs, nursing notes reviewed. Still requiring oxygen 2l, still with productive cough, +abd with n/ v will get kub Hospitalist Physical - Physical exam Narrative exam: GEN: Ill-appearing, deconditioned NAD, AWAKE, ALERT, ORIENTATED x 3 CVS: RRR, NORMAL S1S2 LUNGS/CHEST: crackles left, NORMAL CHEST EXPANSION B, diminished AIR ENTRY B ABD: SOFT, NTND, GBS, NO REBOUND OR GUARDING EXT/SKIN: NO SIGNIFICANT EDEMA OR RASH MSK: FROM X 4 EXTREMITIES NEURO: CN 2-12 GROSSLY INTACT, NO FOCAL DEFICITS PSY: CALM - Constitutional Vitals: Temp Pulse Resp BP Pulse Ox 99.9 F H 84 18 136/75 97 02/05/17 07:00 02/05/17 07:00 02/05/17 07:00 02/05/17 07:00 02/05/17 07:00 General appearance: Present: no acute distress Results - Labs CBC & Chem 7: 02/05/17 06:48 02/05/17 06:48 Labs: Laboratory Last Values WBC 13.3 K/mm3 (4.5-11.0) H 02/05/17 06:48 RBC 3.13 M/mm3 (3.65-5.03) L 02/05/17 06:48 Hgb 9.6 gm/dl (11.8-15.2) L 02/05/17 06:48 Hct 29.8 % (35.5-45.6) L 02/05/17 06:48 MCV 95 fl (84-94) H 02/05/17 06:48 MCH 31 pg (28-32) 02/05/17 06:48 MCHC 32 % (32-34) 02/05/17 06:48 RDW 15.0 % (13.2-15.2) 02/05/17 06:48 Plt Count 514 K/mm3 (140-440) H 02/05/17 06:48 Lymph % (Auto) 5.0 % (13.4-35.0) L 02/05/17 06:48 [place] % (Auto) 7.9 % (0.0-7.3) H 02/05/17 06:48 Eos % (Auto) 1.2 % (0.0-4.3) 02/05/17 06:48 Baso % (Auto) 0.2 % (0.0-1.8) 02/05/17 06:48 Lymph # 0.7 K/mm3 (1.2-5.4) L 02/05/17 06:48 [place] # 1.1 K/mm3 (0.0-0.8) H 02/05/17 06:48 Eos # 0.2 K/mm3 (0.0-0.4) 02/05/17 06:48 Baso # 0.0 K/mm3 (0.0-0.1) 02/05/17 06:48 Add Manual Diff Complete 01/26/17 05:45 Total Counted 100 01/26/17 05:45 Seg Neutrophils % 85.7 % (40.0-70.0) H 02/05/17 06:48 Seg Neuts % (Manual) 62.0 % (40.0-70.0) 01/26/17 05:45 Band Neutrophils % 29.0 % 01/26/17 05:45 Lymphocytes % (Manual) 6.0 % (13.4-35.0) L 01/26/17 05:45 Reactive Lymphs % (Man) 0 % 01/26/17 05:45 Monocytes % (Manual) 3.0 % (0.0-7.3) 01/26/17 05:45 Eosinophils % (Manual) 0 % (0.0-4.3) 01/26/17 05:45 Basophils % (Manual) 0 % (0.0-1.8) 01/26/17 05:45 Metamyelocytes % 0 % 01/26/17 05:45 Myelocytes % 0 % 01/26/17 05:45 Promyelocytes % 0 % 01/26/17 05:45 Blast Cells % 0 % 01/26/17 05:45 Nucleated RBC % 2.0 % (0.0-0.9) H 01/26/17 05:45 Seg Neutrophils # 11.8 K/mm3 (1.8-7.7) H 02/05/17 06:48 Seg Neutrophils # Man 6.1 K/mm3 (1.8-7.7) 01/26/17 05:45 Band Neutrophils # 2.8 K/mm3 01/26/17 05:45 Abs Lymphs (Manual) 710 cells/uL (850-3900) L 01/31/17 20:35 Lymphocytes # (Manual) 0.6 K/mm3 (1.2-5.4) L 01/26/17 05:45 Abs React Lymphs (Man) 0.0 K/mm3 01/26/17 05:45 Monocytes # (Manual) 0.3 K/mm3 (0.0-0.8) 01/26/17 05:45 Eosinophils # (Manual) 0.0 K/mm3 (0.0-0.4) 01/26/17 05:45 Basophils # (Manual) 0.0 K/mm3 (0.0-0.1) 01/26/17 05:45 Metamyelocytes # 0.0 K/mm3 01/26/17 05:45 Myelocytes # 0.0 K/mm3 01/26/17 05:45 Promyelocytes # 0.0 K/mm3 01/26/17 05:45 Blast Cells # 0.0 K/mm3 01/26/17 05:45 WBC Morphology Not Reportable 01/26/17 05:45 Hypersegmented Neuts Not Reportable 01/26/17 05:45 Hyposegmented Neuts Not Reportable 01/26/17 05:45 Hypogranular Neuts Not Reportable 01/26/17 05:45 Smudge Cells Not Reportable 01/26/17 05:45 Toxic Granulation Not Reportable 01/26/17 05:45 Toxic Vacuolation Not Reportable 01/26/17 05:45 Dohle Bodies Not Reportable 01/26/17 05:45 Pelger-Huet Anomaly Not Reportable 01/26/17 05:45 Aylin Rods Not Reportable 01/26/17 05:45 Platelet Estimate Consistent w auto 01/26/17 05:45 Clumped Platelets Rare 01/26/17 05:45 Plt Clumps, EDTA Not Reportable 01/26/17 05:45 Large Platelets Not Reportable 01/26/17 05:45 Giant Platelets Not Reportable 01/26/17 05:45 Platelet Satelliting Not Reportable 01/26/17 05:45 Plt Morphology Comment Not Reportable 01/26/17 05:45 RBC Morphology Not Reportable 01/26/17 05:45 Dimorphic RBCs Not Reportable 01/26/17 05:45 Polychromasia Not Reportable 01/26/17 05:45 Hypochromasia Not Reportable 01/26/17 05:45 Poikilocytosis Not Reportable 01/26/17 05:45 Anisocytosis 1+ 01/26/17 05:45 Microcytosis Not Reportable 01/26/17 05:45 Macrocytosis Not Reportable 01/26/17 05:45 Spherocytes Not Reportable 01/26/17 05:45 Pappenheimer Bodies Not Reportable 01/26/17 05:45 Sickle Cells Not Reportable 01/26/17 05:45 Target Cells Not Reportable 01/26/17 05:45 Tear Drop Cells Not Reportable 01/26/17 05:45 Ovalocytes Not Reportable 01/26/17 05:45 Helmet Cells Not Reportable 01/26/17 05:45 Nicolas-Kirwin Bodies Not Reportable 01/26/17 05:45 [place] Rings Not Reportable 01/26/17 05:45 Hessel Cells Few 01/26/17 05:45 Bite Cells Not Reportable 01/26/17 05:45 Crenated Cell Not Reportable 01/26/17 05:45 Elliptocytes Not Reportable 01/26/17 05:45 Acanthocytes (Spur) Not Reportable 01/26/17 05:45 Rouleaux Not Reportable 01/26/17 05:45 Hemoglobin C Crystals Not Reportable 01/26/17 05:45 Schistocytes Not Reportable 01/26/17 05:45 Malaria parasites Not Reportable 01/26/17 05:45 Donta Bodies Not Reportable 01/26/17 05:45 Hem Pathologist Commnt No 01/26/17 05:45 PT 26.5 Sec. (12.2-14.9) H 02/03/17 13:38 INR 2.30 (0.87-1.13) H 02/03/17 13:38 APTT 43.6 Sec. (24.2-36.6) H 02/03/17 13:38 POC ABG pH 7.411 (7.35-7.45) 01/30/17 22:34 POC ABG pCO2 25.0 (35-45) L 01/30/17 22:34 POC ABG pO2 57 (80-105) L 01/30/17 22:34 POC ABG HCO3 15.9 01/30/17 22:34 POC ABG Total CO2 17 01/30/17 22:34 POC ABG O2 Sat 90 01/30/17 22:34 POC ABG Base Excess -9 01/30/17 22:34 VBG pH 7.374 (7.320-7.420) 01/25/17 00:44 FiO2 70 % 01/30/17 22:34 Sodium 144 mmol/L (137-145) 02/05/17 06:48 Potassium 3.3 mmol/L (3.6-5.0) L 02/05/17 06:48 Chloride 109.1 mmol/L (98-107) H 02/05/17 06:48 Carbon Dioxide 22 mmol/L (22-30) 02/05/17 06:48 Anion Gap 16 mmol/L 02/05/17 06:48 BUN 22 mg/dL (9-20) H 02/05/17 06:48 Creatinine 1.7 mg/dL (0.8-1.5) H 02/05/17 06:48 Estimated GFR 51 ml/min 02/05/17 06:48 BUN/Creatinine Ratio 12.94 % 02/05/17 06:48 Glucose 111 mg/dL (75-100) H 02/05/17 06:48 Osmolality 311 Mosm/kg 01/29/17 Unknown Lactic Acid 1.40 mmol/L (0.7-2.0) 01/28/17 11:56 Calcium 8.0 mg/dL (8.4-10.2) L 02/05/17 06:48 Phosphorus 3.10 mg/dL (2.5-4.5) 01/29/17 Unknown Total Bilirubin 0.20 mg/dL (0.1-1.2) 01/30/17 04:10 Direct Bilirubin < 0.2 mg/dL (0-0.2) 01/27/17 12:15 AST 75 units/L (5-40) H 01/30/17 04:10 ALT 77 units/L (7-56) H 01/30/17 04:10 Alkaline Phosphatase 81 units/L (35-129) 01/30/17 04:10 Troponin T < 0.010 ng/mL (0.00-0.029) 01/25/17 03:15 Total Protein 6.7 g/dL (6.3-8.2) 01/30/17 04:10 Albumin 2.6 g/dL (3.9-5) L 01/30/17 04:10 Albumin/Globulin Ratio 0.6 % 01/30/17 04:10 Lipase 63 units/L (13-60) H 01/30/17 04:10 Urine Color Yellow (Yellow) 01/28/17 23:55 Urine Turbidity Clear (Clear) 01/28/17 23:55 Urine pH 5.0 (5.0-7.0) 01/28/17 23:55 Ur Specific [place] 1.019 (1.003-1.030) 01/28/17 23:55 Urine Protein 30 mg/dl mg/dL (Negative) 01/28/17 23:55 Urine Glucose (UA) Neg mg/dL (Negative) 01/28/17 23:55 Urine Ketones Neg mg/dL (Negative) 01/28/17 23:55 Urine Blood Sm (Negative) 01/28/17 23:55 Urine Nitrite Neg (Negative) 01/28/17 23:55 Urine Bilirubin Neg (Negative) 01/28/17 23:55 Urine Urobilinogen < 2.0 mg/dL (<2.0) 01/28/17 23:55 Ur Leukocyte Esterase Neg (Negative) 01/28/17 23:55 Urine WBC (Auto) 2.0 /HPF (0.0-6.0) 01/28/17 23:55 Urine RBC (Auto) 3.0 /HPF (0.0-6.0) 01/28/17 23:55 Uric Acid Crystals Few 01/28/17 23:55 Amorphous Crystals 1+ 01/28/17 23:55 Urine Mucus Few /HPF 01/28/17 23:55 Urine Eosinophils None seen (None Seen) 01/28/17 23:55 Urine Creatinine 124.4 mg/dL (0.1-20.0) H 01/28/17 23:56 Protein/Creatinin Ratio 0.56 01/28/17 23:55 Urine Sodium 51 mEq/L 01/28/17 23:55 Urine Total Protein 71 mg/dL (5-11.8) H 01/28/17 23:56 Vancomycin Trough 22.3 ug/mL (5.0-20.0) H 02/05/17 10:29 Lymph Enumerat CD4/CD8 0.82 (0.86-5.00) L 01/31/17 20:35 % CD3 Cells 74 % (57-85) 01/31/17 20:35 Absolute CD3 Count 524 cells/uL (840-3060) L 01/31/17 20:35 % CD4 Cells 34 % (30-61) 01/31/17 20:35 Absolute CD4 Count 237 cells/uL (490-1740) L 01/31/17 20:35 % CD8 Cells 41 % (12-42) 01/31/17 20:35 Absolute CD8 Count 289 cells/uL (180-1170) 01/31/17 20:35 % CD19 Cells 17 % (6-29) 01/31/17 20:35 Absolute CD19 Count 121 cells/uL (110-660) 01/31/17 20:35 Hepatitis A IgM Ab Non-reactive (NonReactive) 01/28/17 11:56 Hep Bs Antigen Non-reactive (Negative) 01/28/17 11:56 Hep B Core IgM Ab Non-reactive (NonReactive) 01/28/17 11:56 Hepatitis C Antibody Non-reactive (NonReactive) 01/28/17 11:56 TB (QFT) Gold In Tube Indeterminate (Negative) H 02/02/17 16:30 TB Test (QFT) Nil 0.07 IU/mL 02/02/17 16:30 TB Test Mitogen - Nil 0.16 IU/mL 02/02/17 16:30 TB Test Antigen - Nil 0.03 IU/mL 02/02/17 16:30 Blood Type B POSITIVE 01/24/17 22:07 Antibody Screen TNR 01/24/17 22:07 ALIDA Antibody Screen Negative 01/24/17 22:07
[2017-02-05] MEDS: BROVANA NEBU IH SCH ×2 (12:16→20:13)
--- NOTE | 2017-02-05 14:18 | Progress Note ---
Assessment and Plan 56 y/o male with HIV, recent saddle PE s/p ekos, now with new left upper lobe cavitary pneumonia and acute respiratory failure. 1. Follow up Bronch results 2. continue supplemental O2 and bipap therapy at night 3. Abx therapy per ID Subjective Date of service: 02/05/17 Principal diagnosis: Sepsis Interval history: Down to 2 liters NC. Stable. Objective Vital Signs - 12hr 02/05/17 02/05/17 02/05/17 07:00 08:00 08:10 Temperature 99.9 F H Pulse Rate [ 84 86 Anterior Bilateral Throughout] Pulse Rate [ 84 Left Radial] Respiratory 18 Rate Respiratory 18 18 Rate [Anterior Bilateral Throughout] Blood Pressure 136/75 [Left Arm] O2 Sat by Pulse 97 Oximetry 02/05/17 02/05/17 10:00 12:00 Temperature 99.6 F Pulse Rate [ Anterior Bilateral Throughout] Pulse Rate [ 77 Left Radial] Respiratory 18 Rate Respiratory Rate [Anterior Bilateral Throughout] Blood Pressure 157/82 [Left Arm] O2 Sat by Pulse 98 Oximetry Constitutional: no acute distress, alert Eyes: non-icteric ENT: oropharynx moist Neck: supple, no lymphadenopathy, no JVD Effort: normal Ascultation: Bilateral: clear, diminished breath sounds, rales (left field) Percussion: Bilateral: not dull Cardiovascular: regular rate and rhythm Gastrointestinal: normoactive bowel sounds, non-distended Integumentary: normal Extremities: no cyanosis Neurologic: normal mental status, non-focal exam, pupils equal and round, CN II- XII normal Psychiatric: mood appropriate, affect normal CBC and BMP: 02/05/17 06:48 02/05/17 06:48 ABG, PT/INR, D-dimer: ABG POC ABG pH 7.411 (7.35-7.45) 01/30/17 22:34 POC ABG pCO2 25.0 (35-45) L 01/30/17 22:34 POC ABG pO2 57 (80-105) L 01/30/17 22:34 POC ABG HCO3 15.9 01/30/17 22:34 POC ABG Total CO2 17 01/30/17 22:34 POC ABG O2 Sat 90 01/30/17 22:34 PT/INR, D-dimer PT 26.5 Sec. (12.2-14.9) H 02/03/17 13:38 INR 2.30 (0.87-1.13) H 02/03/17 13:38 Abnormal lab findings: Abnormal Labs 01/25/17 01/25/17 01/26/17 09:32 10:40 05:45 WBC RBC Hgb 11.6 L Hct 34.4 L D MCV RDW Plt Count Lymph % (Auto) [place] % (Auto) Lymph # [place] # Seg Neutrophils % Lymphocytes % (Manual) 6.0 L Nucleated RBC % 2.0 H Seg Neutrophils # Abs Lymphs (Manual) Lymphocytes # (Manual) 0.6 L PT INR APTT POC ABG pH 7.478 H POC ABG pCO2 27.4 L POC ABG pO2 73 L Sodium Potassium Chloride Carbon Dioxide BUN Creatinine Glucose Lactic Acid 2.60 H* Calcium AST ALT Total Protein Albumin Lipase Urine Creatinine Urine Total Protein Vancomycin Trough Lymph Enumerat CD4/CD8 Absolute CD3 Count Absolute CD4 Count TB (QFT) Gold In Tube 01/26/17 01/27/17 01/28/17 05:45 12:15 08:36 WBC 12.4 H RBC 3.49 L Hgb 10.9 L Hct 33.0 L MCV 95 H RDW Plt Count Lymph % (Auto) [place] % (Auto) Lymph # [place] # Seg Neutrophils % Lymphocytes % (Manual) Nucleated RBC % Seg Neutrophils # Abs Lymphs (Manual) Lymphocytes # (Manual) PT INR APTT POC ABG pH POC ABG pCO2 POC ABG pO2 Sodium Potassium Chloride Carbon Dioxide 21 L BUN Creatinine Glucose 130 H Lactic Acid Calcium AST 121 H ALT 117 H Total Protein 5.8 L D Albumin 2.8 L Lipase Urine Creatinine Urine Total Protein Vancomycin Trough Lymph Enumerat CD4/CD8 Absolute CD3 Count Absolute CD4 Count TB (QFT) Gold In Tube 01/28/17 01/28/17 01/28/17 08:36 11:56 23:55 WBC RBC Hgb Hct MCV RDW Plt Count Lymph % (Auto) [place] % (Auto) Lymph # [place] # Seg Neutrophils % Lymphocytes % (Manual) Nucleated RBC % Seg Neutrophils # Abs Lymphs (Manual) Lymphocytes # (Manual) PT INR APTT POC ABG pH POC ABG pCO2 POC ABG pO2 Sodium Potassium Chloride Carbon Dioxide BUN 28 H 30 H Creatinine 2.0 H D 1.9 H Glucose 137 H 124 H Lactic Acid Calcium AST 119 H ALT 106 H Total Protein Albumin 2.7 L Lipase Urine Creatinine 127.2 H Urine Total Protein 71 H Vancomycin Trough Lymph Enumerat CD4/CD8 Absolute CD3 Count Absolute CD4 Count TB (QFT) Gold In Tube 01/28/17 01/29/17 01/29/17 23:56 10:07 10:07 WBC 12.9 H RBC 3.32 L Hgb 10.4 L Hct 31.6 L MCV 95 H RDW Plt Count Lymph % (Auto) 5.9 L [place] % (Auto) 10.2 H Lymph # 0.8 L [place] # 1.3 H Seg Neutrophils % 83.5 H Lymphocytes % (Manual) Nucleated RBC % Seg Neutrophils # 10.8 H Abs Lymphs (Manual) Lymphocytes # (Manual) PT INR APTT POC ABG pH POC ABG pCO2 POC ABG pO2 Sodium Potassium Chloride Carbon Dioxide 20 L BUN 26 H Creatinine 1.8 H Glucose 148 H Lactic Acid Calcium 8.2 L AST ALT Total Protein Albumin Lipase Urine Creatinine 124.4 H Urine Total Protein 71 H Vancomycin Trough Lymph Enumerat CD4/CD8 Absolute CD3 Count Absolute CD4 Count TB (QFT) Gold In Tube 01/29/17 01/29/17 01/30/17 Unknown Unknown 04:10 WBC 12.8 H 14.0 H RBC 3.52 L 3.40 L Hgb 11.0 L 10.7 L Hct 33.0 L 32.1 L MCV 95 H RDW Plt Count Lymph % (Auto) [place] % (Auto) Lymph # [place] # Seg Neutrophils % Lymphocytes % (Manual) Nucleated RBC % Seg Neutrophils # Abs Lymphs (Manual) Lymphocytes # (Manual) PT INR APTT POC ABG pH POC ABG pCO2 POC ABG pO2 Sodium Potassium Chloride Carbon Dioxide BUN 27 H Creatinine 1.9 H Glucose 119 H Lactic Acid Calcium AST ALT Total Protein Albumin Lipase Urine Creatinine Urine Total Protein Vancomycin Trough Lymph Enumerat CD4/CD8 Absolute CD3 Count Absolute CD4 Count TB (QFT) Gold In Tube 01/30/17 01/30/17 01/30/17 04:10 04:10 17:48 WBC RBC Hgb Hct MCV RDW Plt Count Lymph % (Auto) [place] % (Auto) Lymph # [place] # Seg Neutrophils % Lymphocytes % (Manual) Nucleated RBC % Seg Neutrophils # Abs Lymphs (Manual) Lymphocytes # (Manual) PT INR APTT POC ABG pH 7.282 L POC ABG pCO2 32.0 L POC ABG pO2 58 L Sodium Potassium Chloride 107.4 H Carbon Dioxide BUN 26 H Creatinine 1.6 H Glucose 108 H Lactic Acid Calcium AST 75 H ALT 77 H Total Protein Albumin 2.6 L Lipase 63 H Urine Creatinine Urine Total Protein Vancomycin Trough Lymph Enumerat CD4/CD8 Absolute CD3 Count Absolute CD4 Count TB (QFT) Gold In Tube 01/30/17 01/31/17 02/01/17 22:34 20:35 05:50 WBC 15.0 H RBC 3.30 L Hgb 10.2 L Hct 31.5 L MCV 95 H RDW 15.3 H Plt Count Lymph % (Auto) 4.9 L [place] % (Auto) Lymph # 0.7 L [place] # 1.0 H Seg Neutrophils % 87.2 H Lymphocytes % (Manual) Nucleated RBC % Seg Neutrophils # 13.1 H Abs Lymphs (Manual) 710 L Lymphocytes # (Manual) PT INR APTT POC ABG pH POC ABG pCO2 25.0 L POC ABG pO2 57 L Sodium Potassium Chloride Carbon Dioxide BUN Creatinine Glucose Lactic Acid Calcium AST ALT Total Protein Albumin Lipase Urine Creatinine Urine Total Protein Vancomycin Trough Lymph Enumerat CD4/CD8 0.82 L Absolute CD3 Count 524 L Absolute CD4 Count 237 L TB (QFT) Gold In Tube 02/01/17 02/02/17 02/02/17 05:50 05:51 05:51 WBC 16.6 H RBC 3.17 L Hgb 9.6 L Hct 30.4 L MCV 96 H RDW Plt Count Lymph % (Auto) 5.2 L [place] % (Auto) Lymph # 0.9 L [place] # 1.1 H Seg Neutrophils % 87.3 H Lymphocytes % (Manual) Nucleated RBC % Seg Neutrophils # 14.4 H Abs Lymphs (Manual) Lymphocytes # (Manual) PT INR APTT POC ABG pH POC ABG pCO2 POC ABG pO2 Sodium 146 H 148 H Potassium 3.2 L 3.4 L Chloride 107.1 H 110.3 H Carbon Dioxide 20 L 21 L BUN 30 H 28 H Creatinine Glucose 112 H Lactic Acid Calcium 8.0 L 7.9 L AST ALT Total Protein Albumin Lipase Urine Creatinine Urine Total Protein Vancomycin Trough Lymph Enumerat CD4/CD8 Absolute CD3 Count Absolute CD4 Count TB (QFT) Gold In Tube 02/02/17 02/03/17 02/03/17 16:30 06:40 06:40 WBC 18.0 H RBC 3.40 L Hgb 10.4 L Hct 32.6 L MCV 96 H RDW 15.5 H Plt Count 519 H Lymph % (Auto) 5.0 L [place] % (Auto) Lymph # 0.9 L [place] # 1.1 H Seg Neutrophils % 87.8 H Lymphocytes % (Manual) Nucleated RBC % Seg Neutrophils # 15.8 H Abs Lymphs (Manual) Lymphocytes # (Manual) PT INR APTT POC ABG pH POC ABG pCO2 POC ABG pO2 Sodium 148 H Potassium 3.1 L Chloride 109.8 H Carbon Dioxide BUN 26 H Creatinine 1.7 H Glucose 121 H Lactic Acid Calcium 8.2 L AST ALT Total Protein Albumin Lipase Urine Creatinine Urine Total Protein Vancomycin Trough Lymph Enumerat CD4/CD8 Absolute CD3 Count Absolute CD4 Count TB (QFT) Gold In Tube Indeterminate H 02/03/17 02/04/17 02/04/17 13:38 09:44 09:44 WBC 16.1 H RBC 3.38 L Hgb 10.3 L Hct 31.8 L MCV RDW Plt Count 543 H Lymph % (Auto) 4.4 L [place] % (Auto) Lymph # 0.7 L [place] # 1.1 H Seg Neutrophils % 87.9 H Lymphocytes % (Manual) Nucleated RBC % Seg Neutrophils # 14.1 H Abs Lymphs (Manual) Lymphocytes # (Manual) PT 26.5 H INR 2.30 H APTT 43.6 H POC ABG pH POC ABG pCO2 POC ABG pO2 Sodium Potassium Chloride 107.1 H Carbon Dioxide BUN 23 H Creatinine 1.7 H Glucose 115 H Lactic Acid Calcium 8.2 L AST ALT Total Protein Albumin Lipase Urine Creatinine Urine Total Protein Vancomycin Trough Lymph Enumerat CD4/CD8 Absolute CD3 Count Absolute CD4 Count TB (QFT) Gold In Tube 02/05/17 02/05/17 02/05/17 06:48 06:48 10:29 WBC 13.3 H RBC 3.13 L Hgb 9.6 L Hct 29.8 L MCV 95 H RDW Plt Count 514 H Lymph % (Auto) 5.0 L [place] % (Auto) 7.9 H Lymph # 0.7 L [place] # 1.1 H Seg Neutrophils % 85.7 H Lymphocytes % (Manual) Nucleated RBC % Seg Neutrophils # 11.8 H Abs Lymphs (Manual) Lymphocytes # (Manual) PT INR APTT POC ABG pH POC ABG pCO2 POC ABG pO2 Sodium Potassium 3.3 L Chloride 109.1 H Carbon Dioxide BUN 22 H Creatinine 1.7 H Glucose 111 H Lactic Acid Calcium 8.0 L AST ALT Total Protein Albumin Lipase Urine Creatinine Urine Total Protein Vancomycin Trough 22.3 H Lymph Enumerat CD4/CD8 Absolute CD3 Count Absolute CD4 Count TB (QFT) Gold In Tube
--- NOTE | 2017-02-05 14:42 | XRay Report ---
FINAL REPORT EXAM: XR ABDOMEN 1V AP HISTORY: NAUSEA AND VOMITING TECHNIQUE: One view of the abdomen PRIORS: None. FINDINGS: Nonspecific prominence of gas in the stomach, several small bowel loops, and scattered throughout the colon. No definite mass, visceromegaly, or abnormal calcification. Degenerative change in the regional skeleton. Lower pelvis not included in examination. IMPRESSION: Nonspecific bowel gas pattern without gross intestinal distention. Scattered prominence of gas may reflect paralytic ileus
[2017-02-05] MEDS: VANCOMYCIN/NS 1 GM/250 ML 1 GM/250 ML BAG IV SCH (18:56)
[2017-02-05] MEDS: ZOFRAN IV PRN (19:46)
[2017-02-06] MEDS: FLAGYL 500 MG/100 ML 500 MG/100 ML BAG IV SCH ×4 (01:41→21:31)
[2017-02-06] MEDS: ZOFRAN IV PRN ×2 (03:38→22:24)
[2017-02-06] MEDS: TESSALON PERLES PO SCH ×4 (03:39→21:29)
[2017-02-06] MEDS: ELIQUIS PO SCH ×3 (03:39→21:29)
[2017-02-06] MEDS: MERREM 1,000 MG in NACL 0.9% 100 ML IV SCH ×3 (03:40→15:00)
[2017-02-06] MEDS: PEPCID PO SCH ×3 (03:40→21:29)
[2017-02-06] MEDS: K-DUR PO SCH ×3 (03:53→21:30)
[2017-02-06] MEDS: MORPHINE IV PRN ×3 (06:24→22:24)
[2017-02-06 06:38] LABS: Basophils % (Auto) 0.6 % (0.0-1.8); Eosinophils % (Auto) 0.7 % (0.0-4.3); Hematocrit 28.3 % (35.5-45.6); Hemoglobin 9.2 gm/dl (11.8-15.2); Mean Corpuscular HGB Conc 33 % (32-34); Mean Corpuscular Hemoglobin 31 pg (28-32); Mean Corpuscular Volume 95 fl (84-94); Platelet Count 552 K/mm3 (140-440); Red Blood Count 2.97 M/mm3 (3.65-5.03); Red Cell Distribution Width 14.8 % (13.2-15.2); White Blood Count 10.4 K/mm3 (4.5-11.0)
[2017-02-06 06:54] LABS: Anion Gap 17 mmol/L; BUN/Creatinine Ratio 12.85; Blood Urea Nitrogen 18 mg/dL (9-20); Calcium 7.9 mg/dL (8.4-10.2); Carbon Dioxide 23 mmol/L (22-30); Chloride 109.9 mmol/L (98-107); Glucose 112 mg/dL (75-100); Potassium 3.5 mmol/L (3.6-5.0); Sodium 146 mmol/L (137-145)
[2017-02-06] MEDS: VANCOMYCIN/NS 1 GM/250 ML 1 GM/250 ML BAG IV SCH ×2 (07:54→18:55)
[2017-02-06] MEDS: EMTRIVA PO SCH (10:00)
[2017-02-06] MEDS: VIREAD PO SCH (10:00)
[2017-02-06] MEDS: SUSTIVA PO SCH (10:00)
[2017-02-06] MEDS: IMDUR PO SCH (10:00)
[2017-02-06] MEDS: LEXAPRO PO SCH (10:00)
[2017-02-06] MEDS: TOPROL XL PO SCH (10:00)
--- NOTE | 2017-02-06 10:35 | Progress Note ---
Assessment and Plan Assessment and plan: Patient is 56 year old man with a history of AIDS, CHF, hypertension, recent Saddle pulmonary emboli s/p ekos who presented to ED with sob, cough and left side pains. CTA chest +bilateral PE and MELVINA infiltrates. * Sepsis secondary MELVINA Aspiration Pneumonitis, Cavitary/Necrotizing Pneumonia with hemoptysis per Pulmonology. * STACEY most likely vasomotor nephropathy, poa resolved but continue to monitor * AIDS/HIV chronic and underlying process to this infection: ID is following * Hypertension,chronic and stable * Moderate protein calorie malnutrition: dietary follow up * Pulmonary embolism-Saddle: on Eliquis * Hemoptysis-resolved * Transaminitis, mild and resolving * Anemia of chronic disease. Still in TB isolation, AFB negative x 1, other smear appear to be contaminated? -Hypokalemia: replaced as additive, renal is following -Hypernatremia, mild: rechecked, ivf changed -Drop in HCT, slowly dropping resolved -Abx stopped per ID Bronchial washing ctx pending AFB pending Fungal culture pending Quantiferon Gold: Intermediate 02/04/17: Back from Bronchoscopy, findings as follows: "Flexible Bronchoscopy with Bronchial Washing of Left upper lobe. After obtaining informed consent. Patient brought to Endo suite and preppred. Right nostril was anesthetized. Scope passed without difficulty. Vocal cords seen and had good AB and AD duction. Lidocaine x3 used on cords. Entered into Trachea. Normal. Lido used there. Passed down to david, normal. Lidocaine administered in left main stem then right. Airway inspection done first. Normal left side of lung. Abnormal right lower lobe seen on left. Remainder of airway inspection unremarkable. Scope then retracted and wedged into the left upper lobe. Bronchial washings were taken. Decent return. Some scope trauma visualized but no active bleeding. Scope retracted and patient being recovered." per Dr. Shepard. 02/05/17: New issue of n/v/ab pain maybe due to extreme coughing but will get KUB. replace potassium. KUB: Nonspecific bowel gas pattern without gross intestinal distention. Scattered prominence of gas may reflect paralytic ileus= >NPO 02/06/17: n/v resolved, start clear liquids, ?Ileus: will get ct ap with oral contrast History Interval history: Patient seen and examined. Follow up on cough. Overnight uneventful. No cp, sob , or severe headaches. Imaging, old records, testing, labs, nursing notes reviewed. Still requiring oxygen 2l, still with productive cough. She denies nausea vomiting and asking for something to drink. It appears that patient is referring to coughing up mucus as nausea vomiting. Hospitalist Physical - Physical exam Narrative exam: GEN: Ill-appearing, deconditioned NAD, AWAKE, ALERT, ORIENTATED x 3 CVS: RRR, NORMAL S1S2 LUNGS/CHEST: crackles left, NORMAL CHEST EXPANSION B, diminished AIR ENTRY B ABD: SOFT, NTND, GBS, NO REBOUND OR GUARDING EXT/SKIN: NO SIGNIFICANT EDEMA OR RASH MSK: FROM X 4 EXTREMITIES NEURO: CN 2-12 GROSSLY INTACT, NO FOCAL DEFICITS PSY: CALM - Constitutional Vitals: Temp Pulse Resp BP Pulse Ox 99.0 F 85 18 141/75 98 02/06/17 07:00 02/06/17 07:00 02/06/17 07:00 02/06/17 07:00 02/06/17 07:00 General appearance: Present: no acute distress Results - Labs CBC & Chem 7: 02/06/17 06:14 02/06/17 06:14 Labs: Laboratory Last Values WBC 10.4 K/mm3 (4.5-11.0) 02/06/17 06:14 RBC 2.97 M/mm3 (3.65-5.03) L 02/06/17 06:14 Hgb 9.2 gm/dl (11.8-15.2) L 02/06/17 06:14 Hct 28.3 % (35.5-45.6) L 02/06/17 06:14 MCV 95 fl (84-94) H 02/06/17 06:14 MCH 31 pg (28-32) 02/06/17 06:14 MCHC 33 % (32-34) 02/06/17 06:14 RDW 14.8 % (13.2-15.2) 02/06/17 06:14 Plt Count 552 K/mm3 (140-440) H 02/06/17 06:14 Lymph % (Auto) 5.1 % (13.4-35.0) L 02/06/17 06:14 [place] % (Auto) 9.3 % (0.0-7.3) H 02/06/17 06:14 Eos % (Auto) 0.7 % (0.0-4.3) 02/06/17 06:14 Baso % (Auto) 0.6 % (0.0-1.8) 02/06/17 06:14 Lymph # 0.5 K/mm3 (1.2-5.4) L 02/06/17 06:14 [place] # 1.0 K/mm3 (0.0-0.8) H 02/06/17 06:14 Eos # 0.1 K/mm3 (0.0-0.4) 02/06/17 06:14 Baso # 0.1 K/mm3 (0.0-0.1) 02/06/17 06:14 Add Manual Diff Complete 01/26/17 05:45 Total Counted 100 01/26/17 05:45 Seg Neutrophils % 84.3 % (40.0-70.0) H 02/06/17 06:14 Seg Neuts % (Manual) 62.0 % (40.0-70.0) 01/26/17 05:45 Band Neutrophils % 29.0 % 01/26/17 05:45 Lymphocytes % (Manual) 6.0 % (13.4-35.0) L 01/26/17 05:45 Reactive Lymphs % (Man) 0 % 01/26/17 05:45 Monocytes % (Manual) 3.0 % (0.0-7.3) 01/26/17 05:45 Eosinophils % (Manual) 0 % (0.0-4.3) 01/26/17 05:45 Basophils % (Manual) 0 % (0.0-1.8) 01/26/17 05:45 Metamyelocytes % 0 % 01/26/17 05:45 Myelocytes % 0 % 01/26/17 05:45 Promyelocytes % 0 % 01/26/17 05:45 Blast Cells % 0 % 01/26/17 05:45 Nucleated RBC % 2.0 % (0.0-0.9) H 01/26/17 05:45 Seg Neutrophils # 8.7 K/mm3 (1.8-7.7) H 02/06/17 06:14 Seg Neutrophils # Man 6.1 K/mm3 (1.8-7.7) 01/26/17 05:45 Band Neutrophils # 2.8 K/mm3 01/26/17 05:45 Abs Lymphs (Manual) 710 cells/uL (850-3900) L 01/31/17 20:35 Lymphocytes # (Manual) 0.6 K/mm3 (1.2-5.4) L 01/26/17 05:45 Abs React Lymphs (Man) 0.0 K/mm3 01/26/17 05:45 Monocytes # (Manual) 0.3 K/mm3 (0.0-0.8) 01/26/17 05:45 Eosinophils # (Manual) 0.0 K/mm3 (0.0-0.4) 01/26/17 05:45 Basophils # (Manual) 0.0 K/mm3 (0.0-0.1) 01/26/17 05:45 Metamyelocytes # 0.0 K/mm3 01/26/17 05:45 Myelocytes # 0.0 K/mm3 01/26/17 05:45 Promyelocytes # 0.0 K/mm3 01/26/17 05:45 Blast Cells # 0.0 K/mm3 01/26/17 05:45 WBC Morphology Not Reportable 01/26/17 05:45 Hypersegmented Neuts Not Reportable 01/26/17 05:45 Hyposegmented Neuts Not Reportable 01/26/17 05:45 Hypogranular Neuts Not Reportable 01/26/17 05:45 Smudge Cells Not Reportable 01/26/17 05:45 Toxic Granulation Not Reportable 01/26/17 05:45 Toxic Vacuolation Not Reportable 01/26/17 05:45 Dohle Bodies Not Reportable 01/26/17 05:45 Pelger-Huet Anomaly Not Reportable 01/26/17 05:45 Aylin Rods Not Reportable 01/26/17 05:45 Platelet Estimate Consistent w auto 01/26/17 05:45 Clumped Platelets Rare 01/26/17 05:45 Plt Clumps, EDTA Not Reportable 01/26/17 05:45 Large Platelets Not Reportable 01/26/17 05:45 Giant Platelets Not Reportable 01/26/17 05:45 Platelet Satelliting Not Reportable 01/26/17 05:45 Plt Morphology Comment Not Reportable 01/26/17 05:45 RBC Morphology Not Reportable 01/26/17 05:45 Dimorphic RBCs Not Reportable 01/26/17 05:45 Polychromasia Not Reportable 01/26/17 05:45 Hypochromasia Not Reportable 01/26/17 05:45 Poikilocytosis Not Reportable 01/26/17 05:45 Anisocytosis 1+ 01/26/17 05:45 Microcytosis Not Reportable 01/26/17 05:45 Macrocytosis Not Reportable 01/26/17 05:45 Spherocytes Not Reportable 01/26/17 05:45 Pappenheimer Bodies Not Reportable 01/26/17 05:45 Sickle Cells Not Reportable 01/26/17 05:45 Target Cells Not Reportable 01/26/17 05:45 Tear Drop Cells Not Reportable 01/26/17 05:45 Ovalocytes Not Reportable 01/26/17 05:45 Helmet Cells Not Reportable 01/26/17 05:45 [place] Bodies Not Reportable 01/26/17 05:45 [place] Rings Not Reportable 01/26/17 05:45 [place] Cells Few 01/26/17 05:45 Bite Cells Not Reportable 01/26/17 05:45 Crenated Cell Not Reportable 01/26/17 05:45 Elliptocytes Not Reportable 01/26/17 05:45 Acanthocytes (Spur) Not Reportable 01/26/17 05:45 Rouleaux Not Reportable 01/26/17 05:45 Hemoglobin C Crystals Not Reportable 01/26/17 05:45 Schistocytes Not Reportable 01/26/17 05:45 Malaria parasites Not Reportable 01/26/17 05:45 Donta Bodies Not Reportable 01/26/17 05:45 Hem Pathologist Commnt No 01/26/17 05:45 PT 26.5 Sec. (12.2-14.9) H 02/03/17 13:38 INR 2.30 (0.87-1.13) H 02/03/17 13:38 APTT 43.6 Sec. (24.2-36.6) H 02/03/17 13:38 POC ABG pH 7.411 (7.35-7.45) 01/30/17 22:34 POC ABG pCO2 25.0 (35-45) L 01/30/17 22:34 POC ABG pO2 57 (80-105) L 01/30/17 22:34 POC ABG HCO3 15.9 01/30/17 22:34 POC ABG Total CO2 17 01/30/17 22:34 POC ABG O2 Sat 90 01/30/17 22:34 POC ABG Base Excess -9 01/30/17 22:34 VBG pH 7.374 (7.320-7.420) 01/25/17 00:44 FiO2 70 % 01/30/17 22:34 Sodium 146 mmol/L (137-145) H 02/06/17 06:14 Potassium 3.5 mmol/L (3.6-5.0) L 02/06/17 06:14 Chloride 109.9 mmol/L (98-107) H 02/06/17 06:14 Carbon Dioxide 23 mmol/L (22-30) 02/06/17 06:14 Anion Gap 17 mmol/L 02/06/17 06:14 BUN 18 mg/dL (9-20) 02/06/17 06:14 Creatinine 1.4 mg/dL (0.8-1.5) 02/06/17 06:14 Estimated GFR > 60 ml/min 02/06/17 06:14 BUN/Creatinine Ratio 12.85 % 02/06/17 06:14 Glucose 112 mg/dL (75-100) H 02/06/17 06:14 Osmolality 311 Mosm/kg 01/29/17 Unknown Lactic Acid 1.40 mmol/L (0.7-2.0) 01/28/17 11:56 Calcium 7.9 mg/dL (8.4-10.2) L 02/06/17 06:14 Phosphorus 3.10 mg/dL (2.5-4.5) 01/29/17 Unknown Total Bilirubin 0.20 mg/dL (0.1-1.2) 01/30/17 04:10 Direct Bilirubin < 0.2 mg/dL (0-0.2) 01/27/17 12:15 AST 75 units/L (5-40) H 01/30/17 04:10 ALT 77 units/L (7-56) H 01/30/17 04:10 Alkaline Phosphatase 81 units/L (35-129) 01/30/17 04:10 Troponin T < 0.010 ng/mL (0.00-0.029) 01/25/17 03:15 Total Protein 6.7 g/dL (6.3-8.2) 01/30/17 04:10 Albumin 2.6 g/dL (3.9-5) L 01/30/17 04:10 Albumin/Globulin Ratio 0.6 % 01/30/17 04:10 Lipase 63 units/L (13-60) H 01/30/17 04:10 Urine Color Yellow (Yellow) 01/28/17 23:55 Urine Turbidity Clear (Clear) 01/28/17 23:55 Urine pH 5.0 (5.0-7.0) 01/28/17 23:55 Ur Specific [place] 1.019 (1.003-1.030) 01/28/17 23:55 Urine Protein 30 mg/dl mg/dL (Negative) 01/28/17 23:55 Urine Glucose (UA) Neg mg/dL (Negative) 01/28/17 23:55 Urine Ketones Neg mg/dL (Negative) 01/28/17 23:55 Urine Blood Sm (Negative) 01/28/17 23:55 Urine Nitrite Neg (Negative) 01/28/17 23:55 Urine Bilirubin Neg (Negative) 01/28/17 23:55 Urine Urobilinogen < 2.0 mg/dL (<2.0) 01/28/17 23:55 Ur Leukocyte Esterase Neg (Negative) 01/28/17 23:55 Urine WBC (Auto) 2.0 /HPF (0.0-6.0) 01/28/17 23:55 Urine RBC (Auto) 3.0 /HPF (0.0-6.0) 01/28/17 23:55 Uric Acid Crystals Few 01/28/17 23:55 Amorphous Crystals 1+ 01/28/17 23:55 Urine Mucus Few /HPF 01/28/17 23:55 Urine Eosinophils None seen (None Seen) 01/28/17 23:55 Urine Creatinine 124.4 mg/dL (0.1-20.0) H 01/28/17 23:56 Protein/Creatinin Ratio 0.56 01/28/17 23:55 Urine Sodium 51 mEq/L 01/28/17 23:55 Urine Total Protein 71 mg/dL (5-11.8) H 01/28/17 23:56 Vancomycin Trough 22.3 ug/mL (5.0-20.0) H 02/05/17 10:29 Lymph Enumerat CD4/CD8 0.82 (0.86-5.00) L 01/31/17 20:35 % CD3 Cells 74 % (57-85) 01/31/17 20:35 Absolute CD3 Count 524 cells/uL (840-3060) L 01/31/17 20:35 % CD4 Cells 34 % (30-61) 01/31/17 20:35 Absolute CD4 Count 237 cells/uL (490-1740) L 01/31/17 20:35 % CD8 Cells 41 % (12-42) 01/31/17 20:35 Absolute CD8 Count 289 cells/uL (180-1170) 01/31/17 20:35 % CD19 Cells 17 % (6-29) 01/31/17 20:35 Absolute CD19 Count 121 cells/uL (110-660) 01/31/17 20:35 Hepatitis A IgM Ab Non-reactive (NonReactive) 01/28/17 11:56 Hep Bs Antigen Non-reactive (Negative) 01/28/17 11:56 Hep B Core IgM Ab Non-reactive (NonReactive) 01/28/17 11:56 Hepatitis C Antibody Non-reactive (NonReactive) 01/28/17 11:56 TB (QFT) Gold In Tube Indeterminate (Negative) H 02/02/17 16:30 TB Test (QFT) Nil 0.07 IU/mL 02/02/17 16:30 TB Test Mitogen - Nil 0.16 IU/mL 02/02/17 16:30 TB Test Antigen - Nil 0.03 IU/mL 02/02/17 16:30 Blood Type B POSITIVE 01/24/17 22:07 Antibody Screen TNR 01/24/17 22:07 ALIDA Antibody Screen Negative 01/24/17 22:07
[2017-02-06] MEDS: BROVANA NEBU IH SCH ×2 (10:39→19:45)
[2017-02-06] MEDS: PULMICORT IH SCH ×2 (10:39→19:45)
--- NOTE | 2017-02-06 11:36 | Progress Note ---
Assessment and Plan 56 y/o male with HIV, recent saddle PE s/p ekos, now with new left upper lobe cavitary pneumonia and acute respiratory failure. 1. Follow up Bronch results, AFB still pending as well as fungal 2. continue supplemental O2 3. Abx therapy per ID Subjective Date of service: 02/06/17 Principal diagnosis: Sepsis Interval history: Bronch results show moderate growth of usual respiratory kassy. Fungal and AFB not back yet. Still with low grade temps and oxygen requirements. Fluctuates between 2 and 3 liters of NC. Has not worn bipap since the 4th. Objective Vital Signs - 12hr 02/06/17 02/06/17 02/06/17 00:00 07:00 10:37 Temperature 100.4 F H 99.0 F Pulse Rate [ 84 Anterior Bilateral Throughout] Pulse Rate [ 81 85 Left Radial] Respiratory 20 18 Rate Respiratory 20 Rate [Anterior Bilateral Throughout] Blood Pressure 136/78 141/75 [Left Arm] O2 Sat by Pulse 100 98 Oximetry 02/06/17 11:12 Temperature Pulse Rate [ 88 Anterior Bilateral Throughout] Pulse Rate [ Left Radial] Respiratory Rate Respiratory 20 Rate [Anterior Bilateral Throughout] Blood Pressure [Left Arm] O2 Sat by Pulse Oximetry Constitutional: no acute distress, alert Eyes: non-icteric ENT: oropharynx moist Neck: supple, no lymphadenopathy, no JVD Effort: normal Ascultation: Bilateral: clear, diminished breath sounds, rales (left field) Percussion: Bilateral: not dull Cardiovascular: regular rate and rhythm Gastrointestinal: normoactive bowel sounds, non-distended Integumentary: normal Extremities: no cyanosis Neurologic: normal mental status, non-focal exam, pupils equal and round, CN II- XII normal Psychiatric: mood appropriate, affect normal CBC and BMP: 02/06/17 06:14 02/06/17 06:14 ABG, PT/INR, D-dimer: ABG POC ABG pH 7.411 (7.35-7.45) 01/30/17 22:34 POC ABG pCO2 25.0 (35-45) L 01/30/17 22:34 POC ABG pO2 57 (80-105) L 01/30/17 22:34 POC ABG HCO3 15.9 01/30/17 22:34 POC ABG Total CO2 17 01/30/17 22:34 POC ABG O2 Sat 90 01/30/17 22:34 PT/INR, D-dimer PT 26.5 Sec. (12.2-14.9) H 02/03/17 13:38 INR 2.30 (0.87-1.13) H 02/03/17 13:38 Abnormal lab findings: Abnormal Labs 01/25/17 01/25/17 01/26/17 09:32 10:40 05:45 WBC RBC Hgb 11.6 L Hct 34.4 L D MCV RDW Plt Count Lymph % (Auto) [place] % (Auto) Lymph # [place] # Seg Neutrophils % Lymphocytes % (Manual) 6.0 L Nucleated RBC % 2.0 H Seg Neutrophils # Abs Lymphs (Manual) Lymphocytes # (Manual) 0.6 L PT INR APTT POC ABG pH 7.478 H POC ABG pCO2 27.4 L POC ABG pO2 73 L Sodium Potassium Chloride Carbon Dioxide BUN Creatinine Glucose Lactic Acid 2.60 H* Calcium AST ALT Total Protein Albumin Lipase Urine Creatinine Urine Total Protein Vancomycin Trough Lymph Enumerat CD4/CD8 Absolute CD3 Count Absolute CD4 Count TB (QFT) Gold In Tube 01/26/17 01/27/17 01/28/17 05:45 12:15 08:36 WBC 12.4 H RBC 3.49 L Hgb 10.9 L Hct 33.0 L MCV 95 H RDW Plt Count Lymph % (Auto) [place] % (Auto) Lymph # [place] # Seg Neutrophils % Lymphocytes % (Manual) Nucleated RBC % Seg Neutrophils # Abs Lymphs (Manual) Lymphocytes # (Manual) PT INR APTT POC ABG pH POC ABG pCO2 POC ABG pO2 Sodium Potassium Chloride Carbon Dioxide 21 L BUN Creatinine Glucose 130 H Lactic Acid Calcium AST 121 H ALT 117 H Total Protein 5.8 L D Albumin 2.8 L Lipase Urine Creatinine Urine Total Protein Vancomycin Trough Lymph Enumerat CD4/CD8 Absolute CD3 Count Absolute CD4 Count TB (QFT) Gold In Tube 01/28/17 01/28/17 01/28/17 08:36 11:56 23:55 WBC RBC Hgb Hct MCV RDW Plt Count Lymph % (Auto) [place] % (Auto) Lymph # [place] # Seg Neutrophils % Lymphocytes % (Manual) Nucleated RBC % Seg Neutrophils # Abs Lymphs (Manual) Lymphocytes # (Manual) PT INR APTT POC ABG pH POC ABG pCO2 POC ABG pO2 Sodium Potassium Chloride Carbon Dioxide BUN 28 H 30 H Creatinine 2.0 H D 1.9 H Glucose 137 H 124 H Lactic Acid Calcium AST 119 H ALT 106 H Total Protein Albumin 2.7 L Lipase Urine Creatinine 127.2 H Urine Total Protein 71 H Vancomycin Trough Lymph Enumerat CD4/CD8 Absolute CD3 Count Absolute CD4 Count TB (QFT) Gold In Tube 01/28/17 01/29/17 01/29/17 23:56 10:07 10:07 WBC 12.9 H RBC 3.32 L Hgb 10.4 L Hct 31.6 L MCV 95 H RDW Plt Count Lymph % (Auto) 5.9 L [place] % (Auto) 10.2 H Lymph # 0.8 L [place] # 1.3 H Seg Neutrophils % 83.5 H Lymphocytes % (Manual) Nucleated RBC % Seg Neutrophils # 10.8 H Abs Lymphs (Manual) Lymphocytes # (Manual) PT INR APTT POC ABG pH POC ABG pCO2 POC ABG pO2 Sodium Potassium Chloride Carbon Dioxide 20 L BUN 26 H Creatinine 1.8 H Glucose 148 H Lactic Acid Calcium 8.2 L AST ALT Total Protein Albumin Lipase Urine Creatinine 124.4 H Urine Total Protein 71 H Vancomycin Trough Lymph Enumerat CD4/CD8 Absolute CD3 Count Absolute CD4 Count TB (QFT) Gold In Tube 01/29/17 01/29/17 01/30/17 Unknown Unknown 04:10 WBC 12.8 H 14.0 H RBC 3.52 L 3.40 L Hgb 11.0 L 10.7 L Hct 33.0 L 32.1 L MCV 95 H RDW Plt Count Lymph % (Auto) [place] % (Auto) Lymph # [place] # Seg Neutrophils % Lymphocytes % (Manual) Nucleated RBC % Seg Neutrophils # Abs Lymphs (Manual) Lymphocytes # (Manual) PT INR APTT POC ABG pH POC ABG pCO2 POC ABG pO2 Sodium Potassium Chloride Carbon Dioxide BUN 27 H Creatinine 1.9 H Glucose 119 H Lactic Acid Calcium AST ALT Total Protein Albumin Lipase Urine Creatinine Urine Total Protein Vancomycin Trough Lymph Enumerat CD4/CD8 Absolute CD3 Count Absolute CD4 Count TB (QFT) Gold In Tube 01/30/17 01/30/17 01/30/17 04:10 04:10 17:48 WBC RBC Hgb Hct MCV RDW Plt Count Lymph % (Auto) [place] % (Auto) Lymph # [place] # Seg Neutrophils % Lymphocytes % (Manual) Nucleated RBC % Seg Neutrophils # Abs Lymphs (Manual) Lymphocytes # (Manual) PT INR APTT POC ABG pH 7.282 L POC ABG pCO2 32.0 L POC ABG pO2 58 L Sodium Potassium Chloride 107.4 H Carbon Dioxide BUN 26 H Creatinine 1.6 H Glucose 108 H Lactic Acid Calcium AST 75 H ALT 77 H Total Protein Albumin 2.6 L Lipase 63 H Urine Creatinine Urine Total Protein Vancomycin Trough Lymph Enumerat CD4/CD8 Absolute CD3 Count Absolute CD4 Count TB (QFT) Gold In Tube 01/30/17 01/31/17 02/01/17 22:34 20:35 05:50 WBC 15.0 H RBC 3.30 L Hgb 10.2 L Hct 31.5 L MCV 95 H RDW 15.3 H Plt Count Lymph % (Auto) 4.9 L [place] % (Auto) Lymph # 0.7 L [place] # 1.0 H Seg Neutrophils % 87.2 H Lymphocytes % (Manual) Nucleated RBC % Seg Neutrophils # 13.1 H Abs Lymphs (Manual) 710 L Lymphocytes # (Manual) PT INR APTT POC ABG pH POC ABG pCO2 25.0 L POC ABG pO2 57 L Sodium Potassium Chloride Carbon Dioxide BUN Creatinine Glucose Lactic Acid Calcium AST ALT Total Protein Albumin Lipase Urine Creatinine Urine Total Protein Vancomycin Trough Lymph Enumerat CD4/CD8 0.82 L Absolute CD3 Count 524 L Absolute CD4 Count 237 L TB (QFT) Gold In Tube 02/01/17 02/02/17 02/02/17 05:50 05:51 05:51 WBC 16.6 H RBC 3.17 L Hgb 9.6 L Hct 30.4 L MCV 96 H RDW Plt Count Lymph % (Auto) 5.2 L [place] % (Auto) Lymph # 0.9 L [place] # 1.1 H Seg Neutrophils % 87.3 H Lymphocytes % (Manual) Nucleated RBC % Seg Neutrophils # 14.4 H Abs Lymphs (Manual) Lymphocytes # (Manual) PT INR APTT POC ABG pH POC ABG pCO2 POC ABG pO2 Sodium 146 H 148 H Potassium 3.2 L 3.4 L Chloride 107.1 H 110.3 H Carbon Dioxide 20 L 21 L BUN 30 H 28 H Creatinine Glucose 112 H Lactic Acid Calcium 8.0 L 7.9 L AST ALT Total Protein Albumin Lipase Urine Creatinine Urine Total Protein Vancomycin Trough Lymph Enumerat CD4/CD8 Absolute CD3 Count Absolute CD4 Count TB (QFT) Gold In Tube 02/02/17 02/03/17 02/03/17 16:30 06:40 06:40 WBC 18.0 H RBC 3.40 L Hgb 10.4 L Hct 32.6 L MCV 96 H RDW 15.5 H Plt Count 519 H Lymph % (Auto) 5.0 L [place] % (Auto) Lymph # 0.9 L [place] # 1.1 H Seg Neutrophils % 87.8 H Lymphocytes % (Manual) Nucleated RBC % Seg Neutrophils # 15.8 H Abs Lymphs (Manual) Lymphocytes # (Manual) PT INR APTT POC ABG pH POC ABG pCO2 POC ABG pO2 Sodium 148 H Potassium 3.1 L Chloride 109.8 H Carbon Dioxide BUN 26 H Creatinine 1.7 H Glucose 121 H Lactic Acid Calcium 8.2 L AST ALT Total Protein Albumin Lipase Urine Creatinine Urine Total Protein Vancomycin Trough Lymph Enumerat CD4/CD8 Absolute CD3 Count Absolute CD4 Count TB (QFT) Gold In Tube Indeterminate H 02/03/17 02/04/17 02/04/17 13:38 09:44 09:44 WBC 16.1 H RBC 3.38 L Hgb 10.3 L Hct 31.8 L MCV RDW Plt Count 543 H Lymph % (Auto) 4.4 L [place] % (Auto) Lymph # 0.7 L [place] # 1.1 H Seg Neutrophils % 87.9 H Lymphocytes % (Manual) Nucleated RBC % Seg Neutrophils # 14.1 H Abs Lymphs (Manual) Lymphocytes # (Manual) PT 26.5 H INR 2.30 H APTT 43.6 H POC ABG pH POC ABG pCO2 POC ABG pO2 Sodium Potassium Chloride 107.1 H Carbon Dioxide BUN 23 H Creatinine 1.7 H Glucose 115 H Lactic Acid Calcium 8.2 L AST ALT Total Protein Albumin Lipase Urine Creatinine Urine Total Protein Vancomycin Trough Lymph Enumerat CD4/CD8 Absolute CD3 Count Absolute CD4 Count TB (QFT) Gold In Tube 02/05/17 02/05/17 02/05/17 06:48 06:48 10:29 WBC 13.3 H RBC 3.13 L Hgb 9.6 L Hct 29.8 L MCV 95 H RDW Plt Count 514 H Lymph % (Auto) 5.0 L [place] % (Auto) 7.9 H Lymph # 0.7 L [place] # 1.1 H Seg Neutrophils % 85.7 H Lymphocytes % (Manual) Nucleated RBC % Seg Neutrophils # 11.8 H Abs Lymphs (Manual) Lymphocytes # (Manual) PT INR APTT POC ABG pH POC ABG pCO2 POC ABG pO2 Sodium Potassium 3.3 L Chloride 109.1 H Carbon Dioxide BUN 22 H Creatinine 1.7 H Glucose 111 H Lactic Acid Calcium 8.0 L AST ALT Total Protein Albumin Lipase Urine Creatinine Urine Total Protein Vancomycin Trough 22.3 H Lymph Enumerat CD4/CD8 Absolute CD3 Count Absolute CD4 Count TB (QFT) Gold In Tube 02/06/17 02/06/17 06:14 06:14 WBC RBC 2.97 L Hgb 9.2 L Hct 28.3 L MCV 95 H RDW Plt Count 552 H Lymph % (Auto) 5.1 L [place] % (Auto) 9.3 H Lymph # 0.5 L [place] # 1.0 H Seg Neutrophils % 84.3 H Lymphocytes % (Manual) Nucleated RBC % Seg Neutrophils # 8.7 H Abs Lymphs (Manual) Lymphocytes # (Manual) PT INR APTT POC ABG pH POC ABG pCO2 POC ABG pO2 Sodium 146 H Potassium 3.5 L Chloride 109.9 H Carbon Dioxide BUN Creatinine Glucose 112 H Lactic Acid Calcium 7.9 L AST ALT Total Protein Albumin Lipase Urine Creatinine Urine Total Protein Vancomycin Trough Lymph Enumerat CD4/CD8 Absolute CD3 Count Absolute CD4 Count TB (QFT) Gold In Tube
--- NOTE | 2017-02-06 12:52 | Progress Note ---
Assessment and Plan (1) Left upper lobe pneumonia Current Visit: Yes Status: Acute Qualifiers: Pneumonia type: due to unspecified organism Aspiration pneumonia type: A Qualified Code(s): J18.1 - Lobar pneumonia, unspecified organism Plan to address problem: s/p bronch, results pending (2) Acute renal failure (ARF) Current Visit: Yes Status: Acute Qualifiers: Acute renal failure type: A Plan to address problem: improved Cr will d/c IVF will sign off, please reconsult as needed cont Kcl oral supplement Avoid nephrotoxins Renally dose medications Monitor I/O's (3) HIV (human immunodeficiency virus infection) Current Visit: Yes Status: Acute Plan to address problem: on HAART (4) Saddle pulmonary embolus Current Visit: No Status: Acute Qualifiers: Chronicity: C Acute cor pulmonale presence: A Plan to address problem: On Eliquis Subjective Date of service: 02/06/17 Principal diagnosis: Sepsis Interval history: SOB and cough is better today Objective - Vital Signs Vital signs: Vital Signs - 12hr 02/06/17 02/06/17 02/06/17 07:00 10:37 11:12 Temperature 99.0 F Pulse Rate [ 84 88 Anterior Bilateral Throughout] Pulse Rate [ 85 Left Radial] Respiratory 18 Rate Respiratory 20 20 Rate [Anterior Bilateral Throughout] Blood Pressure 141/75 [Left Arm] O2 Sat by Pulse 98 Oximetry - General Appearance General appearance: well-developed, well-nourished EENT: ATNC, PERRL, mucous membranes moist Neck: no JVD Respiratory: Present: Decreased Breath Sounds Cardiology: regular, S1S2 Gastrointestinal: normoactive bowel sounds, no tenderness, no distended, no masses Integumentary: no rash, warm and dry Neurologic: no focal deficit, no asterixis, alert and oriented x3 Musculoskeletal: other (no edema in BLE) Psychiatric: mood/affect appropriate, cooperative - Lab 02/06/17 06:14 02/06/17 06:14 Most recent lab results Calcium 7.9 mg/dL (8.4-10.2) L 02/06/17 06:14 Phosphorus 3.10 mg/dL (2.5-4.5) 01/29/17 Unknown Magnesium 2.00 mg/dL (1.7-2.3) 02/06/17 06:14 Urine Creatinine 124.4 mg/dL (0.1-20.0) H 01/28/17 23:56 Urine Sodium 51 mEq/L 01/28/17 23:55 Urine Total Protein 71 mg/dL (5-11.8) H 01/28/17 23:56
[2017-02-06] MEDS ORDERED: NACL ONE (13:03)
--- NOTE | 2017-02-06 14:42 | Cat Scan Report ---
FINAL REPORT PROCEDURE: CT ABDOMEN PELVIS W CON TECHNIQUE: Computerized axial tomography of the abdomen and pelvis was performed after the IV injection of iodinated nonionic contrast. HISTORY: ileus COMPARISON: No prior studies are available for comparison. FINDINGS: Small left pleural effusion is seen. Moderate pericardial effusion is seen. Changes of COPD are present. Likely atelectasis is seen in the lung bases, left greater than right. Heart is normal in size. The spleen is normal in size. There is mild hepatomegaly and possible mild fatty infiltration of the liver. There is likely very minimal layering sludge or poorly calcified stones in the gallbladder. No evidence of cholecystitis or biliary ductal dilation is seen. Pancreas appears normal. The adrenal glands and abdominal aorta are normal in size. No focal renal abnormality is seen. There is mild perinephric streaky fluid that may be due to poor renal function. Correlation with renal labs following this IV contrast-enhanced study is recommended. Bladder appears normal. Prostate gland is normal in size. Tiny amount of free fluid is seen in the pelvis. There is moderate gaseous distention of the nondependent portions of the colon and small bowel. Findings suggest mild to moderate ileus. Normal appendix is seen. No evidence of small bowel obstruction is seen. Tiny periumbilical hernia is seen containing fat. IMPRESSION: Mild to moderate ileus is seen. Increased perinephric streaky fluid is seen bilaterally that could be from poor renal function. Correlation with renal labs following this contrast-enhanced exam is recommended. Moderate pericardial effusion is seen with small left pleural effusion.
[2017-02-07] MEDS: MERREM 1,000 MG in NACL 0.9% 100 ML IV SCH ×4 (04:54→23:00)
[2017-02-07 06:00] LABS: Basophils % (Auto) 0.8 % (0.0-1.8); Eosinophils % (Auto) 0.8 % (0.0-4.3); Hematocrit 27.6 % (35.5-45.6); Hemoglobin 9.4 gm/dl (11.8-15.2); Mean Corpuscular HGB Conc 34 % (32-34); Mean Corpuscular Hemoglobin 32 pg (28-32); Mean Corpuscular Volume 93 fl (84-94); Platelet Count 521 K/mm3 (140-440); Red Blood Count 2.96 M/mm3 (3.65-5.03); Red Cell Distribution Width 14.7 % (13.2-15.2); White Blood Count 9.3 K/mm3 (4.5-11.0)
[2017-02-07] MEDS: VANCOMYCIN/NS 1 GM/250 ML 1 GM/250 ML BAG IV SCH (06:12)
[2017-02-07] MEDS: FLAGYL 500 MG/100 ML 500 MG/100 ML BAG IV SCH ×3 (06:12→22:36)
[2017-02-07] MEDS: TESSALON PERLES PO SCH ×3 (06:12→23:23)
[2017-02-07 06:18] LABS: Anion Gap 15 mmol/L; BUN/Creatinine Ratio 12.85; Blood Urea Nitrogen 18 mg/dL (9-20); Calcium 7.9 mg/dL (8.4-10.2); Carbon Dioxide 25 mmol/L (22-30); Chloride 107.8 mmol/L (98-107); Glucose 110 mg/dL (75-100); Potassium 3.2 mmol/L (3.6-5.0); Sodium 145 mmol/L (137-145)
[2017-02-07] MEDS: PULMICORT IH SCH ×2 (07:28→20:42)
[2017-02-07] MEDS: BROVANA NEBU IH SCH ×2 (07:28→20:42)
[2017-02-07] MEDS: MORPHINE IV PRN ×3 (07:55→18:10)
[2017-02-07] MEDS: PEPCID PO SCH ×2 (11:16→23:22)
[2017-02-07] MEDS: SUSTIVA PO SCH (11:16)
[2017-02-07] MEDS: ELIQUIS PO SCH ×2 (11:16→23:22)
[2017-02-07] MEDS: LEXAPRO PO SCH (11:17)
[2017-02-07] MEDS: IMDUR PO SCH (11:17)
[2017-02-07] MEDS: TOPROL XL PO SCH (11:18)
[2017-02-07] MEDS: K-DUR PO SCH (11:18)
[2017-02-07] MEDS: VIREAD PO SCH (11:19)
[2017-02-07] MEDS: EMTRIVA PO SCH (11:19)
--- NOTE | 2017-02-07 12:01 | Progress Note ---
Assessment and Plan Assessment and plan: Patient is 56 year old man with a history of AIDS, CHF, hypertension, recent Saddle pulmonary emboli s/p ekos who presented to ED with sob, cough and left side pains. CTA chest +bilateral PE and MELVINA infiltrates. * Sepsis secondary MELVINA Aspiration Pneumonitis, Cavitary/Necrotizing Pneumonia with hemoptysis per Pulmonology. * STACEY most likely vasomotor nephropathy, poa resolved but continue to monitor * AIDS/HIV chronic and underlying process to this infection: ID is following * Hypertension,chronic and stable * Moderate protein calorie malnutrition: dietary follow up * Pulmonary embolism-Saddle: on Eliquis * Hemoptysis-resolved * Transaminitis, mild and resolving * Anemia of chronic disease. Still in TB isolation, AFB negative x 1, other smears appear to be contaminated? -Hypokalemia: replaced as additive, renal is following -Hypernatremia, mild: rechecked, ivf changed -Drop in HCT, slowly dropping resolved -Abx stopped per ID Bronchial washing ctx pending AFB from bronchial washing pending Fungal culture pending Quantiferon Gold: Intermediate 02/04/17: Back from Bronchoscopy, findings as follows: "Flexible Bronchoscopy with Bronchial Washing of Left upper lobe. After obtaining informed consent. Patient brought to Endo suite and preppred. Right nostril was anesthetized. Scope passed without difficulty. Vocal cords seen and had good AB and AD duction. Lidocaine x3 used on cords. Entered into Trachea. Normal. Lido used there. Passed down to david, normal. Lidocaine administered in left main stem then right. Airway inspection done first. Normal left side of lung. Abnormal right lower lobe seen on left. Remainder of airway inspection unremarkable. Scope then retracted and wedged into the left upper lobe. Bronchial washings were taken. Decent return. Some scope trauma visualized but no active bleeding. Scope retracted and patient being recovered." per Dr. Shepard. 02/05/17: New issue of n/v/ab pain maybe due to extreme coughing but will get KUB. replace potassium. KUB: Nonspecific bowel gas pattern without gross intestinal distention. Scattered prominence of gas may reflect paralytic ileus= >NPO 02/06/17: n/v resolved, start clear liquids, ?Ileus: will get ct ap with oral contrast 02/07/17: Tolerating clear liquids, CT a/p with oral contrast shows ileus, will consult Gen. Surgery and moderate pericardial effusion, ordered Echo and consulted Cardiology. Ordered am labs History Interval history: Patient seen and examined. Follow up on cough, still present. Overnight uneventful. No cp, sob, or severe headaches. Imaging, old records, testing, labs , nursing notes reviewed. Still requiring oxygen 2l, still with productive cough. She denies nausea vomiting and asking for something to drink. It appears that patient is referring to coughing up mucus as nausea vomiting. He c/ o loose stool not constipation. Still with fevers. Hospitalist Physical - Physical exam Narrative exam: GEN: Ill-appearing, deconditioned NAD, AWAKE, ALERT, ORIENTATED x 3 CVS: RRR, NORMAL S1S2 LUNGS/CHEST: crackles left, NORMAL CHEST EXPANSION B, diminished AIR ENTRY B ABD: SOFT,distendes hypoactive BS, NO REBOUND OR GUARDING EXT/SKIN: NO SIGNIFICANT EDEMA OR RASH MSK: FROM X 4 EXTREMITIES NEURO: CN 2-12 GROSSLY INTACT, NO FOCAL DEFICITS PSY: CALM - Constitutional Vitals: Temp Pulse Resp BP Pulse Ox 99.4 F 74 18 144/79 95 02/07/17 08:00 02/07/17 11:18 02/07/17 08:00 02/07/17 11:18 02/07/17 07:31 General appearance: Present: no acute distress Results - Labs CBC & Chem 7: 02/07/17 05:27 02/07/17 05:27 Labs: Laboratory Last Values WBC 9.3 K/mm3 (4.5-11.0) 02/07/17 05:27 RBC 2.96 M/mm3 (3.65-5.03) L 02/07/17 05:27 Hgb 9.4 gm/dl (11.8-15.2) L 02/07/17 05:27 Hct 27.6 % (35.5-45.6) L 02/07/17 05:27 MCV 93 fl (84-94) 02/07/17 05:27 MCH 32 pg (28-32) 02/07/17 05:27 MCHC 34 % (32-34) 02/07/17 05:27 RDW 14.7 % (13.2-15.2) 02/07/17 05:27 Plt Count 521 K/mm3 (140-440) H 02/07/17 05:27 Lymph % (Auto) 7.4 % (13.4-35.0) L 02/07/17 05:27 [place] % (Auto) 11.8 % (0.0-7.3) H 02/07/17 05:27 Eos % (Auto) 0.8 % (0.0-4.3) 02/07/17 05:27 Baso % (Auto) 0.8 % (0.0-1.8) 02/07/17 05:27 Lymph # 0.7 K/mm3 (1.2-5.4) L 02/07/17 05:27 [place] # 1.1 K/mm3 (0.0-0.8) H 02/07/17 05:27 Eos # 0.1 K/mm3 (0.0-0.4) 02/07/17 05:27 Baso # 0.1 K/mm3 (0.0-0.1) 02/07/17 05:27 Add Manual Diff Complete 01/26/17 05:45 Total Counted 100 01/26/17 05:45 Seg Neutrophils % 79.2 % (40.0-70.0) H 02/07/17 05:27 Seg Neuts % (Manual) 62.0 % (40.0-70.0) 01/26/17 05:45 Band Neutrophils % 29.0 % 01/26/17 05:45 Lymphocytes % (Manual) 6.0 % (13.4-35.0) L 01/26/17 05:45 Reactive Lymphs % (Man) 0 % 01/26/17 05:45 Monocytes % (Manual) 3.0 % (0.0-7.3) 01/26/17 05:45 Eosinophils % (Manual) 0 % (0.0-4.3) 01/26/17 05:45 Basophils % (Manual) 0 % (0.0-1.8) 01/26/17 05:45 Metamyelocytes % 0 % 01/26/17 05:45 Myelocytes % 0 % 01/26/17 05:45 Promyelocytes % 0 % 01/26/17 05:45 Blast Cells % 0 % 01/26/17 05:45 Nucleated RBC % 2.0 % (0.0-0.9) H 01/26/17 05:45 Seg Neutrophils # 7.4 K/mm3 (1.8-7.7) 02/07/17 05:27 Seg Neutrophils # Man 6.1 K/mm3 (1.8-7.7) 01/26/17 05:45 Band Neutrophils # 2.8 K/mm3 01/26/17 05:45 Abs Lymphs (Manual) 710 cells/uL (850-3900) L 01/31/17 20:35 Lymphocytes # (Manual) 0.6 K/mm3 (1.2-5.4) L 01/26/17 05:45 Abs React Lymphs (Man) 0.0 K/mm3 01/26/17 05:45 Monocytes # (Manual) 0.3 K/mm3 (0.0-0.8) 01/26/17 05:45 Eosinophils # (Manual) 0.0 K/mm3 (0.0-0.4) 01/26/17 05:45 Basophils # (Manual) 0.0 K/mm3 (0.0-0.1) 01/26/17 05:45 Metamyelocytes # 0.0 K/mm3 01/26/17 05:45 Myelocytes # 0.0 K/mm3 01/26/17 05:45 Promyelocytes # 0.0 K/mm3 01/26/17 05:45 Blast Cells # 0.0 K/mm3 01/26/17 05:45 WBC Morphology Not Reportable 01/26/17 05:45 Hypersegmented Neuts Not Reportable 01/26/17 05:45 Hyposegmented Neuts Not Reportable 01/26/17 05:45 Hypogranular Neuts Not Reportable 01/26/17 05:45 Smudge Cells Not Reportable 01/26/17 05:45 Toxic Granulation Not Reportable 01/26/17 05:45 Toxic Vacuolation Not Reportable 01/26/17 05:45 Dohle Bodies Not Reportable 01/26/17 05:45 Pelger-Huet Anomaly Not Reportable 01/26/17 05:45 Aylin Rods Not Reportable 01/26/17 05:45 Platelet Estimate Consistent w auto 01/26/17 05:45 Clumped Platelets Rare 01/26/17 05:45 Plt Clumps, EDTA Not Reportable 01/26/17 05:45 Large Platelets Not Reportable 01/26/17 05:45 Giant Platelets Not Reportable 01/26/17 05:45 Platelet Satelliting Not Reportable 01/26/17 05:45 Plt Morphology Comment Not Reportable 01/26/17 05:45 RBC Morphology Not Reportable 01/26/17 05:45 Dimorphic RBCs Not Reportable 01/26/17 05:45 Polychromasia Not Reportable 01/26/17 05:45 Hypochromasia Not Reportable 01/26/17 05:45 Poikilocytosis Not Reportable 01/26/17 05:45 Anisocytosis 1+ 01/26/17 05:45 Microcytosis Not Reportable 01/26/17 05:45 Macrocytosis Not Reportable 01/26/17 05:45 Spherocytes Not Reportable 01/26/17 05:45 Pappenheimer Bodies Not Reportable 01/26/17 05:45 Sickle Cells Not Reportable 01/26/17 05:45 Target Cells Not Reportable 01/26/17 05:45 Tear Drop Cells Not Reportable 01/26/17 05:45 Ovalocytes Not Reportable 01/26/17 05:45 Helmet Cells Not Reportable 01/26/17 05:45 [place] Bodies Not Reportable 01/26/17 05:45 [place] Rings Not Reportable 01/26/17 05:45 [place] Cells Few 01/26/17 05:45 Bite Cells Not Reportable 01/26/17 05:45 Crenated Cell Not Reportable 01/26/17 05:45 Elliptocytes Not Reportable 01/26/17 05:45 Acanthocytes (Spur) Not Reportable 01/26/17 05:45 Rouleaux Not Reportable 01/26/17 05:45 Hemoglobin C Crystals Not Reportable 01/26/17 05:45 Schistocytes Not Reportable 01/26/17 05:45 Malaria parasites Not Reportable 01/26/17 05:45 [place] Bodies Not Reportable 01/26/17 05:45 Hem Pathologist Commnt No 01/26/17 05:45 PT 26.5 Sec. (12.2-14.9) H 02/03/17 13:38 INR 2.30 (0.87-1.13) H 02/03/17 13:38 APTT 43.6 Sec. (24.2-36.6) H 02/03/17 13:38 POC ABG pH 7.411 (7.35-7.45) 01/30/17 22:34 POC ABG pCO2 25.0 (35-45) L 01/30/17 22:34 POC ABG pO2 57 (80-105) L 01/30/17 22:34 POC ABG HCO3 15.9 01/30/17 22:34 POC ABG Total CO2 17 01/30/17 22:34 POC ABG O2 Sat 90 01/30/17 22:34 POC ABG Base Excess -9 01/30/17 22:34 VBG pH 7.374 (7.320-7.420) 01/25/17 00:44 FiO2 70 % 01/30/17 22:34 Sodium 145 mmol/L (137-145) 02/07/17 05:27 Potassium 3.2 mmol/L (3.6-5.0) L 02/07/17 05:27 Chloride 109.9 mmol/L (98-107) H 02/06/17 06:14 Carbon Dioxide 25 mmol/L (22-30) 02/07/17 05:27 Anion Gap 17 mmol/L 02/06/17 06:14 BUN 18 mg/dL (9-20) 02/07/17 05:27 Creatinine 1.4 mg/dL (0.8-1.5) 02/07/17 05:27 Estimated GFR > 60 ml/min 02/07/17 05:27 BUN/Creatinine Ratio 12.85 % 02/07/17 05:27 Glucose 110 mg/dL (75-100) H 02/07/17 05:27 Osmolality 311 Mosm/kg 01/29/17 Unknown Lactic Acid 1.40 mmol/L (0.7-2.0) 01/28/17 11:56 Calcium 7.9 mg/dL (8.4-10.2) L 02/07/17 05:27 Phosphorus 3.10 mg/dL (2.5-4.5) 01/29/17 Unknown Magnesium 2.00 mg/dL (1.7-2.3) 02/07/17 05:27 Total Bilirubin 0.20 mg/dL (0.1-1.2) 01/30/17 04:10 Direct Bilirubin < 0.2 mg/dL (0-0.2) 01/27/17 12:15 AST 75 units/L (5-40) H 01/30/17 04:10 ALT 77 units/L (7-56) H 01/30/17 04:10 Alkaline Phosphatase 81 units/L (35-129) 01/30/17 04:10 Troponin T < 0.010 ng/mL (0.00-0.029) 01/25/17 03:15 Total Protein 6.7 g/dL (6.3-8.2) 01/30/17 04:10 Albumin 2.6 g/dL (3.9-5) L 01/30/17 04:10 Albumin/Globulin Ratio 0.6 % 01/30/17 04:10 Lipase 63 units/L (13-60) H 01/30/17 04:10 Urine Color Yellow (Yellow) 01/28/17 23:55 Urine Turbidity Clear (Clear) 01/28/17 23:55 Urine pH 5.0 (5.0-7.0) 01/28/17 23:55 Ur Specific Marks 1.019 (1.003-1.030) 01/28/17 23:55 Urine Protein 30 mg/dl mg/dL (Negative) 01/28/17 23:55 Urine Glucose (UA) Neg mg/dL (Negative) 01/28/17 23:55 Urine Ketones Neg mg/dL (Negative) 01/28/17 23:55 Urine Blood Sm (Negative) 01/28/17 23:55 Urine Nitrite Neg (Negative) 01/28/17 23:55 Urine Bilirubin Neg (Negative) 01/28/17 23:55 Urine Urobilinogen < 2.0 mg/dL (<2.0) 01/28/17 23:55 Ur Leukocyte Esterase Neg (Negative) 01/28/17 23:55 Urine WBC (Auto) 2.0 /HPF (0.0-6.0) 01/28/17 23:55 Urine RBC (Auto) 3.0 /HPF (0.0-6.0) 01/28/17 23:55 Uric Acid Crystals Few 01/28/17 23:55 Amorphous Crystals 1+ 01/28/17 23:55 Urine Mucus Few /HPF 01/28/17 23:55 Urine Eosinophils None seen (None Seen) 01/28/17 23:55 Urine Creatinine 124.4 mg/dL (0.1-20.0) H 01/28/17 23:56 Protein/Creatinin Ratio 0.56 01/28/17 23:55 Urine Sodium 51 mEq/L 01/28/17 23:55 Urine Total Protein 71 mg/dL (5-11.8) H 01/28/17 23:56 Vancomycin Trough 22.3 ug/mL (5.0-20.0) H 02/05/17 10:29 Lymph Enumerat CD4/CD8 0.82 (0.86-5.00) L 01/31/17 20:35 % CD3 Cells 74 % (57-85) 01/31/17 20:35 Absolute CD3 Count 524 cells/uL (840-3060) L 01/31/17 20:35 % CD4 Cells 34 % (30-61) 01/31/17 20:35 Absolute CD4 Count 237 cells/uL (490-1740) L 01/31/17 20:35 % CD8 Cells 41 % (12-42) 01/31/17 20:35 Absolute CD8 Count 289 cells/uL (180-1170) 01/31/17 20:35 % CD19 Cells 17 % (6-29) 01/31/17 20:35 Absolute CD19 Count 121 cells/uL (110-660) 01/31/17 20:35 Hepatitis A IgM Ab Non-reactive (NonReactive) 01/28/17 11:56 Hep Bs Antigen Non-reactive (Negative) 01/28/17 11:56 Hep B Core IgM Ab Non-reactive (NonReactive) 01/28/17 11:56 Hepatitis C Antibody Non-reactive (NonReactive) 01/28/17 11:56 TB (QFT) Gold In Tube Indeterminate (Negative) H 02/02/17 16:30 TB Test (QFT) Nil 0.07 IU/mL 02/02/17 16:30 TB Test Mitogen - Nil 0.16 IU/mL 02/02/17 16:30 TB Test Antigen - Nil 0.03 IU/mL 02/02/17 16:30 Blood Type B POSITIVE 01/24/17 22:07 Antibody Screen TNR 01/24/17 22:07 ALIDA Antibody Screen Negative 01/24/17 22:07
--- NOTE | 2017-02-07 13:34 | Progress Note ---
Assessment and Plan - Patient Problems (1) Left upper lobe pneumonia Current Visit: Yes Status: Acute Qualifiers: Pneumonia type: due to unspecified organism Aspiration pneumonia type: A Qualified Code(s): J18.1 - Lobar pneumonia, unspecified organism Plan to address problem: 1. Will change Vancomycin to Zyvox empirically pending identification of Gram positive cocci in pairs. 2. IV Zyvox until patient is reliably tolerating meds PO, then can change to same dose orally. 3. Continue empiric Meropenem as well. 4. Await further results of bronchoscopy. 5. Equivocal quantiferon study. Await third AFB sputum smear result. (2) HIV (human immunodeficiency virus infection) Current Visit: Yes Status: Acute Plan to address problem: 1. Continue ARVs. Subjective Date of service: 02/07/17 Principal diagnosis: Sepsis Interval history: Intermittent low-grade fevers. Continued productive cough and abdominal fullness. Objective - Constitutional Vitals: Vital Signs Temp Pulse Resp BP Pulse Ox 98.9 F 80 20 142/81 95 02/07/17 11:34 02/07/17 11:34 02/07/17 11:34 02/07/17 11:34 02/07/17 07:31 Temperature -Last 24 Hours Temperature 98.9 F Temperature 99.4 F Temperature 100.6 F Temperature 99.8 F Temperature 100.6 F General appearance: Present: mild distress (appears uncomfortable), well- nourished - EENT ENT: poor dentition, no thrush - Neck Neck: supple - Respiratory Respiratory: bilateral: rhonchi (faint), negative: rales, wheezing - Cardiovascular Rhythm: regular Heart Sounds: Present: S1 & S2 Extremities: No edema - Gastrointestinal General gastrointestinal: Present: soft, non-tender, distended (mild, unchanged distention), hypoactive bowel sounds - Integumentary Integumentary: no jaundice, no rash - Neurologic Neurologic: moves all extremities - Psychiatric Psychiatric: appropriate mood/affect - Labs CBC & Chem 7: 02/07/17 05:27 02/07/17 05:27 Labs: Abnormal lab results 02/07/17 02/07/17 Range/Units 05:27 05:27 RBC 2.96 L (3.65-5.03) M/mm3 Hgb 9.4 L (11.8-15.2) gm/dl Hct 27.6 L (35.5-45.6) % Plt Count 521 H (140-440) K/mm3 Lymph % (Auto) 7.4 L (13.4-35.0) % [place] % (Auto) 11.8 H (0.0-7.3) % Lymph # 0.7 L (1.2-5.4) K/mm3 [place] # 1.1 H (0.0-0.8) K/mm3 Seg Neutrophils % 79.2 H (40.0-70.0) % Potassium 3.2 L (3.6-5.0) mmol/L Glucose 110 H (75-100) mg/dL Calcium 7.9 L (8.4-10.2) mg/dL Microbiology 02/04/17 06:00 Sputum - Expectorated Sputum Sputum Culture - Final 02/04/17 Unknown Bronchial Washings - Left Upper Lobe Respiratory Culture - Final 02/04/17 09:48 Peripheral/Venous Blood Culture - Preliminary NO GROWTH AFTER 72 HOURS 02/04/17 09:44 Peripheral/Venous Blood Culture - Preliminary NO GROWTH AFTER 72 HOURS 01/27/17 16:30 Sputum - Expectorated Sputum Mycobacterial Culture - Final 01/27/17 16:30 Sputum - Expectorated Sputum AFB Smear Concentration - Final 01/28/17 23:46 Sputum - Expectorated Sputum AFB Smear Concentration - Final 01/25/17 00:44 Peripheral/Venous Blood Culture - Final NO GROWTH AFTER 5 DAYS 01/24/17 22:13 Peripheral/Venous Blood Culture - Final NO GROWTH AFTER 5 DAYS 01/25/17 06:30 Sputum - Expectorated Sputum AFB Smear Concentration - Final 01/27/17 06:45 Sputum - Expectorated Sputum Sputum Culture - Final 01/26/17 06:30 Sputum - Expectorated Sputum Sputum Culture - Final 01/25/17 22:03 Serum Cryptococcal Antigen - Final - Imaging and cardiology CT scan - abdomen: report reviewed (mild-moderate ileus)
[2017-02-07] MEDS: ZYVOX 600MG/300ML 600 MG/300 ML BAG IV SCH (18:34)
[2017-02-07] MEDS: NS/KCL 40MEQ 40 MEQ/1,000 ML BAG IV SCH (23:31)
[2017-02-08] MEDS: MORPHINE IV PRN ×4 (03:13→22:37)
[2017-02-08] MEDS: FLAGYL 500 MG/100 ML 500 MG/100 ML BAG IV SCH ×3 (06:20→22:35)
[2017-02-08] MEDS: TESSALON PERLES PO SCH ×3 (06:21→22:35)
[2017-02-08] MEDS ORDERED: NACL ONE (07:34)
[2017-02-08] MEDS: MERREM 1,000 MG in NACL 0.9% 100 ML IV SCH ×2 (07:37→16:00)
--- NOTE | 2017-02-08 08:19 | Progress Note ---
Assessment and Plan - Patient Problems (1) Left upper lobe pneumonia Current Visit: Yes Status: Acute Qualifiers: Pneumonia type: due to unspecified organism Aspiration pneumonia type: A Qualified Code(s): J18.1 - Lobar pneumonia, unspecified organism Plan to address problem: 1. Continue current management pending final sputum culture results, with Zyvox recently added. 2. Patient has 3 negative AFB sputum smears. Will discontinue airborne isolation. Follow-up AFB cultures. 2. Antimicrobials can be changed to oral route once reliably tolerating PO meds. (2) HIV (human immunodeficiency virus infection) Current Visit: Yes Status: Acute Plan to address problem: Continue current HAART regimen. Subjective Date of service: 02/08/17 Principal diagnosis: Sepsis Interval history: Afebrile overnight. Continued cough, more productive today than yesterday. No hemoptysis. Objective - Constitutional Vitals: Vital Signs Temp Pulse Resp BP Pulse Ox 99.8 F H 76 14 134/69 96 02/08/17 04:19 02/08/17 04:19 02/08/17 04:19 02/08/17 04:19 02/08/17 04:19 Temperature -Last 24 Hours Temperature 99.8 F Temperature 98.4 F Temperature 99.9 F Temperature 98.6 F Temperature 98.9 F General appearance: Present: no acute distress, well-nourished - EENT Eyes: no scleral icterus - Neck Neck: supple - Respiratory Respiratory effort: normal Respiratory: bilateral: CTA, negative: rales, rhonchi - Cardiovascular Rhythm: regular Heart Sounds: Present: S1 & S2 Extremities: No edema - Gastrointestinal General gastrointestinal: Present: soft, distended (slightly less distended today) - Integumentary Integumentary: no jaundice, no rash - Psychiatric Psychiatric: appropriate mood/affect - Labs CBC & Chem 7: 02/08/17 12:57 02/08/17 12:57 Labs: Microbiology 02/04/17 09:48 Peripheral/Venous Blood Culture - Preliminary NO GROWTH AFTER 4 DAYS 02/04/17 09:44 Peripheral/Venous Blood Culture - Preliminary NO GROWTH AFTER 4 DAYS 02/04/17 Unknown Bronchial Washings - Left Upper Lobe AFB Smear Concentration - Final 02/03/17 06:00 Sputum - Expectorated Sputum AFB Smear Concentration - Final 02/04/17 06:00 Sputum - Expectorated Sputum Sputum Culture - Final 02/04/17 Unknown Bronchial Washings - Left Upper Lobe Respiratory Culture - Final 01/27/17 16:30 Sputum - Expectorated Sputum Mycobacterial Culture - Final 01/27/17 16:30 Sputum - Expectorated Sputum AFB Smear Concentration - Final 01/28/17 23:46 Sputum - Expectorated Sputum AFB Smear Concentration - Final 01/25/17 00:44 Peripheral/Venous Blood Culture - Final NO GROWTH AFTER 5 DAYS 01/24/17 22:13 Peripheral/Venous Blood Culture - Final NO GROWTH AFTER 5 DAYS 01/25/17 06:30 Sputum - Expectorated Sputum AFB Smear Concentration - Final 01/27/17 06:45 Sputum - Expectorated Sputum Sputum Culture - Final 01/26/17 06:30 Sputum - Expectorated Sputum Sputum Culture - Final 01/25/17 22:03 Serum Cryptococcal Antigen - Final - Imaging and cardiology CT scan - abdomen: report reviewed CT scan - pelvis: report reviewed (sigmoid colon thickening with fluid level in rectum; no diverticulitis) Other: report reviewed (Echocardiogram - moderate pericardial effusion with no evidence of tamponade; EF 55-50%)
[2017-02-08] MEDS: BROVANA NEBU IH SCH ×2 (08:54→19:38)
[2017-02-08] MEDS: PULMICORT IH SCH ×2 (08:55→19:38)
--- NOTE | 2017-02-08 10:47 | Progress Note ---
Assessment and Plan 56 y/o male with HIV, recent saddle PE s/p ekos, now with new left upper lobe cavitary pneumonia and acute respiratory failure. 1. Follow up Bronch results, AFB still pending as well as fungal 2. continue supplemental O2 3. Abx therapy per ID Subjective Date of service: 02/08/17 Principal diagnosis: Sepsis Interval history: No acute events overnight. Objective Vital Signs - 12hr 02/08/17 02/08/17 02/08/17 00:25 04:19 07:40 Temperature 98.4 F 99.8 F H 99 F Pulse Rate [ Anterior Bilateral Throughout] Pulse Rate [ Anterior Right Throughout] Pulse Rate [ 84 76 77 Left Radial] Respiratory 14 14 16 Rate Respiratory Rate [Anterior Bilateral Throughout] Respiratory Rate [Anterior Right Throughout] Blood Pressure 121/69 134/69 140/76 [Left Arm] O2 Sat by Pulse 96 96 97 Oximetry 02/08/17 02/08/17 08:55 09:10 Temperature Pulse Rate [ 77 77 Anterior Bilateral Throughout] Pulse Rate [ 77 Anterior Right Throughout] Pulse Rate [ Left Radial] Respiratory Rate Respiratory 16 16 Rate [Anterior Bilateral Throughout] Respiratory 16 Rate [Anterior Right Throughout] Blood Pressure [Left Arm] O2 Sat by Pulse 96 Oximetry Constitutional: no acute distress, alert Eyes: non-icteric ENT: oropharynx moist Neck: supple, no lymphadenopathy, no JVD Effort: normal Ascultation: Bilateral: clear, diminished breath sounds, rales (left field) Percussion: Bilateral: not dull Cardiovascular: regular rate and rhythm Gastrointestinal: normoactive bowel sounds, non-distended Integumentary: normal Extremities: no cyanosis Neurologic: normal mental status, non-focal exam, pupils equal and round, CN II- XII normal Psychiatric: mood appropriate, affect normal CBC and BMP: 02/07/17 05:27 02/07/17 05:27 ABG, PT/INR, D-dimer: ABG POC ABG pH 7.411 (7.35-7.45) 01/30/17 22:34 POC ABG pCO2 25.0 (35-45) L 01/30/17 22:34 POC ABG pO2 57 (80-105) L 01/30/17 22:34 POC ABG HCO3 15.9 01/30/17 22:34 POC ABG Total CO2 17 01/30/17 22:34 POC ABG O2 Sat 90 01/30/17 22:34 PT/INR, D-dimer PT 26.5 Sec. (12.2-14.9) H 02/03/17 13:38 INR 2.30 (0.87-1.13) H 02/03/17 13:38 Abnormal lab findings: Abnormal Labs 01/25/17 01/25/17 01/26/17 09:32 10:40 05:45 WBC RBC Hgb 11.6 L Hct 34.4 L D MCV RDW Plt Count Lymph % (Auto) Harding % (Auto) Lymph # Harding # Seg Neutrophils % Lymphocytes % (Manual) 6.0 L Nucleated RBC % 2.0 H Seg Neutrophils # Abs Lymphs (Manual) Lymphocytes # (Manual) 0.6 L PT INR APTT POC ABG pH 7.478 H POC ABG pCO2 27.4 L POC ABG pO2 73 L Sodium Potassium Chloride Carbon Dioxide BUN Creatinine Glucose Lactic Acid 2.60 H* Calcium AST ALT Total Protein Albumin Lipase Urine Creatinine Urine Total Protein Vancomycin Trough Lymph Enumerat CD4/CD8 Absolute CD3 Count Absolute CD4 Count TB (QFT) Gold In Tube 01/26/17 01/27/17 01/28/17 05:45 12:15 08:36 WBC 12.4 H RBC 3.49 L Hgb 10.9 L Hct 33.0 L MCV 95 H RDW Plt Count Lymph % (Auto) Harding % (Auto) Lymph # [place] # Seg Neutrophils % Lymphocytes % (Manual) Nucleated RBC % Seg Neutrophils # Abs Lymphs (Manual) Lymphocytes # (Manual) PT INR APTT POC ABG pH POC ABG pCO2 POC ABG pO2 Sodium Potassium Chloride Carbon Dioxide 21 L BUN Creatinine Glucose 130 H Lactic Acid Calcium AST 121 H ALT 117 H Total Protein 5.8 L D Albumin 2.8 L Lipase Urine Creatinine Urine Total Protein Vancomycin Trough Lymph Enumerat CD4/CD8 Absolute CD3 Count Absolute CD4 Count TB (QFT) Gold In Tube 01/28/17 01/28/17 01/28/17 08:36 11:56 23:55 WBC RBC Hgb Hct MCV RDW Plt Count Lymph % (Auto) Hard[place] % (Auto) Lymph # [place] # Seg Neutrophils % Lymphocytes % (Manual) Nucleated RBC % Seg Neutrophils # Abs Lymphs (Manual) Lymphocytes # (Manual) PT INR APTT POC ABG pH POC ABG pCO2 POC ABG pO2 Sodium Potassium Chloride Carbon Dioxide BUN 28 H 30 H Creatinine 2.0 H D 1.9 H Glucose 137 H 124 H Lactic Acid Calcium AST 119 H ALT 106 H Total Protein Albumin 2.7 L Lipase Urine Creatinine 127.2 H Urine Total Protein 71 H Vancomycin Trough Lymph Enumerat CD4/CD8 Absolute CD3 Count Absolute CD4 Count TB (QFT) Gold In Tube 01/28/17 01/29/17 01/29/17 23:56 10:07 10:07 WBC 12.9 H RBC 3.32 L Hgb 10.4 L Hct 31.6 L MCV 95 H RDW Plt Count Lymph % (Auto) 5.9 L Harding % (Auto) 10.2 H Lymph # 0.8 L Harding # 1.3 H Seg Neutrophils % 83.5 H Lymphocytes % (Manual) Nucleated RBC % Seg Neutrophils # 10.8 H Abs Lymphs (Manual) Lymphocytes # (Manual) PT INR APTT POC ABG pH POC ABG pCO2 POC ABG pO2 Sodium Potassium Chloride Carbon Dioxide 20 L BUN 26 H Creatinine 1.8 H Glucose 148 H Lactic Acid Calcium 8.2 L AST ALT Total Protein Albumin Lipase Urine Creatinine 124.4 H Urine Total Protein 71 H Vancomycin Trough Lymph Enumerat CD4/CD8 Absolute CD3 Count Absolute CD4 Count TB (QFT) Gold In Tube 01/29/17 01/29/17 01/30/17 Unknown Unknown 04:10 WBC 12.8 H 14.0 H RBC 3.52 L 3.40 L Hgb 11.0 L 10.7 L Hct 33.0 L 32.1 L MCV 95 H RDW Plt Count Lymph % (Auto) Harding % (Auto) Lymph # [place] # Seg Neutrophils % Lymphocytes % (Manual) Nucleated RBC % Seg Neutrophils # Abs Lymphs (Manual) Lymphocytes # (Manual) PT INR APTT POC ABG pH POC ABG pCO2 POC ABG pO2 Sodium Potassium Chloride Carbon Dioxide BUN 27 H Creatinine 1.9 H Glucose 119 H Lactic Acid Calcium AST ALT Total Protein Albumin Lipase Urine Creatinine Urine Total Protein Vancomycin Trough Lymph Enumerat CD4/CD8 Absolute CD3 Count Absolute CD4 Count TB (QFT) Gold In Tube 01/30/17 01/30/17 01/30/17 04:10 04:10 17:48 WBC RBC Hgb Hct MCV RDW Plt Count Lymph % (Auto) Hard[place] % (Auto) Lymph # [place] # Seg Neutrophils % Lymphocytes % (Manual) Nucleated RBC % Seg Neutrophils # Abs Lymphs (Manual) Lymphocytes # (Manual) PT INR APTT POC ABG pH 7.282 L POC ABG pCO2 32.0 L POC ABG pO2 58 L Sodium Potassium Chloride 107.4 H Carbon Dioxide BUN 26 H Creatinine 1.6 H Glucose 108 H Lactic Acid Calcium AST 75 H ALT 77 H Total Protein Albumin 2.6 L Lipase 63 H Urine Creatinine Urine Total Protein Vancomycin Trough Lymph Enumerat CD4/CD8 Absolute CD3 Count Absolute CD4 Count TB (QFT) Gold In Tube 01/30/17 01/31/17 02/01/17 22:34 20:35 05:50 WBC 15.0 H RBC 3.30 L Hgb 10.2 L Hct 31.5 L MCV 95 H RDW 15.3 H Plt Count Lymph % (Auto) 4.9 L Harding % (Auto) Lymph # 0.7 L Harding # 1.0 H Seg Neutrophils % 87.2 H Lymphocytes % (Manual) Nucleated RBC % Seg Neutrophils # 13.1 H Abs Lymphs (Manual) 710 L Lymphocytes # (Manual) PT INR APTT POC ABG pH POC ABG pCO2 25.0 L POC ABG pO2 57 L Sodium Potassium Chloride Carbon Dioxide BUN Creatinine Glucose Lactic Acid Calcium AST ALT Total Protein Albumin Lipase Urine Creatinine Urine Total Protein Vancomycin Trough Lymph Enumerat CD4/CD8 0.82 L Absolute CD3 Count 524 L Absolute CD4 Count 237 L TB (QFT) Gold In Tube 02/01/17 02/02/17 02/02/17 05:50 05:51 05:51 WBC 16.6 H RBC 3.17 L Hgb 9.6 L Hct 30.4 L MCV 96 H RDW Plt Count Lymph % (Auto) 5.2 L Harding % (Auto) Lymph # 0.9 L Harding # 1.1 H Seg Neutrophils % 87.3 H Lymphocytes % (Manual) Nucleated RBC % Seg Neutrophils # 14.4 H Abs Lymphs (Manual) Lymphocytes # (Manual) PT INR APTT POC ABG pH POC ABG pCO2 POC ABG pO2 Sodium 146 H 148 H Potassium 3.2 L 3.4 L Chloride 107.1 H 110.3 H Carbon Dioxide 20 L 21 L BUN 30 H 28 H Creatinine Glucose 112 H Lactic Acid Calcium 8.0 L 7.9 L AST ALT Total Protein Albumin Lipase Urine Creatinine Urine Total Protein Vancomycin Trough Lymph Enumerat CD4/CD8 Absolute CD3 Count Absolute CD4 Count TB (QFT) Gold In Tube 02/02/17 02/03/17 02/03/17 16:30 06:40 06:40 WBC 18.0 H RBC 3.40 L Hgb 10.4 L Hct 32.6 L MCV 96 H RDW 15.5 H Plt Count 519 H Lymph % (Auto) 5.0 L Harding % (Auto) Lymph # 0.9 L Harding # 1.1 H Seg Neutrophils % 87.8 H Lymphocytes % (Manual) Nucleated RBC % Seg Neutrophils # 15.8 H Abs Lymphs (Manual) Lymphocytes # (Manual) PT INR APTT POC ABG pH POC ABG pCO2 POC ABG pO2 Sodium 148 H Potassium 3.1 L Chloride 109.8 H Carbon Dioxide BUN 26 H Creatinine 1.7 H Glucose 121 H Lactic Acid Calcium 8.2 L AST ALT Total Protein Albumin Lipase Urine Creatinine Urine Total Protein Vancomycin Trough Lymph Enumerat CD4/CD8 Absolute CD3 Count Absolute CD4 Count TB (QFT) Gold In Tube Indeterminate H 02/03/17 02/04/17 02/04/17 13:38 09:44 09:44 WBC 16.1 H RBC 3.38 L Hgb 10.3 L Hct 31.8 L MCV RDW Plt Count 543 H Lymph % (Auto) 4.4 L Harding % (Auto) Lymph # 0.7 L Harding # 1.1 H Seg Neutrophils % 87.9 H Lymphocytes % (Manual) Nucleated RBC % Seg Neutrophils # 14.1 H Abs Lymphs (Manual) Lymphocytes # (Manual) PT 26.5 H INR 2.30 H APTT 43.6 H POC ABG pH POC ABG pCO2 POC ABG pO2 Sodium Potassium Chloride 107.1 H Carbon Dioxide BUN 23 H Creatinine 1.7 H Glucose 115 H Lactic Acid Calcium 8.2 L AST ALT Total Protein Albumin Lipase Urine Creatinine Urine Total Protein Vancomycin Trough Lymph Enumerat CD4/CD8 Absolute CD3 Count Absolute CD4 Count TB (QFT) Gold In Tube 02/05/17 02/05/17 02/05/17 06:48 06:48 10:29 WBC 13.3 H RBC 3.13 L Hgb 9.6 L Hct 29.8 L MCV 95 H RDW Plt Count 514 H Lymph % (Auto) 5.0 L Harding % (Auto) 7.9 H Lymph # 0.7 L Harding # 1.1 H Seg Neutrophils % 85.7 H Lymphocytes % (Manual) Nucleated RBC % Seg Neutrophils # 11.8 H Abs Lymphs (Manual) Lymphocytes # (Manual) PT INR APTT POC ABG pH POC ABG pCO2 POC ABG pO2 Sodium Potassium 3.3 L Chloride 109.1 H Carbon Dioxide BUN 22 H Creatinine 1.7 H Glucose 111 H Lactic Acid Calcium 8.0 L AST ALT Total Protein Albumin Lipase Urine Creatinine Urine Total Protein Vancomycin Trough 22.3 H Lymph Enumerat CD4/CD8 Absolute CD3 Count Absolute CD4 Count TB (QFT) Gold In Tube 02/06/17 02/06/17 02/07/17 06:14 06:14 05:27 WBC RBC 2.97 L 2.96 L Hgb 9.2 L 9.4 L Hct 28.3 L 27.6 L MCV 95 H RDW Plt Count 552 H 521 H Lymph % (Auto) 5.1 L 7.4 L Harding % (Auto) 9.3 H 11.8 H Lymph # 0.5 L 0.7 L Harding # 1.0 H 1.1 H Seg Neutrophils % 84.3 H 79.2 H Lymphocytes % (Manual) Nucleated RBC % Seg Neutrophils # 8.7 H Abs Lymphs (Manual) Lymphocytes # (Manual) PT INR APTT POC ABG pH POC ABG pCO2 POC ABG pO2 Sodium 146 H Potassium 3.5 L Chloride 109.9 H Carbon Dioxide BUN Creatinine Glucose 112 H Lactic Acid Calcium 7.9 L AST ALT Total Protein Albumin Lipase Urine Creatinine Urine Total Protein Vancomycin Trough Lymph Enumerat CD4/CD8 Absolute CD3 Count Absolute CD4 Count TB (QFT) Gold In Tube 02/07/17 05:27 WBC RBC Hgb Hct MCV RDW Plt Count Lymph % (Auto) Harding % (Auto) Lymph # Harding # Seg Neutrophils % Lymphocytes % (Manual) Nucleated RBC % Seg Neutrophils # Abs Lymphs (Manual) Lymphocytes # (Manual) PT INR APTT POC ABG pH POC ABG pCO2 POC ABG pO2 Sodium Potassium 3.2 L Chloride Carbon Dioxide BUN Creatinine Glucose 110 H Lactic Acid Calcium 7.9 L AST ALT Total Protein Albumin Lipase Urine Creatinine Urine Total Protein Vancomycin Trough Lymph Enumerat CD4/CD8 Absolute CD3 Count Absolute CD4 Count TB (QFT) Gold In Tube
--- NOTE | 2017-02-08 11:54 | Consultation ---
History of Present Illness Consult date: 02/08/17 Requesting physician: RANDY COBB Consult reason: other (pericardial effusion ) History of present illness: The pt is a 56 y/o male with HIV, HTN, HLP, COPD, recent saddle PE s/p ekos admitted on 01/25 with c/o presented to ED with sob, cough, hemoptysis, and left side chest pains. He is previously unknown to our practice. He was subsequently found to have MELVINA PNA and sepsis. He underwent echo on 02/07/2017 which showed moderate pericardial effusion, EF 55-60%, and thus cardiology was consulted. On evaluation, pt denies any complaints. He reports that he is regularly followed by [facility] and that he has been told in the past that he has "fluid around the heart" and was undergoing treatment per [facility] recently. Past History Past Medical History: COPD, hypertension, hyperlipidemia, pulmonary embolism, other (HIV, CHF) Past Surgical History: Other (Bilateral pulmonary angiography. Placement and removal of Ekos catheter on 01/07/17) Social history: single Family history: hypertension Medications and Allergies Allergies Allergy/AdvReac Type Severity Reaction Status Date / Time No Known Allergies Allergy Verified 01/06/17 12:26 Home Medications Medication Instructions Recorded Confirmed Last Taken Type Aspirin EC [Aspirin Enteric Coated 81 mg PO QDAC 01/07/17 01/25/17 01/05/17 History TAB] AtorvaSTATin [Lipitor] 40 mg PO QHS 01/07/17 01/25/17 01/05/17 History Efavirenz/Emtricitab/Tenofovir 1 each PO QDAY #0 01/07/17 01/25/17 01/05/17 History [Atripla Tablet] Escitalopram Oxalate [Lexapro] 20 mg PO DAILY 01/07/17 01/25/17 01/05/17 History ISOSORBIDE MONOnitrate [Imdur ER] 30 mg PO DAILY 01/07/17 01/25/17 01/05/17 History Metoprolol Xl [Metoprolol 50 mg PO DAILY 01/07/17 01/25/17 01/05/17 History SUCCINATE ER TAB] Proventil 0.083% NEBS 0.083 container INHALATION Q6HR PRN 01/07/17 01/25/1702/14 History Symbicort 160-4.5 (Nf) 160 device INHALATION BID 01/07/17 01/25/17 01/05/17 History Apixaban [Eliquis] 5 mg PO BID #60 tablet 01/09/17 01/25/17 Unknown Rx Famotidine [Pepcid] 20 mg PO BID #60 tablet 01/09/17 01/25/17 Unknown Rx Active Meds: Active Medications Acetaminophen (Tylenol) 650 mg PO Q4H PRN PRN Reason: Pain MILD(1-3)/Fever >100.5/EDEN Last Admin: 02/03/17 15:28 Dose: 650 mg Albuterol (Proventil) 2.5 mg IH Q6HRT PRN PRN Reason: Dyspnea Last Admin: 02/03/17 05:39 Dose: 2.5 mg Apixaban (Eliquis) 5 mg PO BID [facility] PRN Reason: Protocol Last Admin: 02/07/17 23:22 Dose: 5 mg Arformoterol Tartrate (Brovana Nebu) 15 mcg IH Q12HRT [facility] Last Admin: 02/08/17 08:54 Dose: 15 mcg Atorvastatin Calcium (Lipitor) 40 mg PO QHS [facility] Last Admin: 02/07/17 23:22 Dose: 40 mg Benzonatate (Tessalon Perles) 100 mg PO Q8HR [facility] Last Admin: 02/08/17 06:21 Dose: 100 mg Bisacodyl (Dulcolax) 10 mg DC QDAY PRN PRN Reason: Constipation unrelieved by MOM Budesonide (Pulmicort) 0.5 mg IH Q12HRT [facility] Last Admin: 02/08/17 08:55 Dose: 0.5 mg Efavirenz (Sustiva) 600 mg PO QDAY [facility] Last Admin: 02/07/17 11:16 Dose: 600 mg Emtricitabine (Emtriva) 200 mg PO QDAY [facility] Last Admin: 02/07/17 11:19 Dose: 200 mg Escitalopram Oxalate (Lexapro) 20 mg PO DAILY [facility] Last Admin: 02/07/17 11:17 Dose: 20 mg Famotidine (Pepcid) 20 mg PO BID [facility] Last Admin: 02/07/17 23:22 Dose: 20 mg Hydralazine HCl (Apresoline) 10 mg IV Q6H PRN PRN Reason: SBP>160 Last Admin: 01/30/17 17:32 Dose: 10 mg Metronidazole (Flagyl 500 Mg/100 Ml) 500 mg in 100 mls @ 100 mls/hr IV Q8HR [facility] Last Admin: 02/08/17 06:20 Dose: 100 mls/hr Meropenem 1,000 mg/ Sodium (Chloride) 100 mls @ 100 mls/hr IV Q8H [facility] PRN Reason: Protocol Last Admin: 02/08/17 07:37 Dose: 100 mls/hr Linezolid (Zyvox 600mg/300ml) 600 mg in 300 mls @ 300 mls/hr IV Q12HR [facility] PRN Reason: Protocol Last Admin: 02/08/17 00:00 Dose: 300 mls/hr Potassium Chloride/Sodium Chloride (Ns/Kcl 40meq) 40 meq in 1,000 mls @ 125 mls /hr IV DIRECT [facility] Last Admin: 02/07/17 23:31 Dose: 125 mls/hr Isosorbide Mononitrate (Imdur) 30 mg PO DAILY [facility] Last Admin: 02/07/17 11:17 Dose: 30 mg Magnesium Hydroxide (Milk Of Magnesia) 30 ml PO Q4H PRN PRN Reason: Constipation Metoprolol Succinate (Toprol Xl) 50 mg PO DAILY [facility] Last Admin: 02/07/17 11:18 Dose: 50 mg Morphine Sulfate (Morphine) 2 mg IV Q4H PRN PRN Reason: Pain, Moderate (4-6) Last Admin: 02/08/17 10:07 Dose: 2 mg Ondansetron HCl (Zofran) 4 mg IV Q8H PRN PRN Reason: N/V unrelieved by Rob Last Admin: 02/06/17 22:24 Dose: 4 mg Tenofovir Disoproxil Fumarate (Viread) 300 mg PO QDAY [facility] Last Admin: 02/07/17 11:19 Dose: 300 mg Review of Systems All systems: negative Respiratory: cough with sputum, hemoptysis, shortness of breath Physical Examination Last Vital Signs Temp 99 F 02/08/17 07:40 Pulse 77 02/08/17 09:10 Resp 16 02/08/17 09:10 BP 140/76 02/08/17 07:40 Pulse Ox 96 02/08/17 08:55 General appearance: no acute distress HEENT: Positive: PERRL Neck: Positive: neck supple, trachea midline Cardiac: Positive: Reg Rate and Rhythm, S1/S2 Lungs: Positive: clear to auscultation Neuro: Positive: Grossly Intact, Cranial Nerve 2-12 Intact Abdomen: Positive: Unremarkable, Soft, Active Bowel Sounds. Negative: Tender Skin: Positive: Clear. Negative: Rash, Wound Musculoskeletal: No Fluid Collection, No Pain, Normal Range of Motion Extremities: Absent: edema Results 02/08/17 12:57 02/08/17 12:57 - Imaging and Cardiology Echo: report reviewed EKG: report reviewed, image reviewed EKG interpretations - Telemetry EKG Rhythm: Sinus Rhythm - EKG Sinus rhythms and dysrhythmias: sinus tachycardia Repolarization changes or abnormalities: nonspecific abnormality, ST segment, and/or T wave Assessment and Plan Assessment: Moderate pericardial effusion PNA / sepsis Saddle PE, s/p EKOS - on Eliquis HIV HTN HLP COPD Anemia Ileus Hypokalemia STACEY on ? CKD Plan: Currently stable cardiac status. Cont present cardiac management. Attempt to obtain [facility] records. Repeat BMP in AM. Assessment and plan reviewed with pt at bedside. The patient has been seen in conjunction with Dr. Rivas who agrees with the assessment and plan of care.
--- NOTE | 2017-02-08 12:05 | Consultation ---
Past History Past Medical History: COPD, hypertension, hyperlipidemia, pulmonary embolism, other (HIV, CHF) Past Surgical History: Other (Bilateral pulmonary angiography. Placement and removal of Ekos catheter on 01/07/17) Social history: single Family history: hypertension Medications and Allergies Allergies Allergy/AdvReac Type Severity Reaction Status Date / Time No Known Allergies Allergy Verified 01/06/17 12:26 Home Medications Medication Instructions Recorded Confirmed Last Taken Type Aspirin EC [Aspirin Enteric Coated 81 mg PO QDAC 01/07/17 01/25/17 01/05/17 History TAB] AtorvaSTATin [Lipitor] 40 mg PO QHS 01/07/17 01/25/17 01/05/17 History Efavirenz/Emtricitab/Tenofovir 1 each PO QDAY #0 01/07/17 01/25/17 01/05/17 History [Atripla Tablet] Escitalopram Oxalate [Lexapro] 20 mg PO DAILY 01/07/17 01/25/17 01/05/17 History ISOSORBIDE MONOnitrate [Imdur ER] 30 mg PO DAILY 01/07/17 01/25/17 01/05/17 History Metoprolol Xl [Metoprolol 50 mg PO DAILY 01/07/17 01/25/17 01/05/17 History SUCCINATE ER TAB] Proventil 0.083% NEBS 0.083 container INHALATION Q6HR PRN 01/07/17 01/25/1702/14 History Symbicort 160-4.5 (Nf) 160 device INHALATION BID 01/07/17 01/25/17 01/05/17 History Apixaban [Eliquis] 5 mg PO BID #60 tablet 01/09/17 01/25/17 Unknown Rx Famotidine [Pepcid] 20 mg PO BID #60 tablet 01/09/17 01/25/17 Unknown Rx Active Meds: Active Medications Acetaminophen (Tylenol) 650 mg PO Q4H PRN PRN Reason: Pain MILD(1-3)/Fever >100.5/[place] Last Admin: 02/03/17 15:28 Dose: 650 mg Albuterol (Proventil) 2.5 mg IH Q6HRT PRN PRN Reason: Dyspnea Last Admin: 02/03/17 05:39 Dose: 2.5 mg Apixaban (Eliquis) 5 mg PO BID [facility] PRN Reason: Protocol Last Admin: 02/07/17 23:22 Dose: 5 mg Arformoterol Tartrate (Brovana Nebu) 15 mcg IH Q12HRT [facility] Last Admin: 02/08/17 08:54 Dose: 15 mcg Atorvastatin Calcium (Lipitor) 40 mg PO QHS [facility] Last Admin: 02/07/17 23:22 Dose: 40 mg Benzonatate (Tessalon Perles) 100 mg PO Q8HR [facility] Last Admin: 02/08/17 06:21 Dose: 100 mg Bisacodyl (Dulcolax) 10 mg [place] QDAY PRN PRN Reason: Constipation unrelieved by MOM Budesonide (Pulmicort) 0.5 mg IH Q12HRT [facility] Last Admin: 02/08/17 08:55 Dose: 0.5 mg Efavirenz (Sustiva) 600 mg PO QDAY [facility] Last Admin: 02/07/17 11:16 Dose: 600 mg Emtricitabine (Emtriva) 200 mg PO QDAY [facility] Last Admin: 02/07/17 11:19 Dose: 200 mg Escitalopram Oxalate (Lexapro) 20 mg PO DAILY [facility] Last Admin: 02/07/17 11:17 Dose: 20 mg Famotidine (Pepcid) 20 mg PO BID [facility] Last Admin: 02/07/17 23:22 Dose: 20 mg Hydralazine HCl (Apresoline) 10 mg IV Q6H PRN PRN Reason: SBP>160 Last Admin: 01/30/17 17:32 Dose: 10 mg Metronidazole (Flagyl 500 Mg/100 Ml) 500 mg in 100 mls @ 100 mls/hr IV Q8HR [facility] Last Admin: 02/08/17 06:20 Dose: 100 mls/hr Meropenem 1,000 mg/ Sodium (Chloride) 100 mls @ 100 mls/hr IV Q8H [facility] PRN Reason: Protocol Last Admin: 02/08/17 07:37 Dose: 100 mls/hr Linezolid (Zyvox 600mg/300ml) 600 mg in 300 mls @ 300 mls/hr IV Q12HR [facility] PRN Reason: Protocol Last Admin: 02/08/17 00:00 Dose: 300 mls/hr Potassium Chloride/Sodium Chloride (Ns/Kcl 40meq) 40 meq in 1,000 mls @ 125 mls /hr IV DIRECT [facility] Last Admin: 02/07/17 23:31 Dose: 125 mls/hr Isosorbide Mononitrate (Imdur) 30 mg PO DAILY [facility] Last Admin: 02/07/17 11:17 Dose: 30 mg Magnesium Hydroxide (Milk Of Magnesia) 30 ml PO Q4H PRN PRN Reason: Constipation Metoprolol Succinate (Toprol Xl) 50 mg PO DAILY [facility] Last Admin: 02/07/17 11:18 Dose: 50 mg Morphine Sulfate (Morphine) 2 mg IV Q4H PRN PRN Reason: Pain, Moderate (4-6) Last Admin: 02/08/17 10:07 Dose: 2 mg Ondansetron HCl (Zofran) 4 mg IV Q8H PRN PRN Reason: N/V unrelieved by Rob Last Admin: 02/06/17 22:24 Dose: 4 mg Tenofovir Disoproxil Fumarate (Viread) 300 mg PO QDAY [facility] Last Admin: 02/07/17 11:19 Dose: 300 mg Exam Vital Signs Pulse Resp 113 H 12 01/24/17 21:42 01/24/17 21:42 Results - Labs 02/07/17 05:27 02/07/17 05:27 Assessment and Plan Hx as below: History of Present Illness Date of examination: 01/25/17 History of present illness: 56 year old man history of AIDS, CHF, hypertension, recent pulmonary emboli comes emergency room with complaint of left side pain. Saw his primary care physician who gave him a pain patch and ibuprofen but his pain was not controlled. He complaining of cough, hemoptysis, fever and chills. No night sweats, sick contacts Patient denies chest pain, palpitation, shortness of breath, abdominal pain, hematochezia, dysuria, frequency, focal weakness, dysarthria, polydipsia polyuria, hot or cold intolerance, easy bruisability, or rash or bleeding from mucosal membrane, rhinorrhea, epistaxis, earache, tinnitus, blurry vision, eye discharge, anxiety, depression. Other review of systems negative PAST SURGICAL HISTORY: None SOCIAL HISTORY: Quit smoking, no alcohol or drugs FAMILY HISTORY: Hypertension, diabetes called to see pt secondary to ileus noted on CT abd reviewed CT & Abd series with radiologist -- mild ileus, no evidence of SBO Pt feeling well today. +BM x 2 last night. Abd soft, non tender ileus could be secondary to 1- hypokalemia 2- pneumonia 3- pyelo? CT shows inflammatory changes around L kidney surgically stable no surgical intervention needed at this time will follow prn Laboratory Tests 02/07/17 02/07/17 05:27 05:27 WBC 9.3 Hgb 9.4 L Hct 27.6 L Potassium 3.2 L
--- NOTE | 2017-02-08 12:14 | Cat Scan Report ---
CT scan of abdomen and pelvis without IV contrast: Compared to 02/06/17. Findings: Bibasilar ill-defined densities being more pronounced on the left side probably related to discoid atelectasis/scarring and/or infiltrate. Moderate pericardial effusion. Minimal left pleural effusion. Liver spleen pancreas and gallbladder appears unremarkable. Normal adrenals. Perirenal stranding bilaterally. No calculi the kidney parenchyma. No hydronephrosis. Normal distended bladder. No free intraperitoneal fluid or air. No evidence of adenopathy. Thickening of the wall of the sigmoid with fluid level in the rectum. No significant distention of colon or small bowel. Impression: Lung findings as detailed above. Perirenal stranding probably related to poor renal function. No interval change. Thickening of the sigmoid wall probably related to partial decompression or proctocolitis.Colon less distended compared to previous study/ileus. No evidence of diverticulitis.
[2017-02-08] MEDS: VIREAD PO SCH (12:49)
[2017-02-08] MEDS: ZYVOX 600MG/300ML 600 MG/300 ML BAG IV SCH ×3 (12:49→22:36)
[2017-02-08] MEDS: ELIQUIS PO SCH ×2 (12:50→22:35)
[2017-02-08] MEDS: LEXAPRO PO SCH (12:50)
[2017-02-08] MEDS: PEPCID PO SCH ×2 (12:50→22:35)
[2017-02-08] MEDS: IMDUR PO SCH (12:51)
[2017-02-08] MEDS: TOPROL XL PO SCH (12:51)
[2017-02-08 13:21] LABS: Basophils % (Auto) 0.4 % (0.0-1.8); Eosinophils % (Auto) 0.8 % (0.0-4.3); Hematocrit 29.3 % (35.5-45.6); Hemoglobin 9.6 gm/dl (11.8-15.2); Mean Corpuscular HGB Conc 33 % (32-34); Mean Corpuscular Hemoglobin 31 pg (28-32); Mean Corpuscular Volume 95 fl (84-94); Platelet Count 553 K/mm3 (140-440); Red Blood Count 3.08 M/mm3 (3.65-5.03); White Blood Count 9.6 K/mm3 (4.5-11.0)
[2017-02-08 13:29] LABS: Calcium 7.8 mg/dL (8.4-10.2); Chloride 108.7 mmol/L (98-107); Potassium 3.6 mmol/L (3.6-5.0)
--- NOTE | 2017-02-08 13:32 | Progress Note ---
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 Abdominal pain, nausea and vomiting - Surgery has evaluated him and recommended conservative management - CT abdomen and pelvis suspect colitis - Patient is on Flagyl - Start him on clear liquid diet, advance as tolerated DVT prophylaxis Eliquis Disposition - Continue inpatient care History Interval history: Patient was seen and evaluated this morning, patient was nothing by mouth for CT abdomen. He has no nausea or vomiting. Hospitalist Physical - Physical exam Narrative exam: Not in cardiopulmonary distress. The patient appeared well nourished and normally developed. Vital signs as documented. Head exam is unremarkable. No scleral icterus . Neck is without jugular venous distension, thyromegaly, or carotid bruits. Lungs are clear to auscultation. Cardiac exam reveals regular rate and Rhythm. First and second heart sounds normal. No murmurs, rubs or gallops. Abdominal exam reveals normal bowel sounds, no masses, no organomegaly and no aortic enlargement. Extremities are nonedematous and both femoral and pedal pulses are normal. 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 No focal weakness. - Constitutional Vitals: Temp Pulse Resp BP Pulse Ox 99.2 F 77 15 161/80 96 02/08/17 12:15 02/08/17 12:15 02/08/17 12:15 02/08/17 12:15 02/08/17 08:55 General appearance: Present: no acute distress Results - Labs CBC & Chem 7: 02/08/17 12:57 02/07/17 05:27 Labs: Laboratory Last Values WBC 9.6 K/mm3 (4.5-11.0) 02/08/17 12:57 RBC 3.08 M/mm3 (3.65-5.03) L 02/08/17 12:57 Hgb 9.6 gm/dl (11.8-15.2) L 02/08/17 12:57 Hct 29.3 % (35.5-45.6) L 02/08/17 12:57 MCV 95 fl (84-94) H 02/08/17 12:57 MCH 31 pg (28-32) 02/08/17 12:57 MCHC 33 % (32-34) 02/08/17 12:57 RDW 15.0 % (13.2-15.2) 02/08/17 12:57 Plt Count 553 K/mm3 (140-440) H 02/08/17 12:57 Lymph % (Auto) 8.1 % (13.4-35.0) L 02/08/17 12:57 [place] % (Auto) 10.5 % (0.0-7.3) H 02/08/17 12:57 Eos % (Auto) 0.8 % (0.0-4.3) 02/08/17 12:57 Baso % (Auto) 0.4 % (0.0-1.8) 02/08/17 12:57 Lymph # 0.8 K/mm3 (1.2-5.4) L 02/08/17 12:57 [place] # 1.0 K/mm3 (0.0-0.8) H 02/08/17 12:57 Eos # 0.1 K/mm3 (0.0-0.4) 02/08/17 12:57 Baso # 0.0 K/mm3 (0.0-0.1) 02/08/17 12:57 Add Manual Diff Complete 01/26/17 05:45 Total Counted 100 01/26/17 05:45 Seg Neutrophils % 80.2 % (40.0-70.0) H 02/08/17 12:57 Seg Neuts % (Manual) 62.0 % (40.0-70.0) 01/26/17 05:45 Band Neutrophils % 29.0 % 01/26/17 05:45 Lymphocytes % (Manual) 6.0 % (13.4-35.0) L 01/26/17 05:45 Reactive Lymphs % (Man) 0 % 01/26/17 05:45 Monocytes % (Manual) 3.0 % (0.0-7.3) 01/26/17 05:45 Eosinophils % (Manual) 0 % (0.0-4.3) 01/26/17 05:45 Basophils % (Manual) 0 % (0.0-1.8) 01/26/17 05:45 Metamyelocytes % 0 % 01/26/17 05:45 Myelocytes % 0 % 01/26/17 05:45 Promyelocytes % 0 % 01/26/17 05:45 Blast Cells % 0 % 01/26/17 05:45 Nucleated RBC % 2.0 % (0.0-0.9) H 01/26/17 05:45 Seg Neutrophils # 7.7 K/mm3 (1.8-7.7) 02/08/17 12:57 Seg Neutrophils # Man 6.1 K/mm3 (1.8-7.7) 01/26/17 05:45 Band Neutrophils # 2.8 K/mm3 01/26/17 05:45 Abs Lymphs (Manual) 710 cells/uL (850-3900) L 01/31/17 20:35 Lymphocytes # (Manual) 0.6 K/mm3 (1.2-5.4) L 01/26/17 05:45 Abs React Lymphs (Man) 0.0 K/mm3 01/26/17 05:45 Monocytes # (Manual) 0.3 K/mm3 (0.0-0.8) 01/26/17 05:45 Eosinophils # (Manual) 0.0 K/mm3 (0.0-0.4) 01/26/17 05:45 Basophils # (Manual) 0.0 K/mm3 (0.0-0.1) 01/26/17 05:45 Metamyelocytes # 0.0 K/mm3 01/26/17 05:45 Myelocytes # 0.0 K/mm3 01/26/17 05:45 Promyelocytes # 0.0 K/mm3 01/26/17 05:45 Blast Cells # 0.0 K/mm3 01/26/17 05:45 WBC Morphology Not Reportable 01/26/17 05:45 Hypersegmented Neuts Not Reportable 01/26/17 05:45 Hyposegmented Neuts Not Reportable 01/26/17 05:45 Hypogranular Neuts Not Reportable 01/26/17 05:45 Smudge Cells Not Reportable 01/26/17 05:45 Toxic Granulation Not Reportable 01/26/17 05:45 Toxic Vacuolation Not Reportable 01/26/17 05:45 Dohle Bodies Not Reportable 01/26/17 05:45 Pelger-Huet Anomaly Not Reportable 01/26/17 05:45 Aylin Rods Not Reportable 01/26/17 05:45 Platelet Estimate Consistent w auto 01/26/17 05:45 Clumped Platelets Rare 01/26/17 05:45 Plt Clumps, EDTA Not Reportable 01/26/17 05:45 Large Platelets Not Reportable 01/26/17 05:45 Giant Platelets Not Reportable 01/26/17 05:45 Platelet Satelliting Not Reportable 01/26/17 05:45 Plt Morphology Comment Not Reportable 01/26/17 05:45 RBC Morphology Not Reportable 01/26/17 05:45 Dimorphic RBCs Not Reportable 01/26/17 05:45 Polychromasia Not Reportable 01/26/17 05:45 Hypochromasia Not Reportable 01/26/17 05:45 Poikilocytosis Not Reportable 01/26/17 05:45 Anisocytosis 1+ 01/26/17 05:45 Microcytosis Not Reportable 01/26/17 05:45 Macrocytosis Not Reportable 01/26/17 05:45 Spherocytes Not Reportable 01/26/17 05:45 Pappenheimer Bodies Not Reportable 01/26/17 05:45 Sickle Cells Not Reportable 01/26/17 05:45 Target Cells Not Reportable 01/26/17 05:45 Tear Drop Cells Not Reportable 01/26/17 05:45 Ovalocytes Not Reportable 01/26/17 05:45 Helmet Cells Not Reportable 01/26/17 05:45 [place] Bodies Not Reportable 01/26/17 05:45 [place] Rings Not Reportable 01/26/17 05:45 [place] Cells Few 01/26/17 05:45 Bite Cells Not Reportable 01/26/17 05:45 Crenated Cell Not Reportable 01/26/17 05:45 Elliptocytes Not Reportable 01/26/17 05:45 Acanthocytes (Spur) Not Reportable 01/26/17 05:45 Rouleaux Not Reportable 01/26/17 05:45 Hemoglobin C Crystals Not Reportable 01/26/17 05:45 Schistocytes Not Reportable 01/26/17 05:45 Malaria parasites Not Reportable 01/26/17 05:45 Donta Bodies Not Reportable 01/26/17 05:45 Hem Pathologist Commnt No 01/26/17 05:45 PT 26.5 Sec. (12.2-14.9) H 02/03/17 13:38 INR 2.30 (0.87-1.13) H 02/03/17 13:38 APTT 43.6 Sec. (24.2-36.6) H 02/03/17 13:38 POC ABG pH 7.411 (7.35-7.45) 01/30/17 22:34 POC ABG pCO2 25.0 (35-45) L 01/30/17 22:34 POC ABG pO2 57 (80-105) L 01/30/17 22:34 POC ABG HCO3 15.9 01/30/17 22:34 POC ABG Total CO2 17 01/30/17 22:34 POC ABG O2 Sat 90 01/30/17 22:34 POC ABG Base Excess -9 01/30/17 22:34 VBG pH 7.374 (7.320-7.420) 01/25/17 00:44 FiO2 70 % 01/30/17 22:34 Sodium 145 mmol/L (137-145) 02/07/17 05:27 Potassium 3.2 mmol/L (3.6-5.0) L 02/07/17 05:27 Chloride 109.9 mmol/L (98-107) H 02/06/17 06:14 Carbon Dioxide 25 mmol/L (22-30) 02/07/17 05:27 Anion Gap 17 mmol/L 02/06/17 06:14 BUN 18 mg/dL (9-20) 02/07/17 05:27 Creatinine 1.4 mg/dL (0.8-1.5) 02/07/17 05:27 Estimated GFR > 60 ml/min 02/07/17 05:27 BUN/Creatinine Ratio 12.85 % 02/07/17 05:27 Glucose 110 mg/dL (75-100) H 02/07/17 05:27 Osmolality 311 Mosm/kg 01/29/17 Unknown Lactic Acid 1.40 mmol/L (0.7-2.0) 01/28/17 11:56 Calcium 7.9 mg/dL (8.4-10.2) L 02/07/17 05:27 Phosphorus 3.10 mg/dL (2.5-4.5) 01/29/17 Unknown Magnesium 2.00 mg/dL (1.7-2.3) 02/07/17 05:27 Total Bilirubin 0.20 mg/dL (0.1-1.2) 01/30/17 04:10 Direct Bilirubin < 0.2 mg/dL (0-0.2) 01/27/17 12:15 AST 75 units/L (5-40) H 01/30/17 04:10 ALT 77 units/L (7-56) H 01/30/17 04:10 Alkaline Phosphatase 81 units/L (35-129) 01/30/17 04:10 Troponin T < 0.010 ng/mL (0.00-0.029) 01/25/17 03:15 Total Protein 6.7 g/dL (6.3-8.2) 01/30/17 04:10 Albumin 2.6 g/dL (3.9-5) L 01/30/17 04:10 Albumin/Globulin Ratio 0.6 % 01/30/17 04:10 Lipase 63 units/L (13-60) H 01/30/17 04:10 Urine Color Yellow (Yellow) 01/28/17 23:55 Urine Turbidity Clear (Clear) 01/28/17 23:55 Urine pH 5.0 (5.0-7.0) 01/28/17 23:55 Ur Specific [place] 1.019 (1.003-1.030) 01/28/17 23:55 Urine Protein 30 mg/dl mg/dL (Negative) 01/28/17 23:55 Urine Glucose (UA) Neg mg/dL (Negative) 01/28/17 23:55 Urine Ketones Neg mg/dL (Negative) 01/28/17 23:55 Urine Blood Sm (Negative) 01/28/17 23:55 Urine Nitrite Neg (Negative) 01/28/17 23:55 Urine Bilirubin Neg (Negative) 01/28/17 23:55 Urine Urobilinogen < 2.0 mg/dL (<2.0) 01/28/17 23:55 Ur Leukocyte Esterase Neg (Negative) 01/28/17 23:55 Urine WBC (Auto) 2.0 /HPF (0.0-6.0) 01/28/17 23:55 Urine RBC (Auto) 3.0 /HPF (0.0-6.0) 01/28/17 23:55 Uric Acid Crystals Few 01/28/17 23:55 Amorphous Crystals 1+ 01/28/17 23:55 Urine Mucus Few /HPF 01/28/17 23:55 Urine Eosinophils None seen (None Seen) 01/28/17 23:55 Urine Creatinine 124.4 mg/dL (0.1-20.0) H 01/28/17 23:56 Protein/Creatinin Ratio 0.56 01/28/17 23:55 Urine Sodium 51 mEq/L 01/28/17 23:55 Urine Total Protein 71 mg/dL (5-11.8) H 01/28/17 23:56 Vancomycin Trough 22.3 ug/mL (5.0-20.0) H 02/05/17 10:29 Lymph Enumerat CD4/CD8 0.82 (0.86-5.00) L 01/31/17 20:35 % CD3 Cells 74 % (57-85) 01/31/17 20:35 Absolute CD3 Count 524 cells/uL (840-3060) L 01/31/17 20:35 % CD4 Cells 34 % (30-61) 01/31/17 20:35 Absolute CD4 Count 237 cells/uL (490-1740) L 01/31/17 20:35 % CD8 Cells 41 % (12-42) 01/31/17 20:35 Absolute CD8 Count 289 cells/uL (180-1170) 01/31/17 20:35 % CD19 Cells 17 % (6-29) 01/31/17 20:35 Absolute CD19 Count 121 cells/uL (110-660) 01/31/17 20:35 Hepatitis A IgM Ab Non-reactive (NonReactive) 01/28/17 11:56 Hep Bs Antigen Non-reactive (Negative) 01/28/17 11:56 Hep B Core IgM Ab Non-reactive (NonReactive) 01/28/17 11:56 Hepatitis C Antibody Non-reactive (NonReactive) 01/28/17 11:56 TB (QFT) Gold In Tube Indeterminate (Negative) H 02/02/17 16:30 TB Test (QFT) Nil 0.07 IU/mL 02/02/17 16:30 TB Test Mitogen - Nil 0.16 IU/mL 02/02/17 16:30 TB Test Antigen - Nil 0.03 IU/mL 02/02/17 16:30 Blood Type B POSITIVE 01/24/17 22:07 Antibody Screen TNR 01/24/17 22:07 ALIDA Antibody Screen Negative 01/24/17 22:07
[2017-02-08] MEDS: NS/KCL 40MEQ 40 MEQ/1,000 ML BAG IV SCH (15:01)
[2017-02-08] MEDS: SUSTIVA PO SCH (15:02)
[2017-02-08] MEDS: EMTRIVA PO SCH (15:02)
[2017-02-08] MEDS: PROVENTIL IH PRN (15:48)
[2017-02-09] MEDS: MERREM 1,000 MG in NACL 0.9% 100 ML IV SCH ×3 (00:21→15:58)
[2017-02-09] MEDS: FLAGYL 500 MG/100 ML 500 MG/100 ML BAG IV SCH ×3 (05:39→22:25)
[2017-02-09] MEDS: TESSALON PERLES PO SCH ×3 (05:39→22:29)
[2017-02-09 06:56] LABS: Basophils % (Auto) 0.6 % (0.0-1.8); Eosinophils % (Auto) 0.9 % (0.0-4.3); Hematocrit 27.8 % (35.5-45.6); Hemoglobin 9.2 gm/dl (11.8-15.2); Mean Corpuscular HGB Conc 33 % (32-34); Mean Corpuscular Hemoglobin 31 pg (28-32); Mean Corpuscular Volume 95 fl (84-94); Platelet Count 525 K/mm3 (140-440); Red Blood Count 2.93 M/mm3 (3.65-5.03); Red Cell Distribution Width 14.7 % (13.2-15.2); White Blood Count 8.8 K/mm3 (4.5-11.0)
[2017-02-09 07:21] LABS: Anion Gap 13 mmol/L; BUN/Creatinine Ratio 10.76; Blood Urea Nitrogen 14 mg/dL (9-20); Calcium 7.7 mg/dL (8.4-10.2); Carbon Dioxide 29 mmol/L (22-30); Chloride 110.2 mmol/L (98-107); Glucose 107 mg/dL (75-100); Potassium 3.8 mmol/L (3.6-5.0); Sodium 148 mmol/L (137-145)
[2017-02-09] MEDS: MORPHINE IV PRN ×3 (07:33→22:25)
[2017-02-09] MEDS: PULMICORT IH SCH ×2 (07:51→20:15)
[2017-02-09] MEDS: BROVANA NEBU IH SCH ×2 (07:52→20:15)
[2017-02-09] MEDS: NS/KCL 40MEQ 40 MEQ/1,000 ML BAG IV SCH ×2 (09:35→19:32)
[2017-02-09] MEDS: ZYVOX 600MG/300ML 600 MG/300 ML BAG IV SCH ×2 (09:35→22:23)
[2017-02-09] MEDS: VIREAD PO SCH (09:36)
[2017-02-09] MEDS: LEXAPRO PO SCH (09:36)
[2017-02-09] MEDS: SUSTIVA PO SCH (09:37)
[2017-02-09] MEDS: IMDUR PO SCH (09:37)
[2017-02-09] MEDS: EMTRIVA PO SCH (09:37)
[2017-02-09] MEDS: ELIQUIS PO SCH ×2 (09:38→22:28)
[2017-02-09] MEDS: PEPCID PO SCH ×2 (09:38→22:28)
[2017-02-09] MEDS: TOPROL XL PO SCH (09:38)
--- NOTE | 2017-02-09 13:41 | Progress Note ---
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 - 7 Abdominal pain, nausea and vomiting - Surgery has evaluated him and recommended conservative management - CT abdomen and pelvis suspect colitis -Abdominal pain, nausea and vomiting subsided this morning. I will advance his diet to regular cardiac diet DVT prophylaxis Eliquis Disposition - If patient is tolerating his diet I will discharge him tomorrow. History Interval history: Patient was seen and evaluated this morning, patient's abdominal pain is subsided, patient didn't have any nausea or vomiting. Patient is able to tolerate by mouth. Hospitalist Physical - Physical exam Narrative exam: Not in cardiopulmonary distress. The patient appeared well nourished and normally developed. Vital signs as documented. Head exam is unremarkable. No scleral icterus . Neck is without jugular venous distension, thyromegaly, or carotid bruits. Lungs are clear to auscultation. Cardiac exam reveals regular rate and Rhythm. First and second heart sounds normal. No murmurs, rubs or gallops. Abdominal exam reveals normal bowel sounds, no masses, no organomegaly. Extremities are nonedematous and both femoral and pedal pulses are normal. 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 No focal weakness. - Constitutional Vitals: Temp Pulse Resp BP Pulse Ox 98.3 F 80 22 158/81 98 02/09/17 08:06 02/09/17 08:06 02/09/17 08:06 02/09/17 08:06 02/09/17 08:06 General appearance: Present: no acute distress Results - Labs CBC & Chem 7: 02/09/17 06:29 02/09/17 06:29 Labs: Laboratory Last Values WBC 8.8 K/mm3 (4.5-11.0) 02/09/17 06:29 RBC 2.93 M/mm3 (3.65-5.03) L 02/09/17 06:29 Hgb 9.2 gm/dl (11.8-15.2) L 02/09/17 06:29 Hct 27.8 % (35.5-45.6) L 02/09/17 06:29 MCV 95 fl (84-94) H 02/09/17 06:29 MCH 31 pg (28-32) 02/09/17 06: MCHC 33 % (32-34) 02/09/17 06:29 RDW 14.7 % (13.2-15.2) 02/09/17 06:29 Plt Count 525 K/mm3 (140-440) H 02/09/17 06:29 Lymph % (Auto) 9.6 % (13.4-35.0) L 02/09/17 06:29 [place] % (Auto) 11.0 % (0.0-7.3) H 02/09/17 06:29 Eos % (Auto) 0.9 % (0.0-4.3) 02/09/17 06:29 Baso % (Auto) 0.6 % (0.0-1.8) 02/09/17 06:29 Lymph # 0.8 K/mm3 (1.2-5.4) L 02/09/17 06:29 [place] # 1.0 K/mm3 (0.0-0.8) H 02/09/17 06:29 Eos # 0.1 K/mm3 (0.0-0.4) 02/09/17 06:29 Baso # 0.1 K/mm3 (0.0-0.1) 02/09/17 06:29 Add Manual Diff Complete 01/26/17 05:45 Total Counted 100 01/26/17 05:45 Seg Neutrophils % 77.9 % (40.0-70.0) H 02/09/17 06:29 Seg Neuts % (Manual) 62.0 % (40.0-70.0) 01/26/17 05:45 Band Neutrophils % 29.0 % 01/26/17 05:45 Lymphocytes % (Manual) 6.0 % (13.4-35.0) L 01/26/17 05:45 Reactive Lymphs % (Man) 0 % 01/26/17 05:45 Monocytes % (Manual) 3.0 % (0.0-7.3) 01/26/17 05:45 Eosinophils % (Manual) 0 % (0.0-4.3) 01/26/17 05:45 Basophils % (Manual) 0 % (0.0-1.8) 01/26/17 05:45 Metamyelocytes % 0 % 01/26/17 05:45 Myelocytes % 0 % 01/26/17 05:45 Promyelocytes % 0 % 01/26/17 05:45 Blast Cells % 0 % 01/26/17 05:45 Nucleated RBC % 2.0 % (0.0-0.9) H 01/26/17 05:45 Seg Neutrophils # 6.9 K/mm3 (1.8-7.7) 02/09/17 06:29 Seg Neutrophils # Man 6.1 K/mm3 (1.8-7.7) 01/26/17 05:45 Band Neutrophils # 2.8 K/mm3 01/26/17 05:45 Abs Lymphs (Manual) 710 cells/uL (850-3900) L 01/31/17 20:35 Lymphocytes # (Manual) 0.6 K/mm3 (1.2-5.4) L 01/26/17 05:45 Abs React Lymphs (Man) 0.0 K/mm3 01/26/17 05:45 Monocytes # (Manual) 0.3 K/mm3 (0.0-0.8) 01/26/17 05:45 Eosinophils # (Manual) 0.0 K/mm3 (0.0-0.4) 01/26/17 05:45 Basophils # (Manual) 0.0 K/mm3 (0.0-0.1) 01/26/17 05:45 Metamyelocytes # 0.0 K/mm3 01/26/17 05:45 Myelocytes # 0.0 K/mm3 01/26/17 05:45 Promyelocytes # 0.0 K/mm3 01/26/17 05:45 Blast Cells # 0.0 K/mm3 01/26/17 05:45 WBC Morphology Not Reportable 01/26/17 05:45 Hypersegmented Neuts Not Reportable 01/26/17 05:45 Hyposegmented Neuts Not Reportable 01/26/17 05:45 Hypogranular Neuts Not Reportable 01/26/17 05:45 Smudge Cells Not Reportable 01/26/17 05:45 Toxic Granulation Not Reportable 01/26/17 05:45 Toxic Vacuolation Not Reportable 01/26/17 05:45 Dohle Bodies Not Reportable 01/26/17 05:45 Pelger-Huet Anomaly Not Reportable 01/26/17 05:45 Aylin Rods Not Reportable 01/26/17 05:45 Platelet Estimate Consistent w auto 01/26/17 05:45 Clumped Platelets Rare 01/26/17 05:45 Plt Clumps, EDTA Not Reportable 01/26/17 05:45 Large Platelets Not Reportable 01/26/17 05:45 Giant Platelets Not Reportable 01/26/17 05:45 Platelet Satelliting Not Reportable 01/26/17 05:45 Plt Morphology Comment Not Reportable 01/26/17 05:45 RBC Morphology Not Reportable 01/26/17 05:45 Dimorphic RBCs Not Reportable 01/26/17 05:45 Polychromasia Not Reportable 01/26/17 05:45 Hypochromasia Not Reportable 01/26/17 05:45 Poikilocytosis Not Reportable 01/26/17 05:45 Anisocytosis 1+ 01/26/17 05:45 Microcytosis Not Reportable 01/26/17 05:45 Macrocytosis Not Reportable 01/26/17 05:45 Spherocytes Not Reportable 01/26/17 05:45 Pappenheimer Bodies Not Reportable 01/26/17 05:45 Sickle Cells Not Reportable 01/26/17 05:45 Target Cells Not Reportable 01/26/17 05:45 Tear Drop Cells Not Reportable 01/26/17 05:45 Ovalocytes Not Reportable 01/26/17 05:45 Helmet Cells Not Reportable 01/26/17 05:45 [place] Bodies Not Reportable 01/26/17 05:45 [place] Rings Not Reportable 01/26/17 05:45 [place] Cells Few 01/26/17 05:45 Bite Cells Not Reportable 01/26/17 05:45 Crenated Cell Not Reportable 01/26/17 05:45 Elliptocytes Not Reportable 01/26/17 05:45 Acanthocytes (Spur) Not Reportable 01/26/17 05:45 Rouleaux Not Reportable 01/26/17 05:45 Hemoglobin C Crystals Not Reportable 01/26/17 05:45 Schistocytes Not Reportable 01/26/17 05:45 Malaria parasites Not Reportable 01/26/17 05:45 Donta Bodies Not Reportable 01/26/17 05:45 Hem Pathologist Commnt No 01/26/17 05:45 PT 26.5 Sec. (12.2-14.9) H 02/03/17 13:38 INR 2.30 (0.87-1.13) H 02/03/17 13:38 APTT 43.6 Sec. (24.2-36.6) H 02/03/17 13:38 POC ABG pH 7.411 (7.35-7.45) 01/30/17 22:34 POC ABG pCO2 25.0 (35-45) L 01/30/17 22:34 POC ABG pO2 57 (80-105) L 01/30/17 22:34 POC ABG HCO3 15.9 01/30/17 22:34 POC ABG Total CO2 17 01/30/17 22:34 POC ABG O2 Sat 90 01/30/17 22:34 POC ABG Base Excess -9 01/30/17 22:34 VBG pH 7.374 (7.320-7.420) 01/25/17 00:44 FiO2 70 % 01/30/17 22:34 Sodium 148 mmol/L (137-145) H 02/09/17 06:29 Potassium 3.8 mmol/L (3.6-5.0) 02/09/17 06:29 Chloride 110.2 mmol/L (98-107) H 02/09/17 06:29 Carbon Dioxide 29 mmol/L (22-30) 02/09/17 06:29 Anion Gap 13 mmol/L 02/09/17 06:29 BUN 14 mg/dL (9-20) 02/09/17 06:29 Creatinine 1.3 mg/dL (0.8-1.5) 02/09/17 06:29 Estimated GFR > 60 ml/min 02/09/17 06:29 BUN/Creatinine Ratio 10.76 % 02/09/17 06:29 Glucose 107 mg/dL (75-100) H 02/09/17 06:29 Osmolality 311 Mosm/kg 01/29/17 Unknown Lactic Acid 1.40 mmol/L (0.7-2.0) 01/28/17 11:56 Calcium 7.7 mg/dL (8.4-10.2) L 02/09/17 06:29 Phosphorus 3.10 mg/dL (2.5-4.5) 01/29/17 Unknown Magnesium 2.00 mg/dL (1.7-2.3) 02/09/17 11:24 Total Bilirubin 0.20 mg/dL (0.1-1.2) 01/30/17 04:10 Direct Bilirubin < 0.2 mg/dL (0-0.2) 01/27/17 12:15 AST 75 units/L (5-40) H 01/30/17 04:10 ALT 77 units/L (7-56) H 01/30/17 04:10 Alkaline Phosphatase 81 units/L (35-129) 01/30/17 04:10 Troponin T < 0.010 ng/mL (0.00-0.029) 01/25/17 03:15 Total Protein 6.7 g/dL (6.3-8.2) 01/30/17 04:10 Albumin 2.6 g/dL (3.9-5) L 01/30/17 04:10 Albumin/Globulin Ratio 0.6 % 01/30/17 04:10 Lipase 63 units/L (13-60) H 01/30/17 04:10 Urine Color Yellow (Yellow) 01/28/17 23:55 Urine Turbidity Clear (Clear) 01/28/17 23:55 Urine pH 5.0 (5.0-7.0) 01/28/17 23:55 Ur Specific [place] 1.019 (1.003-1.030) 01/28/17 23:55 Urine Protein 30 mg/dl mg/dL (Negative) 01/28/17 23:55 Urine Glucose (UA) Neg mg/dL (Negative) 01/28/17 23:55 Urine Ketones Neg mg/dL (Negative) 01/28/17 23:55 Urine Blood Sm (Negative) 01/28/17 23:55 Urine Nitrite Neg (Negative) 01/28/17 23:55 Urine Bilirubin Neg (Negative) 01/28/17 23:55 Urine Urobilinogen < 2.0 mg/dL (<2.0) 01/28/17 23:55 Ur Leukocyte Esterase Neg (Negative) 01/28/17 23:55 Urine WBC (Auto) 2.0 /HPF (0.0-6.0) 01/28/17 23:55 Urine RBC (Auto) 3.0 /HPF (0.0-6.0) 01/28/17 23:55 Uric Acid Crystals Few 01/28/17 23:55 Amorphous Crystals 1+ 01/28/17 23:55 Urine Mucus Few /HPF 01/28/17 23:55 Urine Eosinophils None seen (None Seen) 01/28/17 23:55 Urine Creatinine 124.4 mg/dL (0.1-20.0) H 01/28/17 23:56 Protein/Creatinin Ratio 0.56 01/28/17 23:55 Urine Sodium 51 mEq/L 01/28/17 23:55 Urine Total Protein 71 mg/dL (5-11.8) H 01/28/17 23:56 Vancomycin Trough 22.3 ug/mL (5.0-20.0) H 02/05/17 10:29 Lymph Enumerat CD4/CD8 0.82 (0.86-5.00) L 01/31/17 20:35 % CD3 Cells 74 % (57-85) 01/31/17 20:35 Absolute CD3 Count 524 cells/uL (840-3060) L 01/31/17 20:35 % CD4 Cells 34 % (30-61) 01/31/17 20:35 Absolute CD4 Count 237 cells/uL (490-1740) L 01/31/17 20:35 % CD8 Cells 41 % (12-42) 01/31/17 20:35 Absolute CD8 Count 289 cells/uL (180-1170) 01/31/17 20:35 % CD19 Cells 17 % (6-29) 01/31/17 20:35 Absolute CD19 Count 121 cells/uL (110-660) 01/31/17 20:35 Hepatitis A IgM Ab Non-reactive (NonReactive) 01/28/17 11:56 Hep Bs Antigen Non-reactive (Negative) 01/28/17 11:56 Hep B Core IgM Ab Non-reactive (NonReactive) 01/28/17 11:56 Hepatitis C Antibody Non-reactive (NonReactive) 01/28/17 11:56 TB (QFT) Gold In Tube Indeterminate (Negative) H 02/02/17 16:30 TB Test (QFT) Nil 0.07 IU/mL 02/02/17 16:30 TB Test Mitogen - Nil 0.16 IU/mL 02/02/17 16:30 TB Test Antigen - Nil 0.03 IU/mL 02/02/17 16:30 Blood Type B POSITIVE 01/24/17 22:07 Antibody Screen TNR 01/24/17 22:07 ALIDA Antibody Screen Negative 01/24/17 22:07
[2017-02-10] MEDS: FLAGYL 500 MG/100 ML 500 MG/100 ML BAG IV SCH (05:43)
[2017-02-10] MEDS: TESSALON PERLES PO SCH ×2 (05:44→18:14)
[2017-02-10 08:54] LABS: Basophils % (Auto) 0.5 % (0.0-1.8); Eosinophils % (Auto) 1.1 % (0.0-4.3); Hematocrit 28.9 % (35.5-45.6); Hemoglobin 9.4 gm/dl (11.8-15.2); Mean Corpuscular HGB Conc 33 % (32-34); Mean Corpuscular Hemoglobin 31 pg (28-32); Mean Corpuscular Volume 95 fl (84-94); Platelet Count 515 K/mm3 (140-440); Red Blood Count 3.03 M/mm3 (3.65-5.03); Red Cell Distribution Width 14.7 % (13.2-15.2); White Blood Count 7.9 K/mm3 (4.5-11.0)
[2017-02-10] MEDS: BROVANA NEBU IH SCH (09:00)
[2017-02-10] MEDS: PULMICORT IH SCH (09:00)
[2017-02-10 09:19] LABS: Anion Gap 15 mmol/L; BUN/Creatinine Ratio 9.23; Blood Urea Nitrogen 12 mg/dL (9-20); Carbon Dioxide 26 mmol/L (22-30); Chloride 110.9 mmol/L (98-107); Glucose 107 mg/dL (75-100); Potassium 4.2 mmol/L (3.6-5.0); Sodium 148 mmol/L (137-145)
--- NOTE | 2017-02-10 09:45 | Discharge Summary ---
Providers - Providers Date of Admission: 01/25/17 01:52 Date of discharge: 02/10/17 Attending physician: LUKE SO MD 01/25/17 12:11 Consult to Physician [CONS] Stat Consulting Provider: SHAYNA MARTINEZ Reason For Exam: Sepsis Place consult to:: Cell number Notified:: Dr. Brandon Parker Phone number called:: [phone] Was contact made?: Yes If yes, spoke with:: Dr. Brandon Parker Time called:: 12:19 01/28/17 09:42 Consult to Physician [CONS] Routine Consulting Provider: CARITO NORRIS Reason For Exam: stacey Place consult to:: DR NORRIS Notified:: DR NORRIS Phone number called:: [phone] 02/07/17 11:54 Consult to Physician [CONS] Routine Consulting Provider: CELIA HARMAN Reason For Exam: Ileus Place consult to:: Dr. Harman Notified:: office Phone number called:: Was contact made?: Yes Time called:: 15:43 02/07/17 12:02 Consult to Physician [CONS] Routine Consulting Provider: KEHINDE FREGOSO Reason For Exam: pericardial effusion and fevers Place consult to:: Neftali BASSETT Notified:: office Phone number called:: [phone] Was contact made?: Yes If yes, spoke with:: nicolette Time called:: 15:49 02/08/17 12:54 Physical Therapy Evaluation and Treat [CONS] Routine Comment: Reason For Exam: generalized weakness Primary care physician: TRUSS PULLER HELPER Hospitalization Condition: Stable Hospital course: Sepsis secondary MELVINA Aspiration Pneumonitis, Cavitary cavitory lesion - Bronchial washing AFB negative - Treated with IV antibiotics and resolved STACEY most likely vasomotor nephropathy - Treated with IV fluids - Resolved AIDS/HIV - Continue his ART - Will follow with his ID as an O/P Hypertension - Controlled and will continue his home medications Moderate protein calorie malnutrition: - dietary consulted and implemented as inpatient and advised what to do at home. Pulmonary embolism-Saddle: - on Eliquis continue, stable. Hemoptysis -resolved Transaminitis - Resolved Abdominal pain, nausea and vomiting - Surgery consulted and recommend conservative management, resolved. - Tolerated diet. Patient was hemodynamically stable with temp discharge, his medications were reviewed and updated. Patient's questions and concerns were addressed at the bedside. Disposition: [id number] HOME UNDER HOME [facility] Time spent for discharge: 31 minutes - Discharge Diagnoses (1) Acute renal failure (ARF) Status: Acute Qualifiers: Acute renal failure type: A (2) Febrile Status: Acute Qualifiers: Fever type: F Encounter type: E (3) HIV (human immunodeficiency virus infection) Status: Acute (4) Hemoptysis Status: Acute (5) Left upper lobe pneumonia Status: Acute Qualifiers: Pneumonia type: due to unspecified organism Aspiration pneumonia type: A Qualified Code(s): J18.1 - Lobar pneumonia, unspecified organism (6) Pulmonary emboli Status: Acute Qualifiers: Pulmonary embolism type: saddle Chronicity: acute Acute cor pulmonale presence: A Core Measure Documentation - Palliative Care Palliative Care/ Comfort Measures: Not Applicable - Core Measures Any of the following diagnoses?: history only (PE) Exam - Physical Exam Narrative exam: Not in cardiopulmonary distress. The patient appeared well nourished and normally developed. Vital signs as documented. Head exam is unremarkable. No scleral icterus . Neck is without jugular venous distension, thyromegaly, or carotid bruits. Lungs are clear to auscultation. Cardiac exam reveals regular rate and Rhythm. First and second heart sounds normal. No murmurs, rubs or gallops. Abdominal exam reveals normal bowel sounds, no masses, no organomegaly. Extremities are nonedematous and both femoral and pedal pulses are normal. OFFICER CAPTAIN: Alert and oriented 3. No focal weakness. - Constitutional Vitals: Temp Pulse Resp BP Pulse Ox 98.8 F 80 20 153/83 100 02/10/17 08:00 02/10/17 08:00 02/10/17 08:00 02/10/17 08:00 02/10/17 08:00 Plan Activity: no restrictions Weight Bearing Status: Full Weight Bearing Diet: low cholesterol, low salt Follow up with: PRIMARY MD LEO [Primary Care Provider] - 3-5 Days Prescriptions: Linezolid 600 mg PO BID #10 tablet metroNIDAZOLE [Flagyl TAB] 500 mg PO Q8HR #15 tablet Ondansetron [Zofran ODT TAB] 4 mg PO Q8HR #12 tab.noemy
[2017-02-10] MEDS: ZOFRAN IV PRN (09:58)
[2017-02-10] MEDS: LEXAPRO PO SCH (11:27)
[2017-02-10] MEDS: ELIQUIS PO SCH (11:28)
[2017-02-10] MEDS: PEPCID PO SCH (11:28)
[2017-02-10] MEDS: IMDUR PO SCH (11:29)
[2017-02-10] MEDS: TOPROL XL PO SCH (11:29)
[2017-02-10] MEDS: EMTRIVA PO SCH (11:33)
[2017-02-10] MEDS: VIREAD PO SCH (11:34)
[2017-02-10] MEDS: SUSTIVA PO SCH (11:34)
[2017-02-10] MEDS: ZYVOX 600MG/300ML 600 MG/300 ML BAG IV SCH (12:00)
[2017-02-10] MEDS: MORPHINE IV PRN (12:08)
[2017-02-10] MEDS ORDERED: FLAGYL PO SCH (14:00)
[2017-02-10 15:48] VITALS: BP 124/69
== END 2017-02-10 16:25 | disposition home health service (06) | DRG 974 ==
LOC: ED 21:16 → 4A 01-25 01:52 → 3A 01-31 18:36
PROVIDERS: ADMIT Internal Medicine; ATTEND Internal Medicine
PROC: 5A09457 Assistance with Respiratory Ventilation, 24-96 Consecutive Hours, Continuous Positive Airway Pressure (ICD-10-PCS; 2017-01-30)
PROC: 4A033R1 Measurement of Arterial Saturation, Peripheral, Percutaneous Approach (ICD-10-PCS; 2017-01-30)
PROC: 0B988ZX Drainage of Left Upper Lobe Bronchus, Via Natural or Artificial Opening Endoscopic, Diagnostic (ICD-10-PCS; principal; 2017-02-04)
DX: B20 Human immunodeficiency virus [HIV] disease (principal); A41.9 Sepsis, unspecified organism; I26.99 Other pulmonary embolism without acute cor pulmonale; J69.0 Pneumonitis due to inhalation of food and vomit; N17.0 Acute kidney failure with tubular necrosis; J96.00 Acute respiratory failure, unspecified whether with hypoxia or hypercapnia; E44.0 Moderate protein-calorie malnutrition; Z68.23 Body mass index [BMI] 23.0-23.9, adult; E87.6 Hypokalemia; E87.0 Hyperosmolality and hypernatremia; I11.0 Hypertensive heart disease with heart failure; I50.9 Heart failure, unspecified; J44.9 Chronic obstructive pulmonary disease, unspecified; F32.9 Major depressive disorder, single episode, unspecified; D63.8 Anemia in other chronic diseases classified elsewhere; K21.9 Gastro-esophageal reflux disease without esophagitis; Z79.01 Long term (current) use of anticoagulants; Z82.49 Family history of ischemic heart disease and other diseases of the circulatory system; Z79.82 Long term (current) use of aspirin; Z83.3 Family history of diabetes mellitus; Z87.891 Personal history of nicotine dependence
CPT/HCPCS: 36415; 36600; 71010; 71275; 74000; 74176; 74177; 76770; 80048; 80053; 80074; 80202; 81001; 82024; 82140; 82164; 82570; 82803; 82805; 83690; 83735; 83930; 84100; 84156; 84300; 84484; 85007; 85025; 85027; 85610; 85730; 86403; 86850; 86900; 86901; 87040; 87070; 87102; 87116; 87205; 87220; 89050; 93005; 93010; 93306; 94640; 94660; 94760; 96365; 96366; 96367; 96375; 96376; A9270-GY; J0171; J0360; J0456; J0692; J0696; J1170; J1940; J2020; J2185; J2270; J2405; J2543; J2704; J3370; J7030; J7040; J7050; Q9967